=== PATIENT | female | born 1945 | race Caucasian/White ===

== ENCOUNTER 2017-03-06 21:15 | Inpatient (IN) | payer MEDICARE ==
[~2017-03-06] VITALS: Ht 163.8 cm; Wt 77.3 kg
--- NOTE | 2017-03-06 21:38 | PHYS DOC ---
Past History Past Medical History: Diabetes, High Cholesterol Additional Past Medical Histor: Schizphrenia Social History Narrative: Resides at [facility]; PCP Dr Herman Adult General HPI HPI Patient is a 71 year old female who presents with medical clearance and evaluation for psychiatric admission. She resides at a assisted where she has known schizophrenia but apparently has been more paranoid. She was having Disruptive behavior at the [facility]. She arrives in no distress presently and with no complaints. Review of Systems Review of Systems Constitutional: Denies fever or chills HENT: Denies nasal congestion or sore throat Respiratory: Denies cough or shortness of breath Cardiovascular: No chest pain GI: Denies abdominal pain, nausea, vomiting, bloody stools or diarrhea : Denies dysuria or hematuria Musculoskeletal: Denies back pain or joint pain Integument: Denies rash or skin lesions Neurologic: Denies headache, focal weakness or sensory changes Physical Exam Physical Exam Constitutional: Well developed, well nourished, no acute distress, non-toxic appearance. HENT: Normocephalic, atraumatic, bilateral external ears normal, oropharynx moist, no oral exudates, nose normal. Eyes: PERRLA, EOMI, conjunctiva normal, no discharge. Neck: Normal range of motion, no tenderness, supple, no stridor. Cardiovascular:Heart rate regular rhythm, no murmur Lungs & Thorax: Bilateral breath sounds clear to auscultation Abdomen: Bowel sounds normal, soft, no tenderness, no masses, no pulsatile masses. Skin: Warm, dry, no erythema, no rash. Back: No tenderness, no CVA tenderness. Extremities: No tenderness, no cyanosis, no clubbing, ROM intact, no edema. Neurologic: Alert and oriented X 3, normal motor function, normal sensory function, no focal deficits noted. Psychologic: Affect normal, judgement normal, mood normal. Current Patient Data Vital Signs Vital Signs Date Time Temp Pulse Resp B/P (MAP) Pulse Ox O2 Delivery O2 Flow Rate FiO2 03/07/17 00:57 97.6 69 20 148/77 (100) 94.0 Lab Results Laboratory Tests Test 03/06/17 21:30 03/06/17 21:35 White Blood Count 8.5 x10^3/uL Red Blood Count 5.04 x10^6/uL Hemoglobin 14.3 g/dL Hematocrit 43.3 % Mean Corpuscular Volume 86 fL Mean Corpuscular Hemoglobin 28 pg Mean Corpuscular Hemoglobin Concent 33 g/dL Red Cell Distribution Width 14.7 % Platelet Count 166 x10^3/uL Neutrophils (%) (Auto) 65 % Lymphocytes (%) (Auto) 26 % Monocytes (%) (Auto) 8 % Eosinophils (%) (Auto) 1 % Basophils (%) (Auto) 0 % Neutrophils # (Auto) 5.5 x10^3uL Lymphocytes # (Auto) 2.2 x10^3/uL Monocytes # (Auto) 0.7 x10^3/uL Eosinophils # (Auto) 0.1 x10^3/uL Basophils # (Auto) 0.0 x10^3/uL Sodium Level 141 mmol/L Potassium Level 3.8 mmol/L Chloride Level 101 mmol/L Carbon Dioxide Level 31 mmol/L Anion Gap 9 Blood Urea Nitrogen 21 mg/dL Creatinine 1.1 mg/dL Estimated GFR (Cockcroft-Gault) 49.0 BUN/Creatinine Ratio 19 Glucose Level 105 mg/dL Calcium Level 9.6 mg/dL Magnesium Level 1.9 mg/dL Total Bilirubin 0.4 mg/dL Aspartate Amino Transf (AST/SGOT) 16 U/L Alanine Aminotransferase (ALT/SGPT) 24 U/L Alkaline Phosphatase 93 U/L Creatine Kinase 51 U/L Total Protein 7.5 g/dL Albumin 3.3 g/dL Albumin/Globulin Ratio 0.8 Urine Collection Type U cath Urine Color Yellow Urine Clarity Hazy Urine pH 6.5 Urine Specific [place] 1.020 Urine Protein Neg Urine Glucose (UA) Neg mg/dL Urine Ketones (Stick) Neg mg/dL Urine Blood Neg Urine Nitrite Neg Urine Bilirubin Neg Urine Urobilinogen Dipstick 0.2 mg/dL Urine Leukocyte Esterase Neg Urine RBC 1-2 /HPF Urine WBC 1-4 /HPF Urine Squamous Epithelial Cells Many /LPF Urine Bacteria Mod /HPF EKG EKG EKG interpretation: NSR, Rate 76, no STEMI; no acute ST changes Course & Med Decision Making Course & Med Decision Making Pertinent Labs and Imaging studies reviewed. (See chart for details) Chin evaluated with no evidence of acute physiologic event that might be precipitating her flare of psychosis. She does comment that "everyone here has radio in their ears" but that is actually a fact. And very appropriate and pleasant here. Patient transferred for psychiatric hospitalization. Dragon Disclaimer Dragon Disclaimer This chart was dictated in whole or in part using Voice Recognition software in a busy, high-work load, and often noisy Emergency Department environment. It may contain unintended and wholly unrecognized errors or omissions. Departure Departure: Impression: Primary Impression: Psychosis Additional Impression: Disruptive behavior Disposition: 65 XFER TO PSYCH HOSP/UNIT Condition: GOOD Referrals: PCP,NO (PCP) Problem Qualifiers ALLAN MCKEON MD March 06, 2017 21:38
[2017-03-06] MEDS ORDERED: ARIP400S IM (21:56)
[2017-03-06] MEDS ORDERED: ASPI-630 PO (21:57)
[2017-03-06] MEDS ORDERED: ATOR20TA58 PO (21:58)
[2017-03-06 21:59] LABS: BASO % 0 % (0-3); EOS # 0.1 x10^3/uL (0.0-0.7); EOS % 1 % (0-3); HEMATOCRIT 43.3 % (36.0-47.0); HEMOGLOBIN 14.3 g/dL (12.0-15.5); LYMPH # 2.2 x10^3/uL (1.0-4.8); LYMPH % 26 % (24-48); MEAN CORPUSCULAR HEMOGLOBIN 28 pg (25-35); MEAN CORPUSCULAR HGB CONC 33 g/dL (31-37); MEAN CORPUSCULAR VOLUME 86 fL (79-100); MONO # 0.7 x10^3/uL (0.0-1.1); MONO % 8 % (0-9); NEUT # 5.5 x10^3uL (1.8-7.7); NEUT % 65 % (31-73); PLATELET COUNT 166 x10^3/uL (140-400); RED BLOOD COUNT 5.04 x10^6/uL (3.50-5.40); RED CELL DISTRIBUTION WIDTH 14.7 % (11.5-14.5); WHITE BLOOD COUNT 8.5 x10^3/uL (4.0-11.0)
[2017-03-06] MEDS ORDERED: CALC-58 PO (22:01)
[2017-03-06] MEDS ORDERED: GLUC500T10 PO (22:03)
[2017-03-06] MEDS ORDERED: GLIP5TAB10 PO (22:03)
[2017-03-06] MEDS ORDERED: HALO1TAB PO (22:04)
[2017-03-06] MEDS ORDERED: HYDR25TA9 PO (22:05)
[2017-03-06] MEDS ORDERED: MIRT15TA3 PO (22:06)
[2017-03-06] MEDS ORDERED: TRAZ50TA15 PO (22:07)
[2017-03-06] MEDS ORDERED: [UNRECOGNIZED DRUG - OTHER] TOP (22:09)
[2017-03-06] MEDS ORDERED: MAGN2400 PO (22:11)
[2017-03-06 22:12] LABS: ALBUMIN 3.3 g/dL (3.4-5.0); ALBUMIN/GLOBULIN RATIO 0.8 (1.0-1.7); CALCIUM 9.6 mg/dL (8.5-10.1); CREATININE 1.1 mg/dL (0.6-1.0); MAGNESIUM 1.9 mg/dL (1.8-2.4); POTASSIUM 3.8 mmol/L (3.5-5.1); TOTAL BILIRUBIN 0.4 mg/dL (0.2-1.0); TOTAL PROTEIN 7.5 g/dL (6.4-8.2)
[2017-03-06] MEDS ORDERED: BISA5TAB4 PO (22:13)
[2017-03-06] MEDS ORDERED: NA P133E2 RC (22:15)
[2017-03-06] MEDS ORDERED: ACET500T68 PO (22:16)
[2017-03-06] MEDS ORDERED: POLY15DR27 OU (22:17)
[2017-03-06] MEDS ORDERED: DOCU100C28 PO (22:18)
[2017-03-06] MEDS ORDERED: LORA0.5T PO (22:19)
[2017-03-06] MEDS ORDERED: LORA10TA3 PO (22:19)
[2017-03-06] MEDS ORDERED: POLY17PO3 PO (22:21)
[2017-03-06] MEDS ORDERED: LORA2VIA IM (22:21)
[2017-03-06] MEDS ORDERED: MINE396O2 TP (22:23)
[2017-03-06 22:24] LABS: BILIRUBIN,URINE NEG (NEG); CLARITY,URINE HAZY; COLOR,URINE YELLOW; GLUCOSE,URINE NEG (NEG)
[2017-03-06] MEDS ORDERED: MENT118G TP (22:24)
[2017-03-06 22:25] LABS: BACTERIA,URINE MOD /HPF (0-FEW); NITRITE,URINE NEG (NEG); SQUAMOUS EPITHELIAL CELL,UR MANY /LPF; UROBILINOGEN,URINE 0.2 mg/dL (0.2 mg/dL)
[2017-03-06] MEDS ORDERED: HALO5AMP IM (22:25)
--- NOTE | 2017-03-07 00:40 | NUR ---
Pt arrived to floor via gurney, accompanied by EMS and ASSISTANT PROFESSOR OF ANTHROPOLOGY. Pt admitted to Dr. Bales with Dx: Schizophrenia, Acute Psychosis. Pt alert, oriented to name, , time, forgetful as to place and situation. LSCTA, HRRR, abdomen soft, non-tender with positive BS. Pt reports hx of constipation but states her last BM was 03/06. Pt wears glasses, does not have hearing aids or dentures. Denies pain at this time. Skin C/D/I with some redness noted under breasts and abdominal folds. Pt oriented to room, bed in low position w/wheels locked and bed alarm in use.
[2017-03-07] MEDS ORDERED: MAG HYDROX/AL HYDROX/SIMETH 30 ML ORAL.SUSP PO PRN (00:45)
[2017-03-07] MEDS ORDERED: MAGNESIUM HYDROXIDE 2,400 MG/30 ML ORAL.SUSP. PO PRN (00:45)
[2017-03-07] MEDS ORDERED: METHYL SALICYLATE/MENTHOL TOPICAL OINTMENT 29GM TUBE. TP PRN (00:45)
[2017-03-07] MEDS ORDERED: ACETAMINOPHEN 325 MG TABLET PO PRN (00:45)
[2017-03-07 00:57] VITALS: BP 148/77
[2017-03-07] MEDS ORDERED: LORazepam 0.5 MG TABLET PO PRN (01:00)
[2017-03-07 05:52] VITALS: BP 118/61
--- NOTE | 2017-03-07 06:32 | EKG ---
[address] [address] Test Date: 2017-03-06 Test Time: 21:49:30 Pat Name: OVI FOWLER Department: Room: [address] [place] [address] Gender: F [employer] Consultant: : 1945 Requested By: ALLAN MCKEON Order Number: [id number] Reading MD: Christian Jackson Measurements Intervals [place] Rate: 76 P: 55 CO: 172 QRS: 34 QRSD: 76 T: 62 QT: 372 QTc: 418 Interpretive Statements SINUS RHYTHM Electronically Signed On 03-07-2017 10:54:30 CDT by Christian Jackson
[2017-03-07] MEDS ORDERED: NON FORMULARY ITEM (Menthol (Biofreeze) 1 APP) TP PRN (07:45)
[2017-03-07] MEDS ORDERED: POLYVINYL ALCOHOL 1.4% OPHTH SOLUTION 15ML BOTTLE. OU PRN (07:45)
[2017-03-07] MEDS ORDERED: NON FORMULARY ITEM (Magnesium Hydroxide (Milk Of Magnesia) 30 ML) PO PRN (07:45)
[2017-03-07] MEDS ORDERED: BISACODYL TAB 5 MG TABLET.DR. PO PRN (07:45)
[2017-03-07] MEDS ORDERED: DOCUSATE SODIUM 100 MG CAPSULE PO PRN (07:45)
[2017-03-07] MEDS ORDERED: ACETAMINOPHEN 500 MG TABLET PO PRN (07:45)
[2017-03-07] MEDS: GLUCOSAMINE 500 MG CAPSULE PO SCH ×2 (08:13→20:14)
[2017-03-07] MEDS: glipiZIDE 5 MG TABLET PO SCH (08:13)
[2017-03-07] MEDS: ASPIRIN 81 MG TAB.CHEW PO SCH (08:14)
[2017-03-07] MEDS: CALCIUM CARB/VIT D3 500/200 TABLET PO SCH ×2 (08:14→17:03)
[2017-03-07] MEDS: hydroCHLOROthiazide 25 MG TABLET PO SCH (08:14)
[2017-03-07] MEDS: POLYETHYLENE GLYCOL 3350 17 GM PACKET. PO SCH (08:14)
[2017-03-07] MEDS ORDERED: MINERAL OIL/PETROLATUM TOPICAL CREAM 113GM JAR. TP PRN ×2 (08:15→14:45)
[2017-03-07] MEDS ORDERED: APP TOP SCH (09:00)
[2017-03-07] MEDS ORDERED: HALOPERIDOL 1 MG TABLET PO SCH (09:00)
[2017-03-07] MEDS ORDERED: NON FORMULARY ITEM (Aripiprazole (Abilify Maintena) 400 MG) IM SCH (09:00)
--- NOTE | 2017-03-07 12:17 | NUR ---
SW met with pt one on one outside today; pt states she is here because no one believes her. Pt states there are listening devices and they are currently listening to our conversation, she reports two people. Pt stated names, however was mumbling SW unable to machine operator hop picker on the names. Pt very tearful as she talked, pt has a flat affect during conversation, pt made no eye contact and looked straight ahead during the entire conversation. SW asked about where pt is from, pt reports [place] in , she states she has been there for a year prior to this she was at [facility] for a year. Pt reports she doesn't remember why or where she was prior to this. Pt states she has a son and her son is unable to call up to the unit "if he calls, he will be killed, I mean literally cut to pieces." Pt changed topics as soon as she finished sentence to the weather being windy. SW will reach out to pt DPOA regarding historical information. SW will meet with pt one on one as well as encourage her to participate in group activities.
--- NOTE | 2017-03-07 13:43 | NUR ---
SW GROUP NOTE TITLE: Popsicles! ACTIVITY: Pt. chose a color of foam, cut out in the shape of a popsicle, and given a wooden stick. Pts. decorated using foam stickers, markers and glitter. Pt's reminisced about popsicles as a kid. Also discussed how arts and crafts help w/relaxation and therapeutic direction/expression. TARGET BEHAVIOR: Reminisce, directed focus, social skills, creative expression DURATION: 1 hour RESPONSE: actively participated, but did not speak to the other group participants and only spoke to SW when asked a question.
--- NOTE | 2017-03-07 14:00 | NUR ---
THERAPEUTIC RECREATION GROUP NOTE TITLE :Dance and Sing along with Viky ACTIVITY : Music GOAL : Increase socialization, elevate mood, stimulate memory DURATION : 60 Minutes RESPONSE : Minimal participation. Pt. sat with the group the entire time. She occasionally tapped foot along with the songs but did not sing
[2017-03-07 14:47] LABS: THYROID STIM HORMONE (TSH) 4.761 uIU/mL (0.358-3.740)
--- NOTE | 2017-03-07 15:01 | NUR ---
Behavior Intervention Response and Plan: BIRP Note: Behavior: Assumed Care of patient, patient located in Dining Room at shift change. Patient exhibited the following behavior Restless, Disorganized, Cooperative. Brief assessment on rounds of vital signs, medication needs, lab studies, and pain. Treatment plan problems 1 & 2. Intervention: Patient assessed and the following interventions initiated safety checks 15 Minute Checks Cognitive Assessment , Head to toe Assessment , Medications. Response: After interactions and interventions patient responded in the following manner, Calm , Appropriate ,Compliant. Continue to assess behaviors and condition will continue to monitor throughout the shift as needed. Plan: Continue to monitor Master Treatment Plan for patient's progress toward short term goals of Decreased Agitation, Medication Compliance, supervisor intermediates goals to return to previous living setting vs placement. Continue to assess patient for changes in above assessment. Monitor for medication needs, pain, and safety concerns. Hourly rounding performed to ensure safe environment.
--- NOTE | 2017-03-07 15:23 | HP ---
ADMIT DATE: 03/07/2017 REASON FOR ADMISSION TO THE SENIOR BEHAVIORAL UNIT: This is a 71-year-old female who came from [facility] in [place], [place]. When I her asked her what brings her to us, she states "I have been told, I haven't been acting right." The intake states she has been hallucinating, paranoid, not taking her meds, which she denies; stating the undercover outsole flexer her around. Onset of symptoms, 3 weeks. Also, stated on the intake, she has been trying to hide p.r.n.'s in her food. PAST MEDICAL HISTORY: Diabetes, psychosis, schizophrenia, hyperlipidemia, insomnia, dry eyes, constipation and anxiety. Also has seasonal allergies. ALLERGIES: IMIPRAMINE and DEMEROL. MEDICATION CHANGES: The patient's Abilify was discontinued on 02/26/2017 and had been started on 02/14/2017, Haldol 5 mg IM q.8 hours p.r.n. was started on 02/26/2017. SOCIAL HISTORY: The patient has 1 son, has never smoked, resides at a nursing facility. REVIEW OF SYSTEMS: The patient states she has been having swollen hands. She has tremors, which she attributes to Abilify and states she did not have tremors prior to Abilify, otherwise. The patient denies having hallucinations. OBJECTIVE: VITAL SIGNS: Blood pressure 118/61, pulse 71, respirations 20, O2 sat 94% on room air, temperature 98.1. Height 64.5 inches, weight 167.5 pounds. GENERAL: The patient's complexion is hitesh. She has a little bit of seborrhea. HEENT: She has clayton facies. Her hearing is normal. Her pupils were equal, round, and reactive to light. Extraocular muscles were intact. Her nose was patent. Her throat was clear. Tongue was midline with fasciculations. NECK: Supple, without adenopathy. Thyroid is not enlarged. LUNGS: Clear to auscultation. CARDIOVASCULAR: Regular rhythm and rate. ABDOMEN: Soft, nontender. EXTREMITIES: Without edema. Hands, noted to be swollen. She has pill rolling tremors of the right and left hands, particularly on the right. NEUROLOGIC: Cranial nerves appear to be intact. Gdfrkd-[id number]-wjvb was not done. Her reflexes were like difficult to obtain. Her gait, she has a shuffling gait and difficult to get from sitting to standing. Her affect is flat. LABORATORY DATA: Reviewed. BUN 21, creatinine 1.1. Normal CBC. Urinalysis, contaminated specimen with squamous epithelial cells. ASSESSMENT: 1. A 71-year-old with schizophrenia with hallucinations and paranoia. 2. 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 3. Severe tremors. 4. Depression. 5. Type 2 diabetes. 6. Constipation. 7. Dry eyes. PLAN: [facility] We will get the results of those. Neurology consult per Dr. Jaquez and we will follow along with Dr. Bales. CAREY MCCLURE DO DR: CHRISTELLE/anika JOB#: [id number] / [id number]
[2017-03-07 15:55] VITALS: BP 134/83
[2017-03-07] MEDS: ATORVASTATIN CALCIUM 20 MG TABLET PO SCH (20:13)
[2017-03-07] MEDS: risperiDONE ORAL 1 MG/ML 30ml BOTTLE. SL SCH (20:13)
[2017-03-07] MEDS: MIRTAZAPINE 15 MG TABLET PO SCH (20:13)
[2017-03-07] MEDS: traZODone 50 MG TABLET. PO SCH (20:14)
--- NOTE | 2017-03-07 21:04 | PDOC ---
Exam Andre Demential Exam: Andre Note: Please also refer to the separate dictated note~for this date of service dictated separately.~Patient seen individually. Discussed the patient with Nursing staff reviewed the chart.~Reviewed interim history and current functioning. Reviewed vital signs,~Labs/ Radiology~and current medications noted below. Continue current treatment with the changes noted in the dictated addendum note Assessment: Vital Signs: Vital Signs Date Time Temp Pulse Resp B/P (MAP) Pulse Ox O2 Delivery O2 Flow Rate FiO2 03/07/17 15:55 97.6 73 20 134/83 (100) 97 03/07/17 00:57 94.0 03/06/17 21:15 Room Air Labs: Laboratory Tests Test 03/06/17 21:30 03/06/17 21:35 03/07/17 07:16 03/07/17 11:11 White Blood Count 8.5 x10^3/uL (4.0-11.0) Red Blood Count 5.04 x10^6/uL (3.50-5.40) Hemoglobin 14.3 g/dL (12.0-15.5) Hematocrit 43.3 % (36.0-47.0) Mean Corpuscular Volume 86 fL (79-100) Mean Corpuscular Hemoglobin 28 pg (25-35) Mean Corpuscular Hemoglobin Concent 33 g/dL (31-37) Red Cell Distribution Width 14.7 % (11.5-14.5) H Platelet Count 166 x10^3/uL (140-400) Neutrophils (%) (Auto) 65 % (31-73) Lymphocytes (%) (Auto) 26 % (24-48) Monocytes (%) (Auto) 8 % (0-9) Eosinophils (%) (Auto) 1 % (0-3) Basophils (%) (Auto) 0 % (0-3) Neutrophils # (Auto) 5.5 x10^3uL (1.8-7.7) Lymphocytes # (Auto) 2.2 x10^3/uL (1.0-4.8) Monocytes # (Auto) 0.7 x10^3/uL (0.0-1.1) Eosinophils # (Auto) 0.1 x10^3/uL (0.0-0.7) Basophils # (Auto) 0.0 x10^3/uL (0.0-0.2) Sodium Level 141 mmol/L (136-145) Potassium Level 3.8 mmol/L (3.5-5.1) Chloride Level 101 mmol/L (98-107) Carbon Dioxide Level 31 mmol/L (21-32) Anion Gap 9 (6-14) Blood Urea Nitrogen 21 mg/dL (7-20) H Creatinine 1.1 mg/dL (0.6-1.0) H Estimated GFR (Cockcroft-Gault) 49.0 BUN/Creatinine Ratio 19 (6-20) Glucose Level 105 mg/dL (70-99) H Calcium Level 9.6 mg/dL (8.5-10.1) Magnesium Level 1.9 mg/dL (1.8-2.4) Iron Level 50 ug/dL (50-170) Total Iron Binding Capacity 351 ug/dL (250-450) Iron Saturation 14 % (15-34) L Total Bilirubin 0.4 mg/dL (0.2-1.0) Aspartate Amino Transferase (AST) 16 U/L (15-37) Alanine Aminotransferase (ALT) 24 U/L (14-59) Alkaline Phosphatase 93 U/L (46-116) Creatine Kinase 51 U/L (26-192) Troponin I Quantitative < 0.017 ng/mL (0-0.055) Total Protein 7.5 g/dL (6.4-8.2) Albumin 3.3 g/dL (3.4-5.0) L Albumin/Globulin Ratio 0.8 (1.0-1.7) L Vitamin B12 Level 650 pg/mL (247-911) Urine Collection Type U cath Urine Color Yellow Urine Clarity Hazy Urine pH 6.5 Urine Specific [place] 1.020 Urine Protein Neg (NEG-TRACE) Urine Glucose (UA) Neg mg/dL (NEG) Urine Ketones (Stick) Neg mg/dL (NEG) Urine Blood Neg (NEG) Urine Nitrite Neg (NEG) Urine Bilirubin Neg (NEG) Urine Urobilinogen Dipstick 0.2 mg/dL (0.2 mg/dL) Urine Leukocyte Esterase Neg (NEG) Urine RBC 1-2 /HPF (0-2) Urine WBC 1-4 /HPF (0-4) Urine Squamous Epithelial Cells Many /LPF Urine Bacteria Mod /HPF (0-FEW) Glucose (Fingerstick) 102 mg/dL (70-99) H 107 mg/dL (70-99) H Test 03/07/17 16:47 03/07/17 19:12 Glucose (Fingerstick) 97 mg/dL (70-99) 152 mg/dL (70-99) H Current Medications: Meds: Current Medications Acetaminophen (Tylenol) 650 mg PRN Q6HRS PRN PO MILD PAIN / TEMP Last administered on 03/07/17 17:50; Start 03/07/17 at 00:45 Multi-Ingredient Ointment (Analgesic [place]) 1 macey PRN QID PRN TP MUSCLE PAIN; Start 03/07/17 at 00:45 Al Hydroxide/Mg Hydroxide (Mylanta Plus Xs) 15 ml PRN AFTMEALHC PRN PO DYSPEPSIA; Start 03/07/17 at 00:45 Magnesium Hydroxide (Milk Of Magnesia) 2,400 mg PRN QHS PRN PO CONSTIPATION; Start 03/07/17 at 00:45 Haloperidol (Haldol) 1 mg BID PO Last administered on 03/07/17 08:14; Start at 09:00; Stop 03/07/17 at 18:20; Status DC Lorazepam (Ativan) 0.5 mg PRN Q12HR PRN PO ANXIETY / AGITATION; Start 03/07/17 at 01:00 Mirtazapine (Remeron) 15 mg QHS PO Last administered on 03/07/17 20:13; Start 03/07/17 at 21:00 Trazodone HCl (Desyrel) 50 mg QHS PO Last administered on 03/07/17 20:14; Start 03/07/17 at 21:00 Non-Formulary Medication 400 mg Q4WK IM ; Start 03/07/17 at 09:00; Stop at 18:20; Status DC Acetaminophen (Tylenol) 500 mg PRN Q6HRS PRN PO PAIN / TEMP; Start 03/07/17 at 07:45; Stop 03/07/17 at 08:00; Status DC Aspirin (Children'S Aspirin) 81 mg DAILY PO Last administered on 03/07/17 08: 14; Start 03/07/17 at 09:00 Atorvastatin Calcium (Lipitor) 20 mg QHS PO Last administered on 03/07/17 20: 13; Start 03/07/17 at 21:00 Bisacodyl (Dulcolax Tab) 10 mg PRN DAILY PRN PO CONSTIPATION; Start 03/07/17 at 07:45 Docusate Sodium (Colace) 100 mg PRN BID PRN PO CONSTIPATION; Start 03/07/17 at 07:45 Glipizide (Glucotrol) 2.5 mg DAILY PO Last administered on 03/07/17 08:13; Start 03/07/17 at 09:00 Hydrochlorothiazide (Hydrodiuril) 25 mg DAILY PO Last administered on 08:14; Start 03/07/17 at 09:00 Polyethylene Glycol (miraLAX) 17 gm DAILY PO Last administered on 03/07/17 08: 14; Start 03/07/17 at 09:00 Artificial Tears (Artificial Tears) 1 drop PRN BID PRN OU DRY EYE; Start at 07:45 Calcium/Vitamin D (Oscal D 500mg/ 200uts) 1 tab BIDWMEALS PO Last administered on 03/07/17 17:03; Start 03/07/17 at 08:00 Glucosamine Sulfate (Glucosamine) 500 mg BID PO Last administered on 03/07/17 20:14; Start 03/07/17 at 09:00 Non-Formulary Medication 30 ml PRN DAILY PRN PO CONSTIPATION; Start 03/07/17 at 07:45; Stop 03/07/17 at 07:59; Status DC Non-Formulary Medication 1 macey PRN PRN TP PAIN; Start 03/07/17 at 07:45; Stop at 08:01; Status DC Multi-Ingred Cream/Lotion/Oil/ Oint (Hydrocerin) 1 macey PRN BID PRN TP DRY SKIN ; Start 03/07/17 at 08:15; Stop 03/07/17 at 14:45; Status DC Non-Formulary Medication 1 macey TID TOP ; Start 03/07/17 at 09:00; Stop 03/07/17 at 09:00; Status DC Multi-Ingred Cream/Lotion/Oil/ Oint (Hydrocerin) 1 macey PRN BID PRN TP DRY SKIN ; Start 03/07/17 at 14:45 Risperidone (Risperdal) 0.5 mg BID SL Last administered on 03/07/17t 20:13; Start 03/07/17 at 21:00 Active Scripts Active Reported Haloperidol (Haloperidol Lactate) 5 Mg/1 Ml Ampul 5 Mg IM PRN Q8HRS PRN Biofreeze (Menthol) 118 Ml Gel..ml. 1 Macey TP PRN PRN Apply topically to Left Shoulder PRN Pain Aquaphor Ointment (Mineral Oil/Hydrophil Petrolat) 396 Gm Oint...g. 1 Macey TP PRN BID PRN Polyethylene Glycol 3350 17 Gm Powd.pack 17 Gm PO DAILY Lorazepam 2 Mg/1 Ml Vial 0.25 Mg IM PRN Q12HR PRN Lorazepam 0.5 Mg Tablet 0.5 Mg PO PRN Q12HR PRN Loratadine 10 Mg Tablet 10 Mg PO Docusate Sodium 100 Mg Capsule 100 Mg PO PRN BID PRN Artificial Tears (Polyvinyl Alcohol) 15 Ml Drops 1 Drop OU PRN BID PRN Acetaminophen 500 Mg Tablet 500 Mg PO PRN Q6HRS PRN Fleet Enema (Na Phos,M-B/Na Phos,Di-Ba) 133 Ml Enema 133 Ml RC PRN DAILY PRN Administer if MOM and Dulcolax unsuccessful after 48 hours Bisacodyl 5 Mg Tablet.dr 10 Mg PO PRN DAILY PRN Administer if MOM unsuccessful after 24 hours Milk Of Magnesia (Magnesium Hydroxide) 2,400 Mg/10 Ml Oral.susp 30 Ml PO PRN DAILY PRN [Sureprep] 1 Macey TOP TID Apply topically to Bilateral Plantar feet TID Trazodone Hcl 50 Mg Tablet 50 Mg PO QHS Mirtazapine 15 Mg Tablet 15 Mg PO QHS Hydrochlorothiazide Tablet (Hydrochlorothiazide) 25 Mg Tablet 25 Mg PO DAILY Haloperidol 1 Mg Tablet 1 Mg PO BID Glucosamine Hcl 500 Mg Tablet 500 Mg PO BID Glipizide 5 Mg Tablet 2.5 Mg PO DAILY Calcium 600+D Plus Minerals Tb (Calcium Carb/Vit D3/Minerals) 1 Each Tablet 1 Tab PO BID Atorvastatin Calcium 20 Mg Tablet 20 Mg PO QHS Aspirin 81 Mg Tab.chew 81 Mg PO DAILY Abilify Maintena (Aripiprazole) 400 Mg Suser.vial 400 Mg IM Q4WK JORDAN AMADOR MD March 07, 2017 21:04
--- NOTE | 2017-03-08 02:23 | NUR ---
Behavior Intervention Response and Plan: BIRP Note: Behavior: Assumed Care of patient, patient located in Day Room at shift change. Patient exhibited the following behavior Calm, Withdrawn, Cooperative. Brief assessment on rounds of vital signs, medication needs, lab studies, and pain. Treatment plan problems 1 and 2. Intervention: Patient assessed and the following interventions initiated safety checks 15 Minute Checks Cognitive Assessment , Head to toe Assessment , Medications. Response: After interactions and interventions patient responded in the following manner, Calm , Compliant ,Cooperative. Continue to assess behaviors and condition will continue to monitor throughout the shift as needed. Plan: Continue to monitor Master Treatment Plan for patient's progress toward short term goals of Decreased Agitation, Improved Mood, shelter goals to return to previous living setting vs placement. Continue to assess patient for changes in above assessment. Monitor for medication needs, pain, and safety concerns. Hourly rounding performed to ensure safe environment.
[2017-03-08 06:07] VITALS: BP 116/64
[2017-03-08 06:09] LABS: HEMOGLOBIN A1C 5.6 % (4.8-5.6)
[2017-03-08] MEDS: GLUCOSAMINE 500 MG CAPSULE PO SCH ×2 (08:14→20:20)
[2017-03-08] MEDS: ASPIRIN 81 MG TAB.CHEW PO SCH (08:14)
[2017-03-08] MEDS: CALCIUM CARB/VIT D3 500/200 TABLET PO SCH ×2 (08:14→16:34)
[2017-03-08] MEDS: glipiZIDE 5 MG TABLET PO SCH (08:15)
[2017-03-08] MEDS: hydroCHLOROthiazide 25 MG TABLET PO SCH (08:15)
[2017-03-08] MEDS: POLYETHYLENE GLYCOL 3350 17 GM PACKET. PO SCH (08:17)
[2017-03-08] MEDS: risperiDONE ORAL 1 MG/ML 30ml BOTTLE. SL SCH ×2 (08:18→20:22)
--- NOTE | 2017-03-08 09:00 | NUR ---
ACTIVITY THERAPY ASSESSMENT Completed based on observations and interview on this day at this time in the day room. Pt. was agreeable and stated she likes to read mystery books, arrange yu, listen to music, do crossword/wordsearches and color. She was able to name the city she was in and answer assessment questions without hesitation. Her eyes slightly filled with tears when talking about her children. She said she was here because she was hearing voices and said she heard them at breakfast. Pt. keeps to self but stays around group. Initial goal: Pt. will participate in all groups she's invited to.
--- NOTE | 2017-03-08 11:13 | HP ---
ADMIT DATE: 03/07/2017 PSYCHIATRIC ADMISSION HISTORY/EVALUATION IDENTIFYING DATA: The patient is a 71-year-old female referred to us from [facility] by Dr. Rayshawn Herman, her primary care physician, Dr. Jones, her psychiatrist on account of increasing hallucinations, paranoia that she has to go to court. She has been screaming for the undercover police to leave her alone, refusing medications including Haldol and Abilify, the latter was the long acting. Staff has attempted to give her PRNs hidden in food, but she has refused all of these symptoms worsening for about 3 weeks, having failed a prior inpatient stay at [facility]. In 02/2016, she is referred to us for inpatient psychiatric stabilization for her schizophrenia versus schizoaffective disorder, bipolar type with psychotic features. The patient was seen individually at length the evening of 03/07/2017, discussed with nursing staff, reviewed the chart. CHIEF COMPLAINT: "He is there after me." The patient is quite psychotic, but reasonably oriented. HISTORY OF PRESENT ILLNESS: The patient has a history of schizoaffective disorder, bipolar type versus schizophrenia. She has been residing at [facility], but for the past 2 to 3 weeks behaviors and symptoms of psychosis has been worsening markedly as noted above. She has had sleep and appetite changes. No active suicidal or homicidal ideation. History of mood swings is evident. PAST PSYCHIATRIC HISTORY: As above. MEDICAL HISTORY: Diabetes mellitus, hyperlipidemia, degenerative joint disease, generalized anxiety disorder, insomnia, dry eyes, chronic constipation, hypertension. ALLERGIES: IMIPRAMINE, MEPERIDINE, SEASONAL ALLERGIES. Accu-Cheks a.c. and at bedtime. DIET: Regular. MEDICATIONS: Takes them whole when she does. Ambulates ad princess. UA 03/06/2017 was positive. Culture is pending. CURRENT PSYCHOTROPICS: Haldol 1 mg b.i.d., Remeron 15 mg at bedtime, trazodone 50 mg at bedtime, Ativan 0.5 mg q.12 hours p.r.n., Abilify Sustenna, long acting intramuscular Abilify was being used, but the patient has refused this and is not available at the hospital and we will discontinue this as noted below. FAMILY HISTORY: Noncontributory. SOCIAL HISTORY: No alcohol, drug abuse, physical, sexual or elder abuse history is noted. She is not known to be a perpetrator. MENTAL STATUS EXAMINATION: The patient was seen individually evening of 03/07/2017. She is oriented to herself and situation. Speech is coherent, has some latency, abstraction fair, computation impaired, language function intact. She is quite paranoid, suspicious, delusional. No active suicidal or homicidal ideation. VITAL SIGNS: Temperature 98.1, BP 118/61, pulse 71, respirations 20. REVIEW OF SYSTEMS: No CV, , pulmonary, eye, ENT system symptoms on review. Reliability poor. IMPRESSION: Schizophrenia, chronic paranoid with acute exacerbation versus schizoaffective disorder, bipolar type, mixed with psychotic features with acute exacerbation; anxiety disorder, unspecified; impulse control disorder, unspecified; cognitive disorder, unspecified. Rest diagnoses as above. Rule out urinary tract infection. PLAN: Admit to the geropsychiatry unit at [facility]. I will see the patient daily individually from a psychiatric standpoint. Medical followup with Dr. Brown/Dr. Frost. We will discontinue the patient's Haldol and Abilify Sustenna and start her on liquid Risperdal 0.5 mg twice a day, mixed in food and fluids if approved by her DPOA, Son, Robbie Cervantes. We will treat UTI. If this is positive further adjustments depending on initial response to the above. MAN Darren AMADOR MD DR: ERIKA/anika JOB#: [id number] / [id number]
[2017-03-08 16:08] VITALS: BP 125/75
[2017-03-08] MEDS: traZODone 50 MG TABLET. PO SCH (20:20)
[2017-03-08] MEDS: ATORVASTATIN CALCIUM 20 MG TABLET PO SCH (20:20)
[2017-03-08] MEDS: MIRTAZAPINE 15 MG TABLET PO SCH (20:20)
--- NOTE | 2017-03-08 20:36 | PDOC ---
Exam Andre Demential Exam: Andre Note: Please also refer to the separate dictated note~for this date of service dictated separately.~Patient seen individually. Discussed the patient with Nursing staff reviewed the chart.~Reviewed interim history and current functioning. Reviewed vital signs,~Labs/ Radiology~and current medications noted below. Continue current treatment with the changes noted in the dictated addendum note Assessment: Vital Signs: Vital Signs Date Time Temp Pulse Resp B/P (MAP) Pulse Ox O2 Delivery O2 Flow Rate FiO2 03/08/17 16:08 98.7 81 16 125/75 (92) 96 03/07/17 00:57 94.0 03/06/17 21:15 Room Air I&O Intake and Output 03/08/17 07:00 Intake Total 720 ml Balance 720 ml Intake Oral 720 ml Labs: Laboratory Tests Test 03/08/17 07:42 03/08/17 11:27 03/08/17 16:30 03/08/17 19:17 Glucose (Fingerstick) 119 mg/dL (70-99) H 126 mg/dL (70-99) H 92 mg/dL (70-99) 119 mg/dL (70-99) H Current Medications: Meds: Current Medications Acetaminophen (Tylenol) 650 mg PRN Q6HRS PRN PO MILD PAIN / TEMP Last administered on 03/07/17 17:50; Start 03/07/17 at 00:45 Multi-Ingredient Ointment (Analgesic [place]) 1 macey PRN QID PRN TP MUSCLE PAIN; Start 03/07/17 at 00:45 Al Hydroxide/Mg Hydroxide (Mylanta Plus Xs) 15 ml PRN AFTMEALHC PRN PO DYSPEPSIA; Start 03/07/17 at 00:45 Magnesium Hydroxide (Milk Of Magnesia) 2,400 mg PRN QHS PRN PO CONSTIPATION; Start 03/07/17 at 00:45 Haloperidol (Haldol) 1 mg BID PO Last administered on 03/07/17 08:14; Start at 09:00; Stop 03/07/17 at 18:20; Status DC Lorazepam (Ativan) 0.5 mg PRN Q12HR PRN PO ANXIETY / AGITATION; Start 03/07/17 at 01:00 Mirtazapine (Remeron) 15 mg QHS PO Last administered on 03/08/17 20:20; Start 03/07/17 at 21:00 Trazodone HCl (Desyrel) 50 mg QHS PO Last administered on 03/08/17 20:20; Start 03/07/17 at 21:00 Non-Formulary Medication 400 mg Q4WK IM ; Start 03/07/17 at 09:00; Stop at 18:20; Status DC Acetaminophen (Tylenol) 500 mg PRN Q6HRS PRN PO PAIN / TEMP; Start 03/07/17 at 07:45; Stop 03/07/17 at 08:00; Status DC Aspirin (Children'S Aspirin) 81 mg DAILY PO Last administered on 03/08/17 08: 14; Start 03/07/17 at 09:00 Atorvastatin Calcium (Lipitor) 20 mg QHS PO Last administered on 03/08/17 20: 20; Start 03/07/17 at 21:00 Bisacodyl (Dulcolax Tab) 10 mg PRN DAILY PRN PO CONSTIPATION; Start 03/07/17 at 07:45 Docusate Sodium (Colace) 100 mg PRN BID PRN PO CONSTIPATION; Start 03/07/17 at 07:45 Glipizide (Glucotrol) 2.5 mg DAILY PO Last administered on 03/08/17 08:15; Start 03/07/17 at 09:00 Hydrochlorothiazide (Hydrodiuril) 25 mg DAILY PO Last administered on 08:15; Start 03/07/17 at 09:00 Polyethylene Glycol (miraLAX) 17 gm DAILY PO Last administered on 03/08/17 08: 17; Start 03/07/17 at 09:00 Artificial Tears (Artificial Tears) 1 drop PRN BID PRN OU DRY EYE; Start at 07:45 Calcium/Vitamin D (Oscal D 500mg/ 200uts) 1 tab BIDWMEALS PO Last administered on 03/08/17 16:34; Start 03/07/17 at 08:00 Glucosamine Sulfate (Glucosamine) 500 mg BID PO Last administered on 03/08/17 20:20; Start 03/07/17 at 09:00 Non-Formulary Medication 30 ml PRN DAILY PRN PO CONSTIPATION; Start 03/07/17 at 07:45; Stop 03/07/17 at 07:59; Status DC Non-Formulary Medication 1 macey PRN PRN TP PAIN; Start 03/07/17 at 07:45; Stop at 08:01; Status DC Multi-Ingred Cream/Lotion/Oil/ Oint (Hydrocerin) 1 macey PRN BID PRN TP DRY SKIN ; Start 03/07/17 at 08:15; Stop 03/07/17 at 14:45; Status DC Non-Formulary Medication 1 macey TID TOP ; Start 03/07/17 at 09:00; Stop 03/07/17 at 09:00; Status DC Multi-Ingred Cream/Lotion/Oil/ Oint (Hydrocerin) 1 macey PRN BID PRN TP DRY SKIN ; Start 03/07/17 at 14:45 Risperidone (Risperdal) 0.5 mg BID SL Last administered on 03/08/17t 20:22; Start 03/07/17 at 21:00 Active Scripts Active Reported Haloperidol (Haloperidol Lactate) 5 Mg/1 Ml Ampul 5 Mg IM PRN Q8HRS PRN Biofreeze (Menthol) 118 Ml Gel..ml. 1 Macey TP PRN PRN Apply topically to Left Shoulder PRN Pain Aquaphor Ointment (Mineral Oil/Hydrophil Petrolat) 396 Gm Oint...g. 1 Macey TP PRN BID PRN Polyethylene Glycol 3350 17 Gm Powd.pack 17 Gm PO DAILY Lorazepam 2 Mg/1 Ml Vial 0.25 Mg IM PRN Q12HR PRN Lorazepam 0.5 Mg Tablet 0.5 Mg PO PRN Q12HR PRN Loratadine 10 Mg Tablet 10 Mg PO Docusate Sodium 100 Mg Capsule 100 Mg PO PRN BID PRN Artificial Tears (Polyvinyl Alcohol) 15 Ml Drops 1 Drop OU PRN BID PRN Acetaminophen 500 Mg Tablet 500 Mg PO PRN Q6HRS PRN Fleet Enema (Na Phos,M-B/Na Phos,Di-Ba) 133 Ml Enema 133 Ml RC PRN DAILY PRN Administer if MOM and Dulcolax unsuccessful after 48 hours Bisacodyl 5 Mg Tablet.dr 10 Mg PO PRN DAILY PRN Administer if MOM unsuccessful after 24 hours Milk Of Magnesia (Magnesium Hydroxide) 2,400 Mg/10 Ml Oral.susp 30 Ml PO PRN DAILY PRN [Sureprep] 1 Macey TOP TID Apply topically to Bilateral Plantar feet TID Trazodone Hcl 50 Mg Tablet 50 Mg PO QHS Mirtazapine 15 Mg Tablet 15 Mg PO QHS Hydrochlorothiazide Tablet (Hydrochlorothiazide) 25 Mg Tablet 25 Mg PO DAILY Haloperidol 1 Mg Tablet 1 Mg PO BID Glucosamine Hcl 500 Mg Tablet 500 Mg PO BID Glipizide 5 Mg Tablet 2.5 Mg PO DAILY Calcium 600+D Plus Minerals Tb (Calcium Carb/Vit D3/Minerals) 1 Each Tablet 1 Tab PO BID Atorvastatin Calcium 20 Mg Tablet 20 Mg PO QHS Aspirin 81 Mg Tab.chew 81 Mg PO DAILY Abiliflori Maintena (Aripiprazole) 400 Mg Suser.vial 400 Mg IM Q4WK JORDAN AMADOR MD March 08, 2017 20:36
--- NOTE | 2017-03-08 21:06 | NUR ---
Dr. Jaquez here to consult pt for tremors. New order received for Cogentin 0.5mg po BID, entered and noted.
[2017-03-08] MEDS: BENZTROPINE MESYLATE 0.5 MG TABLET PO SCH (21:08)
--- NOTE | 2017-03-08 22:02 | NUR ---
Behavior Intervention Response and Plan: BIRP Note: Behavior: Assumed Care of patient, patient located in Patient Room at shift change. Patient exhibited the following behavior Calm, Withdrawn, Cooperative. Brief assessment on rounds of vital signs, medication needs, lab studies, and pain. Treatment plan problems 1 and 2. Intervention: Patient assessed and the following interventions initiated safety checks 15 Minute Checks Cognitive Assessment , Head to toe Assessment , Medications. Response: After interactions and interventions patient responded in the following manner, Calm , Compliant ,Cooperative. Continue to assess behaviors and condition will continue to monitor throughout the shift as needed. 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 Continue to assess patient for changes in above assessment. Monitor for medication needs, pain, and safety concerns. Hourly rounding performed to ensure safe environment.
[2017-03-09 05:50] VITALS: BP 130/69
[2017-03-09] MEDS: POLYETHYLENE GLYCOL 3350 17 GM PACKET. PO SCH (08:18)
[2017-03-09] MEDS: GLUCOSAMINE 500 MG CAPSULE PO SCH ×2 (08:18→19:48)
[2017-03-09] MEDS: BENZTROPINE MESYLATE 0.5 MG TABLET PO SCH ×2 (08:18→19:48)
[2017-03-09] MEDS: CALCIUM CARB/VIT D3 500/200 TABLET PO SCH ×2 (08:19→17:41)
[2017-03-09] MEDS: hydroCHLOROthiazide 25 MG TABLET PO SCH (08:19)
[2017-03-09] MEDS: ASPIRIN 81 MG TAB.CHEW PO SCH (08:19)
[2017-03-09] MEDS: glipiZIDE 5 MG TABLET PO SCH (08:19)
[2017-03-09] MEDS: risperiDONE ORAL 1 MG/ML 30ml BOTTLE. SL SCH ×2 (08:21→19:50)
--- NOTE | 2017-03-09 11:15 | NUR ---
THERAPEUTIC RECREATION GROUP NOTE TITLE :Movement to Music: Flexibility ACTIVITY : Movement/ Exercise GOAL : Increase morale, attention, flexibility. Decrease stress/anxiety. DURATION : 40 Minutes RESPONSE : Full participation. Pt. needed no prompting to stay on task. She copied every move while sitting quietly.
--- NOTE | 2017-03-09 11:21 | NUR ---
Behavior Intervention Response and Plan: BIRP Note: Behavior: Assumed Care of patient, patient located in Patient Room at shift change. Patient exhibited the following behavior Demanding, Irritable, Agitated. Brief assessment on rounds of vital signs, medication needs, lab studies, and pain. Treatment plan problems 1 and 2. Intervention: Patient assessed and the following interventions initiated safety checks 15 Minute Checks Head to toe Assessment , Cognitive Assessment , Medications. Response: After interactions and interventions patient responded in the following manner, Withdrawn , Cooperative ,Interactive. Continue to assess behaviors and condition will continue to monitor throughout the shift as needed. 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 Continue to assess patient for changes in above assessment. Monitor for medication needs, pain, and safety concerns. Hourly rounding performed to ensure safe environment.
--- NOTE | 2017-03-09 13:19 | RAD ---
Examination: CT head without contrast History: History of history of brain cancer, altered mental status mental status. Comparison: None available PQRS Compliance Statement: One or more of the following individualized dose reduction techniques were utilized for this examination: 1. Automated exposure control 2. Adjustment of the mA and/or kV according to patient size 3. Use of iterative reconstruction technique Findings: There is no evidence of midline shift. There is a calcified mass identified in the right parasagittal frontal region measuring 1.3 cm abutting the falx probably a meningioma. There is a 2.1 x 1.5 cm density identified abutting the inner table of the skull extending into the right frontal lobe and a 1.6 x 1.2 cm density identified in the posterior right parietal lobe abutting the inner table of the skull. Another small mass identified in the region of the vertex in the right parasagittal region measuring 1.8 x 1.1 cm. Small calcifications identified abutting the falx in the region of the vertex probably falx calcification or small meningiomas. The giron-white matter differentiation is maintained. There is no acute intracranial bleed or extra-axial fluid collection identified. The visualized lateral ventricles, third ventricle, fourth ventricle are appropriate for age. The basal cisterns are uneffaced. The visualized paranasal sinuses, left mastoid air cells are clear. There is some opacification right mastoid with prior surgical changes in the right mastoid region. Impression: 1. Multiple slightly hyperdense masses as described above. Differential includes meningiomas, brain lesions are not completely excluded. Recommend MRI with and without contrast for further evaluation if clinically feasible.
--- NOTE | 2017-03-09 14:02 | NUR ---
Case Management Note Clinical updates sent to [facility] on patient's progress.
--- NOTE | 2017-03-09 14:30 | NUR ---
THERAPEUTIC RECREATION GROUP NOTE TITLE :Jaredclayton Rosita Bower ACTIVITY : Arts and Crafts GOAL : Increase socialization, fine motor skills, creativity DURATION : 105 minutes RESPONSE : Full participation. Pt. was agreeable and colored for most of the 105 minutes. She was quite and focused on her paper. She had great attention to details and stayed on task with no prompting.
[2017-03-09 15:49] VITALS: BP 138/82
--- NOTE | 2017-03-09 18:06 | NUR ---
When pt was taken to the pavilion for CT, became delusional and hearing voices. Was tearful but redirectable. Remains withdrawn but did participate with activities and stretching exercises.
[2017-03-09] MEDS: MIRTAZAPINE 15 MG TABLET PO SCH (19:48)
[2017-03-09] MEDS: ATORVASTATIN CALCIUM 20 MG TABLET PO SCH (19:48)
[2017-03-09] MEDS: traZODone 50 MG TABLET. PO SCH (19:48)
[2017-03-09] MEDS: DIVALPROEX ER 250 MG TAB.ER.24H. PO SCH (19:50)
--- NOTE | 2017-03-09 21:03 | PDOC ---
Exam Andre Demential Exam: Andre Note: Please also refer to the separate dictated note~for this date of service dictated separately.~Patient seen individually. Discussed the patient with Nursing staff reviewed the chart.~Reviewed interim history and current functioning. Reviewed vital signs,~Labs/ Radiology~and current medications noted below. Continue current treatment with the changes noted in the dictated addendum note Assessment: Vital Signs: Vital Signs Date Time Temp Pulse Resp B/P (MAP) Pulse Ox O2 Delivery O2 Flow Rate FiO2 03/09/17 15:49 97.2 85 18 138/82 (100) 98 03/07/17 00:57 94.0 03/06/17 21:15 Room Air I&O Intake and Output 03/09/17 07:00 Intake Total 960 ml Balance 960 ml Intake Oral 960 ml Labs: Laboratory Tests Test 03/09/17 07:27 03/09/17 11:03 03/09/17 16:30 03/09/17 19:59 Glucose (Fingerstick) 118 mg/dL (70-99) H 178 mg/dL (70-99) H 92 mg/dL (70-99) 132 mg/dL (70-99) H Current Medications: Meds: Current Medications Acetaminophen (Tylenol) 650 mg PRN Q6HRS PRN PO MILD PAIN / TEMP Last administered on 03/07/17 17:50; Start 03/07/17 at 00:45 Multi-Ingredient Ointment (Analgesic [place]) 1 macey PRN QID PRN TP MUSCLE PAIN; Start 03/07/17 at 00:45 Al Hydroxide/Mg Hydroxide (Mylanta Plus Xs) 15 ml PRN AFTMEALHC PRN PO DYSPEPSIA; Start 03/07/17 at 00:45 Magnesium Hydroxide (Milk Of Magnesia) 2,400 mg PRN QHS PRN PO CONSTIPATION Last administered on 03/08/17 20:45; Start 03/07/17 at 00:45 Haloperidol (Haldol) 1 mg BID PO Last administered on 03/07/17 08:14; Start at 09:00; Stop 03/07/17 at 18:20; Status DC Lorazepam (Ativan) 0.5 mg PRN Q12HR PRN PO ANXIETY / AGITATION; Start 03/07/17 at 01:00 Mirtazapine (Remeron) 15 mg QHS PO Last administered on 03/09/17 19:48; Start 03/07/17 at 21:00 Trazodone HCl (Desyrel) 50 mg QHS PO Last administered on 03/09/17 19:48; Start 03/07/17 at 21:00 Non-Formulary Medication 400 mg Q4WK IM ; Start 03/07/17 at 09:00; Stop at 18:20; Status DC Acetaminophen (Tylenol) 500 mg PRN Q6HRS PRN PO PAIN / TEMP; Start 03/07/17 at 07:45; Stop 03/07/17 at 08:00; Status DC Aspirin (Children'S Aspirin) 81 mg DAILY PO Last administered on 03/09/17 08: 19; Start 03/07/17 at 09:00 Atorvastatin Calcium (Lipitor) 20 mg QHS PO Last administered on 03/09/17 19: 48; Start 03/07/17 at 21:00 Bisacodyl (Dulcolax Tab) 10 mg PRN DAILY PRN PO CONSTIPATION; Start 03/07/17 at 07:45 Docusate Sodium (Colace) 100 mg PRN BID PRN PO CONSTIPATION; Start 03/07/17 at 07:45 Glipizide (Glucotrol) 2.5 mg DAILY PO Last administered on 03/09/17 08:19; Start 03/07/17 at 09:00 Hydrochlorothiazide (Hydrodiuril) 25 mg DAILY PO Last administered on 08:19; Start 03/07/17 at 09:00 Polyethylene Glycol (miraLAX) 17 gm DAILY PO Last administered on 03/09/17 08: 18; Start 03/07/17 at 09:00 Artificial Tears (Artificial Tears) 1 drop PRN BID PRN OU DRY EYE; Start at 07:45 Calcium/Vitamin D (Oscal D 500mg/ 200uts) 1 tab BIDWMEALS PO Last administered on 03/09/17 17:41; Start 03/07/17 at 08:00 Glucosamine Sulfate (Glucosamine) 500 mg BID PO Last administered on 03/09/17 19:48; Start 03/07/17 at 09:00 Non-Formulary Medication 30 ml PRN DAILY PRN PO CONSTIPATION; Start 03/07/17 at 07:45; Stop 03/07/17 at 07:59; Status DC Non-Formulary Medication 1 macey PRN PRN TP PAIN; Start 03/07/17 at 07:45; Stop at 08:01; Status DC Multi-Ingred Cream/Lotion/Oil/ Oint (Hydrocerin) 1 [place] PRN BID PRN TP DRY SKIN ; Start 03/07/17 at 08:15; Stop 03/07/17 at 14:45; Status DC Non-Formulary Medication 1 macey TID TOP ; Start 03/07/17 at 09:00; Stop 03/07/17 at 09:00; Status DC Multi-Ingred Cream/Lotion/Oil/ Oint (Hydrocerin) 1 macey PRN BID PRN TP DRY SKIN ; Start 03/07/17 at 14:45 Risperidone (Risperdal) 0.5 mg BID SL Last administered on 03/09/17 19:50; Start 03/07/17 at 21:00 Benztropine Mesylate (Cogentin) 0.5 mg BID PO Last administered on 03/09/17 19 :48; Start 03/08/17 at 21:00 Divalproex Sodium (Depakote Er) 250 mg QHS PO Last administered on 03/09/17 19 :50; Start 03/09/17 at 21:00 Active Scripts Active Reported Haloperidol (Haloperidol Lactate) 5 Mg/1 Ml Ampul 5 Mg IM PRN Q8HRS PRN Biofreeze (Menthol) 118 Ml Gel..ml. 1 Macey TP PRN PRN Apply topically to Left Shoulder PRN Pain Aquaphor Ointment (Mineral Oil/Hydrophil Petrolat) 396 Gm Oint...g. 1 Macey TP PRN BID PRN Polyethylene Glycol 3350 17 Gm Powd.pack 17 Gm PO DAILY Lorazepam 2 Mg/1 Ml Vial 0.25 Mg IM PRN Q12HR PRN Lorazepam 0.5 Mg Tablet 0.5 Mg PO PRN Q12HR PRN Loratadine 10 Mg Tablet 10 Mg PO Docusate Sodium 100 Mg Capsule 100 Mg PO PRN BID PRN Artificial Tears (Polyvinyl Alcohol) 15 Ml Drops 1 Drop OU PRN BID PRN Acetaminophen 500 Mg Tablet 500 Mg PO PRN Q6HRS PRN Fleet Enema (Na Phos,M-B/Na Phos,Di-Ba) 133 Ml Enema 133 Ml RC PRN DAILY PRN Administer if MOM and Dulcolax unsuccessful after 48 hours Bisacodyl 5 Mg Tablet.dr 10 Mg PO PRN DAILY PRN Administer if MOM unsuccessful after 24 hours Milk Of Magnesia (Magnesium Hydroxide) 2,400 Mg/10 Ml Oral.susp 30 Ml PO PRN DAILY PRN [Sureprep] 1 Macey TOP TID Apply topically to Bilateral Plantar feet TID Trazodone Hcl 50 Mg Tablet 50 Mg PO QHS Mirtazapine 15 Mg Tablet 15 Mg PO QHS Hydrochlorothiazide Tablet (Hydrochlorothiazide) 25 Mg Tablet 25 Mg PO DAILY Haloperidol 1 Mg Tablet 1 Mg PO BID Glucosamine Hcl 500 Mg Tablet 500 Mg PO BID Glipizide 5 Mg Tablet 2.5 Mg PO DAILY Calcium 600+D Plus Minerals Tb (Calcium Carb/Vit D3/Minerals) 1 Each Tablet 1 Tab PO BID Atorvastatin Calcium 20 Mg Tablet 20 Mg PO QHS Aspirin 81 Mg Tab.chew 81 Mg PO DAILY Abilify Maintena (Aripiprazole) 400 Mg Suser.vial 400 Mg IM Q4WK JORDAN AMADOR MD March 09, 2017 21:03
--- NOTE | 2017-03-10 03:35 | NUR ---
Behavior Intervention Response and Plan: BIRP Note: Behavior: Assumed Care of patient, patient located in Patient Room at shift change. Patient exhibited the following behavior Calm, Compliant, Cooperative. Brief assessment on rounds of vital signs, medication needs, lab studies, and pain. Treatment plan problems Alteration in Though Process and Fall Risk. Intervention: Patient assessed and the following interventions initiated safety checks 15 Minute Checks Cognitive Assessment , Head to toe Assessment , Medications. Response: After interactions and interventions patient responded in the following manner, Calm , Compliant ,Cooperative. Continue to assess behaviors and condition will continue to monitor throughout the shift as needed. Plan: Continue to monitor Master Treatment Plan for patient's progress toward short term goals of Medication Compliance, Decreased Agitation, penitentiary goals to return to previous living setting vs placement. Continue to assess patient for changes in above assessment. Monitor for medication needs, pain, and safety concerns. Hourly rounding performed to ensure safe environment.
[2017-03-10 05:40] VITALS: BP 122/63
[2017-03-10] MEDS: GLUCOSAMINE 500 MG CAPSULE PO SCH ×2 (08:01→19:41)
[2017-03-10] MEDS: POLYETHYLENE GLYCOL 3350 17 GM PACKET. PO SCH (08:01)
[2017-03-10] MEDS: ASPIRIN 81 MG TAB.CHEW PO SCH (08:01)
[2017-03-10] MEDS: hydroCHLOROthiazide 25 MG TABLET PO SCH (08:02)
[2017-03-10] MEDS: glipiZIDE 5 MG TABLET PO SCH (08:02)
[2017-03-10] MEDS: BENZTROPINE MESYLATE 0.5 MG TABLET PO SCH ×2 (08:02→19:42)
[2017-03-10] MEDS: CALCIUM CARB/VIT D3 500/200 TABLET PO SCH ×2 (08:03→15:57)
[2017-03-10] MEDS: risperiDONE ORAL 1 MG/ML 30ml BOTTLE. SL SCH ×2 (08:05→19:42)
--- NOTE | 2017-03-10 11:46 | NUR ---
Behavior Intervention Response and Plan: BIRP Note: Behavior: Assumed Care of patient, patient located in Day Room at shift change. Patient exhibited the following behavior Disorganized, Delusions, Cooperative. Brief assessment on rounds of vital signs, medication needs, lab studies, and pain. Treatment plan problems 1 and 2. Intervention: Patient assessed and the following interventions initiated safety checks 15 Minute Checks Head to toe Assessment , Medications , Cognitive Assessment. Response: After interactions and interventions patient responded in the following manner, Calm , Appropriate ,Cooperative. Continue to assess behaviors and condition will continue to monitor throughout the shift as needed. Plan: Continue to monitor Master Treatment Plan for patient's progress toward short term goals of Decreased Anxiety, Medication Compliance, emt intermediate goals to return to previous living setting vs placement. Continue to assess patient for changes in above assessment. Monitor for medication needs, pain, and safety concerns. Hourly rounding performed to ensure safe environment.
--- NOTE | 2017-03-10 14:15 | NUR ---
THERAPEUTIC RECREATION GROUP NOTE TITLE :Leisure Awareness: [place] ACTIVITY : Leisure Awareness GOAL : Increase knowledge of leisure activities DURATION : 45 Minutes RESPONSE : Full participation. Pt. was able to quickly name numerous leisure activities. She did this with and without prompting. She sat quietly when it was not her turn and was a pleasure to have in group.
--- NOTE | 2017-03-10 14:48 | NUR ---
Group Note [facility] Group Type Flower of gratefulness Start Time: 13:00 End Time: 14:10 Problem: Anxiety Purpose: Elevate Mood, Increase stimulation, stimulate thought process, promote socialization Level of Participation: High Behaviors or Symptoms Observed: Participates sat within a group setting and wrote on each petal of the flower something they were grateful for. Group discussed each persons flower petals as group. Then each person decorated their yu. Interventions: Directed Focus Plan: group. Additional Comments: Pt participated at times pt would became tearful during the group, pt was able to return to the task when SW would sit next to her and give her one on one attention.
--- NOTE | 2017-03-10 14:49 | NUR ---
SW met with pt in the day room one on one. Pt talked about how she could here individuals talk to her and started repeating their names stating Allis after the names. SW asked pt about this. Pt reports she knows these individuals and the female is someone she knows from [place] she reports [place] is the father of her children and he was okay with this until recently and now he is unhappy about it and he brought the female up from [employer] for revenge. SW asked when the last time she saw Benedict she reports this was in 2007 and she hasn't had connect with him since. Pt was able to talk about her history, she reports she moved to [place] to go to the [employer] and she states from there she started working at [employer] and worked their for 41 years. Pt talked about living close to [facility] and taking her sons over to the park to play, she reports her son that lives in [place] when he comes back to visits takes his children there. Pt reports she doesn't like [employer], that she is behind the locked doors and she cannot get to the library. She reports she has only participated in a couple of the activities again because she doesn't like the group that is there. Pt talked about how she gets frustrated at her placement. SW asked if she could give her any positives, pt is not able to give positives. Just as SW asked this pt went back to talking about the Allis and that they were going to come for her Serum. Pt is able to voice her need for a PRN medication to this fiction writer as well as her nurse. Pt appears with a flat affect, tearful at times during conversation, pt is withdrawn from peers, however is making an effort to engage with staff. Pt is paranoid with delusional thoughts. SW will continue to meet with pt one on one PRN and work on her thought process.
[2017-03-10 16:20] VITALS: BP 143/68
[2017-03-10] MEDS: MIRTAZAPINE 15 MG TABLET PO SCH (19:41)
[2017-03-10] MEDS: ATORVASTATIN CALCIUM 20 MG TABLET PO SCH (19:41)
[2017-03-10] MEDS: DIVALPROEX ER 250 MG TAB.ER.24H. PO SCH (19:42)
[2017-03-10] MEDS: traZODone 50 MG TABLET. PO SCH (19:42)
--- NOTE | 2017-03-10 21:06 | PDOC ---
Exam Andre Demential Exam: Andre Note: Please also refer to the separate dictated note~for this date of service dictated separately.~Patient seen individually. Discussed the patient with Nursing staff reviewed the chart.~Reviewed interim history and current functioning. Reviewed vital signs,~Labs/ Radiology~and current medications noted below. Continue current treatment with the changes noted in the dictated addendum note Assessment: Vital Signs: Vital Signs Date Time Temp Pulse Resp B/P (MAP) Pulse Ox O2 Delivery O2 Flow Rate FiO2 03/10/17 16:20 97.1 76 20 143/68 (93) 98 03/10/17 05:40 Room Air 03/07/17 00:57 94.0 I&O Intake and Output 03/10/17 07:00 Intake Total 960 ml Balance 960 ml Intake Oral 960 ml Labs: Laboratory Tests Test 03/10/17 07:37 03/10/17 11:06 03/10/17 16:52 Glucose (Fingerstick) 122 mg/dL (70-99) H 99 mg/dL (70-99) 102 mg/dL (70-99) H Current Medications: Meds: Current Medications Acetaminophen (Tylenol) 650 mg PRN Q6HRS PRN PO MILD PAIN / TEMP Last administered on 03/07/17 17:50; Start 03/07/17 at 00:45 Multi-Ingredient Ointment (Analgesic [place]) 1 macey PRN QID PRN TP MUSCLE PAIN; Start 03/07/17 at 00:45 Al Hydroxide/Mg Hydroxide (Mylanta Plus Xs) 15 ml PRN AFTMEALHC PRN PO DYSPEPSIA; Start 03/07/17 at 00:45 Magnesium Hydroxide (Milk Of Magnesia) 2,400 mg PRN QHS PRN PO CONSTIPATION Last administered on 03/08/17 20:45; Start 03/07/17 at 00:45 Haloperidol (Haldol) 1 mg BID PO Last administered on 03/07/17 08:14; Start at 09:00; Stop 03/07/17 at 18:20; Status DC Lorazepam (Ativan) 0.5 mg PRN Q12HR PRN PO ANXIETY / AGITATION; Start 03/07/17 at 01:00 Mirtazapine (Remeron) 15 mg QHS PO Last administered on 03/10/17 19:41; Start 03/07/17 at 21:00 Trazodone HCl (Desyrel) 50 mg QHS PO Last administered on 03/10/17 19:42; Start 03/07/17 at 21:00 Non-Formulary Medication 400 mg Q4WK IM ; Start 03/07/17 at 09:00; Stop at 18:20; Status DC Acetaminophen (Tylenol) 500 mg PRN Q6HRS PRN PO PAIN / TEMP; Start 03/07/17 at 07:45; Stop 03/07/17 at 08:00; Status DC Aspirin (Children'S Aspirin) 81 mg DAILY PO Last administered on 03/10/17 08: 01; Start 03/07/17 at 09:00 Atorvastatin Calcium (Lipitor) 20 mg QHS PO Last administered on 03/10/17 19: 41; Start 03/07/17 at 21:00 Bisacodyl (Dulcolax Tab) 10 mg PRN DAILY PRN PO CONSTIPATION; Start 03/07/17 at 07:45 Docusate Sodium (Colace) 100 mg PRN BID PRN PO CONSTIPATION; Start 03/07/17 at 07:45 Glipizide (Glucotrol) 2.5 mg DAILY PO Last administered on 03/10/17 08:02; Start 03/07/17 at 09:00; Stop 03/10/17 at 14:12; Status DC Hydrochlorothiazide (Hydrodiuril) 25 mg DAILY PO Last administered on 08:02; Start 03/07/17 at 09:00 Polyethylene Glycol (miraLAX) 17 gm DAILY PO Last administered on 03/10/17 08: 01; Start 03/07/17 at 09:00 Artificial Tears (Artificial Tears) 1 drop PRN BID PRN OU DRY EYE; Start at 07:45 Calcium/Vitamin D (Oscal D 500mg/ 200uts) 1 tab BIDWMEALS PO Last administered on 03/10/17 15:57; Start 03/07/17 at 08:00 Glucosamine Sulfate (Glucosamine) 500 mg BID PO Last administered on 03/10/17 19:41; Start 03/07/17 at 09:00 Non-Formulary Medication 30 ml PRN DAILY PRN PO CONSTIPATION; Start 03/07/17 at 07:45; Stop 03/07/17 at 07:59; Status DC Non-Formulary Medication 1 macey PRN PRN TP PAIN; Start 03/07/17 at 07:45; Stop at 08:01; Status DC Multi-Ingred Cream/Lotion/Oil/ Oint (Hydrocerin) 1 macey PRN BID PRN TP DRY SKIN ; Start 03/07/17 at 08:15; Stop 03/07/17 at 14:45; Status DC Non-Formulary Medication 1 macey TID TOP ; Start 03/07/17 at 09:00; Stop 03/07/17 at 09:00; Status DC Multi-Ingred Cream/Lotion/Oil/ Oint (Hydrocerin) 1 macey PRN BID PRN TP DRY SKIN ; Start 03/07/17 at 14:45 Risperidone (Risperdal) 0.5 mg BID SL Last administered on 03/10/17 08:05; Start 03/07/17 at 21:00; Stop 03/10/17 at 17:56; Status DC Benztropine Mesylate (Cogentin) 0.5 mg BID PO Last administered on 03/10/17 19 :42; Start 03/08/17 at 21:00 Divalproex Sodium (Depakote Er) 250 mg QHS PO Last administered on 03/10/17 19 :42; Start 03/09/17 at 21:00 Risperidone (RisperDAL) 0.75 mg BID SL Last administered on 03/10/17 19:42; Start 03/10/17 at 21:00 Active Scripts Active Reported Haloperidol (Haloperidol Lactate) 5 Mg/1 Ml Ampul 5 Mg IM PRN Q8HRS PRN Biofreeze (Menthol) 118 Ml Gel..ml. 1 Macey TP PRN PRN Apply topically to Left Shoulder PRN Pain Aquaphor Ointment (Mineral Oil/Hydrophil Petrolat) 396 Gm Oint...g. 1 Macey TP PRN BID PRN Polyethylene Glycol 3350 17 Gm Powd.pack 17 Gm PO DAILY Lorazepam 2 Mg/1 Ml Vial 0.25 Mg IM PRN Q12HR PRN Lorazepam 0.5 Mg Tablet 0.5 Mg PO PRN Q12HR PRN Loratadine 10 Mg Tablet 10 Mg PO Docusate Sodium 100 Mg Capsule 100 Mg PO PRN BID PRN Artificial Tears (Polyvinyl Alcohol) 15 Ml Drops 1 Drop OU PRN BID PRN Acetaminophen 500 Mg Tablet 500 Mg PO PRN Q6HRS PRN Fleet Enema (Na Phos,M-B/Na Phos,Di-Ba) 133 Ml Enema 133 Ml RC PRN DAILY PRN Administer if MOM and Dulcolax unsuccessful after 48 hours Bisacodyl 5 Mg Tablet.dr 10 Mg PO PRN DAILY PRN Administer if MOM unsuccessful after 24 hours Milk Of Magnesia (Magnesium Hydroxide) 2,400 Mg/10 Ml Oral.susp 30 Ml PO PRN DAILY PRN [Sureprep] 1 Macey TOP TID Apply topically to Bilateral Plantar feet TID Trazodone Hcl 50 Mg Tablet 50 Mg PO QHS Mirtazapine 15 Mg Tablet 15 Mg PO QHS Hydrochlorothiazide Tablet (Hydrochlorothiazide) 25 Mg Tablet 25 Mg PO DAILY Haloperidol 1 Mg Tablet 1 Mg PO BID Glucosamine Hcl 500 Mg Tablet 500 Mg PO BID Glipizide 5 Mg Tablet 2.5 Mg PO DAILY Calcium 600+D Plus Minerals Tb (Calcium Carb/Vit D3/Minerals) 1 Each Tablet 1 Tab PO BID Atorvastatin Calcium 20 Mg Tablet 20 Mg PO QHS Aspirin 81 Mg Tab.chew 81 Mg PO DAILY Abilify Maintena (Aripiprazole) 400 Mg Chuck.vial 400 Mg IM Q4WK JORDAN AMADOR MD March 10, 2017 21:06
--- NOTE | 2017-03-11 00:22 | PN ---
DATE: 03/09/2017 PSYCHIATRIC PROGRESS NOTE This is a late entry 03/09/2017 covers the elements not covered in my initial note. SUBJECTIVE: The patient was staffed at a treatment team meeting with the entire team. Morning, she was agitated, screaming, demanding. She had brain cancer that was surgically operated and received chemotherapy in 2013 onset of symptoms were shortly after that. She is paranoid, delusional, believes people are stealing her clothes. Dr. Jaquez consulted for Neurology tremors secondary to Parkinson's, hollering out, yelling someone stole her clothes and glasses are missing. She states voices telling her not to eat at times. We will check a CT head. She does not initiate conversations state. She is getting microchips in her brain. Voices telling her not to eat. REVIEW OF SYSTEMS: No CV, , pulmonary, eye system symptoms on review. MENTAL STATUS EXAM: Oriented to herself and situation. Speech has some latency, often responses monosyllabic. Abstraction fair, computation impaired, language function intact. Mood and affect remain somewhat labile at times. LABORATORY DATA: Reviewed. IMPRESSION: Schizophrenia, chronic undifferentiated with acute exacerbation versus schizoaffective disorder. PLAN: CT head. Follow up Neurology. Start Depakote ER 250 at bedtime. Follow labs level. Maintain the rest of the psychotropics mentioned in my initial note. MAN Darren AMADOR MD DR: ERIKA/anika JOB#: [id number] / [id number]
--- NOTE | 2017-03-11 00:24 | PN ---
DATE: 03/08/2017 This is a late entry 03/08/2017, covers the elements not covered in my initial note. SUBJECTIVE: The patient slept about 6-1/2 hours, cooperative, withdrawn, paranoid, and psychotic. REVIEW OF SYSTEMS: No CV, , pulmonary, eye system symptoms on review. Reliability poor. MENTAL STATUS EXAM: Oriented to herself and situation. Speech moderate latency, often responses monosyllabic. Abstraction fair, computation impaired, language function intact, attention span short. Mood and affect remained somewhat withdrawn. LABORATORY DATA: Reviewed. IMPRESSION: Schizophrenia, chronic, undifferentiated with acute exacerbation, schizoaffective disorder, bipolar type; anxiety disorder, unspecified. PLAN: Continue psychotropics as mentioned in my initial note including liquid Risperdal 0.5 b.i.d., Ativan p.r.n., trazodone 50 at bedtime, and Remeron 15 at bedtime. JORDAN AMADOR MD DR: ERIKA/anika JOB#: [id number] / [id number]
--- NOTE | 2017-03-11 05:17 | NUR ---
Behavior Intervention Response and Plan: BIRP Note: Behavior: Assumed Care of patient, patient located in Patient Room at shift change. Patient exhibited the following behavior Calm, Compliant, Cooperative. Brief assessment on rounds of vital signs, medication needs, lab studies, and pain. Treatment plan problems Alteration in Though Process and Fall Risk. Intervention: Patient assessed and the following interventions initiated safety checks 15 Minute Checks Cognitive Assessment , Head to toe Assessment , Medications. Response: After interactions and interventions patient responded in the following manner, Calm , Compliant ,Cooperative. Continue to assess behaviors and condition will continue to monitor throughout the shift as needed. Plan: Continue to monitor Master Treatment Plan for patient's progress toward short term goals of Medication Compliance, Decreased Agitation, custodial goals to return to previous living setting vs placement. Continue to assess patient for changes in above assessment. Monitor for medication needs, pain, and safety concerns. Hourly rounding performed to ensure safe environment.
[2017-03-11 06:07] VITALS: BP 107/55
[2017-03-11] MEDS: hydroCHLOROthiazide 25 MG TABLET PO SCH (09:00)
[2017-03-11] MEDS: BENZTROPINE MESYLATE 0.5 MG TABLET PO SCH ×2 (09:51→19:28)
[2017-03-11] MEDS: CALCIUM CARB/VIT D3 500/200 TABLET PO SCH ×2 (09:51→16:29)
[2017-03-11] MEDS: ASPIRIN 81 MG TAB.CHEW PO SCH (09:51)
[2017-03-11] MEDS: GLUCOSAMINE 500 MG CAPSULE PO SCH ×2 (09:51→19:28)
[2017-03-11] MEDS: risperiDONE ORAL 1 MG/ML 30ml BOTTLE. SL SCH ×2 (09:52→19:28)
[2017-03-11] MEDS: POLYETHYLENE GLYCOL 3350 17 GM PACKET. PO SCH (09:52)
[2017-03-11 13:09] LABS: T3 TOTAL 120 ng/dL (71-180); THYROXINE 9.5 ug/dL (4.5-12.0)
--- NOTE | 2017-03-11 13:35 | NUR ---
Behavior Intervention Response and Plan: BIRP Note: Behavior: Assumed Care of patient, patient located in Patient Room at shift change. Patient exhibited the following behavior Calm, Compliant, Cooperative, compliant with medications. Brief assessment on rounds of vital signs, medication needs, lab studies, and pain. Treatment plan problems Alteration in Though Process and Fall Risk. Intervention: Patient assessed and the following interventions initiated safety checks 15 Minute Checks Cognitive Assessment , Head to toe Assessment , Medications. Response: After interactions and interventions patient responded in the following manner, Calm , Compliant ,Cooperative. Continue to assess behaviors and condition will continue to monitor throughout the shift as needed. 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 Continue to assess patient for changes in above assessment. Monitor for medication needs, pain, and safety concerns. Hourly rounding performed to ensure safe environment.
[2017-03-11 16:30] VITALS: BP 123/71
[2017-03-11] MEDS: traZODone 50 MG TABLET. PO SCH (19:28)
[2017-03-11] MEDS: DIVALPROEX ER 250 MG TAB.ER.24H. PO SCH (19:28)
[2017-03-11] MEDS: MIRTAZAPINE 15 MG TABLET PO SCH (19:28)
[2017-03-11] MEDS: ATORVASTATIN CALCIUM 20 MG TABLET PO SCH (19:28)
--- NOTE | 2017-03-11 20:52 | PDOC ---
Exam Andre Demential Exam: Andre Note: Please also refer to the separate dictated note~for this date of service dictated separately.~Patient seen individually. Discussed the patient with Nursing staff reviewed the chart.~Reviewed interim history and current functioning. Reviewed vital signs,~Labs/ Radiology~and current medications noted below. Continue current treatment with the changes noted in the dictated addendum note Assessment: Vital Signs: Vital Signs Date Time Temp Pulse Resp B/P (MAP) Pulse Ox O2 Delivery O2 Flow Rate FiO2 03/11/17 16:30 97.6 80 20 123/71 (88) 96 03/10/17 05:40 Room Air 03/07/17 00:57 94.0 I&O Intake and Output 03/11/17 07:00 Intake Total 720 ml Balance 720 ml Intake Oral 720 ml Labs: Laboratory Tests Test 03/11/17 09:58 Glucose (Fingerstick) 182 mg/dL (70-99) H Current Medications: Meds: Current Medications Acetaminophen (Tylenol) 650 mg PRN Q6HRS PRN PO MILD PAIN / TEMP Last administered on 03/07/17 17:50; Start 03/07/17 at 00:45 Multi-Ingredient Ointment (Analgesic [place]) 1 macey PRN QID PRN TP MUSCLE PAIN; Start 03/07/17 at 00:45 Al Hydroxide/Mg Hydroxide (Mylanta Plus Xs) 15 ml PRN AFTMEALHC PRN PO DYSPEPSIA; Start 03/07/17 at 00:45 Magnesium Hydroxide (Milk Of Magnesia) 2,400 mg PRN QHS PRN PO CONSTIPATION Last administered on 03/08/17 20:45; Start 03/07/17 at 00:45 Haloperidol (Haldol) 1 mg BID PO Last administered on 03/07/17 08:14; Start at 09:00; Stop 03/07/17 at 18:20; Status DC Lorazepam (Ativan) 0.5 mg PRN Q12HR PRN PO ANXIETY / AGITATION; Start 03/07/17 at 01:00 Mirtazapine (Remeron) 15 mg QHS PO Last administered on 03/10/17 19:41; Start 03/07/17 at 21:00 Trazodone HCl (Desyrel) 50 mg QHS PO Last administered on 03/10/17 19:42; Start 03/07/17 at 21:00 Non-Formulary Medication 400 mg Q4WK IM ; Start 03/07/17 at 09:00; Stop at 18:20; Status DC Acetaminophen (Tylenol) 500 mg PRN Q6HRS PRN PO PAIN / TEMP; Start 03/07/17 at 07:45; Stop 03/07/17 at 08:00; Status DC Aspirin (Children'S Aspirin) 81 mg DAILY PO Last administered on 03/11/17 09: 51; Start 03/07/17 at 09:00 Atorvastatin Calcium (Lipitor) 20 mg QHS PO Last administered on 03/10/17 19: 41; Start 03/07/17 at 21:00 Bisacodyl (Dulcolax Tab) 10 mg PRN DAILY PRN PO CONSTIPATION; Start 03/07/17 at 07:45 Docusate Sodium (Colace) 100 mg PRN BID PRN PO CONSTIPATION; Start 03/07/17 at 07:45 Glipizide (Glucotrol) 2.5 mg DAILY PO Last administered on 03/10/17 08:02; Start 03/07/17 at 09:00; Stop 03/10/17 at 14:12; Status DC Hydrochlorothiazide (Hydrodiuril) 25 mg DAILY PO Last administered on 08:02; Start 03/07/17 at 09:00 Polyethylene Glycol (miraLAX) 17 gm DAILY PO Last administered on 03/11/17 09: 52; Start 03/07/17 at 09:00 Artificial Tears (Artificial Tears) 1 drop PRN BID PRN OU DRY EYE; Start at 07:45 Calcium/Vitamin D (Oscal D 500mg/ 200uts) 1 tab BIDWMEALS PO Last administered on 03/11/17 09:51; Start 03/07/17 at 08:00 Glucosamine Sulfate (Glucosamine) 500 mg BID PO Last administered on 03/11/17 09:51; Start 03/07/17 at 09:00 Non-Formulary Medication 30 ml PRN DAILY PRN PO CONSTIPATION; Start 03/07/17 at 07:45; Stop 03/07/17 at 07:59; Status DC Non-Formulary Medication 1 macey PRN PRN TP PAIN; Start 03/07/17 at 07:45; Stop at 08:01; Status DC Multi-Ingred Cream/Lotion/Oil/ Oint (Hydrocerin) 1 macey PRN BID PRN TP DRY SKIN ; Start 03/07/17 at 08:15; Stop 03/07/17 at 14:45; Status DC Non-Formulary Medication 1 macey TID TOP ; Start 03/07/17 at 09:00; Stop 03/07/17 at 09:00; Status DC Multi-Ingred Cream/Lotion/Oil/ Oint (Hydrocerin) 1 macey PRN BID PRN TP DRY SKIN ; Start 03/07/17 at 14:45 Risperidone (Risperdal) 0.5 mg BID SL Last administered on 03/10/17 08:05; Start 03/07/17 at 21:00; Stop 03/10/17 at 17:56; Status DC Benztropine Mesylate (Cogentin) 0.5 mg BID PO Last administered on 03/11/17 09 :51; Start 03/08/17 at 21:00 Divalproex Sodium (Depakote Er) 250 mg QHS PO Last administered on 03/10/17 19 :42; Start 03/09/17 at 21:00 Risperidone (RisperDAL) 0.75 mg BID SL Last administered on 03/11/17 09:52; Start 03/10/17 at 21:00 Active Scripts Active Reported Haloperidol (Haloperidol Lactate) 5 Mg/1 Ml Ampul 5 Mg IM PRN Q8HRS PRN Biofreeze (Menthol) 118 Ml Gel..ml. 1 Macey TP PRN PRN Apply topically to Left Shoulder PRN Pain Aquaphor Ointment (Mineral Oil/Hydrophil Petrolat) 396 Gm Oint...g. 1 Macey TP PRN BID PRN Polyethylene Glycol 3350 17 Gm Powd.pack 17 Gm PO DAILY Lorazepam 2 Mg/1 Ml Vial 0.25 Mg IM PRN Q12HR PRN Lorazepam 0.5 Mg Tablet 0.5 Mg PO PRN Q12HR PRN Loratadine 10 Mg Tablet 10 Mg PO Docusate Sodium 100 Mg Capsule 100 Mg PO PRN BID PRN Artificial Tears (Polyvinyl Alcohol) 15 Ml Drops 1 Drop OU PRN BID PRN Acetaminophen 500 Mg Tablet 500 Mg PO PRN Q6HRS PRN Fleet Enema (Na Phos,M-B/Na Phos,Di-Ba) 133 Ml Enema 133 Ml RC PRN DAILY PRN Administer if MOM and Dulcolax unsuccessful after 48 hours Bisacodyl 5 Mg Tablet.dr 10 Mg PO PRN DAILY PRN Administer if MOM unsuccessful after 24 hours Milk Of Magnesia (Magnesium Hydroxide) 2,400 Mg/10 Ml Oral.susp 30 Ml PO PRN DAILY PRN [Sureprep] 1 Macey TOP TID Apply topically to Bilateral Plantar feet TID Trazodone Hcl 50 Mg Tablet 50 Mg PO QHS Mirtazapine 15 Mg Tablet 15 Mg PO QHS Hydrochlorothiazide Tablet (Hydrochlorothiazide) 25 Mg Tablet 25 Mg PO DAILY Haloperidol 1 Mg Tablet 1 Mg PO BID Glucosamine Hcl 500 Mg Tablet 500 Mg PO BID Glipizide 5 Mg Tablet 2.5 Mg PO DAILY Calcium 600+D Plus Minerals Tb (Calcium Carb/Vit D3/Minerals) 1 Each Tablet 1 Tab PO BID Atorvastatin Calcium 20 Mg Tablet 20 Mg PO QHS Aspirin 81 Mg Tab.chew 81 Mg PO DAILY Abilify Maintena (Aripiprazole) 400 Mg Suser.vial 400 Mg IM Q4WK Diagnosis: Problems: (1) Schizophrenia (2) Disruptive behavior (3) Psychosis JORDAN AMADOR MD March 11, 2017 20:52
--- NOTE | 2017-03-11 22:52 | NUR ---
Behavior Intervention Response and Plan: BIRP Note: Behavior: Assumed Care of patient, patient located in Patient Room at shift change. Patient exhibited the following behavior Calm, Compliant, Cooperative. Brief assessment on rounds of vital signs, medication needs, lab studies, and pain. Treatment plan problems Alteration in Though Process and Fall Risk. Intervention: Patient assessed and the following interventions initiated safety checks 15 Minute Checks Cognitive Assessment , Head to toe Assessment , Medications. Response: After interactions and interventions patient responded in the following manner, Calm , Compliant ,Cooperative. Continue to assess behaviors and condition will continue to monitor throughout the shift as needed. Plan: Continue to monitor Master Treatment Plan for patient's progress toward short term goals of Medication Compliance, Decreased Agitation, group home goals to return to previous living setting vs placement. Continue to assess patient for changes in above assessment. Monitor for medication needs, pain, and safety concerns. Hourly rounding performed to ensure safe environment.
[2017-03-12 05:37] LABS: BASO % 1 % (0-3); EOS # 0.1 x10^3/uL (0.0-0.7); EOS % 2 % (0-3); HEMATOCRIT 39.4 % (36.0-47.0); HEMOGLOBIN 12.9 g/dL (12.0-15.5); LYMPH # 1.7 x10^3/uL (1.0-4.8); LYMPH % 34 % (24-48); MEAN CORPUSCULAR HEMOGLOBIN 29 pg (25-35); MEAN CORPUSCULAR HGB CONC 33 g/dL (31-37); MEAN CORPUSCULAR VOLUME 87 fL (79-100); MONO # 0.5 x10^3/uL (0.0-1.1); MONO % 10 % (0-9); NEUT # 2.7 x10^3uL (1.8-7.7); NEUT % 54 % (31-73); PLATELET COUNT 126 x10^3/uL (140-400); RED BLOOD COUNT 4.54 x10^6/uL (3.50-5.40); RED CELL DISTRIBUTION WIDTH 14.3 % (11.5-14.5); WHITE BLOOD COUNT 5.1 x10^3/uL (4.0-11.0)
[2017-03-12 05:48] LABS: ALBUMIN 2.8 g/dL (3.4-5.0); ALBUMIN/GLOBULIN RATIO 0.8 (1.0-1.7); ALK PHOS 84 U/L (46-116); ALT (SGPT) 22 U/L (14-59); ANION GAP 7 (6-14); AST (SGOT) 15 U/L (15-37); BLOOD UREA NITROGEN 16 mg/dL (7-20); BUN/CREATININE RATIO 18 (6-20); CALCIUM 8.6 mg/dL (8.5-10.1); CARBON DIOXIDE 32 mmol/L (21-32); CHLORIDE 104 mmol/L (98-107); CREATININE 0.9 mg/dL (0.6-1.0); GFR 61.7; GLUCOSE 91 mg/dL (70-99); MAGNESIUM 2.1 mg/dL (1.8-2.4); POTASSIUM 4.1 mmol/L (3.5-5.1); SODIUM 143 mmol/L (136-145); TOTAL BILIRUBIN 0.4 mg/dL (0.2-1.0); TOTAL PROTEIN 6.5 g/dL (6.4-8.2)
[2017-03-12 05:55] LABS: VAL ACID 26 mcg/mL (50-100)
[2017-03-12 06:43] VITALS: BP 133/73
[2017-03-12] MEDS: CALCIUM CARB/VIT D3 500/200 TABLET PO SCH ×2 (08:20→15:52)
[2017-03-12] MEDS: GLUCOSAMINE 500 MG CAPSULE PO SCH ×2 (08:21→18:39)
[2017-03-12] MEDS: hydroCHLOROthiazide 25 MG TABLET PO SCH (08:21)
[2017-03-12] MEDS: BENZTROPINE MESYLATE 0.5 MG TABLET PO SCH ×2 (08:21→18:38)
[2017-03-12] MEDS: POLYETHYLENE GLYCOL 3350 17 GM PACKET. PO SCH (08:21)
[2017-03-12] MEDS: risperiDONE ORAL 1 MG/ML 30ml BOTTLE. SL SCH ×2 (08:21→18:41)
[2017-03-12] MEDS: ASPIRIN 81 MG TAB.CHEW PO SCH (08:21)
--- NOTE | 2017-03-12 11:01 | NUR ---
Behavior Intervention Response and Plan: BIRP Note: Behavior: Assumed Care of patient, patient located in Patient Room at shift change. Patient exhibited the following behavior Calm, Compliant, Cooperative. Brief assessment on rounds of vital signs, medication needs, lab studies, and pain. Treatment plan problems Alteration in Though Process and Fall Risk. Intervention: Patient assessed and the following interventions initiated safety checks 15 Minute Checks Cognitive Assessment , Head to toe Assessment , Medications. Response: After interactions and interventions patient responded in the following manner, Calm , Compliant ,Cooperative. Continue to assess behaviors and condition will continue to monitor throughout the shift as needed. Plan: Continue to monitor Master Treatment Plan for patient's progress toward short term goals of Medication Compliance, Decreased Agitation, usp goals to return to previous living setting vs placement. Continue to assess patient for changes in above assessment. Monitor for medication needs, pain, and safety concerns. Hourly rounding performed to ensure safe environment.
[2017-03-12 16:08] VITALS: BP 114/60
[2017-03-12] MEDS: traZODone 50 MG TABLET. PO SCH (18:38)
[2017-03-12] MEDS: DIVALPROEX ER 250 MG TAB.ER.24H. PO SCH (18:38)
[2017-03-12] MEDS: MIRTAZAPINE 15 MG TABLET PO SCH (18:40)
[2017-03-12] MEDS: ATORVASTATIN CALCIUM 20 MG TABLET PO SCH (18:40)
--- NOTE | 2017-03-12 19:43 | PDOC ---
Exam Andre Demential Exam: Andre Note: Please also refer to the separate dictated note~for this date of service dictated separately.~Patient seen individually. Discussed the patient with Nursing staff reviewed the chart.~Reviewed interim history and current functioning. Reviewed vital signs,~Labs/ Radiology~and current medications noted below. Continue current treatment with the changes noted in the dictated addendum note Assessment: Vital Signs: Vital Signs Date Time Temp Pulse Resp B/P (MAP) Pulse Ox O2 Delivery O2 Flow Rate FiO2 03/12/17 16:08 97.3 73 18 114/60 (78) 100 03/10/17 05:40 Room Air 03/07/17 00:57 94.0 I&O Intake and Output 03/12/17 07:00 Intake Total 990 ml Balance 990 ml Intake Oral 990 ml # Bowel Movements 1 Labs: Laboratory Tests Test 03/12/17 05:02 White Blood Count 5.1 x10^3/uL (4.0-11.0) Red Blood Count 4.54 x10^6/uL (3.50-5.40) Hemoglobin 12.9 g/dL (12.0-15.5) Hematocrit 39.4 % (36.0-47.0) Mean Corpuscular Volume 87 fL (79-100) Mean Corpuscular Hemoglobin 29 pg (25-35) Mean Corpuscular Hemoglobin Concent 33 g/dL (31-37) Red Cell Distribution Width 14.3 % (11.5-14.5) Platelet Count 126 x10^3/uL (140-400) L Neutrophils (%) (Auto) 54 % (31-73) Lymphocytes (%) (Auto) 34 % (24-48) Monocytes (%) (Auto) 10 % (0-9) H Eosinophils (%) (Auto) 2 % (0-3) Basophils (%) (Auto) 1 % (0-3) Neutrophils # (Auto) 2.7 x10^3uL (1.8-7.7) Lymphocytes # (Auto) 1.7 x10^3/uL (1.0-4.8) Monocytes # (Auto) 0.5 x10^3/uL (0.0-1.1) Eosinophils # (Auto) 0.1 x10^3/uL (0.0-0.7) Basophils # (Auto) 0.0 x10^3/uL (0.0-0.2) Sodium Level 143 mmol/L (136-145) Potassium Level 4.1 mmol/L (3.5-5.1) Chloride Level 104 mmol/L (98-107) Carbon Dioxide Level 32 mmol/L (21-32) Anion Gap 7 (6-14) Blood Urea Nitrogen 16 mg/dL (7-20) Creatinine 0.9 mg/dL (0.6-1.0) Estimated GFR (Cockcroft-Gault) 61.7 BUN/Creatinine Ratio 18 (6-20) Glucose Level 91 mg/dL (70-99) Calcium Level 8.6 mg/dL (8.5-10.1) Magnesium Level 2.1 mg/dL (1.8-2.4) Total Bilirubin 0.4 mg/dL (0.2-1.0) Aspartate Amino Transferase (AST) 15 U/L (15-37) Alanine Aminotransferase (ALT) 22 U/L (14-59) Alkaline Phosphatase 84 U/L (46-116) Total Protein 6.5 g/dL (6.4-8.2) Albumin 2.8 g/dL (3.4-5.0) L Albumin/Globulin Ratio 0.8 (1.0-1.7) L Valproic Acid Level 26 mcg/mL (50-100) L Valproic Acid Last Dose Date 11 mar 2017 Valproic Acid Last Dose Time 2100 Current Medications: Meds: Current Medications Acetaminophen (Tylenol) 650 mg PRN Q6HRS PRN PO MILD PAIN / TEMP Last administered on 03/07/17 17:50; Start 03/07/17 at 00:45 Multi-Ingredient Ointment (Analgesic [place]) 1 macey PRN QID PRN TP MUSCLE PAIN; Start 03/07/17 at 00:45 Al Hydroxide/Mg Hydroxide (Mylanta Plus Xs) 15 ml PRN AFTMEALHC PRN PO DYSPEPSIA; Start 03/07/17 at 00:45 Magnesium Hydroxide (Milk Of Magnesia) 2,400 mg PRN QHS PRN PO CONSTIPATION Last administered on 03/08/17 20:45; Start 03/07/17 at 00:45 Haloperidol (Haldol) 1 mg BID PO Last administered on 03/07/17 08:14; Start at 09:00; Stop 03/07/17 at 18:20; Status DC Lorazepam (Ativan) 0.5 mg PRN Q12HR PRN PO ANXIETY / AGITATION; Start 03/07/17 at 01:00 Mirtazapine (Remeron) 15 mg QHS PO Last administered on 03/12/17 18:40; Start 03/07/17 at 21:00 Trazodone HCl (Desyrel) 50 mg QHS PO Last administered on 03/12/17 18:38; Start 03/07/17 at 21:00 Non-Formulary Medication 400 mg Q4WK IM ; Start 03/07/17 at 09:00; Stop at 18:20; Status DC Acetaminophen (Tylenol) 500 mg PRN Q6HRS PRN PO PAIN / TEMP; Start 03/07/17 at 07:45; Stop 03/07/17 at 08:00; Status DC Aspirin (Children'S Aspirin) 81 mg DAILY PO Last administered on 03/12/17 08: 21; Start 03/07/17 at 09:00 Atorvastatin Calcium (Lipitor) 20 mg QHS PO Last administered on 03/12/17 18: 40; Start 03/07/17 at 21:00 Bisacodyl (Dulcolax Tab) 10 mg PRN DAILY PRN PO CONSTIPATION; Start 03/07/17 at 07:45 Docusate Sodium (Colace) 100 mg PRN BID PRN PO CONSTIPATION; Start 03/07/17 at 07:45 Glipizide (Glucotrol) 2.5 mg DAILY PO Last administered on 03/10/17 08:02; Start 03/07/17 at 09:00; Stop 03/10/17 at 14:12; Status DC Hydrochlorothiazide (Hydrodiuril) 25 mg DAILY PO Last administered on 08:21; Start 03/07/17 at 09:00 Polyethylene Glycol (miraLAX) 17 gm DAILY PO Last administered on 03/12/17 08: 21; Start 03/07/17 at 09:00 Artificial Tears (Artificial Tears) 1 drop PRN BID PRN OU DRY EYE; Start at 07:45 Calcium/Vitamin D (Oscal D 500mg/ 200uts) 1 tab BIDWMEALS PO Last administered on 03/12/17 15:52; Start 03/07/17 at 08:00 Glucosamine Sulfate (Glucosamine) 500 mg BID PO Last administered on 03/12/17 18:39; Start 03/07/17 at 09:00 Non-Formulary Medication 30 ml PRN DAILY PRN PO CONSTIPATION; Start 03/07/17 at 07:45; Stop 03/07/17 at 07:59; Status DC Non-Formulary Medication 1 macey PRN PRN TP PAIN; Start 03/07/17 at 07:45; Stop at 08:01; Status DC Multi-Ingred Cream/Lotion/Oil/ Oint (Hydrocerin) 1 macey PRN BID PRN TP DRY SKIN ; Start 03/07/17 at 08:15; Stop 03/07/17 at 14:45; Status DC Non-Formulary Medication 1 macey TID TOP ; Start 03/07/17 at 09:00; Stop 03/07/17 at 09:00; Status DC Multi-Ingred Cream/Lotion/Oil/ Oint (Hydrocerin) 1 macey PRN BID PRN TP DRY SKIN ; Start 03/07/17 at 14:45 Risperidone (Risperdal) 0.5 mg BID SL Last administered on 03/10/17 08:05; Start 03/07/17 at 21:00; Stop 03/10/17 at 17:56; Status DC Benztropine Mesylate (Cogentin) 0.5 mg BID PO Last administered on 03/12/17 18 :38; Start 03/08/17 at 21:00 Divalproex Sodium (Depakote Er) 250 mg QHS PO Last administered on 03/12/17 18 :38; Start 03/09/17 at 21:00 Risperidone (RisperDAL) 0.75 mg BID SL Last administered on 03/12/17 18:41; Start 03/10/17 at 21:00 Active Scripts Active Reported Haloperidol (Haloperidol Lactate) 5 Mg/1 Ml Ampul 5 Mg IM PRN Q8HRS PRN Biofreeze (Menthol) 118 Ml Gel..ml. 1 Macey TP PRN PRN Apply topically to Left Shoulder PRN Pain Aquaphor Ointment (Mineral Oil/Hydrophil Petrolat) 396 Gm Oint...g. 1 Macey TP PRN BID PRN Polyethylene Glycol 3350 17 Gm Powd.pack 17 Gm PO DAILY Lorazepam 2 Mg/1 Ml Vial 0.25 Mg IM PRN Q12HR PRN Lorazepam 0.5 Mg Tablet 0.5 Mg PO PRN Q12HR PRN Loratadine 10 Mg Tablet 10 Mg PO Docusate Sodium 100 Mg Capsule 100 Mg PO PRN BID PRN Artificial Tears (Polyvinyl Alcohol) 15 Ml Drops 1 Drop OU PRN BID PRN Acetaminophen 500 Mg Tablet 500 Mg PO PRN Q6HRS PRN Fleet Enema (Na Phos,M-B/Na Phos,Di-Ba) 133 Ml Enema 133 Ml RC PRN DAILY PRN Administer if MOM and Dulcolax unsuccessful after 48 hours Bisacodyl 5 Mg Tablet.dr 10 Mg PO PRN DAILY PRN Administer if MOM unsuccessful after 24 hours Milk Of Magnesia (Magnesium Hydroxide) 2,400 Mg/10 Ml Oral.susp 30 Ml PO PRN DAILY PRN [Sureprep] 1 Macey TOP TID Apply topically to Bilateral Plantar feet TID Trazodone Hcl 50 Mg Tablet 50 Mg PO QHS Mirtazapine 15 Mg Tablet 15 Mg PO QHS Hydrochlorothiazide Tablet (Hydrochlorothiazide) 25 Mg Tablet 25 Mg PO DAILY Haloperidol 1 Mg Tablet 1 Mg PO BID Glucosamine Hcl 500 Mg Tablet 500 Mg PO BID Glipizide 5 Mg Tablet 2.5 Mg PO DAILY Calcium 600+D Plus Minerals Tb (Calcium Carb/Vit D3/Minerals) 1 Each Tablet 1 Tab PO BID Atorvastatin Calcium 20 Mg Tablet 20 Mg PO QHS Aspirin 81 Mg Tab.chew 81 Mg PO DAILY Abilify Maintena (Aripiprazole) 400 Mg Suser.vial 400 Mg IM Q4WK JORDAN AMADOR MD March 12, 2017 19:43
[2017-03-13 06:25] VITALS: BP 131/68
[2017-03-13] MEDS: CALCIUM CARB/VIT D3 500/200 TABLET PO SCH ×2 (07:37→16:46)
[2017-03-13] MEDS: BENZTROPINE MESYLATE 0.5 MG TABLET PO SCH ×2 (07:38→19:57)
[2017-03-13] MEDS: ASPIRIN 81 MG TAB.CHEW PO SCH (07:38)
[2017-03-13] MEDS: hydroCHLOROthiazide 25 MG TABLET PO SCH (07:38)
[2017-03-13] MEDS: GLUCOSAMINE 500 MG CAPSULE PO SCH ×2 (07:38→19:57)
[2017-03-13] MEDS: POLYETHYLENE GLYCOL 3350 17 GM PACKET. PO SCH (07:39)
[2017-03-13] MEDS: risperiDONE ORAL 1 MG/ML 30ml BOTTLE. SL SCH ×2 (07:40→20:02)
--- NOTE | 2017-03-13 09:45 | NUR ---
Behavior Intervention Response and Plan: BIRP Note: Behavior: Assumed Care of patient, patient located in Day Room at shift change. Patient exhibited the following behavior Calm, Withdrawn, Appropriate. Brief assessment on rounds of vital signs, medication needs, lab studies, and pain. Treatment plan problems 1 and2. Intervention: Patient assessed and the following interventions initiated safety checks 15 Minute Checks Head to toe Assessment , Medications , Cognitive Assessment. Response: After interactions and interventions patient responded in the following manner, Compliant , Interactive ,Able to Focus on Task. Continue to assess behaviors and condition will continue to monitor throughout the shift as needed. 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 Continue to assess patient for changes in above assessment. Monitor for medication needs, pain, and safety concerns. Hourly rounding performed to ensure safe environment.
--- NOTE | 2017-03-13 10:40 | NUR ---
Group Note [facility] Group Type UNGAME Start Time: 09:40 End Time: 10:20 Problem: Depression Purpose: Increase Stimulation, Increase socialization, express thoughts/feelings Level of Participation: high Behaviors or Symptoms Observed: Pts sat within group and answered questions from the UNGAME and shared experiences and thoughts and feelings around questions that were asked. Interventions: Directed Focus Plan: group Additional Comments:Pt joined in the group. Pt had a flat affect during the group; pt would become tearful as she would answer questions
--- NOTE | 2017-03-13 11:25 | NUR ---
THERAPEUTIC RECREATION GROUP NOTE TITLE :Movement to Music: Flexibility ACTIVITY : Movement/ Exercise GOAL : Increase morale, attention, flexibility. Decrease stress/anxiety. DURATION : 30 Minutes RESPONSE : Full participation. Pt. needed no prompting to stay on task. She copied every move while sitting quietly.
--- NOTE | 2017-03-13 14:45 | NUR ---
THERAPEUTIC RECREATION GROUP NOTE TITLE :Coffee Filter Poppy Bower ACTIVITY : Arts and Crafts GOAL : Increase socialization, fine motor skills, creativity DURATION : 105 Minutes RESPONSE : Full participation. Pt. took her time coloring the coffee filters. She colored very carefully and quietly. She was calm with little socialization.
--- NOTE | 2017-03-13 16:00 | NUR ---
Pt actively participating in exercise and group activities, remains a bit withdrawn, has a flat affect and will not initiate any conversation but answers appropriately and converses well when approached. Takes medication without difficulty.
[2017-03-13 16:47] VITALS: BP 139/66
[2017-03-13] MEDS: traZODone 50 MG TABLET. PO SCH (19:57)
[2017-03-13] MEDS: ATORVASTATIN CALCIUM 20 MG TABLET PO SCH (19:57)
[2017-03-13] MEDS: MIRTAZAPINE 15 MG TABLET PO SCH (19:57)
--- NOTE | 2017-03-13 19:57 | PDOC ---
Exam Andre Demential Exam: Andre Note: Please also refer to the separate dictated note~for this date of service dictated separately.~Patient seen individually. Discussed the patient with Nursing staff reviewed the chart.~Reviewed interim history and current functioning. Reviewed vital signs,~Labs/ Radiology~and current medications noted below. Continue current treatment with the changes noted in the dictated addendum note Assessment: Vital Signs: Vital Signs Date Time Temp Pulse Resp B/P (MAP) Pulse Ox O2 Delivery O2 Flow Rate FiO2 03/13/17 16:47 97.9 65 16 139/66 (90) 99 Room Air I&O Intake and Output 03/13/17 07:00 Intake Total 1080 ml Balance 1080 ml Intake Oral 1080 ml # Bowel Movements 1 Current Medications: Meds: Current Medications Acetaminophen (Tylenol) 650 mg PRN Q6HRS PRN PO MILD PAIN / TEMP Last administered on 03/07/17 17:50; Start 03/07/17 at 00:45 Multi-Ingredient Ointment (Analgesic Switchback) 1 macey PRN QID PRN TP MUSCLE PAIN; Start 03/07/17 at 00:45 Al Hydroxide/Mg Hydroxide (Mylanta Plus Xs) 15 ml PRN AFTMEALHC PRN PO DYSPEPSIA; Start 03/07/17 at 00:45 Magnesium Hydroxide (Milk Of Magnesia) 2,400 mg PRN QHS PRN PO CONSTIPATION Last administered on 03/08/17 20:45; Start 03/07/17 at 00:45 Haloperidol (Haldol) 1 mg BID PO Last administered on 03/07/17 08:14; Start at 09:00; Stop 03/07/17 at 18:20; Status DC Lorazepam (Ativan) 0.5 mg PRN Q12HR PRN PO ANXIETY / AGITATION; Start 03/07/17 at 01:00 Mirtazapine (Remeron) 15 mg QHS PO Last administered on 03/12/17 18:40; Start 03/07/17 at 21:00 Trazodone HCl (Desyrel) 50 mg QHS PO Last administered on 03/12/17 18:38; Start 03/07/17 at 21:00 Non-Formulary Medication 400 mg Q4WK IM ; Start 03/07/17 at 09:00; Stop at 18:20; Status DC Acetaminophen (Tylenol) 500 mg PRN Q6HRS PRN PO PAIN / TEMP; Start 03/07/17 at 07:45; Stop 03/07/17 at 08:00; Status DC Aspirin (Children'S Aspirin) 81 mg DAILY PO Last administered on 03/13/17 07: 38; Start 03/07/17 at 09:00 Atorvastatin Calcium (Lipitor) 20 mg QHS PO Last administered on 03/12/17 18: 40; Start 03/07/17 at 21:00 Bisacodyl (Dulcolax Tab) 10 mg PRN DAILY PRN PO CONSTIPATION; Start 03/07/17 at 07:45 Docusate Sodium (Colace) 100 mg PRN BID PRN PO CONSTIPATION; Start 03/07/17 at 07:45 Glipizide (Glucotrol) 2.5 mg DAILY PO Last administered on 03/10/17 08:02; Start 03/07/17 at 09:00; Stop 03/10/17 at 14:12; Status DC Hydrochlorothiazide (Hydrodiuril) 25 mg DAILY PO Last administered on 07:38; Start 03/07/17 at 09:00 Polyethylene Glycol (miraLAX) 17 gm DAILY PO Last administered on 03/13/17 07: 39; Start 03/07/17 at 09:00 Artificial Tears (Artificial Tears) 1 drop PRN BID PRN OU DRY EYE; Start at 07:45 Calcium/Vitamin D (Oscal D 500mg/ 200uts) 1 tab BIDWMEALS PO Last administered on 03/13/17 16:46; Start 03/07/17 at 08:00 Glucosamine Sulfate (Glucosamine) 500 mg BID PO Last administered on 03/13/17 07:38; Start 03/07/17 at 09:00 Non-Formulary Medication 30 ml PRN DAILY PRN PO CONSTIPATION; Start 03/07/17 at 07:45; Stop 03/07/17 at 07:59; Status DC Non-Formulary Medication 1 macey PRN PRN TP PAIN; Start 03/07/17 at 07:45; Stop at 08:01; Status DC Multi-Ingred Cream/Lotion/Oil/ Oint (Hydrocerin) 1 macey PRN BID PRN TP DRY SKIN ; Start 03/07/17 at 08:15; Stop 03/07/17 at 14:45; Status DC Non-Formulary Medication 1 macey TID TOP ; Start 03/07/17 at 09:00; Stop 03/07/17 at 09:00; Status DC Multi-Ingred Cream/Lotion/Oil/ Oint (Hydrocerin) 1 macey PRN BID PRN TP DRY SKIN ; Start 03/07/17 at 14:45 Risperidone (Risperdal) 0.5 mg BID SL Last administered on 03/10/17 08:05; Start 03/07/17 at 21:00; Stop 03/10/17 at 17:56; Status DC Benztropine Mesylate (Cogentin) 0.5 mg BID PO Last administered on 03/13/17 07 :38; Start 03/08/17 at 21:00 Divalproex Sodium (Depakote Er) 250 mg QHS PO Last administered on 03/12/17 18 :38; Start 03/09/17 at 21:00; Stop 03/12/17 at 20:26; Status DC Risperidone (RisperDAL) 0.75 mg BID SL Last administered on 03/13/17 07:40; Start 03/10/17 at 21:00 Divalproex Sodium (Depakote Er) 500 mg QHS PO ; Start 03/13/17 at 21:00 Active Scripts Active Reported Haloperidol (Haloperidol Lactate) 5 Mg/1 Ml Ampul 5 Mg IM PRN Q8HRS PRN Biofreeze (Menthol) 118 Ml Gel..ml. 1 Macey TP PRN PRN Apply topically to Left Shoulder PRN Pain Aquaphor Ointment (Mineral Oil/Hydrophil Petrolat) 396 Gm Oint...g. 1 Macey TP PRN BID PRN Polyethylene Glycol 3350 17 Gm Powd.pack 17 Gm PO DAILY Lorazepam 2 Mg/1 Ml Vial 0.25 Mg IM PRN Q12HR PRN Lorazepam 0.5 Mg Tablet 0.5 Mg PO PRN Q12HR PRN Loratadine 10 Mg Tablet 10 Mg PO Docusate Sodium 100 Mg Capsule 100 Mg PO PRN BID PRN Artificial Tears (Polyvinyl Alcohol) 15 Ml Drops 1 Drop OU PRN BID PRN Acetaminophen 500 Mg Tablet 500 Mg PO PRN Q6HRS PRN Fleet Enema (Na Phos,M-B/Na Phos,Di-Ba) 133 Ml Enema 133 Ml RC PRN DAILY PRN Administer if MOM and Dulcolax unsuccessful after 48 hours Bisacodyl 5 Mg Tablet.dr 10 Mg PO PRN DAILY PRN Administer if MOM unsuccessful after 24 hours Milk Of Magnesia (Magnesium Hydroxide) 2,400 Mg/10 Ml Oral.susp 30 Ml PO PRN DAILY PRN [Sureprep] 1 Macey TOP TID Apply topically to Bilateral Plantar feet TID Trazodone Hcl 50 Mg Tablet 50 Mg PO QHS Mirtazapine 15 Mg Tablet 15 Mg PO QHS Hydrochlorothiazide Tablet (Hydrochlorothiazide) 25 Mg Tablet 25 Mg PO DAILY Haloperidol 1 Mg Tablet 1 Mg PO BID Glucosamine Hcl 500 Mg Tablet 500 Mg PO BID Glipizide 5 Mg Tablet 2.5 Mg PO DAILY Calcium 600+D Plus Minerals Tb (Calcium Carb/Vit D3/Minerals) 1 Each Tablet 1 Tab PO BID Atorvastatin Calcium 20 Mg Tablet 20 Mg PO QHS Aspirin 81 Mg Tab.chew 81 Mg PO DAILY Abilify Maintena (Aripiprazole) 400 Mg Suser.vial 400 Mg IM Q4WK JORDAN AMADOR MD March 13, 2017 19:57
[2017-03-13] MEDS: DIVALPROEX ER 500 MG TAB.ER.24H PO SCH (20:02)
--- NOTE | 2017-03-13 21:38 | NUR ---
Behavior Intervention Response and Plan: BIRP Note: Behavior: Assumed Care of patient, patient located in Day Room at shift change. Patient exhibited the following behavior Calm, Interactive, Compliant. Brief assessment on rounds of vital signs, medication needs, lab studies, and pain. Treatment plan problems 1-3. Intervention: Patient assessed and the following interventions initiated safety checks 15 Minute Checks Head to toe Assessment , Medications , Nutrition. Response: After interactions and interventions patient responded in the following manner, Interactive , Social ,Cooperative. Continue to assess behaviors and condition will continue to monitor throughout the shift as needed. 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 Continue to assess patient for changes in above assessment. Monitor for medication needs, pain, and safety concerns. Hourly rounding performed to ensure safe environment.
--- NOTE | 2017-03-13 23:38 | PN ---
DATE: 03/11/2017 PSYCHIATRIC PROGRESS NOTE This is late entry of 03/11/2017, covers elements not covered in my initial note. SUBJECTIVE: The patient remains withdrawn, has a flat affect, appears a little paranoid, but denies this. REVIEW OF SYSTEMS: No CV, , pulmonary, eye system symptoms on review. Reliability poor. MENTAL STATUS EXAMINATION: Oriented to herself and situation. Speech has some latency, coherent. Abstraction fair, computation impaired, language function intact, attention span short, mood and affect withdrawn. LABORATORY DATA: Reviewed. IMPRESSION: Unchanged from initial note. PLAN: Continue current psychotropics, check valproic acid level in the morning, adjust Depakote thereafter, maintain Risperdal, Remeron, trazodone, Ativan and Cogentin for now, unchanged. MAN Darren AMADOR MD DR: ERIKA/anika JOB#: [id number] / [id number]
--- NOTE | 2017-03-13 23:41 | PN ---
DATE: 03/12/2017 This is an entry for 03/12/2017 and covers elements not covered in my initial note. SUBJECTIVE: Per nursing report, the patient has been cooperative with meds and assessment, somewhat isolative at times. REVIEW OF SYSTEMS: Gait unsteady. No CV, , pulmonary, eye system symptoms on review. MENTAL STATUS EXAM: Reasonably oriented. Speech coherent, has some latency. Abstraction fair, computation impaired, language function intact, attention span short, mood and affect somewhat withdrawn. LABORATORY DATA: Reviewed. IMPRESSION: Unchanged from initial note. PLAN: Valproic acid level is 26 on Depakote ER 250 at bedtime. We will increase this to 500 at bedtime. Check labs level in 3 days. Continue rest unchanged including Risperdal 0.75 mg at bedtime. MAN Darren AMADOR MD DR: ERIKA/anika JOB#: [id number] / [id number]
[2017-03-14 06:13] VITALS: BP 126/56
--- NOTE | 2017-03-14 08:01 | PN ---
DATE: 03/10/2017 SUBJECTIVE: This is a late entry for 03/10/2017 and covers elements not covered in my initial note. The patient slept about 7 hours previous night. She has been delusional, tearful, psychotic, and believes someone is going to pour serum on her body. She is quite psychotic. REVIEW OF SYSTEMS: No CV, , pulmonary, or eye system symptoms on review. MENTAL STATUS EXAM: Reasonably oriented. Speech has some latency and often responses monosyllabic. Abstraction fair, computation impaired, and language function intact. Mood and affect somewhat withdrawn. LABORATORY DATA: Reviewed. 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 Rest unchanged. PLAN: Increase Risperdal liquid from 0.5 b.i.d. to 0.75 b.i.d. Maintain the rest of her psychotropics. Follow labs level on the Depakote. Adjust further as clinically indicated. JORDAN AMADOR MD DR: ERIKA/anika JOB#: [id number] / [id number]
[2017-03-14] MEDS: GLUCOSAMINE 500 MG CAPSULE PO SCH ×2 (09:30→21:28)
[2017-03-14] MEDS: CALCIUM CARB/VIT D3 500/200 TABLET PO SCH ×2 (09:30→16:54)
[2017-03-14] MEDS: POLYETHYLENE GLYCOL 3350 17 GM PACKET. PO SCH (09:31)
[2017-03-14] MEDS: BENZTROPINE MESYLATE 0.5 MG TABLET PO SCH ×2 (09:31→21:28)
[2017-03-14] MEDS: ASPIRIN 81 MG TAB.CHEW PO SCH (09:31)
[2017-03-14] MEDS: hydroCHLOROthiazide 25 MG TABLET PO SCH (09:32)
[2017-03-14] MEDS: risperiDONE ORAL 1 MG/ML 30ml BOTTLE. SL SCH ×2 (09:32→21:30)
--- NOTE | 2017-03-14 12:32 | NUR ---
UL[facility] GROUP NOTE TITLE: Jenga! ACTIVITY: Jenga blocks w/various prompts to be answered by the group. DURATION: 45 minutes TARGET BEHAVIOR: Cognitive, social skills, coordination/skill, directed focus, reminisce, therapeutic expression RESPONSE: Active participant in group. Pt. appears very quiet and reserved, yet is willing to participate in groups and answer any questions posed to her. Pt. even was able to show some emotion while sharing her answers w/the group.
--- NOTE | 2017-03-14 14:00 | NUR ---
THERAPEUTIC RECREATION GROUP NOTE TITLE :Dance and Sing along with Alexandra-Patriotic Songs/ Poppy Recognition ACTIVITY : Music GOAL : Increase socialization, elevate mood, stimulate memory DURATION : 60 Minutes RESPONSE : Full participation. Pt. was engaged the entire time. She sang along and tapped foot to the music. She was tearful when naming a couple family members who but we could remember over Memorial Day
--- NOTE | 2017-03-14 15:21 | NUR ---
Behavior Intervention Response and Plan: BIRP Note: Behavior: Assumed Care of patient, patient located in Day Room at shift change. Patient exhibited the following behavior Calm, Compliant, Cooperative. Brief assessment on rounds of vital signs, medication needs, lab studies, and pain. Treatment plan problems . Intervention: Patient assessed and the following interventions initiated safety checks 15 Minute Checks Cognitive Assessment , Head to toe Assessment , Medications. Response: After interactions and interventions patient responded in the following manner, Calm , Compliant ,Cooperative. Continue to assess behaviors and condition will continue to monitor throughout the shift as needed. Plan: Continue to monitor Master Treatment Plan for patient's progress toward short term goals of Medication Compliance, Decreased Anxiety, assisted goals to return to previous living setting vs placement. Continue to assess patient for changes in above assessment. Monitor for medication needs, pain, and safety concerns. Hourly rounding performed to ensure safe environment.
--- NOTE | 2017-03-14 16:09 | NUR ---
Group Note [facility] Group Type "What is your Shell" Start Time: 9:30 End Time: 10:50 Problem: Anxiety Purpose: Express Feelings, Increase socialization, Increase self awareness Level of Participation: High Group: In observation of National turtle awareness day, Pts discussed facts about turtle, then directed to talk about qualities a turtle has such as "non-assertive",what "non assertive" looks like. Why a turtle has a shell- related the turtles shell to what each pts "shell" looks like. While discussing this pts colored and put together their own turtle. Interventions: Directed Focus, Clarification Plan: Group Participation, higher level Additional Comments:Pt was engaged with group. Pt has a flat affect as she participated in the group.
[2017-03-14 16:25] VITALS: BP 122/56
--- NOTE | 2017-03-14 21:05 | PDOC ---
Exam Andre Demential Exam: Andre Note: Please also refer to the separate dictated note~for this date of service dictated separately.~Patient seen individually. Discussed the patient with Nursing staff reviewed the chart.~Reviewed interim history and current functioning. Reviewed vital signs,~Labs/ Radiology~and current medications noted below. Continue current treatment with the changes noted in the dictated addendum note Assessment: Vital Signs: Vital Signs Date Time Temp Pulse Resp B/P (MAP) Pulse Ox O2 Delivery O2 Flow Rate FiO2 03/14/17 16:25 97.8 68 16 122/56 (78) 98 03/13/17 16:47 Room Air I&O Intake and Output 03/14/17 07:00 Intake Total 600 ml Balance 600 ml Intake Oral 600 ml Current Medications: Meds: Current Medications Acetaminophen (Tylenol) 650 mg PRN Q6HRS PRN PO MILD PAIN / TEMP Last administered on 03/07/17 17:50; Start 03/07/17 at 00:45 Multi-Ingredient Ointment (Analgesic [place]) 1 macey PRN QID PRN TP MUSCLE PAIN; Start 03/07/17 at 00:45 Al Hydroxide/Mg Hydroxide (Mylanta Plus Xs) 15 ml PRN AFTMEALHC PRN PO DYSPEPSIA; Start 03/07/17 at 00:45 Magnesium Hydroxide (Milk Of Magnesia) 2,400 mg PRN QHS PRN PO CONSTIPATION Last administered on 03/08/17 20:45; Start 03/07/17 at 00:45 Haloperidol (Haldol) 1 mg BID PO Last administered on 03/07/17 08:14; Start at 09:00; Stop 03/07/17 at 18:20; Status DC Lorazepam (Ativan) 0.5 mg PRN Q12HR PRN PO ANXIETY / AGITATION; Start 03/07/17 at 01:00 Mirtazapine (Remeron) 15 mg QHS PO Last administered on 03/13/17 19:57; Start 03/07/17 at 21:00 Trazodone HCl (Desyrel) 50 mg QHS PO Last administered on 03/13/17 19:57; Start 03/07/17 at 21:00 Non-Formulary Medication 400 mg Q4WK IM ; Start 03/07/17 at 09:00; Stop at 18:20; Status DC Acetaminophen (Tylenol) 500 mg PRN Q6HRS PRN PO PAIN / TEMP; Start 03/07/17 at 07:45; Stop 03/07/17 at 08:00; Status DC Aspirin (Children'S Aspirin) 81 mg DAILY PO Last administered on 03/14/17 09: 31; Start 03/07/17 at 09:00 Atorvastatin Calcium (Lipitor) 20 mg QHS PO Last administered on 03/13/17 19: 57; Start 03/07/17 at 21:00 Bisacodyl (Dulcolax Tab) 10 mg PRN DAILY PRN PO CONSTIPATION; Start 03/07/17 at 07:45 Docusate Sodium (Colace) 100 mg PRN BID PRN PO CONSTIPATION; Start 03/07/17 at 07:45 Glipizide (Glucotrol) 2.5 mg DAILY PO Last administered on 03/10/17 08:02; Start 03/07/17 at 09:00; Stop 03/10/17 at 14:12; Status DC Hydrochlorothiazide (Hydrodiuril) 25 mg DAILY PO Last administered on 09:32; Start 03/07/17 at 09:00 Polyethylene Glycol (miraLAX) 17 gm DAILY PO Last administered on 03/14/17 09: 31; Start 03/07/17 at 09:00 Artificial Tears (Artificial Tears) 1 drop PRN BID PRN OU DRY EYE; Start at 07:45 Calcium/Vitamin D (Oscal D 500mg/ 200uts) 1 tab BIDWMEALS PO Last administered on 03/14/17 16:54; Start 03/07/17 at 08:00 Glucosamine Sulfate (Glucosamine) 500 mg BID PO Last administered on 03/14/17 09:30; Start 03/07/17 at 09:00 Non-Formulary Medication 30 ml PRN DAILY PRN PO CONSTIPATION; Start 03/07/17 at 07:45; Stop 03/07/17 at 07:59; Status DC Non-Formulary Medication 1 macey PRN PRN TP PAIN; Start 03/07/17 at 07:45; Stop at 08:01; Status DC Multi-Ingred Cream/Lotion/Oil/ Oint (Hydrocerin) 1 macey PRN BID PRN TP DRY SKIN ; Start 03/07/17 at 08:15; Stop 03/07/17 at 14:45; Status DC Non-Formulary Medication 1 macey TID TOP ; Start 03/07/17 at 09:00; Stop 03/07/17 at 09:00; Status DC Multi-Ingred Cream/Lotion/Oil/ Oint (Hydrocerin) 1 macey PRN BID PRN TP DRY SKIN ; Start 03/07/17 at 14:45 Risperidone (Risperdal) 0.5 mg BID SL Last administered on 03/10/17 08:05; Start 03/07/17 at 21:00; Stop 03/10/17 at 17:56; Status DC Benztropine Mesylate (Cogentin) 0.5 mg BID PO Last administered on 03/14/17 09 :31; Start 03/08/17 at 21:00 Divalproex Sodium (Depakote Er) 250 mg QHS PO Last administered on 03/12/17 18 :38; Start 03/09/17 at 21:00; Stop 03/12/17 at 20:26; Status DC Risperidone (RisperDAL) 0.75 mg BID SL Last administered on 03/14/17 09:32; Start 03/10/17 at 21:00 Divalproex Sodium (Depakote Er) 500 mg QHS PO Last administered on 03/13/17 20 :02; Start 03/13/17 at 21:00 Active Scripts Active Reported Haloperidol (Haloperidol Lactate) 5 Mg/1 Ml Ampul 5 Mg IM PRN Q8HRS PRN Biofreeze (Menthol) 118 Ml Gel..ml. 1 Macey TP PRN PRN Apply topically to Left Shoulder PRN Pain Aquaphor Ointment (Mineral Oil/Hydrophil Petrolat) 396 Gm Oint...g. 1 Macey TP PRN BID PRN Polyethylene Glycol 3350 17 Gm Powd.pack 17 Gm PO DAILY Lorazepam 2 Mg/1 Ml Vial 0.25 Mg IM PRN Q12HR PRN Lorazepam 0.5 Mg Tablet 0.5 Mg PO PRN Q12HR PRN Loratadine 10 Mg Tablet 10 Mg PO Docusate Sodium 100 Mg Capsule 100 Mg PO PRN BID PRN Artificial Tears (Polyvinyl Alcohol) 15 Ml Drops 1 Drop OU PRN BID PRN Acetaminophen 500 Mg Tablet 500 Mg PO PRN Q6HRS PRN Fleet Enema (Na Phos,M-B/Na Phos,Di-Ba) 133 Ml Enema 133 Ml RC PRN DAILY PRN Administer if MOM and Dulcolax unsuccessful after 48 hours Bisacodyl 5 Mg Tablet.dr 10 Mg PO PRN DAILY PRN Administer if MOM unsuccessful after 24 hours Milk Of Magnesia (Magnesium Hydroxide) 2,400 Mg/10 Ml Oral.susp 30 Ml PO PRN DAILY PRN [Sureprep] 1 Macey TOP TID Apply topically to Bilateral Plantar feet TID Trazodone Hcl 50 Mg Tablet 50 Mg PO QHS Mirtazapine 15 Mg Tablet 15 Mg PO QHS Hydrochlorothiazide Tablet (Hydrochlorothiazide) 25 Mg Tablet 25 Mg PO DAILY Haloperidol 1 Mg Tablet 1 Mg PO BID Glucosamine Hcl 500 Mg Tablet 500 Mg PO BID Glipizide 5 Mg Tablet 2.5 Mg PO DAILY Calcium 600+D Plus Minerals Tb (Calcium Carb/Vit D3/Minerals) 1 Each Tablet 1 Tab PO BID Atorvastatin Calcium 20 Mg Tablet 20 Mg PO QHS Aspirin 81 Mg Tab.chew 81 Mg PO DAILY Abilify Maintena (Aripiprazole) 400 Mg Suser.vial 400 Mg IM Q4WK JORDAN AMADOR MD March 14, 2017 21:05
[2017-03-14] MEDS: traZODone 50 MG TABLET. PO SCH (21:28)
[2017-03-14] MEDS: MIRTAZAPINE 15 MG TABLET PO SCH (21:28)
[2017-03-14] MEDS: DIVALPROEX ER 500 MG TAB.ER.24H PO SCH (21:28)
[2017-03-14] MEDS: ATORVASTATIN CALCIUM 20 MG TABLET PO SCH (21:28)
--- NOTE | 2017-03-14 22:52 | NUR ---
Behavior Intervention Response and Plan: BIRP Note: Behavior: Assumed Care of patient, patient located in Patient Room at shift change. Patient exhibited the following behavior Calm, Compliant, Cooperative. Brief assessment on rounds of vital signs, medication needs, lab studies, and pain. Treatment plan problems Altered Thought Process and Fall Risk. Intervention: Patient assessed and the following interventions initiated safety checks 15 Minute Checks Cognitive Assessment , Head to toe Assessment , Medications. Response: After interactions and interventions patient responded in the following manner, Calm , Compliant ,Cooperative. Continue to assess behaviors and condition will continue to monitor throughout the shift as needed. Plan: Continue to monitor Master Treatment Plan for patient's progress toward short term goals of Medication Compliance, Decreased Agitation, mcfp goals to return to previous living setting vs placement. Continue to assess patient for changes in above assessment. Monitor for medication needs, pain, and safety concerns. Hourly rounding performed to ensure safe environment.
[2017-03-15 06:09] VITALS: BP 129/70
--- NOTE | 2017-03-15 06:23 | PN ---
DATE: 03/13/2017 PSYCHIATRIC PROGRESS NOTE This is late entry of 03/13/2017, covers elements not covered in my initial note. SUBJECTIVE: The patient slept 7-1/2 hours previous evening, has a flat affect, withdrawn, cooperative, attended exercise group and activity therapy group. She states voices are better, still has a flat, withdrawn affect. REVIEW OF SYSTEMS: No CV, , pulmonary, eye, ENT system symptoms on review. MENTAL STATUS EXAMINATION: Oriented to herself and situation. Speech coherent, has some latency, often responses monosyllabic. Abstraction fair, computation impaired, language function intact. Mood and affect withdrawn. LABORATORY DATA: Reviewed. IMPRESSION: Unchanged from initial note, schizophrenia, chronic, undifferentiated with acute exacerbation; schizoaffective disorder, bipolar type, mixed with psychotic features, in partial remission. Rest unchanged. PLAN: Continue Depakote ER 500 at bedtime, repeat labs level on 03/16/2017, maintain Cogentin 0.5 b.i.d., Risperdal 0.75 b.i.d. liquid, Ativan p.r.n., trazodone 50 at bedtime and Remeron 15 at bedtime. MAN Darren AMADOR MD DR: ERIKA/anika JOB#: [id number] / [id number]
[2017-03-15] MEDS: risperiDONE ORAL 1 MG/ML 30ml BOTTLE. SL SCH ×2 (09:12→20:13)
[2017-03-15] MEDS: GLUCOSAMINE 500 MG CAPSULE PO SCH ×2 (09:13→20:13)
[2017-03-15] MEDS: CALCIUM CARB/VIT D3 500/200 TABLET PO SCH ×2 (09:13→17:42)
[2017-03-15] MEDS: BENZTROPINE MESYLATE 0.5 MG TABLET PO SCH ×2 (09:13→20:13)
[2017-03-15] MEDS: POLYETHYLENE GLYCOL 3350 17 GM PACKET. PO SCH (09:13)
[2017-03-15] MEDS: hydroCHLOROthiazide 25 MG TABLET PO SCH (09:13)
[2017-03-15] MEDS: ASPIRIN 81 MG TAB.CHEW PO SCH (09:13)
--- NOTE | 2017-03-15 09:30 | NUR ---
Behavior Intervention Response and Plan: BIRP Note: Behavior: Assumed Care of patient, patient located in Day Room at shift change. Patient exhibited the following behavior Calm, Appropriate, Compliant. Brief assessment on rounds of vital signs, medication needs, lab studies, and pain. Treatment plan problems 1 amnd 2. Intervention: Patient assessed and the following interventions initiated safety checks 15 Minute Checks Cognitive Assessment , Head to toe Assessment , Medications. Response: After interactions and interventions patient responded in the following manner, Calm , Compliant ,Cooperative. Continue to assess behaviors and condition will continue to monitor throughout the shift as needed. 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 Continue to assess patient for changes in above assessment. Monitor for medication needs, pain, and safety concerns. Hourly rounding performed to ensure safe environment.
--- NOTE | 2017-03-15 10:20 | NUR ---
THERAPEUTIC RECREATION GROUP NOTE TITLE :[place]- Led by Karla ACTIVITY : Cognitive Stimulation GOAL : Stimulate memory, Increase problem solving DURATION : 60 minutes RESPONSE : Full participation reported by CNMilagros
--- NOTE | 2017-03-15 13:00 | NUR ---
THERAPEUTIC RECREATION GROUP NOTE TITLE :Characteristics of a [place] ACTIVITY : Cognitive Stimulation GOAL : Stimulate memory, Increase problem solving DURATION : 45 minutes RESPONSE : Full participation. Pt. 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
[2017-03-15 16:23] VITALS: BP 117/83
[2017-03-15 16:24] VITALS: BP 117/83
[2017-03-15] MEDS: MIRTAZAPINE 15 MG TABLET PO SCH (20:13)
[2017-03-15] MEDS: traZODone 50 MG TABLET. PO SCH (20:13)
[2017-03-15] MEDS: ATORVASTATIN CALCIUM 20 MG TABLET PO SCH (20:13)
[2017-03-15] MEDS: DIVALPROEX ER 500 MG TAB.ER.24H PO SCH (20:13)
--- NOTE | 2017-03-15 20:54 | PDOC ---
Exam Andre Demential Exam: Andre Note: Please also refer to the separate dictated note~for this date of service dictated separately.~Patient seen individually. Discussed the patient with Nursing staff reviewed the chart.~Reviewed interim history and current functioning. Reviewed vital signs,~Labs/ Radiology~and current medications noted below. Continue current treatment with the changes noted in the dictated addendum note Assessment: Vital Signs: Vital Signs Date Time Temp Pulse Resp B/P (MAP) Pulse Ox O2 Delivery O2 Flow Rate FiO2 03/15/17 16:24 98.7 72 17 117/83 (94) 100 03/15/17 06:09 Room Air I&O Intake and Output 03/15/17 07:00 Intake Total 960 ml Balance 960 ml Intake Oral 960 ml Current Medications: Meds: Current Medications Acetaminophen (Tylenol) 650 mg PRN Q6HRS PRN PO MILD PAIN / TEMP Last administered on 03/07/17 17:50; Start 03/07/17 at 00:45 Multi-Ingredient Ointment (Analgesic [place]) 1 macey PRN QID PRN TP MUSCLE PAIN; Start 03/07/17 at 00:45 Al Hydroxide/Mg Hydroxide (Mylanta Plus Xs) 15 ml PRN AFTMEALHC PRN PO DYSPEPSIA; Start 03/07/17 at 00:45 Magnesium Hydroxide (Milk Of Magnesia) 2,400 mg PRN QHS PRN PO CONSTIPATION Last administered on 03/08/17 20:45; Start 03/07/17 at 00:45 Haloperidol (Haldol) 1 mg BID PO Last administered on 03/07/17 08:14; Start at 09:00; Stop 03/07/17 at 18:20; Status DC Lorazepam (Ativan) 0.5 mg PRN Q12HR PRN PO ANXIETY / AGITATION; Start 03/07/17 at 01:00 Mirtazapine (Remeron) 15 mg QHS PO Last administered on 03/15/17 20:13; Start 03/07/17 at 21:00 Trazodone HCl (Desyrel) 50 mg QHS PO Last administered on 03/15/17 20:13; Start 03/07/17 at 21:00 Non-Formulary Medication 400 mg Q4WK IM ; Start 03/07/17 at 09:00; Stop at 18:20; Status DC Acetaminophen (Tylenol) 500 mg PRN Q6HRS PRN PO PAIN / TEMP; Start 03/07/17 at 07:45; Stop 03/07/17 at 08:00; Status DC Aspirin (Children'S Aspirin) 81 mg DAILY PO Last administered on 03/15/17 09: 13; Start 03/07/17 at 09:00 Atorvastatin Calcium (Lipitor) 20 mg QHS PO Last administered on 03/15/17 20: 13; Start 03/07/17 at 21:00 Bisacodyl (Dulcolax Tab) 10 mg PRN DAILY PRN PO CONSTIPATION; Start 03/07/17 at 07:45 Docusate Sodium (Colace) 100 mg PRN BID PRN PO CONSTIPATION; Start 03/07/17 at 07:45 Glipizide (Glucotrol) 2.5 mg DAILY PO Last administered on 03/10/17 08:02; Start 03/07/17 at 09:00; Stop 03/10/17 at 14:12; Status DC Hydrochlorothiazide (Hydrodiuril) 25 mg DAILY PO Last administered on 09:13; Start 03/07/17 at 09:00 Polyethylene Glycol (miraLAX) 17 gm DAILY PO Last administered on 03/15/17 09: 13; Start 03/07/17 at 09:00 Artificial Tears (Artificial Tears) 1 drop PRN BID PRN OU DRY EYE; Start at 07:45 Calcium/Vitamin D (Oscal D 500mg/ 200uts) 1 tab BIDWMEALS PO Last administered on 03/15/17 17:42; Start 03/07/17 at 08:00 Glucosamine Sulfate (Glucosamine) 500 mg BID PO Last administered on 03/15/17 20:13; Start 03/07/17 at 09:00 Non-Formulary Medication 30 ml PRN DAILY PRN PO CONSTIPATION; Start 03/07/17 at 07:45; Stop 03/07/17 at 07:59; Status DC Non-Formulary Medication 1 macey PRN PRN TP PAIN; Start 03/07/17 at 07:45; Stop at 08:01; Status DC Multi-Ingred Cream/Lotion/Oil/ Oint (Hydrocerin) 1 macey PRN BID PRN TP DRY SKIN ; Start 03/07/17 at 08:15; Stop 03/07/17 at 14:45; Status DC Non-Formulary Medication 1 macey TID TOP ; Start 03/07/17 at 09:00; Stop 03/07/17 at 09:00; Status DC Multi-Ingred Cream/Lotion/Oil/ Oint (Hydrocerin) 1 macey PRN BID PRN TP DRY SKIN ; Start 03/07/17 at 14:45 Risperidone (Risperdal) 0.5 mg BID SL Last administered on 03/10/17 08:05; Start 03/07/17 at 21:00; Stop 03/10/17 at 17:56; Status DC Benztropine Mesylate (Cogentin) 0.5 mg BID PO Last administered on 03/15/17 20 :13; Start 03/08/17 at 21:00 Divalproex Sodium (Depakote Er) 250 mg QHS PO Last administered on 03/12/17 18 :38; Start 03/09/17 at 21:00; Stop 03/12/17 at 20:26; Status DC Risperidone (RisperDAL) 0.75 mg BID SL Last administered on 03/15/17 20:13; Start 03/10/17 at 21:00 Divalproex Sodium (Depakote Er) 500 mg QHS PO Last administered on 03/15/17 20 :13; Start 03/13/17 at 21:00 Active Scripts Active Reported Haloperidol (Haloperidol Lactate) 5 Mg/1 Ml Ampul 5 Mg IM PRN Q8HRS PRN Biofreeze (Menthol) 118 Ml Gel..ml. 1 Macey TP PRN PRN Apply topically to Left Shoulder PRN Pain Aquaphor Ointment (Mineral Oil/Hydrophil Petrolat) 396 Gm Oint...g. 1 Macey TP PRN BID PRN Polyethylene Glycol 3350 17 Gm Powd.pack 17 Gm PO DAILY Lorazepam 2 Mg/1 Ml Vial 0.25 Mg IM PRN Q12HR PRN Lorazepam 0.5 Mg Tablet 0.5 Mg PO PRN Q12HR PRN Loratadine 10 Mg Tablet 10 Mg PO Docusate Sodium 100 Mg Capsule 100 Mg PO PRN BID PRN Artificial Tears (Polyvinyl Alcohol) 15 Ml Drops 1 Drop OU PRN BID PRN Acetaminophen 500 Mg Tablet 500 Mg PO PRN Q6HRS PRN Fleet Enema (Na Phos,M-B/Na Phos,Di-Ba) 133 Ml Enema 133 Ml RC PRN DAILY PRN Administer if MOM and Dulcolax unsuccessful after 48 hours Bisacodyl 5 Mg Tablet.dr 10 Mg PO PRN DAILY PRN Administer if MOM unsuccessful after 24 hours Milk Of Magnesia (Magnesium Hydroxide) 2,400 Mg/10 Ml Oral.susp 30 Ml PO PRN DAILY PRN [Sureprep] 1 Macey TOP TID Apply topically to Bilateral Plantar feet TID Trazodone Hcl 50 Mg Tablet 50 Mg PO QHS Mirtazapine 15 Mg Tablet 15 Mg PO QHS Hydrochlorothiazide Tablet (Hydrochlorothiazide) 25 Mg Tablet 25 Mg PO DAILY Haloperidol 1 Mg Tablet 1 Mg PO BID Glucosamine Hcl 500 Mg Tablet 500 Mg PO BID Glipizide 5 Mg Tablet 2.5 Mg PO DAILY Calcium 600+D Plus Minerals Tb (Calcium Carb/Vit D3/Minerals) 1 Each Tablet 1 Tab PO BID Atorvastatin Calcium 20 Mg Tablet 20 Mg PO QHS Aspirin 81 Mg Tab.chew 81 Mg PO DAILY Abilify Maintena (Aripiprazole) 400 Mg Suser.vial 400 Mg IM Q4WK JORDAN AMADOR MD March 15, 2017 20:54
--- NOTE | 2017-03-15 21:54 | NUR ---
Behavior Intervention Response and Plan: BIRP Note: Behavior: Assumed Care of patient, patient located in Day Room at shift change. Patient exhibited the following behavior Calm, Compliant, Cooperative. Brief assessment on rounds of vital signs, medication needs, lab studies, and pain. Treatment plan problems Altered Thought Process and Fall risk. Intervention: Patient assessed and the following interventions initiated safety checks 15 Minute Checks Cognitive Assessment , Head to toe Assessment , Medications. Response: After interactions and interventions patient responded in the following manner, Calm , Compliant ,Cooperative. Continue to assess behaviors and condition will continue to monitor throughout the shift as needed. 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 Continue to assess patient for changes in above assessment. Monitor for medication needs, pain, and safety concerns. Hourly rounding performed to ensure safe environment.
[2017-03-16 06:09] VITALS: BP 120/73
[2017-03-16 06:36] LABS: BASO % 0 % (0-3); EOS # 0.1 x10^3/uL (0.0-0.7); EOS % 2 % (0-3); HEMATOCRIT 38.2 % (36.0-47.0); HEMOGLOBIN 12.7 g/dL (12.0-15.5); LYMPH # 1.7 x10^3/uL (1.0-4.8); LYMPH % 33 % (24-48); MEAN CORPUSCULAR HEMOGLOBIN 29 pg (25-35); MEAN CORPUSCULAR HGB CONC 33 g/dL (31-37); MEAN CORPUSCULAR VOLUME 86 fL (79-100); MONO # 0.5 x10^3/uL (0.0-1.1); MONO % 9 % (0-9); NEUT # 2.9 x10^3uL (1.8-7.7); NEUT % 56 % (31-73); PLATELET COUNT 135 x10^3/uL (140-400); RED BLOOD COUNT 4.42 x10^6/uL (3.50-5.40); RED CELL DISTRIBUTION WIDTH 14.9 % (11.5-14.5); WHITE BLOOD COUNT 5.2 x10^3/uL (4.0-11.0)
[2017-03-16 06:49] LABS: ALBUMIN 2.7 g/dL (3.4-5.0); ALBUMIN/GLOBULIN RATIO 0.8 (1.0-1.7); ALK PHOS 79 U/L (46-116); ALT (SGPT) 22 U/L (14-59); ANION GAP 5 (6-14); AST (SGOT) 17 U/L (15-37); BLOOD UREA NITROGEN 16 mg/dL (7-20); BUN/CREATININE RATIO 20 (6-20); CALCIUM 8.6 mg/dL (8.5-10.1); CARBON DIOXIDE 34 mmol/L (21-32); CHLORIDE 103 mmol/L (98-107); CREATININE 0.8 mg/dL (0.6-1.0); GFR 70.7; GLUCOSE 97 mg/dL (70-99); POTASSIUM 3.9 mmol/L (3.5-5.1); SODIUM 142 mmol/L (136-145); TOTAL BILIRUBIN 0.3 mg/dL (0.2-1.0); TOTAL PROTEIN 6.3 g/dL (6.4-8.2)
[2017-03-16 06:50] LABS: VAL ACID 60 mcg/mL (50-100)
--- NOTE | 2017-03-16 07:00 | PN ---
DATE: 03/14/2017 PSYCHIATRIC PROGRESS NOTE This is a late entry of 03/14/2017, covers elements not covered in my initial note. SUBJECTIVE: Per nursing report, the patient remains somewhat withdrawn. Initially told the nursing staff, she was having no hallucinations, but when I questioned her the evening of 03/14/2017, she said she was still hearing voices, they were more distant and she did not feel compelled to respond to them, which is all an improvement and "they do not bother me as much." REVIEW OF SYSTEMS: Ambulation is somewhat impaired. No CV, , pulmonary, eye, ENT system symptoms on review. MENTAL STATUS EXAM: Oriented to herself and situation. Speech moderate latency, coherent, often responses monosyllabic. Abstraction fair, computation impaired, language function intact. Mood and affect still somewhat withdrawn, but improved. LABORATORY DATA: Reviewed. IMPRESSION: Unchanged from initial note. PLAN: Continue Depakote ER 500 at bedtime. Check labs level on 03/16/2017. Adjust further as clinically indicated. Maintain Remeron, trazodone, Ativan p.r.n., Risperdal liquid, and Cogentin at current dosage. JORDAN AMADOR MD DR: ERIKA/anika JOB#: [id number] / [id number]
[2017-03-16] MEDS: hydroCHLOROthiazide 25 MG TABLET PO SCH (09:07)
[2017-03-16] MEDS: POLYETHYLENE GLYCOL 3350 17 GM PACKET. PO SCH (09:07)
[2017-03-16] MEDS: ASPIRIN 81 MG TAB.CHEW PO SCH (09:07)
[2017-03-16] MEDS: BENZTROPINE MESYLATE 0.5 MG TABLET PO SCH ×2 (09:07→19:31)
[2017-03-16] MEDS: GLUCOSAMINE 500 MG CAPSULE PO SCH ×2 (09:07→19:30)
[2017-03-16] MEDS: CALCIUM CARB/VIT D3 500/200 TABLET PO SCH ×2 (09:07→15:50)
[2017-03-16] MEDS: risperiDONE ORAL 1 MG/ML 30ml BOTTLE. SL SCH ×2 (09:07→19:31)
--- NOTE | 2017-03-16 11:26 | NUR ---
Behavior Intervention Response and Plan: BIRP Note: Behavior: Assumed Care of patient, patient located in Day Room at shift change. Patient exhibited the following behavior Calm, Compliant, Cooperative. Brief assessment on rounds of vital signs, medication needs, lab studies, and pain. Treatment plan problems . Intervention: Patient assessed and the following interventions initiated safety checks 15 Minute Checks Cognitive Assessment , Head to toe Assessment , Medications. Response: After interactions and interventions patient responded in the following manner, Calm , Compliant ,Cooperative. Continue to assess behaviors and condition will continue to monitor throughout the shift as needed. Plan: Continue to monitor Master Treatment Plan for patient's progress toward short term goals of Improved Mood, Decreased Anxiety, rn long term care goals to return to previous living setting vs placement. Continue to assess patient for changes in above assessment. Monitor for medication needs, pain, and safety concerns. Hourly rounding performed to ensure safe environment.
--- NOTE | 2017-03-16 13:30 | NUR ---
THERAPEUTIC RECREATION GROUP NOTE TITLE :[place] [employer] ACTIVITY : Arts and Crafts GOAL : Increase socialization, fine motor skills, creativity DURATION : 90 Minutes RESPONSE : Full participation. While COURT STENOGRAPHER was preparing for the group, Pt. passed by and jokingly told her to check her room for missing colored pencils due to her roommate collecting them. Pt. and COURT STENOGRAPHER shared a smile and a chuckle. Pt. stayed engaged with great attention to detail through activity. She needed no prompting to stay on task.
[2017-03-16 15:48] VITALS: BP 136/62
[2017-03-16] MEDS: ATORVASTATIN CALCIUM 20 MG TABLET PO SCH (19:30)
[2017-03-16] MEDS: traZODone 50 MG TABLET. PO SCH (19:30)
[2017-03-16] MEDS: MIRTAZAPINE 15 MG TABLET PO SCH (19:30)
[2017-03-16] MEDS: DIVALPROEX ER 500 MG TAB.ER.24H PO SCH (19:31)
--- NOTE | 2017-03-16 20:30 | PDOC ---
Exam Andre Demential Exam: Andre Note: Please also refer to the separate dictated note~for this date of service dictated separately.~Patient seen individually. Discussed the patient with Nursing staff reviewed the chart.~Reviewed interim history and current functioning. Reviewed vital signs,~Labs/ Radiology~and current medications noted below. Continue current treatment with the changes noted in the dictated addendum note Assessment: Vital Signs: Vital Signs Date Time Temp Pulse Resp B/P (MAP) Pulse Ox O2 Delivery O2 Flow Rate FiO2 03/16/17 15:48 98.2 87 18 136/62 (86) 98 03/15/17 06:09 Room Air I&O Intake and Output 03/16/17 07:00 Intake Total 960 ml Balance 960 ml Intake Oral 960 ml Labs: Laboratory Tests Test 03/16/17 06:06 White Blood Count 5.2 x10^3/uL (4.0-11.0) Red Blood Count 4.42 x10^6/uL (3.50-5.40) Hemoglobin 12.7 g/dL (12.0-15.5) Hematocrit 38.2 % (36.0-47.0) Mean Corpuscular Volume 86 fL (79-100) Mean Corpuscular Hemoglobin 29 pg (25-35) Mean Corpuscular Hemoglobin Concent 33 g/dL (31-37) Red Cell Distribution Width 14.9 % (11.5-14.5) H Platelet Count 135 x10^3/uL (140-400) L Neutrophils (%) (Auto) 56 % (31-73) Lymphocytes (%) (Auto) 33 % (24-48) Monocytes (%) (Auto) 9 % (0-9) Eosinophils (%) (Auto) 2 % (0-3) Basophils (%) (Auto) 0 % (0-3) Neutrophils # (Auto) 2.9 x10^3uL (1.8-7.7) Lymphocytes # (Auto) 1.7 x10^3/uL (1.0-4.8) Monocytes # (Auto) 0.5 x10^3/uL (0.0-1.1) Eosinophils # (Auto) 0.1 x10^3/uL (0.0-0.7) Basophils # (Auto) 0.0 x10^3/uL (0.0-0.2) Sodium Level 142 mmol/L (136-145) Potassium Level 3.9 mmol/L (3.5-5.1) Chloride Level 103 mmol/L (98-107) Carbon Dioxide Level 34 mmol/L (21-32) H Anion Gap 5 (6-14) L Blood Urea Nitrogen 16 mg/dL (7-20) Creatinine 0.8 mg/dL (0.6-1.0) Estimated GFR (Cockcroft-Gault) 70.7 BUN/Creatinine Ratio 20 (6-20) Glucose Level 97 mg/dL (70-99) Calcium Level 8.6 mg/dL (8.5-10.1) Total Bilirubin 0.3 mg/dL (0.2-1.0) Aspartate Amino Transferase (AST) 17 U/L (15-37) Alanine Aminotransferase (ALT) 22 U/L (14-59) Alkaline Phosphatase 79 U/L (46-116) Total Protein 6.3 g/dL (6.4-8.2) L Albumin 2.7 g/dL (3.4-5.0) L Albumin/Globulin Ratio 0.8 (1.0-1.7) L Valproic Acid Level 60 mcg/mL (50-100) Valproic Acid Last Dose Date 03/15/2017 Valproic Acid Last Dose Time 2100 Current Medications: Meds: Current Medications Acetaminophen (Tylenol) 650 mg PRN Q6HRS PRN PO MILD PAIN / TEMP Last administered on 03/07/17 17:50; Start 03/07/17 at 00:45 Multi-Ingredient Ointment (Analgesic [place]) 1 macey PRN QID PRN TP MUSCLE PAIN; Start 03/07/17 at 00:45 Al Hydroxide/Mg Hydroxide (Mylanta Plus Xs) 15 ml PRN AFTMEALHC PRN PO DYSPEPSIA; Start 03/07/17 at 00:45 Magnesium Hydroxide (Milk Of Magnesia) 2,400 mg PRN QHS PRN PO CONSTIPATION Last administered on 03/08/17 20:45; Start 03/07/17 at 00:45 Haloperidol (Haldol) 1 mg BID PO Last administered on 03/07/17 08:14; Start at 09:00; Stop 03/07/17 at 18:20; Status DC Lorazepam (Ativan) 0.5 mg PRN Q12HR PRN PO ANXIETY / AGITATION; Start 03/07/17 at 01:00 Mirtazapine (Remeron) 15 mg QHS PO Last administered on 03/16/17 19:30; Start 03/07/17 at 21:00 Trazodone HCl (Desyrel) 50 mg QHS PO Last administered on 03/16/17 19:30; Start 03/07/17 at 21:00 Non-Formulary Medication 400 mg Q4WK IM ; Start 03/07/17 at 09:00; Stop at 18:20; Status DC Acetaminophen (Tylenol) 500 mg PRN Q6HRS PRN PO PAIN / TEMP; Start 03/07/17 at 07:45; Stop 03/07/17 at 08:00; Status DC Aspirin (Children'S Aspirin) 81 mg DAILY PO Last administered on 03/16/17 09: 07; Start 03/07/17 at 09:00 Atorvastatin Calcium (Lipitor) 20 mg QHS PO Last administered on 03/16/17 19: 30; Start 03/07/17 at 21:00 Bisacodyl (Dulcolax Tab) 10 mg PRN DAILY PRN PO CONSTIPATION; Start 03/07/17 at 07:45 Docusate Sodium (Colace) 100 mg PRN BID PRN PO CONSTIPATION; Start 03/07/17 at 07:45 Glipizide (Glucotrol) 2.5 mg DAILY PO Last administered on 03/10/17 08:02; Start 03/07/17 at 09:00; Stop 03/10/17 at 14:12; Status DC Hydrochlorothiazide (Hydrodiuril) 25 mg DAILY PO Last administered on 09:07; Start 03/07/17 at 09:00 Polyethylene Glycol (miraLAX) 17 gm DAILY PO Last administered on 03/16/17 09: 07; Start 03/07/17 at 09:00; Stop 03/16/17 at 11:36; Status DC Artificial Tears (Artificial Tears) 1 drop PRN BID PRN OU DRY EYE; Start at 07:45 Calcium/Vitamin D (Oscal D 500mg/ 200uts) 1 tab BIDWMEALS PO Last administered on 03/16/17 15:50; Start 03/07/17 at 08:00 Glucosamine Sulfate (Glucosamine) 500 mg BID PO Last administered on 03/16/17 19:30; Start 03/07/17 at 09:00 Non-Formulary Medication 30 ml PRN DAILY PRN PO CONSTIPATION; Start 03/07/17 at 07:45; Stop 03/07/17 at 07:59; Status DC Non-Formulary Medication 1 macey PRN PRN TP PAIN; Start 03/07/17 at 07:45; Stop at 08:01; Status DC Multi-Ingred Cream/Lotion/Oil/ Oint (Hydrocerin) 1 macey PRN BID PRN TP DRY SKIN ; Start 03/07/17 at 08:15; Stop 03/07/17 at 14:45; Status DC Non-Formulary Medication 1 macey TID TOP ; Start 03/07/17 at 09:00; Stop 03/07/17 at 09:00; Status DC Multi-Ingred Cream/Lotion/Oil/ Oint (Hydrocerin) 1 macey PRN BID PRN TP DRY SKIN ; Start 03/07/17 at 14:45 Risperidone (Risperdal) 0.5 mg BID SL Last administered on 03/10/17 08:05; Start 03/07/17 at 21:00; Stop 03/10/17 at 17:56; Status DC Benztropine Mesylate (Cogentin) 0.5 mg BID PO Last administered on 03/16/17 19 :31; Start 03/08/17 at 21:00 Divalproex Sodium (Depakote Er) 250 mg QHS PO Last administered on 03/12/17 18 :38; Start 03/09/17 at 21:00; Stop 03/12/17 at 20:26; Status DC Risperidone (RisperDAL) 0.75 mg BID SL Last administered on 03/16/17 09:07; Start 03/10/17 at 21:00; Stop 03/16/17 at 10:17; Status DC Divalproex Sodium (Depakote Er) 500 mg QHS PO Last administered on 03/16/17 19 :31; Start 03/13/17 at 21:00 Risperidone (RisperDAL) 1 mg BID SL Last administered on 5/25/17at 19:31; Start 03/16/17 at 21:00 Active Scripts Active Reported Haloperidol (Haloperidol Lactate) 5 Mg/1 Ml Ampul 5 Mg IM PRN Q8HRS PRN Biofreeze (Menthol) 118 Ml Gel..ml. 1 Macey TP PRN PRN Apply topically to Left Shoulder PRN Pain Aquaphor Ointment (Mineral Oil/Hydrophil Petrolat) 396 Gm Oint...g. 1 Macey TP PRN BID PRN Polyethylene Glycol 3350 17 Gm Powd.pack 17 Gm PO DAILY Lorazepam 2 Mg/1 Ml Vial 0.25 Mg IM PRN Q12HR PRN Lorazepam 0.5 Mg Tablet 0.5 Mg PO PRN Q12HR PRN Loratadine 10 Mg Tablet 10 Mg PO Docusate Sodium 100 Mg Capsule 100 Mg PO PRN BID PRN Artificial Tears (Polyvinyl Alcohol) 15 Ml Drops 1 Drop OU PRN BID PRN Acetaminophen 500 Mg Tablet 500 Mg PO PRN Q6HRS PRN Fleet Enema (Na Phos,M-B/Na Phos,Di-Ba) 133 Ml Enema 133 Ml RC PRN DAILY PRN Administer if MOM and Dulcolax unsuccessful after 48 hours Bisacodyl 5 Mg Tablet.dr 10 Mg PO PRN DAILY PRN Administer if MOM unsuccessful after 24 hours Milk Of Magnesia (Magnesium Hydroxide) 2,400 Mg/10 Ml Oral.susp 30 Ml PO PRN DAILY PRN [Sureprep] 1 Macey TOP TID Apply topically to Bilateral Plantar feet TID Trazodone Hcl 50 Mg Tablet 50 Mg PO QHS Mirtazapine 15 Mg Tablet 15 Mg PO QHS Hydrochlorothiazide Tablet (Hydrochlorothiazide) 25 Mg Tablet 25 Mg PO DAILY Haloperidol 1 Mg Tablet 1 Mg PO BID Glucosamine Hcl 500 Mg Tablet 500 Mg PO BID Glipizide 5 Mg Tablet 2.5 Mg PO DAILY Calcium 600+D Plus Minerals Tb (Calcium Carb/Vit D3/Minerals) 1 Each Tablet 1 Tab PO BID Atorvastatin Calcium 20 Mg Tablet 20 Mg PO QHS Aspirin 81 Mg Tab.chew 81 Mg PO DAILY Abilify Maintena (Aripiprazole) 400 Mg Suser.vial 400 Mg IM Q4WK JORDAN AMADOR MD March 16, 2017 20:30
--- NOTE | 2017-03-16 23:13 | NUR ---
Behavior Intervention Response and Plan: BIRP Note: Behavior: Assumed Care of patient, patient located in Patient Room at shift change. Patient exhibited the following behavior Calm, Compliant, Cooperative. Brief assessment on rounds of vital signs, medication needs, lab studies, and pain. Treatment plan problems Alteration in Though Process and Fall Risk. Intervention: Patient assessed and the following interventions initiated safety checks 15 Minute Checks Cognitive Assessment , Head to toe Assessment , Medications. Response: After interactions and interventions patient responded in the following manner, Calm , Compliant ,Cooperative. Continue to assess behaviors and condition will continue to monitor throughout the shift as needed. Plan: Continue to monitor Master Treatment Plan for patient's progress toward short term goals of Medication Compliance, Decreased Agitation, [facility] goals to return to previous living setting vs placement. Continue to assess patient for changes in above assessment. Monitor for medication needs, pain, and safety concerns. Hourly rounding performed to ensure safe environment.
[2017-03-17 06:20] VITALS: BP 128/64
[2017-03-17] MEDS: GLUCOSAMINE 500 MG CAPSULE PO SCH ×2 (07:42→19:16)
[2017-03-17] MEDS: CALCIUM CARB/VIT D3 500/200 TABLET PO SCH ×2 (07:42→16:58)
[2017-03-17] MEDS: BENZTROPINE MESYLATE 0.5 MG TABLET PO SCH ×2 (07:42→19:17)
[2017-03-17] MEDS: hydroCHLOROthiazide 25 MG TABLET PO SCH (07:42)
[2017-03-17] MEDS: ASPIRIN 81 MG TAB.CHEW PO SCH (07:42)
[2017-03-17] MEDS: risperiDONE ORAL 1 MG/ML 30ml BOTTLE. SL SCH ×2 (07:43→19:16)
--- NOTE | 2017-03-17 07:50 | NUR ---
Behavior Intervention Response and Plan: BIRP Note: Behavior: Assumed Care of patient, patient located in Patient Room at shift change. Patient exhibited the following behavior Hallucinating, Calm, Compliant. Brief assessment on rounds of vital signs, medication needs, lab studies, and pain. Treatment plan problems 1 & 2. Intervention: Patient assessed and the following interventions initiated safety checks 15 Minute Checks Cognitive Assessment , Head to toe Assessment , Medications. Response: After interactions and interventions patient responded in the following manner, Calm , Appropriate ,Cooperative. Continue to assess behaviors and condition will continue to monitor throughout the shift as needed. Plan: Continue to monitor Master Treatment Plan for patient's progress toward short term goals of Decreased Agitation, Medication Compliance, group home goals to return to previous living setting vs placement. Continue to assess patient for changes in above assessment. Monitor for medication needs, pain, and safety concerns. Hourly rounding performed to ensure safe environment.
--- NOTE | 2017-03-17 14:00 | NUR ---
THERAPEUTIC RECREATION GROUP NOTE TITLE :Cookie Decorating: [facility] ACTIVITY : Activities and Games GOAL : Facilitate sense of belonging and well-being, elevate mood, increase socialization and social skills. Incorporate traditions. DURATION : 45 minutes RESPONSE : Full participation. Pt. was quiet and engaged the entire session. She decorated her cookies and ate both. She needed no prompting to stay on task.
[2017-03-17 15:59] VITALS: BP 123/68
[2017-03-17] MEDS: DIVALPROEX ER 500 MG TAB.ER.24H PO SCH (19:16)
[2017-03-17] MEDS: MIRTAZAPINE 15 MG TABLET PO SCH (19:16)
[2017-03-17] MEDS: traZODone 50 MG TABLET. PO SCH (19:16)
[2017-03-17] MEDS: ATORVASTATIN CALCIUM 20 MG TABLET PO SCH (19:17)
--- NOTE | 2017-03-17 21:23 | PDOC ---
Exam Andre Demential Exam: Andre Note: Please also refer to the separate dictated note~for this date of service dictated separately.~Patient seen individually. Discussed the patient with Nursing staff reviewed the chart.~Reviewed interim history and current functioning. Reviewed vital signs,~Labs/ Radiology~and current medications noted below. Continue current treatment with the changes noted in the dictated addendum note Assessment: Vital Signs: Vital Signs Date Time Temp Pulse Resp B/P (MAP) Pulse Ox O2 Delivery O2 Flow Rate FiO2 03/17/17 15:59 98.2 78 17 123/68 (86) 98 03/15/17 06:09 Room Air I&O Intake and Output 03/17/17 07:00 Intake Total 1560 ml Balance 1560 ml Intake Oral 1560 ml # Bowel Movements 1 Current Medications: Meds: Current Medications Acetaminophen (Tylenol) 650 mg PRN Q6HRS PRN PO MILD PAIN / TEMP Last administered on 03/07/17 17:50; Start 03/07/17 at 00:45 Multi-Ingredient Ointment (Analgesic [place]) 1 macey PRN QID PRN TP MUSCLE PAIN; Start 03/07/17 at 00:45 Al Hydroxide/Mg Hydroxide (Mylanta Plus Xs) 15 ml PRN AFTMEALHC PRN PO DYSPEPSIA; Start 03/07/17 at 00:45 Magnesium Hydroxide (Milk Of Magnesia) 2,400 mg PRN QHS PRN PO CONSTIPATION Last administered on 03/08/17 20:45; Start 03/07/17 at 00:45 Haloperidol (Haldol) 1 mg BID PO Last administered on 03/07/17 08:14; Start at 09:00; Stop 03/07/17 at 18:20; Status DC Lorazepam (Ativan) 0.5 mg PRN Q12HR PRN PO ANXIETY / AGITATION; Start 03/07/17 at 01:00 Mirtazapine (Remeron) 15 mg QHS PO Last administered on 03/17/17 19:16; Start 03/07/17 at 21:00 Trazodone HCl (Desyrel) 50 mg QHS PO Last administered on 03/17/17 19:16; Start 03/07/17 at 21:00 Non-Formulary Medication 400 mg Q4WK IM ; Start 03/07/17 at 09:00; Stop at 18:20; Status DC Acetaminophen (Tylenol) 500 mg PRN Q6HRS PRN PO PAIN / TEMP; Start 03/07/17 at 07:45; Stop 03/07/17 at 08:00; Status DC Aspirin (Children'S Aspirin) 81 mg DAILY PO Last administered on 03/17/17 07: 42; Start 03/07/17 at 09:00 Atorvastatin Calcium (Lipitor) 20 mg QHS PO Last administered on 03/17/17 19: 17; Start 03/07/17 at 21:00 Bisacodyl (Dulcolax Tab) 10 mg PRN DAILY PRN PO CONSTIPATION; Start 03/07/17 at 07:45 Docusate Sodium (Colace) 100 mg PRN BID PRN PO CONSTIPATION; Start 03/07/17 at 07:45 Glipizide (Glucotrol) 2.5 mg DAILY PO Last administered on 03/10/17 08:02; Start 03/07/17 at 09:00; Stop 03/10/17 at 14:12; Status DC Hydrochlorothiazide (Hydrodiuril) 25 mg DAILY PO Last administered on 07:42; Start 03/07/17 at 09:00 Polyethylene Glycol (miraLAX) 17 gm DAILY PO Last administered on 03/16/17 09: 07; Start 03/07/17 at 09:00; Stop 03/16/17 at 11:36; Status DC Artificial Tears (Artificial Tears) 1 drop PRN BID PRN OU DRY EYE; Start at 07:45 Calcium/Vitamin D (Oscal D 500mg/ 200uts) 1 tab BIDWMEALS PO Last administered on 03/17/17 16:58; Start 03/07/17 at 08:00 Glucosamine Sulfate (Glucosamine) 500 mg BID PO Last administered on 03/17/17 19:16; Start 03/07/17 at 09:00 Non-Formulary Medication 30 ml PRN DAILY PRN PO CONSTIPATION; Start 03/07/17 at 07:45; Stop 03/07/17 at 07:59; Status DC Non-Formulary Medication 1 macey PRN PRN TP PAIN; Start 03/07/17 at 07:45; Stop at 08:01; Status DC Multi-Ingred Cream/Lotion/Oil/ Oint (Hydrocerin) 1 macey PRN BID PRN TP DRY SKIN ; Start 03/07/17 at 08:15; Stop 03/07/17 at 14:45; Status DC Non-Formulary Medication 1 macey TID TOP ; Start 03/07/17 at 09:00; Stop 03/07/17 at 09:00; Status DC Multi-Ingred Cream/Lotion/Oil/ Oint (Hydrocerin) 1 macey PRN BID PRN TP DRY SKIN ; Start 03/07/17 at 14:45 Risperidone (Risperdal) 0.5 mg BID SL Last administered on 03/10/17 08:05; Start 03/07/17 at 21:00; Stop 03/10/17 at 17:56; Status DC Benztropine Mesylate (Cogentin) 0.5 mg BID PO Last administered on 03/17/17 19 :17; Start 03/08/17 at 21:00 Divalproex Sodium (Depakote Er) 250 mg QHS PO Last administered on 03/12/17 18 :38; Start 03/09/17 at 21:00; Stop 03/12/17 at 20:26; Status DC Risperidone (RisperDAL) 0.75 mg BID SL Last administered on 03/16/17 09:07; Start 03/10/17 at 21:00; Stop 03/16/17 at 10:17; Status DC Divalproex Sodium (Depakote Er) 500 mg QHS PO Last administered on 03/17/17 19 :16; Start 03/13/17 at 21:00 Risperidone (RisperDAL) 1 mg BID SL Last administered on 03/17/17 19:16; Start 03/16/17 at 21:00 Active Scripts Active Reported Haloperidol (Haloperidol Lactate) 5 Mg/1 Ml Ampul 5 Mg IM PRN Q8HRS PRN Biofreeze (Menthol) 118 Ml Gel..ml. 1 Macey TP PRN PRN Apply topically to Left Shoulder PRN Pain Aquaphor Ointment (Mineral Oil/Hydrophil Petrolat) 396 Gm Oint...g. 1 Macey TP PRN BID PRN Polyethylene Glycol 3350 17 Gm Powd.pack 17 Gm PO DAILY Lorazepam 2 Mg/1 Ml Vial 0.25 Mg IM PRN Q12HR PRN Lorazepam 0.5 Mg Tablet 0.5 Mg PO PRN Q12HR PRN Loratadine 10 Mg Tablet 10 Mg PO Docusate Sodium 100 Mg Capsule 100 Mg PO PRN BID PRN Artificial Tears (Polyvinyl Alcohol) 15 Ml Drops 1 Drop OU PRN BID PRN Acetaminophen 500 Mg Tablet 500 Mg PO PRN Q6HRS PRN Fleet Enema (Na Phos,M-B/Na Phos,Di-Ba) 133 Ml Enema 133 Ml RC PRN DAILY PRN Administer if MOM and Dulcolax unsuccessful after 48 hours Bisacodyl 5 Mg Tablet.dr 10 Mg PO PRN DAILY PRN Administer if MOM unsuccessful after 24 hours Milk Of Magnesia (Magnesium Hydroxide) 2,400 Mg/10 Ml Oral.susp 30 Ml PO PRN DAILY PRN [Sureprep] 1 Macey TOP TID Apply topically to Bilateral Plantar feet TID Trazodone Hcl 50 Mg Tablet 50 Mg PO QHS Mirtazapine 15 Mg Tablet 15 Mg PO QHS Hydrochlorothiazide Tablet (Hydrochlorothiazide) 25 Mg Tablet 25 Mg PO DAILY Haloperidol 1 Mg Tablet 1 Mg PO BID Glucosamine Hcl 500 Mg Tablet 500 Mg PO BID Glipizide 5 Mg Tablet 2.5 Mg PO DAILY Calcium 600+D Plus Minerals Tb (Calcium Carb/Vit D3/Minerals) 1 Each Tablet 1 Tab PO BID Atorvastatin Calcium 20 Mg Tablet 20 Mg PO QHS Aspirin 81 Mg Tab.chew 81 Mg PO DAILY Theresalimoses [place] (Aripiprazole) 400 Mg Chuck.vial 400 Mg IM Q4WK JORDAN AMADOR MD March 17, 2017 21:23
--- NOTE | 2017-03-18 00:38 | NUR ---
Behavior Intervention Response and Plan: BIRP Note: Behavior: Assumed Care of patient, patient located in Patient Room at shift change. Patient exhibited the following behavior Calm, Compliant, Cooperative. Brief assessment on rounds of vital signs, medication needs, lab studies, and pain. Treatment plan problems Alteration in Though Process and Fall Risk. Intervention: Patient assessed and the following interventions initiated safety checks 15 Minute Checks Cognitive Assessment , Head to toe Assessment , Medications. Response: After interactions and interventions patient responded in the following manner, Calm , Compliant ,Cooperative. Continue to assess behaviors and condition will continue to monitor throughout the shift as needed. Plan: Continue to monitor Master Treatment Plan for patient's progress toward short term goals of Medication Compliance, Decreased Agitation, shelter goals to return to previous living setting vs placement. Continue to assess patient for changes in above assessment. Monitor for medication needs, pain, and safety concerns. Hourly rounding performed to ensure safe environment.
[2017-03-18 06:05] VITALS: BP 126/66
[2017-03-18] MEDS: GLUCOSAMINE 500 MG CAPSULE PO SCH ×2 (07:50→19:13)
[2017-03-18] MEDS: hydroCHLOROthiazide 25 MG TABLET PO SCH (07:51)
[2017-03-18] MEDS: BENZTROPINE MESYLATE 0.5 MG TABLET PO SCH ×2 (07:51→19:13)
[2017-03-18] MEDS: risperiDONE ORAL 1 MG/ML 30ml BOTTLE. SL SCH ×2 (07:51→19:12)
[2017-03-18] MEDS: CALCIUM CARB/VIT D3 500/200 TABLET PO SCH ×2 (07:51→17:41)
[2017-03-18] MEDS: ASPIRIN 81 MG TAB.CHEW PO SCH (07:51)
--- NOTE | 2017-03-18 08:15 | NUR ---
Behavior Intervention Response and Plan: BIRP Note: Behavior: Assumed Care of patient, patient located in Dining Room at shift change. Patient exhibited the following behavior Calm, Withdrawn, Hallucinating. Brief assessment on rounds of vital signs, medication needs, lab studies, and pain. Treatment plan problems 1 & 2. Intervention: Patient assessed and the following interventions initiated safety checks 15 Minute Checks Cognitive Assessment , Head to toe Assessment , Medications. Response: After interactions and interventions patient responded in the following manner, Calm , Compliant ,Appropriate. Continue to assess behaviors and condition will continue to monitor throughout the shift as needed. Plan: Continue to monitor Master Treatment Plan for patient's progress toward short term goals of Decreased Agitation, Decreased Aggression, intermediate manager goals to return to previous living setting vs placement. Continue to assess patient for changes in above assessment. Monitor for medication needs, pain, and safety concerns. Hourly rounding performed to ensure safe environment.
--- NOTE | 2017-03-18 10:54 | PN ---
DATE: 03/15/2017 PSYCHIATRIC PROGRESS NOTE This is a late entry of 03/15/2017, covers elements not covered in my initial note. SUBJECTIVE: The patient remains somewhat withdrawn with limited affect. She is compliant with medications. Denied hallucinations to nursing staff, but when I questioned her on this evening of 03/15/2017, she was forthcoming, states she hears people talking, but she does not have to follow what they say and they seem to be getting further away. REVIEW OF SYSTEMS: No CV, , pulmonary, eye, ENT system symptoms on review. MENTAL STATUS EXAM: Reasonably oriented. Speech moderate latency, often responses monosyllabic. Insight limited, judgment marginal, language function intact. Attention span short. LABORATORY DATA: Reviewed. IMPRESSION: Unchanged from initial note. Schizoaffective disorder, bipolar type, mixed with psychotic features, in partial remission. Rest unchanged. PLAN: Continue psychotropics mentioned in my initial note. Adjust as clinically indicated. MAN Darren AMADOR MD DR: ERIKA/anika JOB#: [id number] / [id number]
--- NOTE | 2017-03-18 10:54 | PN ---
DATE: 03/16/2017 PSYCHIATRIC PROGRESS NOTE This is a late entry 03/16/2017, covers elements not covered in my initial note. SUBJECTIVE: The patient was staffed at treatment team meeting with the entire team and seen individually as well. She attends groups as a flat affect, was talking to someone over the phone about murder. She is still psychotic, admits to having auditory hallucinations when I questioned her, but denies this to the nursing staff. REVIEW OF SYSTEMS: No CV, , pulmonary, eye system symptoms on review. MENTAL STATUS EXAM: Reasonably oriented. Speech has some latency, coherent, often responses monosyllabic. Abstraction fair, computation impaired, language function intact. Mood and affect somewhat withdrawn. LABORATORY DATA: Reviewed. IMPRESSION: Schizophrenia chronic undifferentiated with acute exacerbation and partial remission. Schizoaffective disorder, bipolar type, mixed with psychotic features, in partial remission. Rest unchanged. Valproic acid level is 60. PLAN: We will continue current psychotropics, but increase the Risperdal from 0.75 b.i.d. to 1 mg twice a day. Repeat labs level. Continue rest of the psychotropics as mentioned in my initial note. MAN Darren AMADOR MD DR: ERIKA/anika JOB#: [id number] / [id number]
[2017-03-18 15:55] VITALS: BP 132/78
[2017-03-18] MEDS: ATORVASTATIN CALCIUM 20 MG TABLET PO SCH (19:13)
[2017-03-18] MEDS: traZODone 50 MG TABLET. PO SCH (19:13)
[2017-03-18] MEDS: MIRTAZAPINE 15 MG TABLET PO SCH (19:13)
[2017-03-18] MEDS: DIVALPROEX ER 500 MG TAB.ER.24H PO SCH (19:13)
--- NOTE | 2017-03-18 22:48 | PDOC ---
Exam Andre Demential Exam: Andre Note: Please also refer to the separate dictated note~for this date of service dictated separately.~Patient seen individually. Discussed the patient with Nursing staff reviewed the chart.~Reviewed interim history and current functioning. Reviewed vital signs,~Labs/ Radiology~and current medications noted below. Continue current treatment with the changes noted in the dictated addendum note Assessment: Vital Signs: Vital Signs Date Time Temp Pulse Resp B/P (MAP) Pulse Ox O2 Delivery O2 Flow Rate FiO2 03/18/17 15:55 97.9 58 17 132/78 (96) 98 03/15/17 06:09 Room Air I&O Intake and Output 03/18/17 07:00 Intake Total 960 ml Balance 960 ml Intake Oral 960 ml Current Medications: Meds: Current Medications Acetaminophen (Tylenol) 650 mg PRN Q6HRS PRN PO MILD PAIN / TEMP Last administered on 03/07/17 17:50; Start 03/07/17 at 00:45 Multi-Ingredient Ointment (Analgesic [place]) 1 macey PRN QID PRN TP MUSCLE PAIN; Start 03/07/17 at 00:45 Al Hydroxide/Mg Hydroxide (Mylanta Plus Xs) 15 ml PRN AFTMEALHC PRN PO DYSPEPSIA; Start 03/07/17 at 00:45 Magnesium Hydroxide (Milk Of Magnesia) 2,400 mg PRN QHS PRN PO CONSTIPATION Last administered on 03/08/17 20:45; Start 03/07/17 at 00:45 Haloperidol (Haldol) 1 mg BID PO Last administered on 03/07/17 08:14; Start at 09:00; Stop 03/07/17 at 18:20; Status DC Lorazepam (Ativan) 0.5 mg PRN Q12HR PRN PO ANXIETY / AGITATION; Start 03/07/17 at 01:00 Mirtazapine (Remeron) 15 mg QHS PO Last administered on 03/18/17 19:13; Start 03/07/17 at 21:00 Trazodone HCl (Desyrel) 50 mg QHS PO Last administered on 03/18/17 19:13; Start 03/07/17 at 21:00 Non-Formulary Medication 400 mg Q4WK IM ; Start 03/07/17 at 09:00; Stop at 18:20; Status DC Acetaminophen (Tylenol) 500 mg PRN Q6HRS PRN PO PAIN / TEMP; Start 03/07/17 at 07:45; Stop 03/07/17 at 08:00; Status DC Aspirin (Children'S Aspirin) 81 mg DAILY PO Last administered on 03/18/17 07: 51; Start 03/07/17 at 09:00 Atorvastatin Calcium (Lipitor) 20 mg QHS PO Last administered on 03/18/17 19: 13; Start 03/07/17 at 21:00 Bisacodyl (Dulcolax Tab) 10 mg PRN DAILY PRN PO CONSTIPATION; Start 03/07/17 at 07:45 Docusate Sodium (Colace) 100 mg PRN BID PRN PO CONSTIPATION; Start 03/07/17 at 07:45 Glipizide (Glucotrol) 2.5 mg DAILY PO Last administered on 03/10/17 08:02; Start 03/07/17 at 09:00; Stop 03/10/17 at 14:12; Status DC Hydrochlorothiazide (Hydrodiuril) 25 mg DAILY PO Last administered on 07:51; Start 03/07/17 at 09:00 Polyethylene Glycol (miraLAX) 17 gm DAILY PO Last administered on 03/16/17 09: 07; Start 03/07/17 at 09:00; Stop 03/16/17 at 11:36; Status DC Artificial Tears (Artificial Tears) 1 drop PRN BID PRN OU DRY EYE; Start at 07:45 Calcium/Vitamin D (Oscal D 500mg/ 200uts) 1 tab BIDWMEALS PO Last administered on 03/18/17 17:41; Start 03/07/17 at 08:00 Glucosamine Sulfate (Glucosamine) 500 mg BID PO Last administered on 03/18/17 19:13; Start 03/07/17 at 09:00 Non-Formulary Medication 30 ml PRN DAILY PRN PO CONSTIPATION; Start 03/07/17 at 07:45; Stop 03/07/17 at 07:59; Status DC Non-Formulary Medication 1 macey PRN PRN TP PAIN; Start 03/07/17 at 07:45; Stop at 08:01; Status DC Multi-Ingred Cream/Lotion/Oil/ Oint (Hydrocerin) 1 macey PRN BID PRN TP DRY SKIN ; Start 03/07/17 at 08:15; Stop 03/07/17 at 14:45; Status DC Non-Formulary Medication 1 macey TID TOP ; Start 03/07/17 at 09:00; Stop 03/07/17 at 09:00; Status DC Multi-Ingred Cream/Lotion/Oil/ Oint (Hydrocerin) 1 macey PRN BID PRN TP DRY SKIN ; Start 03/07/17 at 14:45 Risperidone (Risperdal) 0.5 mg BID SL Last administered on 03/10/17 08:05; Start 03/07/17 at 21:00; Stop 03/10/17 at 17:56; Status DC Benztropine Mesylate (Cogentin) 0.5 mg BID PO Last administered on 03/18/17 19 :13; Start 03/08/17 at 21:00 Divalproex Sodium (Depakote Er) 250 mg QHS PO Last administered on 03/12/17 18 :38; Start 03/09/17 at 21:00; Stop 03/12/17 at 20:26; Status DC Risperidone (RisperDAL) 0.75 mg BID SL Last administered on 03/16/17 09:07; Start 03/10/17 at 21:00; Stop 03/16/17 at 10:17; Status DC Divalproex Sodium (Depakote Er) 500 mg QHS PO Last administered on 03/18/17 19 :13; Start 03/13/17 at 21:00 Risperidone (RisperDAL) 1 mg BID SL Last administered on 03/18/17 19:12; Start 03/16/17 at 21:00 Cetirizine HCl (ZyrTEC) 10 mg DAILY PO ; Start 03/19/17 at 09:00 Fluticasone Propionate (Flonase) 2 spray DAILY NS ; Start 03/19/17 at 09:00 Active Scripts Active Reported Haloperidol (Haloperidol Lactate) 5 Mg/1 Ml Ampul 5 Mg IM PRN Q8HRS PRN Biofreeze (Menthol) 118 Ml Gel..ml. 1 Macey TP PRN PRN Apply topically to Left Shoulder PRN Pain Aquaphor Ointment (Mineral Oil/Hydrophil Petrolat) 396 Gm Oint...g. 1 Macey TP PRN BID PRN Polyethylene Glycol 3350 17 Gm Powd.pack 17 Gm PO DAILY Lorazepam 2 Mg/1 Ml Vial 0.25 Mg IM PRN Q12HR PRN Lorazepam 0.5 Mg Tablet 0.5 Mg PO PRN Q12HR PRN Loratadine 10 Mg Tablet 10 Mg PO Docusate Sodium 100 Mg Capsule 100 Mg PO PRN BID PRN Artificial Tears (Polyvinyl Alcohol) 15 Ml Drops 1 Drop OU PRN BID PRN Acetaminophen 500 Mg Tablet 500 Mg PO PRN Q6HRS PRN Fleet Enema (Na Phos,M-B/Na Phos,Di-Ba) 133 Ml Enema 133 Ml RC PRN DAILY PRN Administer if MOM and Dulcolax unsuccessful after 48 hours Bisacodyl 5 Mg Tablet.dr 10 Mg PO PRN DAILY PRN Administer if MOM unsuccessful after 24 hours Milk Of Magnesia (Magnesium Hydroxide) 2,400 Mg/10 Ml Oral.susp 30 Ml PO PRN DAILY PRN [Sureprep] 1 Macey TOP TID Apply topically to Bilateral Plantar feet TID Trazodone Hcl 50 Mg Tablet 50 Mg PO QHS Mirtazapine 15 Mg Tablet 15 Mg PO QHS Hydrochlorothiazide Tablet (Hydrochlorothiazide) 25 Mg Tablet 25 Mg PO DAILY Haloperidol 1 Mg Tablet 1 Mg PO BID Glucosamine Hcl 500 Mg Tablet 500 Mg PO BID Glipizide 5 Mg Tablet 2.5 Mg PO DAILY Calcium 600+D Plus Minerals Tb (Calcium Carb/Vit D3/Minerals) 1 Each Tablet 1 Tab PO BID Atorvastatin Calcium 20 Mg Tablet 20 Mg PO QHS Aspirin 81 Mg Tab.chew 81 Mg PO DAILY Abilify Maintena (Aripiprazole) 400 Mg Suser.vial 400 Mg IM Q4WK Diagnosis: Problems: (1) Schizophrenia (2) Disruptive behavior (3) Psychosis (4) Anxiety disorder (5) Impulse control disorder (6) Schizoaffective disorder, chronic condition with acute exacerbation (7) Psychosis, atypical JORDAN AMADOR MD March 18, 2017 22:48
[2017-03-19 06:00] VITALS: BP 109/57
[2017-03-19] MEDS: ASPIRIN 81 MG TAB.CHEW PO SCH (08:13)
[2017-03-19] MEDS: BENZTROPINE MESYLATE 0.5 MG TABLET PO SCH ×2 (08:13→19:30)
[2017-03-19] MEDS: CALCIUM CARB/VIT D3 500/200 TABLET PO SCH ×2 (08:14→17:34)
[2017-03-19] MEDS: hydroCHLOROthiazide 25 MG TABLET PO SCH (08:14)
[2017-03-19] MEDS: GLUCOSAMINE 500 MG CAPSULE PO SCH ×2 (08:14→19:30)
[2017-03-19] MEDS: CETIRIZINE HCL 10 MG TABLET PO SCH (08:16)
[2017-03-19] MEDS: risperiDONE ORAL 1 MG/ML 30ml BOTTLE. SL SCH ×2 (08:16→19:30)
[2017-03-19] MEDS: FLUTICASONE 50MCG/NASAL SPRAY 16GM BOTTLE. NS SCH (08:17)
--- NOTE | 2017-03-19 08:50 | NUR ---
Behavior Intervention Response and Plan: BIRP Note: Behavior: Assumed Care of patient, patient located in Hallway at shift change. Patient exhibited the following behavior Calm, , Able to Focus on Task. Brief assessment on rounds of vital signs, medication needs, lab studies, and pain. Treatment plan problems . Intervention: Patient assessed and the following interventions initiated safety checks 15 Minute Checks Head to toe Assessment , Medications , Cognitive Assessment. Response: After interactions and interventions patient responded in the following manner, Calm , Cooperative ,Compliant. Continue to assess behaviors and condition will continue to monitor throughout the shift as needed. 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 Continue to assess patient for changes in above assessment. Monitor for medication needs, pain, and safety concerns. Hourly rounding performed to ensure safe environment.
[2017-03-19 16:22] VITALS: BP 117/68
[2017-03-19] MEDS: ATORVASTATIN CALCIUM 20 MG TABLET PO SCH (19:30)
[2017-03-19] MEDS: traZODone 50 MG TABLET. PO SCH (19:30)
[2017-03-19] MEDS: MIRTAZAPINE 15 MG TABLET PO SCH (19:30)
[2017-03-19] MEDS: DIVALPROEX ER 500 MG TAB.ER.24H PO SCH (19:30)
--- NOTE | 2017-03-19 21:07 | PDOC ---
Exam Andre Demential Exam: Andre Note: Please also refer to the separate dictated note~for this date of service dictated separately.~Patient seen individually. Discussed the patient with Nursing staff reviewed the chart.~Reviewed interim history and current functioning. Reviewed vital signs,~Labs/ Radiology~and current medications noted below. Continue current treatment with the changes noted in the dictated addendum note Assessment: Vital Signs: Vital Signs Date Time Temp Pulse Resp B/P (MAP) Pulse Ox O2 Delivery O2 Flow Rate FiO2 03/19/17 16:22 97.9 71 16 117/68 (84) 98 Room Air I&O Intake and Output 03/19/17 07:00 Intake Total 960 ml Balance 960 ml Intake Oral 960 ml Current Medications: Meds: Current Medications Acetaminophen (Tylenol) 650 mg PRN Q6HRS PRN PO MILD PAIN / TEMP Last administered on 03/07/17 17:50; Start 03/07/17 at 00:45 Multi-Ingredient Ointment (Analgesic [place]) 1 macey PRN QID PRN TP MUSCLE PAIN; Start 03/07/17 at 00:45 Al Hydroxide/Mg Hydroxide (Mylanta Plus Xs) 15 ml PRN AFTMEALHC PRN PO DYSPEPSIA; Start 03/07/17 at 00:45 Magnesium Hydroxide (Milk Of Magnesia) 2,400 mg PRN QHS PRN PO CONSTIPATION Last administered on 03/08/17 20:45; Start 03/07/17 at 00:45 Haloperidol (Haldol) 1 mg BID PO Last administered on 03/07/17 08:14; Start at 09:00; Stop 03/07/17 at 18:20; Status DC Lorazepam (Ativan) 0.5 mg PRN Q12HR PRN PO ANXIETY / AGITATION; Start 03/07/17 at 01:00 Mirtazapine (Remeron) 15 mg QHS PO Last administered on 03/19/17 19:30; Start 03/07/17 at 21:00 Trazodone HCl (Desyrel) 50 mg QHS PO Last administered on 03/19/17 19:30; Start 03/07/17 at 21:00 Non-Formulary Medication 400 mg Q4WK IM ; Start 03/07/17 at 09:00; Stop at 18:20; Status DC Acetaminophen (Tylenol) 500 mg PRN Q6HRS PRN PO PAIN / TEMP; Start 03/07/17 at 07:45; Stop 03/07/17 at 08:00; Status DC Aspirin (Children'S Aspirin) 81 mg DAILY PO Last administered on 03/19/17 08: 13; Start 03/07/17 at 09:00 Atorvastatin Calcium (Lipitor) 20 mg QHS PO Last administered on 03/19/17 19: 30; Start 03/07/17 at 21:00 Bisacodyl (Dulcolax Tab) 10 mg PRN DAILY PRN PO CONSTIPATION; Start 03/07/17 at 07:45 Docusate Sodium (Colace) 100 mg PRN BID PRN PO CONSTIPATION; Start 03/07/17 at 07:45 Glipizide (Glucotrol) 2.5 mg DAILY PO Last administered on 03/10/17 08:02; Start 03/07/17 at 09:00; Stop 03/10/17 at 14:12; Status DC Hydrochlorothiazide (Hydrodiuril) 25 mg DAILY PO Last administered on 08:14; Start 03/07/17 at 09:00 Polyethylene Glycol (miraLAX) 17 gm DAILY PO Last administered on 03/16/17 09: 07; Start 03/07/17 at 09:00; Stop 03/16/17 at 11:36; Status DC Artificial Tears (Artificial Tears) 1 drop PRN BID PRN OU DRY EYE; Start at 07:45 Calcium/Vitamin D (Oscal D 500mg/ 200uts) 1 tab BIDWMEALS PO Last administered on 03/19/17 17:34; Start 03/07/17 at 08:00 Glucosamine Sulfate (Glucosamine) 500 mg BID PO Last administered on 03/19/17 19:30; Start 03/07/17 at 09:00 Non-Formulary Medication 30 ml PRN DAILY PRN PO CONSTIPATION; Start 03/07/17 at 07:45; Stop 03/07/17 at 07:59; Status DC Non-Formulary Medication 1 macey PRN PRN TP PAIN; Start 03/07/17 at 07:45; Stop at 08:01; Status DC Multi-Ingred Cream/Lotion/Oil/ Oint (Hydrocerin) 1 macey PRN BID PRN TP DRY SKIN ; Start 03/07/17 at 08:15; Stop 03/07/17 at 14:45; Status DC Non-Formulary Medication 1 macey TID TOP ; Start 03/07/17 at 09:00; Stop 03/07/17 at 09:00; Status DC Multi-Ingred Cream/Lotion/Oil/ Oint (Hydrocerin) 1 macey PRN BID PRN TP DRY SKIN ; Start 03/07/17 at 14:45 Risperidone (Risperdal) 0.5 mg BID SL Last administered on 03/10/17 08:05; Start 03/07/17 at 21:00; Stop 03/10/17 at 17:56; Status DC Benztropine Mesylate (Cogentin) 0.5 mg BID PO Last administered on 03/19/17 19 :30; Start 03/08/17 at 21:00 Divalproex Sodium (Depakote Er) 250 mg QHS PO Last administered on 03/12/17 18 :38; Start 03/09/17 at 21:00; Stop 03/12/17 at 20:26; Status DC Risperidone (RisperDAL) 0.75 mg BID SL Last administered on 03/16/17 09:07; Start 03/10/17 at 21:00; Stop 03/16/17 at 10:17; Status DC Divalproex Sodium (Depakote Er) 500 mg QHS PO Last administered on 03/19/17 19 :30; Start 03/13/17 at 21:00 Risperidone (RisperDAL) 1 mg BID SL Last administered on 03/19/17 19:30; Start 03/16/17 at 21:00 Cetirizine HCl (ZyrTEC) 10 mg DAILY PO Last administered on 03/19/17 08:16; Start 03/19/17 at 09:00 Fluticasone Propionate (Flonase) 2 spray DAILY NS Last administered on 08:17; Start 03/19/17 at 09:00 Active Scripts Active Reported Haloperidol (Haloperidol Lactate) 5 Mg/1 Ml Ampul 5 Mg IM PRN Q8HRS PRN Biofreeze (Menthol) 118 Ml Gel..ml. 1 Macey TP PRN PRN Apply topically to Left Shoulder PRN Pain Aquaphor Ointment (Mineral Oil/Hydrophil Petrolat) 396 Gm Oint...g. 1 Macey TP PRN BID PRN Polyethylene Glycol 3350 17 Gm Powd.pack 17 Gm PO DAILY Lorazepam 2 Mg/1 Ml Vial 0.25 Mg IM PRN Q12HR PRN Lorazepam 0.5 Mg Tablet 0.5 Mg PO PRN Q12HR PRN Loratadine 10 Mg Tablet 10 Mg PO Docusate Sodium 100 Mg Capsule 100 Mg PO PRN BID PRN Artificial Tears (Polyvinyl Alcohol) 15 Ml Drops 1 Drop OU PRN BID PRN Acetaminophen 500 Mg Tablet 500 Mg PO PRN Q6HRS PRN Fleet Enema (Na Phos,M-B/Na Phos,Di-Ba) 133 Ml Enema 133 Ml RC PRN DAILY PRN Administer if MOM and Dulcolax unsuccessful after 48 hours Bisacodyl 5 Mg Tablet.dr 10 Mg PO PRN DAILY PRN Administer if MOM unsuccessful after 24 hours Milk Of Magnesia (Magnesium Hydroxide) 2,400 Mg/10 Ml Oral.susp 30 Ml PO PRN DAILY PRN [Sureprep] 1 Macey TOP TID Apply topically to Bilateral Plantar feet TID Trazodone Hcl 50 Mg Tablet 50 Mg PO QHS Mirtazapine 15 Mg Tablet 15 Mg PO QHS Hydrochlorothiazide Tablet (Hydrochlorothiazide) 25 Mg Tablet 25 Mg PO DAILY Haloperidol 1 Mg Tablet 1 Mg PO BID Glucosamine Hcl 500 Mg Tablet 500 Mg PO BID Glipizide 5 Mg Tablet 2.5 Mg PO DAILY Calcium 600+D Plus Minerals Tb (Calcium Carb/Vit D3/Minerals) 1 Each Tablet 1 Tab PO BID Atorvastatin Calcium 20 Mg Tablet 20 Mg PO QHS Aspirin 81 Mg Tab.chew 81 Mg PO DAILY Abilify Maintena (Aripiprazole) 400 Mg Suser.vial 400 Mg IM Q4WK JORDAN AMADOR MD March 19, 2017 21:07
--- NOTE | 2017-03-20 00:30 | NUR ---
Behavior Intervention Response and Plan: BIRP Note: Behavior: Assumed Care of patient, patient located in Patient Room at shift change. Patient exhibited the following behavior Calm, Compliant, Cooperative. Brief assessment on rounds of vital signs, medication needs, lab studies, and pain. Treatment plan problems Alteration in Though Process and Fall Risk. Intervention: Patient assessed and the following interventions initiated safety checks 15 Minute Checks Cognitive Assessment , Head to toe Assessment , Medications. Response: After interactions and interventions patient responded in the following manner, Calm , Compliant ,Cooperative. Continue to assess behaviors and condition will continue to monitor throughout the shift as needed. Plan: Continue to monitor Master Treatment Plan for patient's progress toward short term goals of Medication Compliance, Decreased Agitation, half-way goals to return to previous living setting vs placement. Continue to assess patient for changes in above assessment. Monitor for medication needs, pain, and safety concerns. Hourly rounding performed to ensure safe environment.
--- NOTE | 2017-03-20 01:22 | PN ---
DATE: 03/18/2017 PSYCHIATRIC PROGRESS NOTE This is a late entry of 03/18/2017 covers elements not covered in my initial note. SUBJECTIVE: The patient has had intermittent hallucinations, but states the voice was going further and further she is able to ignore them. REVIEW OF SYSTEMS: Positive for some URI symptoms and we will address this symptomatically. No CV, , GI system symptoms on review. MENTAL STATUS EXAM: Reasonably oriented. Speech coherent has some latency. Abstraction fair, computation impaired. Affect somewhat withdrawn, typical for her. LABORATORY DATA: Reviewed. IMPRESSION: Unchanged from initial note. PLAN: Continue current psychotropics. JORDAN AMADOR MD DR: ERIKA/anika JOB#: [id number] / [id number]
--- NOTE | 2017-03-20 01:35 | PN ---
DATE: 03/17/2017 This is a late entry, 03/17/2017, covers the elements not covered in my initial note. SUBJECTIVE: Per nursing report, the patient was having hallucinations morning of 03/17/2017, and believed one of the other patients was wearing someone else's band amongst other things. She is better later in the day. No CV, , pulmonary, eye system symptoms on review. MENTAL STATUS EXAM: Reasonably oriented. Speech coherent, has some latency, often responses monosyllabic. Affect is somewhat withdrawn, but typical for her. No suicidal or homicidal ideation. Intermittently psychotic. LABORATORY DATA: Reviewed. IMPRESSION: Unchanged from initial note. PLAN: Continue current psychotropics. Valproic acid level therapeutic at 60, continued Depakote, Cogentin, Remeron, trazodone, Risperdal, and Ativan p.r.n. for now. MAN Darren AMADOR MD DR: ERIKA/anika JOB#: [id number] / [id number]
[2017-03-20 06:10] VITALS: BP 122/67
[2017-03-20] MEDS: CALCIUM CARB/VIT D3 500/200 TABLET PO SCH ×2 (08:04→16:42)
[2017-03-20] MEDS: ASPIRIN 81 MG TAB.CHEW PO SCH (08:04)
[2017-03-20] MEDS: CETIRIZINE HCL 10 MG TABLET PO SCH (08:05)
[2017-03-20] MEDS: FLUTICASONE 50MCG/NASAL SPRAY 16GM BOTTLE. NS SCH (08:05)
[2017-03-20] MEDS: GLUCOSAMINE 500 MG CAPSULE PO SCH ×2 (08:05→20:02)
[2017-03-20] MEDS: hydroCHLOROthiazide 25 MG TABLET PO SCH (08:05)
[2017-03-20] MEDS: BENZTROPINE MESYLATE 0.5 MG TABLET PO SCH ×2 (08:05→20:03)
[2017-03-20] MEDS: risperiDONE ORAL 1 MG/ML 30ml BOTTLE. SL SCH ×2 (08:05→20:04)
--- NOTE | 2017-03-20 08:20 | NUR ---
Behavior Intervention Response and Plan: BIRP Note: Behavior: Assumed Care of patient, patient located in Dining Room at shift change. Patient exhibited the following behavior Calm, Disorganized, Hallucinating. Brief assessment on rounds of vital signs, medication needs, lab studies, and pain. Treatment plan problems 1 & 2. Intervention: Patient assessed and the following interventions initiated safety checks 15 Minute Checks Cognitive Assessment , Head to toe Assessment , Medications. Response: After interactions and interventions patient responded in the following manner, Calm , Appropriate ,Compliant. Continue to assess behaviors and condition will continue to monitor throughout the shift as needed. 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 Continue to assess patient for changes in above assessment. Monitor for medication needs, pain, and safety concerns. Hourly rounding performed to ensure safe environment.
--- NOTE | 2017-03-20 14:00 | NUR ---
THERAPEUTIC RECREATION GROUP NOTE TITLE :: Ice Cream and Program ACTIVITY : Social Events and Holidays GOAL : Facilitate sense of belonging and well-being, elevate mood, increase socialization and social skills. Incorporate traditions. DURATION : 120 Minutes RESPONSE : Full participation. Pt. enjoyed her ice cream and sat with the group the entire time. She was tearful throughout the program and used the microphone to share why she was proud to be an [place]. She stayed after and conversed with peers while listening to music. She made several requests of songs/artists and reminisced with a smile on her face occasionally.
[2017-03-20 15:46] VITALS: BP 138/76
[2017-03-20] MEDS: ATORVASTATIN CALCIUM 20 MG TABLET PO SCH (20:02)
[2017-03-20] MEDS: DIVALPROEX ER 500 MG TAB.ER.24H PO SCH (20:03)
[2017-03-20] MEDS: traZODone 50 MG TABLET. PO SCH (20:03)
[2017-03-20] MEDS: MIRTAZAPINE 15 MG TABLET PO SCH (20:03)
--- NOTE | 2017-03-20 21:00 | PDOC ---
Exam Andre Demential Exam: Andre Note: Please also refer to the separate dictated note~for this date of service dictated separately.~Patient seen individually. Discussed the patient with Nursing staff reviewed the chart.~Reviewed interim history and current functioning. Reviewed vital signs,~Labs/ Radiology~and current medications noted below. Continue current treatment with the changes noted in the dictated addendum note Assessment: Vital Signs: Vital Signs Date Time Temp Pulse Resp B/P (MAP) Pulse Ox O2 Delivery O2 Flow Rate FiO2 03/20/17 15:46 98.7 81 20 138/76 (96) 98 03/19/17 16:22 Room Air I&O Intake and Output 03/20/17 07:00 Intake Total 1320 ml Balance 1320 ml Intake Oral 1320 ml Current Medications: Meds: Current Medications Acetaminophen (Tylenol) 650 mg PRN Q6HRS PRN PO MILD PAIN / TEMP Last administered on 03/07/17 17:50; Start 03/07/17 at 00:45 Multi-Ingredient Ointment (Analgesic [place]) 1 macey PRN QID PRN TP MUSCLE PAIN; Start 03/07/17 at 00:45 Al Hydroxide/Mg Hydroxide (Mylanta Plus Xs) 15 ml PRN AFTMEALHC PRN PO DYSPEPSIA; Start 03/07/17 at 00:45 Magnesium Hydroxide (Milk Of Magnesia) 2,400 mg PRN QHS PRN PO CONSTIPATION Last administered on 03/08/17 20:45; Start 03/07/17 at 00:45 Haloperidol (Haldol) 1 mg BID PO Last administered on 03/07/17 08:14; Start at 09:00; Stop 03/07/17 at 18:20; Status DC Lorazepam (Ativan) 0.5 mg PRN Q12HR PRN PO ANXIETY / AGITATION; Start 03/07/17 at 01:00 Mirtazapine (Remeron) 15 mg QHS PO Last administered on 03/20/17 20:03; Start 03/07/17 at 21:00 Trazodone HCl (Desyrel) 50 mg QHS PO Last administered on 03/20/17 20:03; Start 03/07/17 at 21:00 Non-Formulary Medication 400 mg Q4WK IM ; Start 03/07/17 at 09:00; Stop at 18:20; Status DC Acetaminophen (Tylenol) 500 mg PRN Q6HRS PRN PO PAIN / TEMP; Start 03/07/17 at 07:45; Stop 03/07/17 at 08:00; Status DC Aspirin (Children'S Aspirin) 81 mg DAILY PO Last administered on 03/20/17 08: 04; Start 03/07/17 at 09:00 Atorvastatin Calcium (Lipitor) 20 mg QHS PO Last administered on 03/20/17 20: 02; Start 03/07/17 at 21:00 Bisacodyl (Dulcolax Tab) 10 mg PRN DAILY PRN PO CONSTIPATION; Start 03/07/17 at 07:45 Docusate Sodium (Colace) 100 mg PRN BID PRN PO CONSTIPATION; Start 03/07/17 at 07:45 Glipizide (Glucotrol) 2.5 mg DAILY PO Last administered on 03/10/17 08:02; Start 03/07/17 at 09:00; Stop 03/10/17 at 14:12; Status DC Hydrochlorothiazide (Hydrodiuril) 25 mg DAILY PO Last administered on 08:05; Start 03/07/17 at 09:00 Polyethylene Glycol (miraLAX) 17 gm DAILY PO Last administered on 03/16/17 09: 07; Start 03/07/17 at 09:00; Stop 03/16/17 at 11:36; Status DC Artificial Tears (Artificial Tears) 1 drop PRN BID PRN OU DRY EYE; Start at 07:45 Calcium/Vitamin D (Oscal D 500mg/ 200uts) 1 tab BIDWMEALS PO Last administered on 03/20/17 16:42; Start 03/07/17 at 08:00 Glucosamine Sulfate (Glucosamine) 500 mg BID PO Last administered on 03/20/17 20:02; Start 03/07/17 at 09:00 Non-Formulary Medication 30 ml PRN DAILY PRN PO CONSTIPATION; Start 03/07/17 at 07:45; Stop 03/07/17 at 07:59; Status DC Non-Formulary Medication 1 macey PRN PRN TP PAIN; Start 03/07/17 at 07:45; Stop at 08:01; Status DC Multi-Ingred Cream/Lotion/Oil/ Oint (Hydrocerin) 1 macey PRN BID PRN TP DRY SKIN ; Start 03/07/17 at 08:15; Stop 03/07/17 at 14:45; Status DC Non-Formulary Medication 1 macey TID TOP ; Start 03/07/17 at 09:00; Stop 03/07/17 at 09:00; Status DC Multi-Ingred Cream/Lotion/Oil/ Oint (Hydrocerin) 1 macey PRN BID PRN TP DRY SKIN ; Start 03/07/17 at 14:45 Risperidone (Risperdal) 0.5 mg BID SL Last administered on 03/10/17 08:05; Start 03/07/17 at 21:00; Stop 03/10/17 at 17:56; Status DC Benztropine Mesylate (Cogentin) 0.5 mg BID PO Last administered on 03/20/17 20 :03; Start 03/08/17 at 21:00 Divalproex Sodium (Depakote Er) 250 mg QHS PO Last administered on 03/12/17 18 :38; Start 03/09/17 at 21:00; Stop 03/12/17 at 20:26; Status DC Risperidone (RisperDAL) 0.75 mg BID SL Last administered on 03/16/17 09:07; Start 03/10/17 at 21:00; Stop 03/16/17 at 10:17; Status DC Divalproex Sodium (Depakote Er) 500 mg QHS PO Last administered on 03/20/17 20 :03; Start 03/13/17 at 21:00 Risperidone (RisperDAL) 1 mg BID SL Last administered on 03/20/17 20:04; Start 03/16/17 at 21:00 Cetirizine HCl (ZyrTEC) 10 mg DAILY PO Last administered on 03/20/17 08:05; Start 03/19/17 at 09:00 Fluticasone Propionate (Flonase) 2 spray DAILY NS Last administered on 08:05; Start 03/19/17 at 09:00 Active Scripts Active Reported Haloperidol (Haloperidol Lactate) 5 Mg/1 Ml Ampul 5 Mg IM PRN Q8HRS PRN Biofreeze (Menthol) 118 Ml Gel..ml. 1 Macey TP PRN PRN Apply topically to Left Shoulder PRN Pain Aquaphor Ointment (Mineral Oil/Hydrophil Petrolat) 396 Gm Oint...g. 1 Macey TP PRN BID PRN Polyethylene Glycol 3350 17 Gm Powd.pack 17 Gm PO DAILY Lorazepam 2 Mg/1 Ml Vial 0.25 Mg IM PRN Q12HR PRN Lorazepam 0.5 Mg Tablet 0.5 Mg PO PRN Q12HR PRN Loratadine 10 Mg Tablet 10 Mg PO Docusate Sodium 100 Mg Capsule 100 Mg PO PRN BID PRN Artificial Tears (Polyvinyl Alcohol) 15 Ml Drops 1 Drop OU PRN BID PRN Acetaminophen 500 Mg Tablet 500 Mg PO PRN Q6HRS PRN Fleet Enema (Na Phos,M-B/Na Phos,Di-Ba) 133 Ml Enema 133 Ml RC PRN DAILY PRN Administer if MOM and Dulcolax unsuccessful after 48 hours Bisacodyl 5 Mg Tablet.dr 10 Mg PO PRN DAILY PRN Administer if MOM unsuccessful after 24 hours Milk Of Magnesia (Magnesium Hydroxide) 2,400 Mg/10 Ml Oral.susp 30 Ml PO PRN DAILY PRN [Sureprep] 1 Macey TOP TID Apply topically to Bilateral Plantar feet TID Trazodone Hcl 50 Mg Tablet 50 Mg PO QHS Mirtazapine 15 Mg Tablet 15 Mg PO QHS Hydrochlorothiazide Tablet (Hydrochlorothiazide) 25 Mg Tablet 25 Mg PO DAILY Haloperidol 1 Mg Tablet 1 Mg PO BID Glucosamine Hcl 500 Mg Tablet 500 Mg PO BID Glipizide 5 Mg Tablet 2.5 Mg PO DAILY Calcium 600+D Plus Minerals Tb (Calcium Carb/Vit D3/Minerals) 1 Each Tablet 1 Tab PO BID Atorvastatin Calcium 20 Mg Tablet 20 Mg PO QHS Aspirin 81 Mg Tab.chew 81 Mg PO DAILY Abiliflori Maintena (Aripiprazole) 400 Mg Suser.vial 400 Mg IM Q4WK JORDAN AMADOR MD March 20, 2017 21:00
--- NOTE | 2017-03-20 21:45 | NUR ---
Nursing Note: Pt had a brief moment of anxiety at HS, easily redirected and comforted. Pt requested that her bed be raised and was found to be tearful. When asked why pt stated, "My legs don't work because of my medication." Pt would not share any more information, however, pt calmed after being informed that she was not on any new medication and that possibly she was just tired and may feel better in the morning. Pt was also informed that she would be monitored throughout the night by staff.
--- NOTE | 2017-03-20 22:24 | NUR ---
Behavior Intervention Response and Plan: BIRP Note: Behavior: Assumed Care of patient, patient located in Day Room at shift change. Patient exhibited the following behavior Calm, Compliant, Cooperative. Brief assessment on rounds of vital signs, medication needs, lab studies, and pain. Treatment plan problems Altered Thought Process and Fall Risk. Intervention: Patient assessed and the following interventions initiated safety checks 15 Minute Checks Cognitive Assessment , Head to toe Assessment , Medications. Response: After interactions and interventions patient responded in the following manner, Compliant , Anxious ,Cooperative. Continue to assess behaviors and condition will continue to monitor throughout the shift as needed. 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 Continue to assess patient for changes in above assessment. Monitor for medication needs, pain, and safety concerns. Hourly rounding performed to ensure safe environment.
[2017-03-21 05:48] VITALS: BP 121/65
[2017-03-21] MEDS: GLUCOSAMINE 500 MG CAPSULE PO SCH ×2 (08:30→19:20)
[2017-03-21] MEDS: ASPIRIN 81 MG TAB.CHEW PO SCH (08:30)
[2017-03-21] MEDS: hydroCHLOROthiazide 25 MG TABLET PO SCH (08:30)
[2017-03-21] MEDS: CALCIUM CARB/VIT D3 500/200 TABLET PO SCH ×2 (08:30→16:39)
[2017-03-21] MEDS: CETIRIZINE HCL 10 MG TABLET PO SCH (08:30)
[2017-03-21] MEDS: FLUTICASONE 50MCG/NASAL SPRAY 16GM BOTTLE. NS SCH (08:30)
[2017-03-21] MEDS: risperiDONE ORAL 1 MG/ML 30ml BOTTLE. SL SCH ×2 (08:31→19:22)
[2017-03-21] MEDS: BENZTROPINE MESYLATE 0.5 MG TABLET PO SCH ×2 (08:31→19:19)
--- NOTE | 2017-03-21 11:48 | NUR ---
Behavior Intervention Response and Plan: BIRP Note: Behavior: Assumed Care of patient, patient located in Day Room at shift change. Patient exhibited the following behavior Calm, Disorganized, Interactive. Brief assessment on rounds of vital signs, medication needs, lab studies, and pain. Treatment plan problems . Intervention: Patient assessed and the following interventions initiated safety checks 15 Minute Checks Call aguirre in reach , Medications , Call aguirre in reach. Response: After interactions and interventions patient responded in the following manner, Disorganized , Cooperative ,Interactive. Continue to assess behaviors and condition will continue to monitor throughout the shift as needed. 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 Continue to assess patient for changes in above assessment. Monitor for medication needs, pain, and safety concerns. Hourly rounding performed to ensure safe environment.
--- NOTE | 2017-03-21 13:30 | NUR ---
Group Note [facility] Group Type Neighbors Start Time: 10:00 End Time: 10:45 Problem: Psychotic Symptoms Purpose: Express Feelings, Self awareness Level of Participation: High Behaviors or Symptoms Observed: Nani talked about how she feels she is a good neighbor as she is quite and doesn't bother others, as well as tries to participate in things her neighbors enjoy. Interventions: Reinforcement Response: Pts talked about what qualities they have that make them a good neighbor as well as what makes a good neighbor. Pts answered questions around how to be a good neighbor in their current living environment. Plan: Group Participation Additional Comments:
--- NOTE | 2017-03-21 14:00 | NUR ---
Pt facility came to see pt, SW provided pt facility with update as well. SW was asked to call facility Admissions once discharge was decided.
--- NOTE | 2017-03-21 14:00 | NUR ---
THERAPEUTIC RECREATION GROUP NOTE TITLE :Sing along with Gladys ACTIVITY : Music GOAL : Increase socialization, elevate mood, stimulate memory DURATION : 120 Minutes RESPONSE : Full participation. Pt. needed no prompting to stay on task. He had a smile on his face most of the time. She tapped foot to the beat, requested songs, and applauded groups singing. She enjoyed reminiscing about songs and smiled once.
[2017-03-21 16:00] VITALS: BP 121/63
[2017-03-21] MEDS: DIVALPROEX ER 500 MG TAB.ER.24H PO SCH (19:19)
[2017-03-21] MEDS: traZODone 50 MG TABLET. PO SCH (19:19)
[2017-03-21] MEDS: ATORVASTATIN CALCIUM 20 MG TABLET PO SCH (19:20)
[2017-03-21] MEDS: MIRTAZAPINE 15 MG TABLET PO SCH (19:20)
--- NOTE | 2017-03-21 19:56 | NUR ---
Nursing Note: Pt reported hearing voices during assessment and shared that voices were saying negative things; however, pt unwilling to give details. Pt asked to call and speak to her son Robbie and appeared to be in better spirits following the phone call. Will continue to monitor.
--- NOTE | 2017-03-21 21:13 | PDOC ---
Exam Andre Demential Exam: Andre Note: Please also refer to the separate dictated note~for this date of service dictated separately.~Patient seen individually. Discussed the patient with Nursing staff reviewed the chart.~Reviewed interim history and current functioning. Reviewed vital signs,~Labs/ Radiology~and current medications noted below. Continue current treatment with the changes noted in the dictated addendum note Assessment: Vital Signs: Vital Signs Date Time Temp Pulse Resp B/P (MAP) Pulse Ox O2 Delivery O2 Flow Rate FiO2 03/21/17 16:00 96.8 69 18 121/63 (82) 98 03/19/17 16:22 Room Air I&O Intake and Output 03/21/17 07:00 Intake Total 1080 ml Balance 1080 ml Intake Oral 1080 ml # Bowel Movements 1 Current Medications: Meds: Current Medications Acetaminophen (Tylenol) 650 mg PRN Q6HRS PRN PO MILD PAIN / TEMP Last administered on 03/07/17 17:50; Start 03/07/17 at 00:45 Multi-Ingredient Ointment (Analgesic [place]) 1 macey PRN QID PRN TP MUSCLE PAIN; Start 03/07/17 at 00:45 Al Hydroxide/Mg Hydroxide (Mylanta Plus Xs) 15 ml PRN AFTMEALHC PRN PO DYSPEPSIA; Start 03/07/17 at 00:45 Magnesium Hydroxide (Milk Of Magnesia) 2,400 mg PRN QHS PRN PO CONSTIPATION Last administered on 03/08/17 20:45; Start 03/07/17 at 00:45 Haloperidol (Haldol) 1 mg BID PO Last administered on 03/07/17 08:14; Start at 09:00; Stop 03/07/17 at 18:20; Status DC Lorazepam (Ativan) 0.5 mg PRN Q12HR PRN PO ANXIETY / AGITATION; Start 03/07/17 at 01:00 Mirtazapine (Remeron) 15 mg QHS PO Last administered on 03/21/17 19:20; Start 03/07/17 at 21:00 Trazodone HCl (Desyrel) 50 mg QHS PO Last administered on 03/21/17 19:19; Start 03/07/17 at 21:00 Non-Formulary Medication 400 mg Q4WK IM ; Start 03/07/17 at 09:00; Stop at 18:20; Status DC Acetaminophen (Tylenol) 500 mg PRN Q6HRS PRN PO PAIN / TEMP; Start 03/07/17 at 07:45; Stop 03/07/17 at 08:00; Status DC Aspirin (Children'S Aspirin) 81 mg DAILY PO Last administered on 03/21/17 08: 30; Start 03/07/17 at 09:00 Atorvastatin Calcium (Lipitor) 20 mg QHS PO Last administered on 03/21/17 19: 20; Start 03/07/17 at 21:00 Bisacodyl (Dulcolax Tab) 10 mg PRN DAILY PRN PO CONSTIPATION; Start 03/07/17 at 07:45 Docusate Sodium (Colace) 100 mg PRN BID PRN PO CONSTIPATION; Start 03/07/17 at 07:45 Glipizide (Glucotrol) 2.5 mg DAILY PO Last administered on 03/10/17 08:02; Start 03/07/17 at 09:00; Stop 03/10/17 at 14:12; Status DC Hydrochlorothiazide (Hydrodiuril) 25 mg DAILY PO Last administered on 08:30; Start 03/07/17 at 09:00 Polyethylene Glycol (miraLAX) 17 gm DAILY PO Last administered on 03/16/17 09: 07; Start 03/07/17 at 09:00; Stop 03/16/17 at 11:36; Status DC Artificial Tears (Artificial Tears) 1 drop PRN BID PRN OU DRY EYE; Start at 07:45 Calcium/Vitamin D (Oscal D 500mg/ 200uts) 1 tab BIDWMEALS PO Last administered on 03/21/17 16:39; Start 03/07/17 at 08:00 Glucosamine Sulfate (Glucosamine) 500 mg BID PO Last administered on 03/21/17 19:20; Start 03/07/17 at 09:00 Non-Formulary Medication 30 ml PRN DAILY PRN PO CONSTIPATION; Start 03/07/17 at 07:45; Stop 03/07/17 at 07:59; Status DC Non-Formulary Medication 1 macey PRN PRN TP PAIN; Start 03/07/17 at 07:45; Stop at 08:01; Status DC Multi-Ingred Cream/Lotion/Oil/ Oint (Hydrocerin) 1 macey PRN BID PRN TP DRY SKIN ; Start 03/07/17 at 08:15; Stop 03/07/17 at 14:45; Status DC Non-Formulary Medication 1 macey TID TOP ; Start 03/07/17 at 09:00; Stop 03/07/17 at 09:00; Status DC Multi-Ingred Cream/Lotion/Oil/ Oint (Hydrocerin) 1 macey PRN BID PRN TP DRY SKIN ; Start 03/07/17 at 14:45 Risperidone (Risperdal) 0.5 mg BID SL Last administered on 03/10/17 08:05; Start 03/07/17 at 21:00; Stop 03/10/17 at 17:56; Status DC Benztropine Mesylate (Cogentin) 0.5 mg BID PO Last administered on 03/21/17 19 :19; Start 03/08/17 at 21:00 Divalproex Sodium (Depakote Er) 250 mg QHS PO Last administered on 03/12/17 18 :38; Start 03/09/17 at 21:00; Stop 03/12/17 at 20:26; Status DC Risperidone (RisperDAL) 0.75 mg BID SL Last administered on 03/16/17 09:07; Start 03/10/17 at 21:00; Stop 03/16/17 at 10:17; Status DC Divalproex Sodium (Depakote Er) 500 mg QHS PO Last administered on 03/21/17 19 :19; Start 03/13/17 at 21:00 Risperidone (RisperDAL) 1 mg BID SL Last administered on 03/21/17 19:22; Start 03/16/17 at 21:00 Cetirizine HCl (ZyrTEC) 10 mg DAILY PO Last administered on 03/21/17 08:30; Start 03/19/17 at 09:00 Fluticasone Propionate (Flonase) 2 spray DAILY NS Last administered on 08:30; Start 03/19/17 at 09:00 Active Scripts Active Reported Haloperidol (Haloperidol Lactate) 5 Mg/1 Ml Ampul 5 Mg IM PRN Q8HRS PRN Biofreeze (Menthol) 118 Ml Gel..ml. 1 Macey TP PRN PRN Apply topically to Left Shoulder PRN Pain Aquaphor Ointment (Mineral Oil/Hydrophil Petrolat) 396 Gm Oint...g. 1 Macey TP PRN BID PRN Polyethylene Glycol 3350 17 Gm Powd.pack 17 Gm PO DAILY Lorazepam 2 Mg/1 Ml Vial 0.25 Mg IM PRN Q12HR PRN Lorazepam 0.5 Mg Tablet 0.5 Mg PO PRN Q12HR PRN Loratadine 10 Mg Tablet 10 Mg PO Docusate Sodium 100 Mg Capsule 100 Mg PO PRN BID PRN Artificial Tears (Polyvinyl Alcohol) 15 Ml Drops 1 Drop OU PRN BID PRN Acetaminophen 500 Mg Tablet 500 Mg PO PRN Q6HRS PRN Fleet Enema (Na Phos,M-B/Na Phos,Di-Ba) 133 Ml Enema 133 Ml RC PRN DAILY PRN Administer if MOM and Dulcolax unsuccessful after 48 hours Bisacodyl 5 Mg Tablet.dr 10 Mg PO PRN DAILY PRN Administer if MOM unsuccessful after 24 hours Milk Of Magnesia (Magnesium Hydroxide) 2,400 Mg/10 Ml Oral.susp 30 Ml PO PRN DAILY PRN [Sureprep] 1 Macey TOP TID Apply topically to Bilateral Plantar feet TID Trazodone Hcl 50 Mg Tablet 50 Mg PO QHS Mirtazapine 15 Mg Tablet 15 Mg PO QHS Hydrochlorothiazide Tablet (Hydrochlorothiazide) 25 Mg Tablet 25 Mg PO DAILY Haloperidol 1 Mg Tablet 1 Mg PO BID Glucosamine Hcl 500 Mg Tablet 500 Mg PO BID Glipizide 5 Mg Tablet 2.5 Mg PO DAILY Calcium 600+D Plus Minerals Tb (Calcium Carb/Vit D3/Minerals) 1 Each Tablet 1 Tab PO BID Atorvastatin Calcium 20 Mg Tablet 20 Mg PO QHS Aspirin 81 Mg Tab.chew 81 Mg PO DAILY Abiliflori Maintena (Aripiprazole) 400 Mg Suser.vial 400 Mg IM Q4WK JORDAN AMADOR MD March 21, 2017 21:13
--- NOTE | 2017-03-21 22:34 | NUR ---
Behavior Intervention Response and Plan: BIRP Note: Behavior: Assumed Care of patient, patient located in Day Room at shift change. Patient exhibited the following behavior Calm, Disorganized, Compliant. Brief assessment on rounds of vital signs, medication needs, lab studies, and pain. Treatment plan problems Alteration in Mood and Fall Risk. Intervention: Patient assessed and the following interventions initiated safety checks 15 Minute Checks Cognitive Assessment , Head to toe Assessment , Medications. Response: After interactions and interventions patient responded in the following manner, Calm , Disorganized ,Cooperative. Continue to assess behaviors and condition will continue to monitor throughout the shift as needed. 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 Continue to assess patient for changes in above assessment. Monitor for medication needs, pain, and safety concerns. Hourly rounding performed to ensure safe environment.
--- NOTE | 2017-03-21 23:04 | PN ---
DATE: 03/20/2017 This late entry for 03/20/2017 covers elements not covered in my initial note. SUBJECTIVE: The patient remains fairly cooperative with meds and assessment, flat affect, still admits to hearing voices. REVIEW OF SYSTEMS: No CV, , pulmonary, eye, ENT system symptoms on review. MENTAL STATUS EXAM: She is reasonably oriented. Speech is coherent, often responses monosyllabic. Abstraction fair, computation impaired. Mood and affect somewhat withdrawn. LABORATORY DATA: Reviewed. IMPRESSION: Unchanged from initial note. PLAN: Continue psychotropics mentioned in my initial note, may need to increase Risperdal further if psychotic symptoms persist. MAN Darren AMADOR MD DR: ERIKA/anika JOB#: [id number] / [id number]
--- NOTE | 2017-03-22 02:09 | PN ---
DATE: 03/19/2017 PSYCHIATRIC PROGRESS NOTE This is a late entry of 03/19/2017, covers elements not covered in my initial note. SUBJECTIVE: The patient was cooperative with meds and assessment, somewhat withdrawn, flat affect and admits to intermittent auditory hallucinations, perhaps a little less than before. No command hallucinations. REVIEW OF SYSTEMS: No CV, , pulmonary, eye, ENT system symptoms on review. MENTAL STATUS EXAM: Reasonably oriented. Speech moderate latency, often responses monosyllabic. Abstraction fair, computation impaired, language function intact. Mood and affect withdrawn. LABORATORY DATA: Reviewed. IMPRESSION: Schizoaffective disorder, bipolar type, mixed with psychotic features, schizophrenia, chronic, undifferentiated type with psychotic features. PLAN: Continue Risperdal liquid 1 mg b.i.d., Depakote ER 500 at bedtime, level is 60, therapeutic; Cogentin 0.5 b.i.d.; Remeron 15 at bedtime; trazodone 50 at bedtime; Ativan p.r.n. Adjust further as clinically indicated. MAN Darren AMADOR MD DR: ERIKA/anika JOB#: [id number] / [id number]
[2017-03-22 05:56] VITALS: BP 121/69
[2017-03-22] MEDS: hydroCHLOROthiazide 25 MG TABLET PO SCH (08:43)
[2017-03-22] MEDS: GLUCOSAMINE 500 MG CAPSULE PO SCH ×2 (08:43→20:17)
[2017-03-22] MEDS: ASPIRIN 81 MG TAB.CHEW PO SCH (08:43)
[2017-03-22] MEDS: CETIRIZINE HCL 10 MG TABLET PO SCH (08:43)
[2017-03-22] MEDS: CALCIUM CARB/VIT D3 500/200 TABLET PO SCH ×2 (08:43→17:08)
[2017-03-22] MEDS: BENZTROPINE MESYLATE 0.5 MG TABLET PO SCH ×2 (08:43→20:18)
--- NOTE | 2017-03-22 10:00 | NUR ---
Behavior Intervention Response and Plan: BIRP Note: Behavior: Assumed Care of patient, patient located in Day Room at shift change. Patient exhibited the following behavior Compliant, Interactive, Calm. Brief assessment on rounds of vital signs, medication needs, lab studies, and pain. Treatment plan problems . Intervention: Patient assessed and the following interventions initiated safety checks 15 Minute Checks Call aguirre in reach , Medications , Nutrition. Response: After interactions and interventions patient responded in the following manner, Calm , Interactive ,Compliant. Continue to assess behaviors and condition will continue to monitor throughout the shift as needed. 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 Continue to assess patient for changes in above assessment. Monitor for medication needs, pain, and safety concerns. Hourly rounding performed to ensure safe environment.
[2017-03-22] MEDS: risperiDONE ORAL 1 MG/ML 30ml BOTTLE. SL SCH ×2 (10:10→20:19)
[2017-03-22] MEDS: FLUTICASONE 50MCG/NASAL SPRAY 16GM BOTTLE. NS SCH (10:11)
[2017-03-22 16:07] VITALS: BP 111/60
[2017-03-22] MEDS: ATORVASTATIN CALCIUM 20 MG TABLET PO SCH (20:17)
[2017-03-22] MEDS: MIRTAZAPINE 15 MG TABLET PO SCH (20:18)
[2017-03-22] MEDS: DIVALPROEX ER 500 MG TAB.ER.24H PO SCH (20:18)
[2017-03-22] MEDS: traZODone 50 MG TABLET. PO SCH (20:18)
--- NOTE | 2017-03-22 21:13 | PDOC ---
Exam Andre Demential Exam: Andre Note: Please also refer to the separate dictated note~for this date of service dictated separately.~Patient seen individually. Discussed the patient with Nursing staff reviewed the chart.~Reviewed interim history and current functioning. Reviewed vital signs,~Labs/ Radiology~and current medications noted below. Continue current treatment with the changes noted in the dictated addendum note Assessment: Vital Signs: Vital Signs Date Time Temp Pulse Resp B/P (MAP) Pulse Ox O2 Delivery O2 Flow Rate FiO2 03/22/17 16:07 97.6 69 20 111/60 (77) 96 03/19/17 16:22 Room Air I&O Intake and Output 03/22/17 07:00 Intake Total 960 ml Balance 960 ml Intake Oral 960 ml Current Medications: Meds: Current Medications Acetaminophen (Tylenol) 650 mg PRN Q6HRS PRN PO MILD PAIN / TEMP Last administered on 03/07/17 17:50; Start 03/07/17 at 00:45 Multi-Ingredient Ointment (Analgesic [place]) 1 macey PRN QID PRN TP MUSCLE PAIN; Start 03/07/17 at 00:45 Al Hydroxide/Mg Hydroxide (Mylanta Plus Xs) 15 ml PRN AFTMEALHC PRN PO DYSPEPSIA; Start 03/07/17 at 00:45 Magnesium Hydroxide (Milk Of Magnesia) 2,400 mg PRN QHS PRN PO CONSTIPATION Last administered on 03/08/17 20:45; Start 03/07/17 at 00:45 Haloperidol (Haldol) 1 mg BID PO Last administered on 03/07/17 08:14; Start at 09:00; Stop 03/07/17 at 18:20; Status DC Lorazepam (Ativan) 0.5 mg PRN Q12HR PRN PO ANXIETY / AGITATION; Start 03/07/17 at 01:00 Mirtazapine (Remeron) 15 mg QHS PO Last administered on 03/22/17 20:18; Start 03/07/17 at 21:00 Trazodone HCl (Desyrel) 50 mg QHS PO Last administered on 03/22/17 20:18; Start 03/07/17 at 21:00 Non-Formulary Medication 400 mg Q4WK IM ; Start 03/07/17 at 09:00; Stop at 18:20; Status DC Acetaminophen (Tylenol) 500 mg PRN Q6HRS PRN PO PAIN / TEMP; Start 03/07/17 at 07:45; Stop 03/07/17 at 08:00; Status DC Aspirin (Children'S Aspirin) 81 mg DAILY PO Last administered on 03/22/17 08: 43; Start 03/07/17 at 09:00 Atorvastatin Calcium (Lipitor) 20 mg QHS PO Last administered on 03/22/17 20: 17; Start 03/07/17 at 21:00 Bisacodyl (Dulcolax Tab) 10 mg PRN DAILY PRN PO CONSTIPATION; Start 03/07/17 at 07:45 Docusate Sodium (Colace) 100 mg PRN BID PRN PO CONSTIPATION; Start 03/07/17 at 07:45 Glipizide (Glucotrol) 2.5 mg DAILY PO Last administered on 03/10/17 08:02; Start 03/07/17 at 09:00; Stop 03/10/17 at 14:12; Status DC Hydrochlorothiazide (Hydrodiuril) 25 mg DAILY PO Last administered on 08:43; Start 03/07/17 at 09:00 Polyethylene Glycol (miraLAX) 17 gm DAILY PO Last administered on 03/16/17 09: 07; Start 03/07/17 at 09:00; Stop 03/16/17 at 11:36; Status DC Artificial Tears (Artificial Tears) 1 drop PRN BID PRN OU DRY EYE; Start at 07:45 Calcium/Vitamin D (Oscal D 500mg/ 200uts) 1 tab BIDWMEALS PO Last administered on 03/22/17 17:08; Start 03/07/17 at 08:00 Glucosamine Sulfate (Glucosamine) 500 mg BID PO Last administered on 03/22/17 20:17; Start 03/07/17 at 09:00 Non-Formulary Medication 30 ml PRN DAILY PRN PO CONSTIPATION; Start 03/07/17 at 07:45; Stop 03/07/17 at 07:59; Status DC Non-Formulary Medication 1 macey PRN PRN TP PAIN; Start 03/07/17 at 07:45; Stop at 08:01; Status DC Multi-Ingred Cream/Lotion/Oil/ Oint (Hydrocerin) 1 macey PRN BID PRN TP DRY SKIN ; Start 03/07/17 at 08:15; Stop 03/07/17 at 14:45; Status DC Non-Formulary Medication 1 macey TID TOP ; Start 03/07/17 at 09:00; Stop 03/07/17 at 09:00; Status DC Multi-Ingred Cream/Lotion/Oil/ Oint (Hydrocerin) 1 macey PRN BID PRN TP DRY SKIN ; Start 03/07/17 at 14:45 Risperidone (Risperdal) 0.5 mg BID SL Last administered on 03/10/17 08:05; Start 03/07/17 at 21:00; Stop 03/10/17 at 17:56; Status DC Benztropine Mesylate (Cogentin) 0.5 mg BID PO Last administered on 03/22/17 20 :18; Start 03/08/17 at 21:00 Divalproex Sodium (Depakote Er) 250 mg QHS PO Last administered on 03/12/17 18 :38; Start 03/09/17 at 21:00; Stop 03/12/17 at 20:26; Status DC Risperidone (RisperDAL) 0.75 mg BID SL Last administered on 03/16/17 09:07; Start 03/10/17 at 21:00; Stop 03/16/17 at 10:17; Status DC Divalproex Sodium (Depakote Er) 500 mg QHS PO Last administered on 03/22/17 20 :18; Start 03/13/17 at 21:00 Risperidone (RisperDAL) 1 mg BID SL Last administered on 03/22/17 20:19; Start 03/16/17 at 21:00 Cetirizine HCl (ZyrTEC) 10 mg DAILY PO Last administered on 03/22/17 08:43; Start 03/19/17 at 09:00 Fluticasone Propionate (Flonase) 2 spray DAILY NS Last administered on 10:11; Start 03/19/17 at 09:00 Active Scripts Active Reported Haloperidol (Haloperidol Lactate) 5 Mg/1 Ml Ampul 5 Mg IM PRN Q8HRS PRN Biofreeze (Menthol) 118 Ml Gel..ml. 1 Macey TP PRN PRN Apply topically to Left Shoulder PRN Pain Aquaphor Ointment (Mineral Oil/Hydrophil Petrolat) 396 Gm Oint...g. 1 Macey TP PRN BID PRN Polyethylene Glycol 3350 17 Gm Powd.pack 17 Gm PO DAILY Lorazepam 2 Mg/1 Ml Vial 0.25 Mg IM PRN Q12HR PRN Lorazepam 0.5 Mg Tablet 0.5 Mg PO PRN Q12HR PRN Loratadine 10 Mg Tablet 10 Mg PO Docusate Sodium 100 Mg Capsule 100 Mg PO PRN BID PRN Artificial Tears (Polyvinyl Alcohol) 15 Ml Drops 1 Drop OU PRN BID PRN Acetaminophen 500 Mg Tablet 500 Mg PO PRN Q6HRS PRN Fleet Enema (Na Phos,M-B/Na Phos,Di-Ba) 133 Ml Enema 133 Ml RC PRN DAILY PRN Administer if MOM and Dulcolax unsuccessful after 48 hours Bisacodyl 5 Mg Tablet.dr 10 Mg PO PRN DAILY PRN Administer if MOM unsuccessful after 24 hours Milk Of Magnesia (Magnesium Hydroxide) 2,400 Mg/10 Ml Oral.susp 30 Ml PO PRN DAILY PRN [Sureprep] 1 Macey TOP TID Apply topically to Bilateral Plantar feet TID Trazodone Hcl 50 Mg Tablet 50 Mg PO QHS Mirtazapine 15 Mg Tablet 15 Mg PO QHS Hydrochlorothiazide Tablet (Hydrochlorothiazide) 25 Mg Tablet 25 Mg PO DAILY Haloperidol 1 Mg Tablet 1 Mg PO BID Glucosamine Hcl 500 Mg Tablet 500 Mg PO BID Glipizide 5 Mg Tablet 2.5 Mg PO DAILY Calcium 600+D Plus Minerals Tb (Calcium Carb/Vit D3/Minerals) 1 Each Tablet 1 Tab PO BID Atorvastatin Calcium 20 Mg Tablet 20 Mg PO QHS Aspirin 81 Mg Tab.chew 81 Mg PO DAILY Abiliflori Maintena (Aripiprazole) 400 Mg Suser.vial 400 Mg IM Q4WK JORDAN AMADOR MD March 22, 2017 21:13
--- NOTE | 2017-03-22 22:28 | NUR ---
Behavior Intervention Response and Plan: BIRP Note: Behavior: Assumed Care of patient, patient located in Day Room at shift change. Patient exhibited the following behavior Calm, Compliant, Interactive. Brief assessment on rounds of vital signs, medication needs, lab studies, and pain. Treatment plan problems Alteration in Thought Process and Fall Risk. Intervention: Patient assessed and the following interventions initiated safety checks 15 Minute Checks Cognitive Assessment , Head to toe Assessment , Medications. Response: After interactions and interventions patient responded in the following manner, Calm , Compliant ,Sleeping. Continue to assess behaviors and condition will continue to monitor throughout the shift as needed. 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 Continue to assess patient for changes in above assessment. Monitor for medication needs, pain, and safety concerns. Hourly rounding performed to ensure safe environment.
[2017-03-23 05:47] VITALS: BP 119/66
[2017-03-23] MEDS: hydroCHLOROthiazide 25 MG TABLET PO SCH (07:52)
[2017-03-23] MEDS: ASPIRIN 81 MG TAB.CHEW PO SCH (07:52)
[2017-03-23] MEDS: GLUCOSAMINE 500 MG CAPSULE PO SCH ×2 (07:52→20:03)
[2017-03-23] MEDS: CETIRIZINE HCL 10 MG TABLET PO SCH (07:52)
[2017-03-23] MEDS: CALCIUM CARB/VIT D3 500/200 TABLET PO SCH ×2 (07:52→17:00)
[2017-03-23] MEDS: BENZTROPINE MESYLATE 0.5 MG TABLET PO SCH ×2 (07:52→20:02)
[2017-03-23] MEDS: FLUTICASONE 50MCG/NASAL SPRAY 16GM BOTTLE. NS SCH (07:53)
[2017-03-23] MEDS: risperiDONE ORAL 1 MG/ML 30ml BOTTLE. SL SCH ×2 (07:59→20:03)
--- NOTE | 2017-03-23 08:45 | PN ---
DATE: 03/21/2017 This is a late entry for 03/21/2017 and covers elements not covered in my initial note. The patient still admits to hearing voices, but feels that these are going away further away from her, though she is convinced that these are real voices. She has been delusional, says the voices tell her that she was arrested on a court order. REVIEW OF SYSTEMS: No CV, , pulmonary, eye, ENT system symptoms on review. MENTAL STATUS EXAM: Reasonably oriented. Speech has moderate latency, often responses monosyllabic. Abstraction fair, computation impaired, language function intact, attention span short, mood and affect somewhat withdrawn. LABORATORY DATA: Reviewed. IMPRESSION: Unchanged from initial note. PLAN: Continue current psychotropics mentioned in my initial note. MAN Darren AMADOR MD DR: ERIKA/anika JOB#: [id number] / [id number]
--- NOTE | 2017-03-23 12:01 | NUR ---
SW spoke with pt facility [facility] this am, pt facility will call SW back with discharge time once set-up for Monday.
--- NOTE | 2017-03-23 12:02 | NUR ---
[facility] Social Work Discharge Planning Form Patient Name OVI FOWLER Admit Date: 03/06/17 DISCHARGE PLAN Discharge Destination: [address] [place] [address] Care Assessment: Not Needed Level II Assessment: Not Needed Transportation: Special Instructions/Notes: DISCHARGE TO FACILITY Facility: [facility] Address:[address] [place] [address] Contact Name: ULISES ANDERSEN, Other: Ashly PCP: at facility Psychiatrist: at facility Psychiatrist/Mental Health Follow Up within 7-10 days Primary Care Follow Up within 7-10 days
--- NOTE | 2017-03-23 13:00 | NUR ---
Behavior Intervention Response and Plan: BIRP Note: Behavior: Assumed Care of patient, patient located in Day Room at shift change. Patient exhibited the following behavior Calm, Interactive, Compliant. Brief assessment on rounds of vital signs, medication needs, lab studies, and pain. Treatment plan problems . Intervention: Patient assessed and the following interventions initiated safety checks 15 Minute Checks Head to toe Assessment , Medications , Nutrition. Response: After interactions and interventions patient responded in the following manner, Calm , Interactive ,Compliant. Continue to assess behaviors and condition will continue to monitor throughout the shift as needed. 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 Continue to assess patient for changes in above assessment. Monitor for medication needs, pain, and safety concerns. Hourly rounding performed to ensure safe environment.
--- NOTE | 2017-03-23 15:20 | NUR ---
Group Note [facility] Group Type BINGO Start Time: 1315 End Time: 1430 Problem: Anxiety Purpose: Increase Stimulation, Increase socialization Level of Participation: high Behaviors, or Symptoms Observed: Pt helped her peers around her with their BINGO cards Interventions: Directed Focus Response: Pt's played multiple rounds of BINGO and to listen to numbers called, prizes were given to the winner in each round. Plan: Group Participation Additional Comments:
[2017-03-23 16:08] VITALS: BP 123/59
--- NOTE | 2017-03-23 20:00 | NUR ---
Behavior Intervention Response and Plan: BIRP Note: Behavior: Assumed Care of patient, patient located in Day Room at shift change. Patient exhibited the following behavior Calm, Interactive, Compliant. Brief assessment on rounds of vital signs, medication needs, lab studies, and pain. Treatment plan problems 1-2/fall risk. Intervention: Patient assessed and the following interventions initiated safety checks 15 Minute Checks Head to toe Assessment , Medications , Nutrition. Response: After interactions and interventions patient responded in the following manner, Calm , Interactive ,Compliant. Continue to assess behaviors and condition will continue to monitor throughout the shift as needed. 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 Continue to assess patient for changes in above assessment. Monitor for medication needs, pain, and safety concerns. Hourly rounding performed to ensure safe environment.
[2017-03-23] MEDS: DIVALPROEX ER 500 MG TAB.ER.24H PO SCH (20:02)
[2017-03-23] MEDS: MIRTAZAPINE 15 MG TABLET PO SCH (20:03)
[2017-03-23] MEDS: ATORVASTATIN CALCIUM 20 MG TABLET PO SCH (20:03)
[2017-03-23] MEDS: traZODone 50 MG TABLET. PO SCH (20:03)
--- NOTE | 2017-03-23 21:12 | PDOC ---
Exam Andre Demential Exam: Andre Note: Please also refer to the separate dictated note~for this date of service dictated separately.~Patient seen individually. Discussed the patient with Nursing staff reviewed the chart.~Reviewed interim history and current functioning. Reviewed vital signs,~Labs/ Radiology~and current medications noted below. Continue current treatment with the changes noted in the dictated addendum note Assessment: Vital Signs: Vital Signs Date Time Temp Pulse Resp B/P (MAP) Pulse Ox O2 Delivery O2 Flow Rate FiO2 03/23/17 16:08 97.6 69 20 123/59 (80) 98 03/23/17 05:47 Room Air I&O Intake and Output 03/23/17 07:00 Intake Total 840 ml Balance 840 ml Intake Oral 840 ml Current Medications: Meds: Current Medications Acetaminophen (Tylenol) 650 mg PRN Q6HRS PRN PO MILD PAIN / TEMP Last administered on 03/07/17 17:50; Start 03/07/17 at 00:45 Multi-Ingredient Ointment (Analgesic [place]) 1 macey PRN QID PRN TP MUSCLE PAIN; Start 03/07/17 at 00:45 Al Hydroxide/Mg Hydroxide (Mylanta Plus Xs) 15 ml PRN AFTMEALHC PRN PO DYSPEPSIA; Start 03/07/17 at 00:45 Magnesium Hydroxide (Milk Of Magnesia) 2,400 mg PRN QHS PRN PO CONSTIPATION Last administered on 03/08/17 20:45; Start 03/07/17 at 00:45 Haloperidol (Haldol) 1 mg BID PO Last administered on 03/07/17 08:14; Start at 09:00; Stop 03/07/17 at 18:20; Status DC Lorazepam (Ativan) 0.5 mg PRN Q12HR PRN PO ANXIETY / AGITATION; Start 03/07/17 at 01:00 Mirtazapine (Remeron) 15 mg QHS PO Last administered on 03/23/17 20:03; Start 03/07/17 at 21:00 Trazodone HCl (Desyrel) 50 mg QHS PO Last administered on 03/23/17 20:03; Start 03/07/17 at 21:00 Non-Formulary Medication 400 mg Q4WK IM ; Start 03/07/17 at 09:00; Stop at 18:20; Status DC Acetaminophen (Tylenol) 500 mg PRN Q6HRS PRN PO PAIN / TEMP; Start 03/07/17 at 07:45; Stop 03/07/17 at 08:00; Status DC Aspirin (Children'S Aspirin) 81 mg DAILY PO Last administered on 03/23/17 07:52 ; Start 03/07/17 at 09:00 Atorvastatin Calcium (Lipitor) 20 mg QHS PO Last administered on 03/23/17 20:03 ; Start 03/07/17 at 21:00 Bisacodyl (Dulcolax Tab) 10 mg PRN DAILY PRN PO CONSTIPATION; Start 03/07/17 at 07:45 Docusate Sodium (Colace) 100 mg PRN BID PRN PO CONSTIPATION; Start 03/07/17 at 07:45 Glipizide (Glucotrol) 2.5 mg DAILY PO Last administered on 03/10/17 08:02; Start 03/07/17 at 09:00; Stop 03/10/17 at 14:12; Status DC Hydrochlorothiazide (Hydrodiuril) 25 mg DAILY PO Last administered on 03/23/17 07:52; Start 03/07/17 at 09:00 Polyethylene Glycol (miraLAX) 17 gm DAILY PO Last administered on 03/16/17 09: 07; Start 03/07/17 at 09:00; Stop 03/16/17 at 11:36; Status DC Artificial Tears (Artificial Tears) 1 drop PRN BID PRN OU DRY EYE; Start at 07:45 Calcium/Vitamin D (Oscal D 500mg/ 200uts) 1 tab BIDWMEALS PO Last administered on 03/23/17 17:00; Start 03/07/17 at 08:00 Glucosamine Sulfate (Glucosamine) 500 mg BID PO Last administered on 03/23/17 20:03; Start 03/07/17 at 09:00 Non-Formulary Medication 30 ml PRN DAILY PRN PO CONSTIPATION; Start 03/07/17 at 07:45; Stop 03/07/17 at 07:59; Status DC Non-Formulary Medication 1 macey PRN PRN TP PAIN; Start 03/07/17 at 07:45; Stop at 08:01; Status DC Multi-Ingred Cream/Lotion/Oil/ Oint (Hydrocerin) 1 macey PRN BID PRN TP DRY SKIN ; Start 03/07/17 at 08:15; Stop 03/07/17 at 14:45; Status DC Non-Formulary Medication 1 macey TID TOP ; Start 03/07/17 at 09:00; Stop 03/07/17 at 09:00; Status DC Multi-Ingred Cream/Lotion/Oil/ Oint (Hydrocerin) 1 macey PRN BID PRN TP DRY SKIN ; Start 03/07/17 at 14:45 Risperidone (Risperdal) 0.5 mg BID SL Last administered on 03/10/17 08:05; Start 03/07/17 at 21:00; Stop 03/10/17 at 17:56; Status DC Benztropine Mesylate (Cogentin) 0.5 mg BID PO Last administered on 03/23/17 20: 02; Start 03/08/17 at 21:00 Divalproex Sodium (Depakote Er) 250 mg QHS PO Last administered on 03/12/17 18 :38; Start 03/09/17 at 21:00; Stop 03/12/17 at 20:26; Status DC Risperidone (RisperDAL) 0.75 mg BID SL Last administered on 03/16/17 09:07; Start 03/10/17 at 21:00; Stop 03/16/17 at 10:17; Status DC Divalproex Sodium (Depakote Er) 500 mg QHS PO Last administered on 03/23/17 20: 02; Start 03/13/17 at 21:00 Risperidone (RisperDAL) 1 mg BID SL Last administered on 03/23/17 20:03; Start 03/16/17 at 21:00 Cetirizine HCl (ZyrTEC) 10 mg DAILY PO Last administered on 03/23/17 07:52; Start 03/19/17 at 09:00 Fluticasone Propionate (Flonase) 2 spray DAILY NS Last administered on 07:53; Start 03/19/17 at 09:00 Active Scripts Active Reported Haloperidol (Haloperidol Lactate) 5 Mg/1 Ml Ampul 5 Mg IM PRN Q8HRS PRN Biofreeze (Menthol) 118 Ml Gel..ml. 1 Macey TP PRN PRN Apply topically to Left Shoulder PRN Pain Aquaphor Ointment (Mineral Oil/Hydrophil Petrolat) 396 Gm Oint...g. 1 Macey TP PRN BID PRN Polyethylene Glycol 3350 17 Gm Powd.pack 17 Gm PO DAILY Lorazepam 2 Mg/1 Ml Vial 0.25 Mg IM PRN Q12HR PRN Lorazepam 0.5 Mg Tablet 0.5 Mg PO PRN Q12HR PRN Loratadine 10 Mg Tablet 10 Mg PO Docusate Sodium 100 Mg Capsule 100 Mg PO PRN BID PRN Artificial Tears (Polyvinyl Alcohol) 15 Ml Drops 1 Drop OU PRN BID PRN Acetaminophen 500 Mg Tablet 500 Mg PO PRN Q6HRS PRN Fleet Enema (Na Phos,M-B/Na Phos,Di-Ba) 133 Ml Enema 133 Ml RC PRN DAILY PRN Administer if MOM and Dulcolax unsuccessful after 48 hours Bisacodyl 5 Mg Tablet.dr 10 Mg PO PRN DAILY PRN Administer if MOM unsuccessful after 24 hours Milk Of Magnesia (Magnesium Hydroxide) 2,400 Mg/10 Ml Oral.susp 30 Ml PO PRN DAILY PRN [Sureprep] 1 Macey TOP TID Apply topically to Bilateral Plantar feet TID Trazodone Hcl 50 Mg Tablet 50 Mg PO QHS Mirtazapine 15 Mg Tablet 15 Mg PO QHS Hydrochlorothiazide Tablet (Hydrochlorothiazide) 25 Mg Tablet 25 Mg PO DAILY Haloperidol 1 Mg Tablet 1 Mg PO BID Glucosamine Hcl 500 Mg Tablet 500 Mg PO BID Glipizide 5 Mg Tablet 2.5 Mg PO DAILY Calcium 600+D Plus Minerals Tb (Calcium Carb/Vit D3/Minerals) 1 Each Tablet 1 Tab PO BID Atorvastatin Calcium 20 Mg Tablet 20 Mg PO QHS Aspirin 81 Mg Tab.chew 81 Mg PO DAILY Abilify Maintena (Aripiprazole) 400 Mg Suser.vial 400 Mg IM Q4WK Diagnosis: Problems: (1) Schizophrenia (2) Disruptive behavior (3) Psychosis (4) Anxiety disorder (5) Impulse control disorder (6) Schizoaffective disorder, chronic condition with acute exacerbation (7) Psychosis, atypical JORDAN AMADOR MD Mar 23, 2017 21:12
[2017-03-24] MEDS ORDERED: ACET325T21 PO (00:35)
[2017-03-24] MEDS ORDERED: BENZ0.5T PO (00:51)
[2017-03-24] MEDS ORDERED: CETI10TA16 PO (00:56)
[2017-03-24] MEDS ORDERED: DIVA500T4 PO (00:58)
[2017-03-24] MEDS ORDERED: FLUT16SP21 NS (01:01)
[2017-03-24] MEDS ORDERED: MAG30ORA2 PO (01:12)
[2017-03-24] MEDS ORDERED: RISP1SOL SL (01:16)
[2017-03-24] MEDS ORDERED: METH29OI TP (01:18)
[2017-03-24] MEDS ORDERED: [UNRECOGNIZED DRUG - CODE] TP (01:22)
[2017-03-24 06:22] VITALS: BP 112/60
[2017-03-24] MEDS: GLUCOSAMINE 500 MG CAPSULE PO SCH (08:21)
[2017-03-24] MEDS: CALCIUM CARB/VIT D3 500/200 TABLET PO SCH (08:21)
[2017-03-24] MEDS: hydroCHLOROthiazide 25 MG TABLET PO SCH (08:21)
[2017-03-24] MEDS: ASPIRIN 81 MG TAB.CHEW PO SCH (08:21)
[2017-03-24] MEDS: CETIRIZINE HCL 10 MG TABLET PO SCH (08:22)
[2017-03-24] MEDS: BENZTROPINE MESYLATE 0.5 MG TABLET PO SCH (08:22)
[2017-03-24] MEDS: risperiDONE ORAL 1 MG/ML 30ml BOTTLE. SL SCH (08:25)
[2017-03-24] MEDS: FLUTICASONE 50MCG/NASAL SPRAY 16GM BOTTLE. NS SCH (08:25)
--- NOTE | 2017-03-24 09:30 | NUR ---
Behavior Intervention Response and Plan: BIRP Note: Behavior: Assumed Care of patient, patient located in Day Room at shift change. Patient exhibited the following behavior Calm, Hallucinating, Disorganized. Brief assessment on rounds of vital signs, medication needs, lab studies, and pain. Treatment plan problems 1 & 2. Intervention: Patient assessed and the following interventions initiated safety checks 15 Minute Checks Cognitive Assessment , Head to toe Assessment , Medications. Response: After interactions and interventions patient responded in the following manner, Calm , Appropriate ,Compliant. Continue to assess behaviors and condition will continue to monitor throughout the shift as needed. 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 Continue to assess patient for changes in above assessment. Monitor for medication needs, pain, and safety concerns. Hourly rounding performed to ensure safe environment.
--- NOTE | 2017-03-24 09:44 | NUR ---
SW called left message for son regarding pt and discharge information with SW contact information as well. SW had message from facility regarding discharge time, pt will be picked up around 11:00 by her facility
--- NOTE | 2017-03-24 11:04 | NUR ---
Discharge Note [facility] Patient is not currently a tobacco user. Follow up Appointment made: Date and Time 03/24/17 1030 instructions and Social Work Discharge planning sheet sent to next level of care. [facility] contact Number for 24 hour support [phone] Discharge Packet Sent, and discusssed with patient and caregiver that includes Copies from the record of current medications with indications and frequencies, history and physical, Psychiatric Eval with reason and justification for admission, Lab values, Radiology results , follow up instructions for continuation of care, and Social Work discharge planning form: HARIS Leyva, [facility] Discharge Packet Faxed to Provider/Next Level of Care: [facility] Discharge Packet Faxed with discharge Order and Discharge diagnosis sent to: Discharge Packet Discussed, and report Given to: Discharge instruction sheet was included in the packet and sent with the patient upon discharge. Any Pending lab results can be obtained by calling [phone] Discharge Summary will be sent to next care provider when available. This includes the reason for admission, DC diagnosis, and next level of care recommendations.
--- NOTE | 2017-03-25 02:10 | PN ---
DATE: 03/22/2017 This is a late entry for 03/22/2017, covers the elements not covered in my initial note. SUBJECTIVE: Per nursing report, the patient has reported to the nursing staff that the voices seemed to be further away and she is not talking back to the voices, which is an improvement. REVIEW OF SYSTEMS: No CV, , pulmonary, eye system symptoms on review. MENTAL STATUS EXAM: Reasonably oriented. Speech has some latency. She is quite forthcoming and talking about the voices, but not very verbal, but this is typical for her. Abstraction fair, computation reasonable, language function intact. Mood and affect still somewhat withdrawn. No suicidal or homicidal ideation. LABORATORY DATA: Reviewed. IMPRESSION: Unchanged from initial note. PLAN: Continue current psychotropics. We may increase the Risperdal further, but had preferred not to given her current dosage of 2 mg a day. MAN Darren AMADOR MD DR: ERIKA/anika JOB#: [id number] / [id number]
--- NOTE | 2017-03-25 02:20 | PN ---
DATE: 03/23/2017 This is a late entry 03/23/2017, covers the elements not covered in my initial note. SUBJECTIVE: The patient was staffed at treatment team meeting with the entire team morning of 03/23/2017, and seen individually evening of 03/23/2017. Reviewed her history, diagnosis, medications. The patient relates the voices are real to her, but states she is able to hear them less clearly and seemed to be moving away. They still say ugly things to her, but she is able to ignore them much better. She has been working with [employer] and other things to distract herself. REVIEW OF SYSTEMS: No CV, , pulmonary, eye, ENT system symptoms on review. MENTAL STATUS EXAM: Reasonably oriented. Speech is coherent, has some latency. Abstraction fair, computation impaired, language function intact. No active suicidal or homicidal ideation. LABORATORY DATA: Reviewed. IMPRESSION: Unchanged from initial note. PLAN: Continue current psychotropics. Consider transition back to correction on 03/24/2017. JORDAN AMADOR MD DR: ERIKA/anika JOB#: [id number] / [id number]
--- NOTE | 2017-03-25 19:29 | DS ---
DATE OF DISCHARGE: 03/24/2017 DISCHARGE SUMMARY/PSYCHIATRIC PROGRESS NOTE This is a late entry for date of service 03/24/2017. REASON FOR ADMISSION: Please refer to the admission history for details. Briefly, the patient is a 71-year-old female referred to us from [facility] on account of increased hallucinations, paranoia, and delusions. She is believed she has to go to court was screaming for undercover pusher operator to leave her alone, refusing medications, paranoid, delusional, unmanageable referred for inpatient psychiatric stabilization. SIGNIFICANT FINDINGS AND CLINICAL COURSE: Following admission, the patient was seen daily individually by myself, followed medically per Dr. Brown/Dr. Frost. She was extremely psychotic at admission, paranoid, delusional was hearing loud voices that she was unable to ignore. Adjustments were made in her psychotropics and she seemed to respond to a combination of Risperdal liquid 1 mg b.i.d., Depakote ER 500 at bedtime, with a level therapeutic at 60, Cogentin 0.5 b.i.d., Remeron 15 at bedtime, trazodone 50 at bedtime, Ativan p.r.n. Prior to discharge on 03/24/2017 the patient was somewhat with psychotic symptoms of improved. She was still hearing voices, but these were much further away. At times, she was unable to make out what they were saying and she was able to ignore them. REVIEW OF SYSTEMS: No CV, , pulmonary, eye, ENT system symptoms on review. MENTAL STATUS EXAM: Reasonably oriented. Speech moderate latency, often responses monosyllabic. Abstraction fair, computation impaired, language function intact. Mood and affect somewhat withdrawn, but much less labile. Temperature 97.6, pulse 72, BP 112/60. CONDITION AT DISCHARGE: Improved. FINAL DIAGNOSES: Schizoaffective disorder bipolar type mixed with psychotic features in partial remission, schizophrenia, chronic undifferentiated versus paranoid with acute exacerbation, in partial remission; anxiety disorder, unspecified. Rest diagnoses unchanged. DISCHARGE MEDICATIONS: Please refer to the MRAD. DISCHARGE INSTRUCTIONS: [facility]. Time for discharge day management greater than 30 minutes. JORDAN AMADOR MD DR: ERIKA/anika JOB#: [id number] / [id number]
== END 2017-03-24 11:30 | DRG 885 ==
LOC: ER 21:15 → GEROPSY 23:14
PROVIDERS: ADMIT Psychiatry & Neurology Psychiatry; ATTEND Psychiatry & Neurology Psychiatry
DX: F31.64 Bipolar disorder, current episode mixed, severe, with psychotic features (principal); E11.9 Type 2 diabetes mellitus without complications; E78.00 Pure hypercholesterolemia, unspecified; E78.5 Hyperlipidemia, unspecified; F41.1 Generalized anxiety disorder; F63.9 Impulse disorder, unspecified; I10 Essential (primary) hypertension; J30.2 Other seasonal allergic rhinitis; G47.00 Insomnia, unspecified; H04.123 Dry eye syndrome of bilateral lacrimal glands; R25.1 Tremor, unspecified; M19.90 Unspecified osteoarthritis, unspecified site; K59.09 Other constipation; Z88.8 Allergy status to other drugs, medicaments and biological substances; Z92.21 Personal history of antineoplastic chemotherapy; F20.0 Paranoid schizophrenia
CPT/HCPCS: 36415; 70450; 80053; 80061; 80164; 81001; 82306; 82550; 82607; 82947; 83036; 83540; 83550; 83735; 84436; 84443; 84480; 84484; 85027; 86592; 86593; 87086; 93005; 99285-25

== ENCOUNTER 2017-08-10 19:47 | Inpatient (IN) | payer MEDICARE, MEDICAID ==
[~2017-08-10] VITALS: Ht 163.8 cm; Wt 90.5 kg
[~2017-08-10 19:47] MED LIST: ACET325T21 PO; ACET500T68 PO; ARIP400S IM; ASPI-630 PO; ATOR20TA58 PO; BENZ0.5T PO; BISA5TAB4 PO; CALC-58 PO; CEFU500T46 PO; CETI10TA16 PO; DIVA500T4 PO; DOCU100C28 PO; FLUT16SP21 NS; GLIP5TAB10 PO; GLUC500T10 PO; HALO1TAB PO; HALO5AMP IM; HYDR25TA9 PO; LORA0.5T PO; LORA10TA3 PO; LORA2VIA IM; MAG30ORA2 PO; MAGN2400 PO; MENT118G TP; METH29OI TP; MINE396O2 TP; MIRT15TA3 PO; NA P133E2 RC; POLY15DR27 OU; POLY17PO3 PO; RISP1SOL SL; RISP37.5 IM; TRAZ50TA15 PO; [UNRECOGNIZED DRUG - CODE] TP; [UNRECOGNIZED DRUG - OTHER] TOP
[2017-08-10 20:21] LABS: BASO % 1 % (0-3); EOS # 0.1 x10^3/uL (0.0-0.7); EOS % 1 % (0-3); HEMOGLOBIN 14.8 g/dL (12.0-15.5); LYMPH # 1.4 x10^3/uL (1.0-4.8); LYMPH % 21 % (24-48); MEAN CORPUSCULAR HEMOGLOBIN 29 pg (25-35); MEAN CORPUSCULAR HGB CONC 33 g/dL (31-37); MEAN CORPUSCULAR VOLUME 89 fL (79-100); MONO # 0.6 x10^3/uL (0.0-1.1); MONO % 9 % (0-9); NEUT # 4.6 x10^3uL (1.8-7.7); NEUT % 68 % (31-73); PLATELET COUNT 162 x10^3/uL (140-400); RED BLOOD COUNT 5.08 x10^6/uL (3.50-5.40); RED CELL DISTRIBUTION WIDTH 15.3 % (11.5-14.5); WHITE BLOOD COUNT 6.7 x10^3/uL (4.0-11.0)
[2017-08-10 20:37] LABS: ALBUMIN 3.2 g/dL (3.4-5.0); ALBUMIN/GLOBULIN RATIO 0.8 (1.0-1.7); CALCIUM 9.3 mg/dL (8.5-10.1); GFR 54.7; TOTAL BILIRUBIN 0.3 mg/dL (0.2-1.0); TOTAL PROTEIN 7.2 g/dL (6.4-8.2)
[2017-08-10 21:24] LABS: AMPHETAMINE/METHAMPHETAMINE NEG (NEG); BARBITURATES NEG (NEG); BENZODIAZEPINES NEG (NEG); CANNABINOIDS NEG (NEG); COCAINE NEG (NEG); METHADONE NEG (NEG); OPIATES NEG (NEG); PHENCYCLIDINE NEG (NEG)
[2017-08-10] MEDS ORDERED: AMAN100T PO (21:24)
[2017-08-10] MEDS ORDERED: HALO5AMP2 IM (21:24)
[2017-08-10] MEDS ORDERED: ACET325T9 PO (21:24)
[2017-08-10] MEDS ORDERED: [UNRECOGNIZED DRUG - OTHER] PO (21:24)
[2017-08-10 22:00] LABS: BACTERIA,URINE FEW /HPF (0-FEW); BILIRUBIN,URINE NEG (NEG); CLARITY,URINE HAZY; COLOR,URINE YELLOW; GLUCOSE,URINE NEG (NEG); NITRITE,URINE NEG (NEG); UROBILINOGEN,URINE 1 mg/dL (0.2 mg/dL)
[2017-08-10 22:01] LABS: SQUAMOUS EPITHELIAL CELL,UR MANY /LPF
--- NOTE | 2017-08-10 22:50 | ED.ADGEN ---
Past History Past Medical History: Diabetes, High Cholesterol Additional Past Medical Histor: Schizphrenia Past Surgical History: No Surgical History Alcohol Use: None Drug Use: None Adult General Chief Complaint Chief Complaint " They sent me over to be checked out.." [facility] HPI Patient is a 71 year old female who presents with hx. of increasing agitation. Pt sent from [facility] for further eval. and treatment for Psychosis with Paranoid delusions. Pt. previously accepted for eval. at [facility]. by Dr. Bales. Pt. Has past hx of Bipolar Disorder, Parkinson disease, generalized deconditioning, cognitive communication deficit, history of major depression, disruptive mood dysregulation, hypertension, diabetes, hyperlipidemia, repeated falls, gait disorder. Patient recently refusing meds and her long-term. Pt. primary Dr. Herman. Review of Systems Review of Systems Patient has no complaints Constitutional: Denies fever or chills [] Eyes: Denies change in visual acuity, redness, or eye pain [] HENT: Denies nasal congestion or sore throat [] Respiratory: Denies cough or shortness of breath [] Cardiovascular: No additional information not addressed in HPI [] GI: Denies abdominal pain, nausea, vomiting, bloody stools or diarrhea [] : Denies dysuria or hematuria [] Musculoskeletal: Denies back pain or joint pain [] Integument: Denies rash or skin lesions [] Neurologic: Denies headache, focal weakness or sensory changes [] Endocrine: Denies polyuria or polydipsia [] Family History Family History Not currently available Current Medications Current Medications See nursing for long-term medications Allergies Allergies Allergies Coded Allergies Type Severity Reaction Last Updated Verified imipramine Allergy Intermediate 03/06/17 Yes meperidine Allergy Intermediate 03/06/17 Yes Physical Exam Physical Exam Constitutional: well nourished, in no acute distress, non-toxic appearance. [] HENT: Normocephalic, atraumatic, bilateral external ears normal, oropharynx moist, no oral exudates, nose normal. [] Eyes: PERRLA, EOMI, conjunctiva normal, no discharge. [] Neck: Normal range of motion, no tenderness, supple, no stridor. [] Cardiovascular:Heart rate regular rhythm, no murmur, PMI to the left Lungs & Thorax: Bilateral breath sounds clear to auscultation [] Abdomen: Bowel sounds normal, soft, no tenderness, no masses, no pulsatile masses. [] Skin: Warm, dry, no erythema, no rash. [] Back: No tenderness, no CVA tenderness. [] Extremities: No tenderness, no cyanosis, no clubbing, ROM intact, no edema. [] Patient voluntarily moves all extremities on request Neurologic: Alert and oriented X 3, slow to respond to questions, normal motor function, normal sensory function, no focal deficits noted. Tremor. Exacerbated with intention. DTR +2 patella and brachial. Psychologic: Affect depressed, judgement unable to assess at this time,, mood depressed] Current Patient Data Vital Signs Vital Signs Date Time Temp Pulse Resp B/P (MAP) Pulse Ox O2 Delivery O2 Flow Rate FiO2 08/11/17 00:24 77 16 134/81 (98) 97 Room Air 08/10/17 19:47 98.3 Lab Results Laboratory Tests Test 08/10/17 20:00 08/10/17 21:03 08/11/17 00:05 White Blood Count 6.7 x10^3/uL (4.0-11.0) Red Blood Count 5.08 x10^6/uL (3.50-5.40) Hemoglobin 14.8 g/dL (12.0-15.5) Hematocrit 45.0 % (36.0-47.0) Mean Corpuscular Volume 89 fL (79-100) Mean Corpuscular Hemoglobin 29 pg (25-35) Mean Corpuscular Hemoglobin Concent 33 g/dL (31-37) Red Cell Distribution Width 15.3 % (11.5-14.5) H Platelet Count 162 x10^3/uL (140-400) Neutrophils (%) (Auto) 68 % (31-73) Lymphocytes (%) (Auto) 21 % (24-48) L Monocytes (%) (Auto) 9 % (0-9) Eosinophils (%) (Auto) 1 % (0-3) Basophils (%) (Auto) 1 % (0-3) Neutrophils # (Auto) 4.6 x10^3uL (1.8-7.7) Lymphocytes # (Auto) 1.4 x10^3/uL (1.0-4.8) Monocytes # (Auto) 0.6 x10^3/uL (0.0-1.1) Eosinophils # (Auto) 0.1 x10^3/uL (0.0-0.7) Basophils # (Auto) 0.0 x10^3/uL (0.0-0.2) Sodium Level 142 mmol/L (136-145) Potassium Level 4.0 mmol/L (3.5-5.1) Chloride Level 106 mmol/L (98-107) Carbon Dioxide Level 29 mmol/L (21-32) Anion Gap 7 (6-14) Blood Urea Nitrogen 21 mg/dL (7-20) H Creatinine 1.0 mg/dL (0.6-1.0) Estimated GFR (Cockcroft-Gault) 54.7 BUN/Creatinine Ratio 21 (6-20) H Glucose Level 124 mg/dL (70-99) H Calcium Level 9.3 mg/dL (8.5-10.1) Magnesium Level 2.0 mg/dL (1.8-2.4) Total Bilirubin 0.3 mg/dL (0.2-1.0) Aspartate Amino Transferase (AST) 16 U/L (15-37) Alanine Aminotransferase (ALT) 30 U/L (14-59) Alkaline Phosphatase 96 U/L (46-116) Troponin I Quantitative < 0.017 ng/mL (0-0.055) Total Protein 7.2 g/dL (6.4-8.2) Albumin 3.2 g/dL (3.4-5.0) L Albumin/Globulin Ratio 0.8 (1.0-1.7) L Urine Collection Type Unknown Urine Color Yellow Urine Clarity Hazy Urine pH 6.0 Urine Specific [place] 1.020 Urine Protein Neg (NEG-TRACE) Urine Glucose (UA) Neg mg/dL (NEG) Urine Ketones (Stick) 15 mg/dL (NEG) Urine Blood Trace (NEG) Urine Nitrite Neg (NEG) Urine Bilirubin Neg (NEG) Urine Urobilinogen Dipstick 1 mg/dL (0.2 mg/dL) Urine Leukocyte Esterase Neg (NEG) Urine RBC 1-2 /HPF (0-2) Urine WBC 1-4 /HPF (0-4) Urine Squamous Epithelial Cells Many /LPF Urine Bacteria Few /HPF (0-FEW) Urine Mucus Mod /LPF Urine Opiates Screen Neg (NEG) Urine Methadone Screen Neg (NEG) Urine Barbiturates Neg (NEG) Urine Phencyclidine Screen Neg (NEG) Urine Amphetamine/Methamphetamine Neg (NEG) Urine Benzodiazepines Screen Neg (NEG) Urine Cocaine Screen Neg (NEG) Urine Cannabinoids Screen Neg (NEG) Urine Ethyl Alcohol Neg (NEG) Valproic Acid Level < 3 mcg/mL (50-100) L Valproic Acid Last Dose Date 08/09/17 Valproic Acid Last Dose Time 1999 EKG EKG My interpretation EKG shows a sinus rhythm with no acute morphology[] Radiology/Procedures Radiology/Procedures My interpretation of chest x-ray shows borderline cardiac silhouette. No acute cardiopulmonary findings. Has majo from previous left breast surgery. No free air under the diaphragm[] Course & Med Decision Making Course & Med Decision Making Pertinent Labs and Imaging studies reviewed. (See chart for details) Patient admitted to adult senior psych. and not as primary medicine consult as needed [] Final Impression Final Impression 1. Mental Status Change 2. Agitation 3. Hx. Psychosis 4. Hx. Parkinson 5. Hx. of Falls[] 6.. History of Gait Disorder Problems: Dragon Disclaimer Dragon Disclaimer This electronic medical record was generated, in whole or in part, using a voice recognition dictation system. TREASURE BALLARD MD Aug 10, 2017 22:50
--- NOTE | 2017-08-10 23:07 | EKG ---
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
[2017-08-11 02:01] LABS: VAL ACID < 3 mcg/mL (50-100)
[2017-08-11 02:10] VITALS: BP 120/56
[2017-08-11 05:51] VITALS: BP 137/73
[2017-08-11] MEDS ORDERED: BISACODYL TAB 5 MG TABLET.DR. PO PRN (06:45)
[2017-08-11] MEDS ORDERED: [UNRECOGNIZED DRUG - OTHER] PO SCH (08:00)
[2017-08-11] MEDS ORDERED: MINERAL OIL TP PRN (08:00)
[2017-08-11] MEDS ORDERED: PETROLATUM TP PRN (08:00)
[2017-08-11] MEDS: CETIRIZINE HCL 10 MG TABLET PO SCH (08:59)
[2017-08-11] MEDS: FLUTICASONE 50MCG/NASAL SPRAY 16GM BOTTLE. NS SCH (08:59)
[2017-08-11] MEDS: AMANTADINE HCL 100 MG CAPSULE PO SCH ×2 (09:00→17:18)
[2017-08-11] MEDS: GLUCOSAMINE 500 MG CAPSULE PO SCH ×2 (09:00→20:00)
[2017-08-11] MEDS: hydroCHLOROthiazide 25 MG TABLET PO SCH (09:00)
[2017-08-11] MEDS: CALCIUM CARB/VIT D3 500/200 TABLET PO SCH ×2 (09:01→17:18)
--- NOTE | 2017-08-11 10:34 | RAD ---
Portable AP view CXR: Clinical indications: Weakness. Mental status change. Findings: No acute lung infiltrate or pleural effusion or pulmonary edema or lung mass or pneumothorax is seen. There are metallic suture clips or a device overlying the left lower chest. The heart size and pulmonary vasculature, and mediastinum and both rosendo are unremarkable. Impression: No acute radiographic abnormality is seen.
--- NOTE | 2017-08-11 15:07 | HP ---
ADMIT DATE: 08/11/2017 MEDICAL HISTORY AND PHYSICAL FOR THE BEHAVIORAL UNIT REASON FOR ADMISSION TO THE SENIOR BEHAVIORAL UNIT: This is a 71-year-old female, who has a previous admission to the [facility] on 03/06/2017. She came from [facility] in [place], [place] where she has been yelling, cursing refusing meds, delusional about her medications, denying that she had urinary tract infection, denying that she was on antibiotic even though I showed it to her on the MAR, having psychosis. The patient has had no psych meds since 07/24/2017 because she has refused. She has had some Risperdal Consta 37.5 mg IM, which was given on 08/06/2017 and I believe she had it also possibly on 07/22/2017. Other Risperdal p.o. was discontinued on 08/06/2017. PAST MEDICAL HISTORY: Diabetes, hyperlipidemia, major depressive disorder, falls, Parkinson's disease, which she denies, schizophrenia, depression, dementia, chronic constipation, dry eyes, hypertension, and type 2 diabetes. ALLERGIES: IMIPRAMINE and MEPERIDINE. MEDICATIONS: Were reviewed, but as stated, has not been taking them. 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 She states she has not worked since 2011. REVIEW OF SYSTEMS: Anxiety. Denies any urinary tract symptoms. Denies fever, shortness of breath, sore throat. OBJECTIVE: VITAL SIGNS: Blood pressure 137/73, temperature 96.4, pulse 72, respirations 18, pulse ox 96% on room air, very anxious, crying. GENERAL: A 71-year-old in mild emotional distress. HEENT: Her TMs were intact. Nose is patent. Throat was clear. NECK: Supple. She has some considerable seborrhea of her scalp, which comes down to around her ears and her face. LUNGS: Clear to auscultation. CARDIOVASCULAR: Regular rhythm and rate. ABDOMEN: Soft, nontender. EXTREMITIES: Without edema. MUSCULOSKELETAL: She ambulates with a walker and has a fairly difficult time getting from seating to the standing. Her gait is shuffling. Her face, she has clayton facies, with Parkinson's. She has severe tremor, which gets worse when she becomes agitated and nervous. Can hold her hand and the tremor will stop. NEUROLOGIC: Cranial nerves: She is able to go through, follow directions without problem, could not get her reflexes. Cranial nerves appear to be intact. Her vision is intact with glasses. Her color vision is also intact. Smell intact as well. LABORATORY DATA: Unremarkable CBC. Iron 35. TSH is 2.44. B12 is 721. Valproic acid level less than 3. Urinalysis; 1 to 4 white cells, contaminated specimen, many squamous epithelial cells. ASSESSMENT: 1.Major depressive disorder. 2.Schizophrenia. Noncompliance with medications. 3.Severe Parkinson's with tremor. 4.History of urinary tract infection, which has evidently cleared itself without antibiotics. 5.Fall risk, unsteady gait. 6.Iron deficiency. 7.Psychosis. PLAN: Follow along with Dr. Bales and treat her medical conditions. It will be difficult if she refuses her medications, but will start her on some iron. CAREY MCCLURE DO DR: CHRISTELLE/anika JOB#: [id number] / [id number]
[2017-08-11 16:32] VITALS: BP 123/77
[2017-08-11 17:14] LABS: T3 TOTAL 103 ng/dL (71-180); THYROXINE 9.5 ug/dL (4.5-12.0)
[2017-08-11 19:08] LABS: HEMOGLOBIN A1C 5.5 % (4.8-5.6)
[2017-08-11] MEDS: ATORVASTATIN CALCIUM 20 MG TABLET PO SCH (20:00)
[2017-08-11] MEDS: DIVALPROEX ER 500 MG TAB.ER.24H PO SCH (20:00)
[2017-08-11] MEDS: MIRTAZAPINE 15 MG TABLET PO SCH (20:00)
[2017-08-11] MEDS: traZODone 50 MG TABLET. PO SCH (20:00)
--- NOTE | 2017-08-11 20:53 | PDOC ---
Exam Andre Demential Exam: Andre Note: Please also refer to the separate dictated note~for this date of service dictated separately.~Patient seen individually. Discussed the patient with Nursing staff reviewed the chart.~Reviewed interim history and current functioning. Reviewed vital signs,~Labs/ Radiology~and current medications noted below. Continue current treatment with the changes noted in the dictated addendum note Assessment: Vital Signs: Vital Signs Date Time Temp Pulse Resp B/P (MAP) Pulse Ox O2 Delivery O2 Flow Rate FiO2 08/11/17 16:32 97.3 73 20 123/77 (92) 97 08/11/17 00:24 Room Air I&O Intake and Output 08/12/17 07:00 Intake Total 960 ml Balance 960 ml Intake Oral 960 ml Labs: Laboratory Tests Test 08/10/17 21:03 08/11/17 00:05 Urine Collection Type Unknown Urine Color Yellow Urine Clarity Hazy Urine pH 6.0 Urine Specific [place] 1.020 Urine Protein Neg (NEG-TRACE) Urine Glucose (UA) Neg mg/dL (NEG) Urine Ketones (Stick) 15 mg/dL (NEG) Urine Blood Trace (NEG) Urine Nitrite Neg (NEG) Urine Bilirubin Neg (NEG) Urine Urobilinogen Dipstick 1 mg/dL (0.2 mg/dL) Urine Leukocyte Esterase Neg (NEG) Urine RBC 1-2 /HPF (0-2) Urine WBC 1-4 /HPF (0-4) Urine Squamous Epithelial Cells Many /LPF Urine Bacteria Few /HPF (0-FEW) Urine Mucus Mod /LPF Urine Opiates Screen Neg (NEG) Urine Methadone Screen Neg (NEG) Urine Barbiturates Neg (NEG) Urine Phencyclidine Screen Neg (NEG) Urine Amphetamine/Methamphetamine Neg (NEG) Urine Benzodiazepines Screen Neg (NEG) Urine Cocaine Screen Neg (NEG) Urine Cannabinoids Screen Neg (NEG) Urine Ethyl Alcohol Neg (NEG) Hemoglobin A1c 5.5 % (4.8-5.6) Iron Level 35 ug/dL (50-170) L Total Iron Binding Capacity 286 ug/dL (250-450) Iron Saturation 12 % (15-34) L Triglycerides Level 66 mg/dL (0-150) Cholesterol Level 193 mg/dL (0-200) LDL Cholesterol, Calculated 127 mg/dL (0-100) H VLDL Cholesterol, Calculated 13 mg/dL (0-40) Non-HDL Cholesterol Calculated 140 mg/dL (0-129) H HDL Cholesterol 53 mg/dL (40-60) Cholesterol/HDL Ratio 3.0 Vitamin B12 Level 721 pg/mL (247-911) 25-Hydroxy Vitamin D Total Pending Thyroxine (T4) 9.5 ug/dL (4.5-12.0) Total Triiodothyronine (TT3) 103 ng/dL (71-180) Valproic Acid Level < 3 mcg/mL (50-100) L Valproic Acid Last Dose Date 08/09/17 Valproic Acid Last Dose Time 1999 RPR Titer Additional Testing Pending Current Medications: Meds: Current Medications Divalproex Sodium (Depakote Er) 500 mg QHS PO Last administered on 08/11/17 20:00; Start 08/11/17 at 21:00 Mirtazapine (Remeron) 15 mg QHS PO Last administered on 08/11/17 20:00; Start 08/11/17 at 21:00 Risperidone (RisperDAL CONSTA) 37.5 mg Q2WKS IM ; Start 08/20/17 at 09:00 Trazodone HCl (Desyrel) 50 mg QHS PO Last administered on 08/11/17 20:00; Start 08/11/17 at 21:00 Amantadine HCl (Symmetrel) 100 mg BIDWMEALS PO Last administered on 08/11/17 17:18; Start 08/11/17 at 08:00 Acetaminophen (Tylenol) 650 mg PRN Q4HRS PRN PO Severe Pain/Temp; Start at 06:45 Atorvastatin Calcium (Lipitor) 20 mg QHS PO Last administered on 08/11/17 20: 00; Start 08/11/17 at 21:00 Bisacodyl (Dulcolax Tab) 10 mg PRN DAILY PRN PO CONSTIPATION; Start 08/11/17 at 06:45 Cetirizine HCl (ZyrTEC) 10 mg DAILY PO Last administered on 08/11/17 08:59; Start 08/11/17 at 09:00 Fluticasone Propionate (Flonase) 2 spray DAILY NS Last administered on 08:59; Start 08/11/17 at 09:00 Hydrochlorothiazide (Hydrodiuril) 25 mg DAILY PO Last administered on 09:00; Start 08/11/17 at 09:00 Calcium/Vitamin D (Oscal D 500mg/ 200uts) 1 tab BIDWMEALS PO Last administered on 08/11/17 17:18; Start 08/11/17 at 08:00 Glucosamine Sulfate (Glucosamine) 500 mg BID PO Last administered on 20:00; Start 08/11/17 at 09:00 Magnesium Hydroxide (Milk Of Magnesia) 2,400 mg PRN AFTMEALHC PRN PO CONSTIPATION; Start 08/11/17 at 07:45 Multi-Ingred Cream/Lotion/Oil/ Oint (Absorbase) 1 macey PRN BID PRN TP DRY SKIN; Start 08/11/17 at 08:00 Non-Formulary Medication 90 ml TIDWMEALS PO ; Start 08/11/17 at 08:00; Stop at 08:00; Status DC Prenat Multivit/ [place]/Iron/Folic Ac (Multivitamin ) 1 tab DAILY PO ; Start 08/12/17 at 09:00 Selenium Sulfide (Selsun Blue) 1 macey 3X/WEEK TP ; Start 08/14/17 at 09:00 Active Scripts Active Reported Amantadine (Amantadine Hcl) 100 Mg Tablet 100 Mg PO BIDWMEALS [Med Plus] 90 Ml PO TIDWMEALS Haldol (Haloperidol Lactate) 5 Mg/1 Ml Ampul 5 Mg IM PRN Q8HRS PRN Tylenol (Acetaminophen) 325 Mg Tablet 325 Mg PO PRN Q4HRS PRN Risperdal Consta (Risperidone Microspheres) 37.5 Mg/2 Ml Disp.syrin 37.5 Mg IM Q2WKS Cefuroxime (Cefuroxime Axetil) 500 Mg Tablet 500 Mg PO BID 10 Days Analgesic [place] (Methyl Salicylate/Menthol) 28 Gm Oint...g. 1 Applic TP PRN QID PRN Mag-Al Plus Xs Suspension (Mag Hydrox/Al Hydrox/Simeth) 30 Ml Oral.susp 30 Ml PO PRN AFTMEALHC PRN Fluticasone Propionate Nasal [place] (Fluticasone Propionate) 16 Gm [place].susp 2 [place] NS DAILY Depakote Er (Divalproex Sodium) 500 Mg Tab.er.24h 500 Mg PO QHS Cetirizine Hcl 10 Mg Tablet 10 Mg PO DAILY Acetaminophen 325 Mg Tablet 650 Mg PO PRN Q4HRS PRN Aquaphor Ointment (Mineral Oil/Hydrophil Petrolat) 396 Gm Oint...g. 1 Macey TP PRN BID PRN Bisacodyl 5 Mg Tablet.dr 10 Mg PO PRN DAILY PRN Administer if MOM unsuccessful after 24 hours Milk Of Magnesia (Magnesium Hydroxide) 2,400 Mg/10 Ml Oral.susp 2,400 Mg PO PRN AFTMEALHC PRN Trazodone Hcl 50 Mg Tablet 50 Mg PO QHS Mirtazapine 15 Mg Tablet 15 Mg PO QHS Hydrochlorothiazide Tablet (Hydrochlorothiazide) 25 Mg Tablet 25 Mg PO DAILY Glucosamine Hcl 500 Mg Tablet 500 Mg PO BID Calcium 600+D Plus Minerals Tb (Calcium Carb/Vit D3/Minerals) 1 Each Tablet 1 Tab PO BIDWMEALS Atorvastatin Calcium 20 Mg Tablet 20 Mg PO QHS Diagnosis: Problems: (1) Psychosis (2) Schizophrenia (3) Anxiety disorder (4) Impulse control disorder (5) Schizoaffective disorder, chronic condition with acute exacerbation (6) Psychosis, atypical JORDAN AMADOR MD Aug 11, 2017 20:53
--- NOTE | 2017-08-11 22:49 | HP ---
ADMIT DATE: 08/11/2017 PSYCHIATRIC ADMISSION HISTORY AND EVALUATION IDENTIFYING DATA: The patient is a 71-year-old female who returns back to us referred from [facility] by Dr. Jones, her psychiatrist, Dr. Rayshawn Herman, her primary care physician, on account of her recurrence of her bipolar disorder, mixed with psychotic features, within the context of her UTI for which she has been refusing Ceftin. The patient has been yelling, cursing, refusing medications, delusional about her medications. She has taken none of her psychotropics for about 2 weeks. The psychotic symptoms have been progressively worsening within the context of her UTI and bipolar disorder. She has failed outpatient psychiatric interventions, referred for inpatient psychiatric stabilization. CHIEF COMPLAINT: "They were mixing my medications. There were giving me the wrong medications. I stopped taking them." HISTORY OF PRESENT ILLNESS: The patient has a long history of bipolar disorder, current episode mixed, with psychotic features. She was last here with us a few months back, stabilized on a combination of Depakote as a mood stabilizer, Remeron to help with her sleep. She was transferred back to the skilled nursing, did well for a while, but within the last week or two, symptoms have been worsening significantly as noted above. She has failed outpatient psychiatric interventions. Behaviors have been disruptive, unmanageable and she has failed outpatient psychiatric interventions. PAST PSYCHIATRIC HISTORY: As noted above. PAST MEDICAL HISTORY: Diabetes mellitus, hyperlipidemia, frequent falls, Parkinson's disease, short term memory deficits. DIET: Regular. CODE STATUS: Full code. ALLERGIES: IMIPRAMINE, MEPERIDINE. She ambulates up ad-princess. UA is positive. CURRENT PSYCHOTROPICS: Symmetrel 100 mg b.i.d., Risperdal Consta 37.5 mg IM q. 2 weeks, last dose was 08/06/2017, Depakote ER 500 mg at bedtime, trazodone 50 mg at bedtime, Remeron 15 mg at bedtime. FAMILY HISTORY: Noncontributory. SOCIAL HISTORY: No history of alcohol, drug abuse, physical, sexual or elder abuse. She is not known to be a perpetrator. MENTAL STATUS EXAMINATION: The patient was seen individually the evening of 08/11/2017. She is quite anxious, restless, paranoid with poor eye contact. Speech, often responses monosyllabic, coherent, abstraction fair, computation impaired, language function intact. Attention span short. She appears quite paranoid, anxious, somewhat labile in her mood. No suicidal or homicidal ideation. REACTION TO HOSPITALIZATION: The patient is accepting of this. ASSETS: The patient is cognitively reasonably intact stable living at the skilled nursing. IMPRESSION: Bipolar 1 disorder, mixed with psychotic features; anxiety disorder, unspecified; impulse control disorder, unspecified; urinary tract infection. Rest diagnosis is as noted above. PLAN: Admit to the Geropsychiatry unit at [facility]. I will see the patient daily individually from a psychiatric standpoint. Medical followup per Dr. Brown/Dr. Frost. Continue the patient on her current psychotropics. Valproic acid level is less than 3, probably due to noncompliance. We will repeat it in 2 days. Observe the patient's baseline then adjust psychotropics as clinically indicated. The patient does have a history of Parkinson's disease and she is on fairly large dosages of Risperdal, which could complicate treatment, but we will have to decide on further interventions after baseline assessment is completed. MAN Darren AMADOR MD DR: ERIKA/anika JOB#: [id number] / [id number]
[2017-08-12 05:56] VITALS: BP 112/61
[2017-08-12] MEDS: CALCIUM CARB/VIT D3 500/200 TABLET PO SCH ×2 (08:45→16:42)
[2017-08-12] MEDS: GLUCOSAMINE 500 MG CAPSULE PO SCH ×2 (08:46→19:43)
[2017-08-12] MEDS: hydroCHLOROthiazide 25 MG TABLET PO SCH (08:46)
[2017-08-12] MEDS: CETIRIZINE HCL 10 MG TABLET PO SCH (08:47)
[2017-08-12] MEDS: AMANTADINE HCL 100 MG CAPSULE PO SCH ×2 (08:51→17:15)
[2017-08-12] MEDS: PRENATAL MULTIVITAMIN TABLET. PO SCH (08:51)
[2017-08-12] MEDS: FLUTICASONE 50MCG/NASAL SPRAY 16GM BOTTLE. NS SCH (08:51)
[2017-08-12 16:17] VITALS: BP 116/62
[2017-08-12] MEDS: DIVALPROEX ER 500 MG TAB.ER.24H PO SCH (19:43)
[2017-08-12] MEDS: traZODone 50 MG TABLET. PO SCH (19:43)
[2017-08-12] MEDS: ATORVASTATIN CALCIUM 20 MG TABLET PO SCH (19:44)
[2017-08-12] MEDS: MIRTAZAPINE 15 MG TABLET PO SCH (19:44)
--- NOTE | 2017-08-12 21:56 | PDOC ---
Exam Andre Demential Exam: Andre Note: Please also refer to the separate dictated note~for this date of service dictated separately.~Patient seen individually. Discussed the patient with Nursing staff reviewed the chart.~Reviewed interim history and current functioning. Reviewed vital signs,~Labs/ Radiology~and current medications noted below. Continue current treatment with the changes noted in the dictated addendum note Assessment: Vital Signs: Vital Signs Date Time Temp Pulse Resp B/P (MAP) Pulse Ox O2 Delivery O2 Flow Rate FiO2 08/12/17 16:17 97.3 80 18 116/62 (80) 97 08/12/17 05:56 Room Air I&O Intake and Output 08/13/17 07:00 Intake Total 720 ml Balance 720 ml Intake Oral 720 ml Current Medications: Meds: Current Medications Divalproex Sodium (Depakote Er) 500 mg QHS PO Last administered on 08/12/17 19:43; Start 08/11/17 at 21:00 Mirtazapine (Remeron) 15 mg QHS PO Last administered on 08/12/17 19:44; Start 08/11/17 at 21:00 Risperidone (RisperDAL CONSTA) 37.5 mg Q2WKS IM ; Start 08/20/17 at 09:00 Trazodone HCl (Desyrel) 50 mg QHS PO Last administered on 08/12/17 19:43; Start 08/11/17 at 21:00 Amantadine HCl (Symmetrel) 100 mg BIDWMEALS PO Last administered on 08/12/17 17:15; Start 08/11/17 at 08:00 Acetaminophen (Tylenol) 650 mg PRN Q4HRS PRN PO Severe Pain/Temp; Start at 06:45 Atorvastatin Calcium (Lipitor) 20 mg QHS PO Last administered on 08/12/17 19: 44; Start 08/11/17 at 21:00 Bisacodyl (Dulcolax Tab) 10 mg PRN DAILY PRN PO CONSTIPATION; Start 08/11/17 at 06:45 Cetirizine HCl (ZyrTEC) 10 mg DAILY PO Last administered on 08/12/17 08:47; Start 08/11/17 at 09:00 Fluticasone Propionate (Flonase) 2 spray DAILY NS Last administered on 08:51; Start 08/11/17 at 09:00 Hydrochlorothiazide (Hydrodiuril) 25 mg DAILY PO Last administered on 08:46; Start 08/11/17 at 09:00 Calcium/Vitamin D (Oscal D 500mg/ 200uts) 1 tab BIDWMEALS PO Last administered on 08/12/17 16:42; Start 08/11/17 at 08:00 Glucosamine Sulfate (Glucosamine) 500 mg BID PO Last administered on 19:43; Start 08/11/17 at 09:00 Magnesium Hydroxide (Milk Of Magnesia) 2,400 mg PRN AFTMEALHC PRN PO CONSTIPATION; Start 08/11/17 at 07:45 Multi-Ingred Cream/Lotion/Oil/ Oint (Absorbase) 1 macey PRN BID PRN TP DRY SKIN; Start 08/11/17 at 08:00; Stop 08/11/17 at 21:39; Status DC Non-Formulary Medication 90 ml TIDWMEALS PO ; Start 08/11/17 at 08:00; Stop at 08:00; Status DC Prenat Multivit/ Adult Day Care Worker/Iron/Folic Ac (Multivitamin ) 1 tab DAILY PO Last administered on 08/12/17 08:51; Start 08/12/17 at 09:00 Selenium Sulfide (Selsun Blue) 1 macey 3X/WEEK TP ; Start 08/14/17 at 09:00 Multi-Ingred Cream/Lotion/Oil/ Oint (Absorbase) 1 macey PRN BID PRN TP DRY SKIN; Start 08/11/17 at 21:39 Active Scripts Active Reported Amantadine (Amantadine Hcl) 100 Mg Tablet 100 Mg PO BIDWMEALS [Med Plus] 90 Ml PO TIDWMEALS Haldol (Haloperidol Lactate) 5 Mg/1 Ml Ampul 5 Mg IM PRN Q8HRS PRN Tylenol (Acetaminophen) 325 Mg Tablet 325 Mg PO PRN Q4HRS PRN Risperdal Consta (Risperidone Microspheres) 37.5 Mg/2 Ml Disp.syrin 37.5 Mg IM Q2WKS Cefuroxime (Cefuroxime Axetil) 500 Mg Tablet 500 Mg PO BID 10 Days Analgesic [place] (Methyl Salicylate/Menthol) 28 Gm Oint...g. 1 Applic TP PRN QID PRN Mag-Al Plus Xs Suspension (Mag Hydrox/Al Hydrox/Simeth) 30 Ml Oral.susp 30 Ml PO PRN AFTMEALHC PRN Fluticasone Propionate Nasal [place] (Fluticasone Propionate) 16 Gm [place].susp 2 [place] NS DAILY Depakote Er (Divalproex Sodium) 500 Mg Tab.er.24h 500 Mg PO QHS Cetirizine Hcl 10 Mg Tablet 10 Mg PO DAILY Acetaminophen 325 Mg Tablet 650 Mg PO PRN Q4HRS PRN Aquaphor Ointment (Mineral Oil/Hydrophil Petrolat) 396 Gm Oint...g. 1 [place] TP PRN BID PRN Bisacodyl 5 Mg Tablet.dr 10 Mg PO PRN DAILY PRN Administer if MOM unsuccessful after 24 hours Milk Of Magnesia (Magnesium Hydroxide) 2,400 Mg/10 Ml Oral.susp 2,400 Mg PO PRN AFTMEALHC PRN Trazodone Hcl 50 Mg Tablet 50 Mg PO QHS Mirtazapine 15 Mg Tablet 15 Mg PO QHS Hydrochlorothiazide Tablet (Hydrochlorothiazide) 25 Mg Tablet 25 Mg PO DAILY Glucosamine Hcl 500 Mg Tablet 500 Mg PO BID Calcium 600+D Plus Minerals Tb (Calcium Carb/Vit D3/Minerals) 1 Each Tablet 1 Tab PO BIDWMEALS Atorvastatin Calcium 20 Mg Tablet 20 Mg PO QHS Diagnosis: Problems: (1) Schizophrenia (2) Psychosis (3) Anxiety disorder (4) Impulse control disorder (5) Schizoaffective disorder, chronic condition with acute exacerbation (6) Psychosis, atypical JORDAN AMADOR MD Aug 12, 2017 21:56
--- NOTE | 2017-08-13 01:45 | PN ---
DATE: 08/12/2017 This note covers elements not covered in my initial note of 08/12/2017. SUBJECTIVE: Overall, the patient is oriented x 4, compliance with medications, cooperative, still flat, withdrawn, depressed and we will be repeating a valproic acid level in the morning since the initial level was subtherapeutic secondary to noncompliance. REVIEW OF SYSTEMS: No CV, , pulmonary, eye, ENT system symptoms on review. MENTAL STATUS EXAM: Reasonably oriented. Speech moderate latency, often responses monosyllabic. Abstraction fair, computation impaired, language function intact. Mood and affect showing improvement. LABORATORY DATA: Reviewed. IMPRESSION: Unchanged from initial note. PLAN: Continue current psychotropics, reviewed drug interactions. Risk/benefit ratio favors no further change. Once the patient is therapeutic and adjust in current psychotropics, we will make further decision thereafter on her psychotropics. JORDAN AMADOR MD DR: ERIKA/anika JOB#: [id number] / [id number]
[2017-08-13 06:02] VITALS: BP 123/70
[2017-08-13] MEDS: hydroCHLOROthiazide 25 MG TABLET PO SCH (08:37)
[2017-08-13] MEDS: CALCIUM CARB/VIT D3 500/200 TABLET PO SCH ×2 (08:38→17:05)
[2017-08-13] MEDS: FLUTICASONE 50MCG/NASAL SPRAY 16GM BOTTLE. NS SCH (08:38)
[2017-08-13] MEDS: CETIRIZINE HCL 10 MG TABLET PO SCH (08:38)
[2017-08-13] MEDS: GLUCOSAMINE 500 MG CAPSULE PO SCH ×2 (08:38→19:28)
[2017-08-13] MEDS: PRENATAL MULTIVITAMIN TABLET. PO SCH (08:38)
[2017-08-13] MEDS: AMANTADINE HCL 100 MG CAPSULE PO SCH ×2 (08:39→17:05)
[2017-08-13 09:29] LABS: VAL ACID 55 mcg/mL (50-100)
[2017-08-13 16:08] VITALS: BP 116/73
[2017-08-13] MEDS: traZODone 50 MG TABLET. PO SCH (19:28)
[2017-08-13] MEDS: MIRTAZAPINE 15 MG TABLET PO SCH (19:28)
[2017-08-13] MEDS: DIVALPROEX ER 500 MG TAB.ER.24H PO SCH (19:28)
[2017-08-13] MEDS: ATORVASTATIN CALCIUM 20 MG TABLET PO SCH (19:28)
--- NOTE | 2017-08-14 00:05 | PN ---
DATE: REFERRING PHYSICIAN: Dr. Bales. SUBJECTIVE: The patient denies any medical or neurological complaints. She eats and drinks well. She denies any worsening of her tremor. OBJECTIVE: GENERAL: Well-developed, well-nourished female, not in acute distress. VITAL SIGNS: Blood pressure 123/70, respiratory rate 16, pulse is 81, temperature 96.6, oxygen saturation 98% on room air. HEENT: Normocephalic, atraumatic, otherwise unremarkable. NECK: Supple. Negative for carotid bruit, lymphadenopathy, JVD or thyromegaly. LUNGS: Clear to A and P. CARDIOVASCULAR: Regular rate and rhythm, normal S1, S2. ABDOMEN: Soft. Bowel sounds positive. EXTREMITIES: Negative for cyanosis, clubbing or pitting edema. NEUROLOGIC: The patient is alert and oriented x 3. Speech is fluent. There is no language dysfunction. Memory, judgment, and abstract thinkings are fair. Cranial nerves are intact. Motor Examination: No focal muscle bulk was seen. The tone is normal. The strength is 4/5 throughout. Sensory examination revealed normal pinprick and light touch senses throughout. Deep tendon reflexes were symmetric and hypoactive with absent Achilles responses. The patient does not have any resting or kinetic tremors at this time. IMPRESSION: 1. Depressions and dementia. 2. History of Parkinson disease with improved tremor. 3. Multiple medical problems include diabetes mellitus, hyperlipidemia, frequent falls. RECOMMENDATIONS: Would continue with current psychiatric care initiated by Dr. Bales and current medications. M Ignacio PATINO MD DR: EMILY/anika JOB#: [id number] / [id number]
[2017-08-14 06:08] VITALS: BP 129/73
[2017-08-14] MEDS: CETIRIZINE HCL 10 MG TABLET PO SCH (08:52)
[2017-08-14] MEDS: hydroCHLOROthiazide 25 MG TABLET PO SCH (08:52)
[2017-08-14] MEDS: CALCIUM CARB/VIT D3 500/200 TABLET PO SCH ×2 (08:52→17:00)
[2017-08-14] MEDS: PRENATAL MULTIVITAMIN TABLET. PO SCH (08:52)
[2017-08-14] MEDS: GLUCOSAMINE 500 MG CAPSULE PO SCH ×2 (08:52→19:47)
[2017-08-14] MEDS: SELENIUM SULFIDE 2.5% SHAMPOO 120ML BOTTLE. TP SCH (09:00)
[2017-08-14] MEDS: AMANTADINE HCL 100 MG CAPSULE PO SCH ×2 (09:08→17:00)
[2017-08-14] MEDS: FLUTICASONE 50MCG/NASAL SPRAY 16GM BOTTLE. NS SCH (09:08)
[2017-08-14 16:11] VITALS: BP 115/74
[2017-08-14] MEDS: traZODone 50 MG TABLET. PO SCH (19:47)
[2017-08-14] MEDS: MIRTAZAPINE 15 MG TABLET PO SCH (19:47)
[2017-08-14] MEDS: ATORVASTATIN CALCIUM 20 MG TABLET PO SCH (19:47)
[2017-08-14] MEDS: DIVALPROEX ER 250 MG TAB.ER.24H. PO SCH (19:50)
--- NOTE | 2017-08-14 21:00 | PN ---
DATE: 08/14/2017 SUBJECTIVE: The patient was seen today, met with the staff, chart reviewed, and covering for Dr. Bales. Staff reports that she has been experiencing both visual and auditory hallucinations and marked emotional lability. The patient also suspected of having a brain tumor. The patient had multiple falls in the past, history of Parkinson's. The patient also diagnosed with schizophrenia with depression and also dementia in the past, also with bipolar disorder. The patient at the time of admission was cursing, yelling, refusing meds, very delusional and paranoid. OBSERVATION: VITAL SIGNS: Temperature 97.5, blood pressure 129/73, pulse 74, respirations 14, O2 sat 97%. The patient slept about 6-1/2 hours last night. CURRENT MEDICATIONS: Include Risperdal 37.5 mg IM q. 2 weeks, trazodone 50 mg at night, mirtazapine 15 mg at night, Depakote 500 mg at night, amantadine 100 mg b.i.d. LABORATORY DATA: The patient's lab reviewed. No significant change from admission. The patient was encouraged to attend all the activities. The patient apparently has been compliant with the treatment. The patient admits that she is feeling tired and also having some dizzy spells and claims that she had problems with the Depakote before. She thinks some of her medications is causing the problems. The patient states she can see feeling weak and also she claims that her finger nails does not look normal because of the medications. The patient states she is okay to stay on the Risperdal. OBSERVATION: 1. Bipolar disorder, mixed with psychotic features. 2. Generalized anxiety disorder. PLAN: We will decrease Depakote to 250 mg at night, and start her on Risperdal 1 mg q. 6 hours p.r.n. GHISLAINE MCCLOUD MD DR: KIP/anika JOB#: [id number] / [id number]
[2017-08-15 06:35] VITALS: BP 119/75
[2017-08-15] MEDS: hydroCHLOROthiazide 25 MG TABLET PO SCH (08:42)
[2017-08-15] MEDS: CALCIUM CARB/VIT D3 500/200 TABLET PO SCH ×2 (08:42→17:07)
[2017-08-15] MEDS: CETIRIZINE HCL 10 MG TABLET PO SCH (08:42)
[2017-08-15] MEDS: PRENATAL MULTIVITAMIN TABLET. PO SCH (08:42)
[2017-08-15] MEDS: GLUCOSAMINE 500 MG CAPSULE PO SCH ×2 (08:42→19:21)
[2017-08-15] MEDS: AMANTADINE HCL 100 MG CAPSULE PO SCH ×2 (08:44→17:07)
[2017-08-15] MEDS: FLUTICASONE 50MCG/NASAL SPRAY 16GM BOTTLE. NS SCH (08:44)
[2017-08-15 15:29] VITALS: BP 110/65
[2017-08-15] MEDS: DIVALPROEX ER 250 MG TAB.ER.24H. PO SCH (19:20)
[2017-08-15] MEDS: traZODone 50 MG TABLET. PO SCH (19:20)
[2017-08-15] MEDS: ATORVASTATIN CALCIUM 20 MG TABLET PO SCH (19:21)
[2017-08-15] MEDS: MIRTAZAPINE 15 MG TABLET PO SCH (19:50)
--- NOTE | 2017-08-16 03:26 | PN ---
DATE: 08/15/2017 SUBJECTIVE: The patient was seen today, met with the staff, chart reviewed. The patient continues to have problems with sleep. The patient is still refusing the medication at times. The patient is still depressed, emotionally labile. OBSERVATION: VITAL SIGNS: Temperature 97, blood pressure 119/75, pulse 57, respirations 16, O2 sat 99%. Slept about 6 hours last night. The patient is totally against taking Depakote. The patient stated that is the one who is causing all the problems. Then agreed to decrease the Depakote. CURRENT MEDICATIONS: Include Symmetrel 100 mg b.i.d., Risperdal Consta 37.5 mg IM q. 2 weeks, Depakote ER 250 mg daily, trazodone 50 mg at night, Remeron 15 mg at night. The patient is not having any side effects. The patient is still very emotional, has some psychomotor retardation. ASSESSMENT: Bipolar disorder mixed with psychotic features with generalized anxiety disorder. PLAN: Increase mirtazapine to 22.5 mg at night. GHISLAINE MCCLOUD MD DR: KIP/anika JOB#: [id number] / [id number]
[2017-08-16 06:04] VITALS: BP 129/79
[2017-08-16] MEDS: CALCIUM CARB/VIT D3 500/200 TABLET PO SCH ×2 (08:26→16:50)
[2017-08-16] MEDS: AMANTADINE HCL 100 MG CAPSULE PO SCH ×2 (08:27→16:50)
[2017-08-16] MEDS: GLUCOSAMINE 500 MG CAPSULE PO SCH ×2 (08:27→19:56)
[2017-08-16] MEDS: hydroCHLOROthiazide 25 MG TABLET PO SCH (08:27)
[2017-08-16] MEDS: PRENATAL MULTIVITAMIN TABLET. PO SCH (08:27)
[2017-08-16] MEDS: CETIRIZINE HCL 10 MG TABLET PO SCH (08:27)
[2017-08-16] MEDS: SELENIUM SULFIDE 2.5% SHAMPOO 120ML BOTTLE. TP SCH (08:28)
[2017-08-16] MEDS: FLUTICASONE 50MCG/NASAL SPRAY 16GM BOTTLE. NS SCH (08:28)
[2017-08-16 16:13] VITALS: BP 118/78
[2017-08-16] MEDS: DIVALPROEX ER 250 MG TAB.ER.24H. PO SCH (19:55)
[2017-08-16] MEDS: traZODone 50 MG TABLET. PO SCH (19:56)
[2017-08-16] MEDS: ATORVASTATIN CALCIUM 20 MG TABLET PO SCH (19:56)
[2017-08-16] MEDS: MIRTAZAPINE 15 MG TABLET PO SCH (19:56)
[2017-08-17 05:55] VITALS: BP 110/59
[2017-08-17] MEDS: GLUCOSAMINE 500 MG CAPSULE PO SCH ×2 (07:47→19:51)
[2017-08-17] MEDS: PRENATAL MULTIVITAMIN TABLET. PO SCH (07:47)
[2017-08-17] MEDS: CETIRIZINE HCL 10 MG TABLET PO SCH (07:48)
[2017-08-17] MEDS: CALCIUM CARB/VIT D3 500/200 TABLET PO SCH ×2 (07:48→16:18)
[2017-08-17] MEDS: hydroCHLOROthiazide 25 MG TABLET PO SCH (07:48)
[2017-08-17] MEDS: AMANTADINE HCL 100 MG CAPSULE PO SCH ×2 (07:52→16:18)
[2017-08-17] MEDS: FLUTICASONE 50MCG/NASAL SPRAY 16GM BOTTLE. NS SCH (07:52)
--- NOTE | 2017-08-17 14:17 | PN ---
DATE: 08/16/2017 SUBJECTIVE: The patient was seen today, met with the staff, chart reviewed. Staff reports that patient is increasingly delusional, paranoid. She is constantly hearing things and seeing things. The patient also feels she is being controlled by the devices which can broadcast up to 150 miles. The patient also states that people are controlling her mind. The patient also has command hallucinations. The patient was also withdrawn with marked psychomotor retardation and also the blunting of affect. The patient isolates herself, does not interact with the other residents. OBSERVATION: VITAL SIGNS: Temperature 97.8, blood pressure 129/79, pulse 67, respirations 16, and O2 sat 95%. Slept about 7 hours last night. The patient is not having any side effects to the medications. The patient did not have any falls. MEDICATIONS: The patient's current medications include Risperdal Consta 37.5 mg every 2 weeks, and she is scheduled for another injection in the next 3 days. The patient is also on mirtazapine 22.5 mg at night, Depakote 250 mg at night, trazodone 50 mg at night. She is also on amantadine 100 mg b.i.d. ASSESSMENT: 1. Bipolar disorder mixed with psychotic features. 2. Generalized anxiety disorder. PLAN: The patient's Risperdal Consta to be increased to 50 mg IM from 37.5 mg. Continue with the treatment. The patient currently is not exhibiting any major side effects to the medications. GHISLAINE MCCLOUD MD DR: KIP/anika JOB#: [id number] / [id number]
[2017-08-17 15:32] VITALS: BP 118/77
[2017-08-17] MEDS: MAGNESIUM HYDROXIDE 2,400 MG/30 ML ORAL.SUSP. PO PRN (16:22)
[2017-08-17] MEDS: MIRTAZAPINE 15 MG TABLET PO SCH (19:51)
[2017-08-17] MEDS: ATORVASTATIN CALCIUM 20 MG TABLET PO SCH (19:51)
[2017-08-17] MEDS: traZODone 50 MG TABLET. PO SCH (19:51)
[2017-08-17] MEDS: DIVALPROEX ER 250 MG TAB.ER.24H. PO SCH (19:51)
[2017-08-18 05:42] VITALS: BP 126/75
--- NOTE | 2017-08-18 07:15 | PN ---
DATE: 08/17/2017 SUBJECTIVE: The patient was seen today, met with the staff, chart reviewed and also completed the treatment reviewed. The patient is still delusional, paranoid. She still believes in thought broadcasting. She thinks that everybody can hear what she is thinking. Staff reports no other major problems. OBSERVATION: VITAL SIGNS: Temperature 96.1, blood pressure 110/59, pulse 68, respirations 18, O2 sat 95%. Slept about 7 hours last night. CURRENT MEDICATIONS: The patient's current medications include Risperdal Consta 50 mg IM and will be due in the next few days. The patient will continue on mirtazapine 22.5 mg at night, Depakote 250 mg at night, and trazodone 50 mg at night. ASSESSMENT: 1. Bipolar disorder mixed with psychotic features. 2. Generalized anxiety disorder. PLAN: To continue with the treatment. GHISLAINE MCCLOUD MD DR: KIP/anika JOB#: [id number] / [id number]
[2017-08-18] MEDS: hydroCHLOROthiazide 25 MG TABLET PO SCH (07:48)
[2017-08-18] MEDS: CETIRIZINE HCL 10 MG TABLET PO SCH (07:48)
[2017-08-18] MEDS: CALCIUM CARB/VIT D3 500/200 TABLET PO SCH ×2 (07:48→17:47)
[2017-08-18] MEDS: GLUCOSAMINE 500 MG CAPSULE PO SCH ×2 (07:48→19:51)
[2017-08-18] MEDS: PRENATAL MULTIVITAMIN TABLET. PO SCH (07:48)
[2017-08-18] MEDS: FLUTICASONE 50MCG/NASAL SPRAY 16GM BOTTLE. NS SCH (07:50)
[2017-08-18] MEDS: AMANTADINE HCL 100 MG CAPSULE PO SCH ×2 (07:50→17:47)
[2017-08-18] MEDS: SELENIUM SULFIDE 2.5% SHAMPOO 120ML BOTTLE. TP SCH (07:51)
[2017-08-18] MEDS: KETOTIFEN FUMARATE 0.025% OPHT SOLUTION BOTTLE. OU SCH ×2 (13:30→19:59)
[2017-08-18 16:33] VITALS: BP 137/79
[2017-08-18] MEDS: DIVALPROEX ER 250 MG TAB.ER.24H. PO SCH (19:50)
[2017-08-18] MEDS: ATORVASTATIN CALCIUM 20 MG TABLET PO SCH (19:51)
[2017-08-18] MEDS: traZODone 50 MG TABLET. PO SCH (19:51)
[2017-08-18] MEDS: MIRTAZAPINE 15 MG TABLET PO SCH (19:59)
[2017-08-19 05:57] VITALS: BP 121/59
[2017-08-19 07:30] LABS: ALBUMIN 2.8 g/dL (3.4-5.0); ALBUMIN/GLOBULIN RATIO 0.8 (1.0-1.7); GFR 54.7; POTASSIUM 3.8 mmol/L (3.5-5.1); TOTAL BILIRUBIN 0.3 mg/dL (0.2-1.0); TOTAL PROTEIN 6.5 g/dL (6.4-8.2)
[2017-08-19] MEDS: GLUCOSAMINE 500 MG CAPSULE PO SCH ×2 (07:48→20:45)
[2017-08-19] MEDS: PRENATAL MULTIVITAMIN TABLET. PO SCH (07:48)
[2017-08-19] MEDS: CETIRIZINE HCL 10 MG TABLET PO SCH (07:48)
[2017-08-19] MEDS: CALCIUM CARB/VIT D3 500/200 TABLET PO SCH ×2 (07:48→17:11)
[2017-08-19] MEDS: hydroCHLOROthiazide 25 MG TABLET PO SCH (07:48)
[2017-08-19] MEDS: KETOTIFEN FUMARATE 0.025% OPHT SOLUTION BOTTLE. OU SCH ×2 (07:49→20:47)
[2017-08-19 07:50] LABS: BASO % 0 % (0-3); EOS # 0.1 x10^3/uL (0.0-0.7); EOS % 2 % (0-3); HEMOGLOBIN 13.3 g/dL (12.0-15.5); LYMPH # 1.6 x10^3/uL (1.0-4.8); LYMPH % 31 % (24-48); MEAN CORPUSCULAR HEMOGLOBIN 29 pg (25-35); MEAN CORPUSCULAR HGB CONC 33 g/dL (31-37); MEAN CORPUSCULAR VOLUME 89 fL (79-100); MONO # 0.5 x10^3/uL (0.0-1.1); MONO % 10 % (0-9); NEUT % 57 % (31-73); PLATELET COUNT 136 x10^3/uL (140-400); RED CELL DISTRIBUTION WIDTH 15.2 % (11.5-14.5); WHITE BLOOD COUNT 5.3 x10^3/uL (4.0-11.0)
[2017-08-19] MEDS: FLUTICASONE 50MCG/NASAL SPRAY 16GM BOTTLE. NS SCH (07:50)
[2017-08-19] MEDS: AMANTADINE HCL 100 MG CAPSULE PO SCH ×2 (07:50→17:11)
--- NOTE | 2017-08-19 11:20 | PN ---
DATE: 08/18/2017 SUBJECTIVE: The patient was seen today, met with the staff, chart reviewed. The patient continues to be paranoid, withdrawn, anxious, but the psychosis is improved. OBSERVATION: Vital signs stable. Sleep and appetite have improved. MEDICATIONS: The patient's current medications include Risperdal 50 mg every 2 weeks IM, due in the next few days, mirtazapine 22.5 mg at night, Depakote 250 mg at night, trazodone 50 mg at night. The patient is not having any side effects to the medications. ASSESSMENT: 1. Bipolar disorder, mixed, with psychotic features. 2. Generalized anxiety disorder. PLAN: To continue with the treatment. GHISLAINE MCCLOUD MD DR: KIP/nts JOB#: [id number] / [id number]
[2017-08-19 15:52] VITALS: BP 112/60
[2017-08-19] MEDS: DIVALPROEX ER 250 MG TAB.ER.24H. PO SCH (20:46)
[2017-08-19] MEDS: MIRTAZAPINE 15 MG TABLET PO SCH (20:46)
[2017-08-19] MEDS: traZODone 50 MG TABLET. PO SCH (20:46)
[2017-08-19] MEDS: ATORVASTATIN CALCIUM 20 MG TABLET PO SCH (20:46)
--- NOTE | 2017-08-20 02:29 | PN ---
DATE: 08/19/2017 SUBJECTIVE: The patient was seen today, met with the staff, chart reviewed. The patient is still delusional, paranoid, blunting of affect, resistive to care, refusing medications at times. OBSERVATION: VITAL SIGNS: Temperature 97.7, blood pressure 121/59, pulse 66, respirations 14, O2 sat 94%. Slept about 7 hours last night. The patient is not having any physical complaints. The patient's lab reviewed. MEDICATIONS: The patient's current medications include Risperdal 50 mg IM due tomorrow, mirtazapine 22.5 mg at night, Depakote 250 mg at night, trazodone 50 mg at night. The patient is not having any side effects to the medications. ASSESSMENT: 1. Bipolar disorder mixed with psychotic features. 2. Generalized anxiety disorder. PLAN: To continue with the treatment. GHISLAINE MCCLOUD MD DR: KIP/anika JOB#: [id number] / [id number]
[2017-08-20 05:59] VITALS: BP 135/70
[2017-08-20] MEDS: KETOTIFEN FUMARATE 0.025% OPHT SOLUTION BOTTLE. OU SCH ×3 (07:54→20:34)
[2017-08-20] MEDS: hydroCHLOROthiazide 25 MG TABLET PO SCH (07:54)
[2017-08-20] MEDS: FLUTICASONE 50MCG/NASAL SPRAY 16GM BOTTLE. NS SCH (07:54)
[2017-08-20] MEDS: CALCIUM CARB/VIT D3 500/200 TABLET PO SCH ×2 (07:54→18:03)
[2017-08-20] MEDS: CETIRIZINE HCL 10 MG TABLET PO SCH (07:54)
[2017-08-20] MEDS: AMANTADINE HCL 100 MG CAPSULE PO SCH ×2 (07:54→18:04)
[2017-08-20] MEDS: GLUCOSAMINE 500 MG CAPSULE PO SCH ×2 (07:54→20:17)
[2017-08-20] MEDS: risperiDONE MICROSPHERES 50 MG/2 ML DISP.SYRIN. IM SCH (07:56)
[2017-08-20] MEDS: PRENATAL MULTIVITAMIN TABLET. PO SCH (07:56)
[2017-08-20] MEDS ORDERED: risperiDONE MICROSPHERES 37.5 MG/2 ML DISP.SYRIN. IM SCH (09:00)
[2017-08-20 16:43] VITALS: BP 118/67
[2017-08-20] MEDS: DIVALPROEX ER 250 MG TAB.ER.24H. PO SCH (20:16)
[2017-08-20] MEDS: traZODone 50 MG TABLET. PO SCH (20:17)
[2017-08-20] MEDS: ATORVASTATIN CALCIUM 20 MG TABLET PO SCH ×2 (20:17→20:34)
[2017-08-20] MEDS: MIRTAZAPINE 15 MG TABLET PO SCH (20:17)
--- NOTE | 2017-08-21 03:33 | PN ---
DATE: 08/20/2017 SUBJECTIVE: The patient was seen today, met with the staff, chart reviewed. The patient is still very emotional, tearful, episodes of confusion and times yelling and verbally abusive. OBSERVATION: VITAL SIGNS: Temperature 97, blood pressure 135/70, pulse 67, respirations 18, O2 sat 97%. Slept about 8 hours last night. Appetite improved. The patient is not presenting with any major physical complaints. CURRENT MEDICATIONS: Include Risperdal 50 mg IM given today, mirtazapine 22.5 mg at night, Depakote 250 mg at night, trazodone 50 mg at night. ASSESSMENT: 1. Bipolar disorder mixed with psychotic features. 2. Generalized anxiety disorder. PLAN: To continue with the treatment. GHISLAINE MCCLOUD MD DR: KIP/anika JOB#: [id number] / [id number]
[2017-08-21 06:23] VITALS: BP 131/63
[2017-08-21] MEDS: SELENIUM SULFIDE 2.5% SHAMPOO 120ML BOTTLE. TP SCH (09:00)
[2017-08-21] MEDS: CETIRIZINE HCL 10 MG TABLET PO SCH (10:24)
[2017-08-21] MEDS: hydroCHLOROthiazide 25 MG TABLET PO SCH (10:24)
[2017-08-21] MEDS: GLUCOSAMINE 500 MG CAPSULE PO SCH ×2 (10:24→20:21)
[2017-08-21] MEDS: PRENATAL MULTIVITAMIN TABLET. PO SCH (10:24)
[2017-08-21] MEDS: CALCIUM CARB/VIT D3 500/200 TABLET PO SCH ×2 (10:24→14:17)
[2017-08-21] MEDS: FLUTICASONE 50MCG/NASAL SPRAY 16GM BOTTLE. NS SCH (10:25)
[2017-08-21] MEDS: KETOTIFEN FUMARATE 0.025% OPHT SOLUTION BOTTLE. OU SCH ×2 (10:25→20:20)
[2017-08-21] MEDS: AMANTADINE HCL 100 MG CAPSULE PO SCH ×2 (10:26→14:17)
[2017-08-21 16:03] VITALS: BP 133/87
[2017-08-21] MEDS: DIVALPROEX ER 250 MG TAB.ER.24H. PO SCH (20:20)
[2017-08-21] MEDS: traZODone 50 MG TABLET. PO SCH (20:20)
[2017-08-21] MEDS: MIRTAZAPINE 15 MG TABLET PO SCH (20:21)
[2017-08-21] MEDS: ATORVASTATIN CALCIUM 20 MG TABLET PO SCH (20:21)
--- NOTE | 2017-08-21 20:42 | PDOC ---
Exam Andre Demential Exam: Andre Note: Please also refer to the separate dictated note~for this date of service dictated separately.~Patient seen individually. Discussed the patient with Nursing staff reviewed the chart.~Reviewed interim history and current functioning. Reviewed vital signs,~Labs/ Radiology~and current medications noted below. Continue current treatment with the changes noted in the dictated addendum note Assessment: Vital Signs: Vital Signs Date Time Temp Pulse Resp B/P (MAP) Pulse Ox O2 Delivery O2 Flow Rate FiO2 08/21/17 16:03 97.3 65 16 133/87 (102) 99 08/21/17 06:23 Room Air I&O Intake and Output 08/22/17 07:00 Intake Total 1028 ml Balance 1028 ml Intake Oral 1028 ml Current Medications: Meds: Current Medications Divalproex Sodium (Depakote Er) 500 mg QHS PO Last administered on 08/13/17 19:28; Start 08/11/17 at 21:00; Stop 08/14/17 at 17:41; Status DC Mirtazapine (Remeron) 15 mg QHS PO Last administered on 08/14/17 19:47; Start 08/11/17 at 21:00; Stop 08/15/17 at 15:45; Status DC Risperidone (RisperDAL CONSTA) 37.5 mg Q2WKS IM ; Start 08/20/17 at 09:00; Stop 08/20/17 at 09:00; Status DC Trazodone HCl (Desyrel) 50 mg QHS PO Last administered on 08/21/17 20:20; Start 08/11/17 at 21:00 Amantadine HCl (Symmetrel) 100 mg BIDWMEALS PO Last administered on 08/21/17 14:17; Start 08/11/17 at 08:00 Acetaminophen (Tylenol) 650 mg PRN Q4HRS PRN PO Severe Pain/Temp; Start at 06:45 Atorvastatin Calcium (Lipitor) 20 mg QHS PO Last administered on 08/21/17 20: 21; Start 08/11/17 at 21:00 Bisacodyl (Dulcolax Tab) 10 mg PRN DAILY PRN PO CONSTIPATION; Start 08/11/17 at 06:45 Cetirizine HCl (ZyrTEC) 10 mg DAILY PO Last administered on 08/21/17 10:24; Start 08/11/17 at 09:00 Fluticasone Propionate (Flonase) 2 spray DAILY NS Last administered on 10:25; Start 08/11/17 at 09:00 Hydrochlorothiazide (Hydrodiuril) 25 mg DAILY PO Last administered on 10:24; Start 08/11/17 at 09:00 Calcium/Vitamin D (Oscal D 500mg/ 200uts) 1 tab BIDWMEALS PO Last administered on 08/21/17 14:17; Start 08/11/17 at 08:00 Glucosamine Sulfate (Glucosamine) 500 mg BID PO Last administered on 20:21; Start 08/11/17 at 09:00 Magnesium Hydroxide (Milk Of Magnesia) 2,400 mg PRN AFTMEALHC PRN PO CONSTIPATION Last administered on 08/17/17 16:22; Start 08/11/17 at 07:45 Multi-Ingred Cream/Lotion/Oil/ Oint (Absorbase) 1 macey PRN BID PRN TP DRY SKIN; Start 08/11/17 at 08:00; Stop 08/11/17 at 21:39; Status DC Non-Formulary Medication 90 ml TIDWMEALS PO ; Start 08/11/17 at 08:00; Stop at 08:00; Status DC Prenat Multivit/ [place]/Iron/Folic Ac (Multivitamin ) 1 tab DAILY PO Last administered on 08/21/17 10:24; Start 08/12/17 at 09:00 Selenium Sulfide (Selsun Blue) 1 macey 3X/WEEK TP Last administered on 07:51; Start 08/14/17 at 09:00 Multi-Ingred Cream/Lotion/Oil/ Oint (Absorbase) 1 macey PRN BID PRN TP DRY SKIN; Start 08/11/17 at 21:39 Divalproex Sodium (Depakote Er) 250 mg QHS PO Last administered on 08/21/17 20:20; Start 08/14/17 at 21:00 Mirtazapine (Remeron) 22.5 mg QHS PO Last administered on 08/21/17 20:21; Start 08/15/17 at 21:00 Risperidone (RisperDAL CONSTA) 50 mg Q2WKS IM Last administered on 08/20/17 07:56; Start 08/20/17 at 09:00 Ketotifen Fumarate (Zaditor) 1 drop BID OU Last administered on 08/21/17 20: 20; Start 08/18/17 at 13:30 Bupropion HCl (Wellbutrin Xl) 150 mg DAILY PO ; Start 08/22/17 at 09:00 Active Scripts Active Reported Amantadine (Amantadine Hcl) 100 Mg Tablet 100 Mg PO BIDWMEALS [Med Plus] 90 Ml PO TIDWMEALS Haldol (Haloperidol Lactate) 5 Mg/1 Ml Ampul 5 Mg IM PRN Q8HRS PRN Tylenol (Acetaminophen) 325 Mg Tablet 325 Mg PO PRN Q4HRS PRN Risperdal Consta (Risperidone Microspheres) 37.5 Mg/2 Ml Disp.syrin 37.5 Mg IM Q2WKS Cefuroxime (Cefuroxime Axetil) 500 Mg Tablet 500 Mg PO BID 10 Days Analgesic [place] (Methyl Salicylate/Menthol) 28 Gm Oint...g. 1 Applic TP PRN QID PRN Mag-Al Plus Xs Suspension (Mag Hydrox/Al Hydrox/Simeth) 30 Ml Oral.susp 30 Ml PO PRN AFTMEALHC PRN Fluticasone Propionate Nasal [place] (Fluticasone Propionate) 16 Gm [place].susp 2 [place] NS DAILY Depakote Er (Divalproex Sodium) 500 Mg Tab.er.24h 500 Mg PO QHS Cetirizine Hcl 10 Mg Tablet 10 Mg PO DAILY Acetaminophen 325 Mg Tablet 650 Mg PO PRN Q4HRS PRN Aquaphor Ointment (Mineral Oil/Hydrophil Petrolat) 396 Gm Oint...g. 1 [place] TP PRN BID PRN Bisacodyl 5 Mg Tablet.dr 10 Mg PO PRN DAILY PRN Administer if MOM unsuccessful after 24 hours Milk Of Magnesia (Magnesium Hydroxide) 2,400 Mg/10 Ml Oral.susp 2,400 Mg PO PRN AFTMEALHC PRN Trazodone Hcl 50 Mg Tablet 50 Mg PO QHS Mirtazapine 15 Mg Tablet 15 Mg PO QHS Hydrochlorothiazide Tablet (Hydrochlorothiazide) 25 Mg Tablet 25 Mg PO DAILY Glucosamine Hcl 500 Mg Tablet 500 Mg PO BID Calcium 600+D Plus Minerals Tb (Calcium Carb/Vit D3/Minerals) 1 Each Tablet 1 Tab PO BIDWMEALS Atorvastatin Calcium 20 Mg Tablet 20 Mg PO QHS Diagnosis: Problems: (1) Schizophrenia (2) Psychosis (3) Anxiety disorder (4) Impulse control disorder (5) Schizoaffective disorder, chronic condition with acute exacerbation (6) Psychosis, atypical JORDAN AMADOR MD Aug 21, 2017 20:42
[2017-08-22 05:51] VITALS: BP 114/64
[2017-08-22] MEDS: CALCIUM CARB/VIT D3 500/200 TABLET PO SCH ×2 (08:56→17:17)
[2017-08-22] MEDS: FLUTICASONE 50MCG/NASAL SPRAY 16GM BOTTLE. NS SCH (09:00)
[2017-08-22] MEDS: CETIRIZINE HCL 10 MG TABLET PO SCH (09:00)
[2017-08-22] MEDS: KETOTIFEN FUMARATE 0.025% OPHT SOLUTION BOTTLE. OU SCH ×2 (09:00→20:18)
[2017-08-22] MEDS: PRENATAL MULTIVITAMIN TABLET. PO SCH (09:21)
[2017-08-22] MEDS: buPROPion XL 150 MG TAB.ER.24H PO SCH (09:22)
[2017-08-22] MEDS: GLUCOSAMINE 500 MG CAPSULE PO SCH ×2 (09:22→20:16)
[2017-08-22] MEDS: hydroCHLOROthiazide 25 MG TABLET PO SCH (09:22)
[2017-08-22] MEDS: AMANTADINE HCL 100 MG CAPSULE PO SCH ×3 (09:31→20:42)
[2017-08-22 16:13] VITALS: BP 116/69
[2017-08-22] MEDS: DIVALPROEX ER 250 MG TAB.ER.24H. PO SCH (20:16)
[2017-08-22] MEDS: MIRTAZAPINE 15 MG TABLET PO SCH (20:16)
[2017-08-22] MEDS: ATORVASTATIN CALCIUM 20 MG TABLET PO SCH (20:16)
[2017-08-22] MEDS: traZODone 50 MG TABLET. PO SCH (20:16)
--- NOTE | 2017-08-22 22:07 | PDOC ---
Exam Andre Demential Exam: Andre Note: Please also refer to the separate dictated note~for this date of service dictated separately.~Patient seen individually. Discussed the patient with Nursing staff reviewed the chart.~Reviewed interim history and current functioning. Reviewed vital signs,~Labs/ Radiology~and current medications noted below. Continue current treatment with the changes noted in the dictated addendum note Assessment: Vital Signs: Vital Signs Date Time Temp Pulse Resp B/P (MAP) Pulse Ox O2 Delivery O2 Flow Rate FiO2 08/22/17 16:13 97.8 73 16 116/69 (85) 95 08/21/17 06:23 Room Air I&O Intake and Output 08/23/17 07:00 Intake Total 1200 ml Balance 1200 ml Intake Oral 1200 ml Current Medications: Meds: Current Medications Divalproex Sodium (Depakote Er) 500 mg QHS PO Last administered on 08/13/17 19:28; Start 08/11/17 at 21:00; Stop 08/14/17 at 17:41; Status DC Mirtazapine (Remeron) 15 mg QHS PO Last administered on 08/14/17 19:47; Start 08/11/17 at 21:00; Stop 08/15/17 at 15:45; Status DC Risperidone (RisperDAL CONSTA) 37.5 mg Q2WKS IM ; Start 08/20/17 at 09:00; Stop 08/20/17 at 09:00; Status DC Trazodone HCl (Desyrel) 50 mg QHS PO Last administered on 08/22/17 20:16; Start 08/11/17 at 21:00 Amantadine HCl (Symmetrel) 100 mg BIDWMEALS PO Last administered on 08/22/17 20:42; Start 08/11/17 at 08:00 Acetaminophen (Tylenol) 650 mg PRN Q4HRS PRN PO Severe Pain/Temp; Start at 06:45 Atorvastatin Calcium (Lipitor) 20 mg QHS PO Last administered on 08/22/17 20: 16; Start 08/11/17 at 21:00 Bisacodyl (Dulcolax Tab) 10 mg PRN DAILY PRN PO CONSTIPATION; Start 08/11/17 at 06:45 Cetirizine HCl (ZyrTEC) 10 mg DAILY PO Last administered on 08/21/17 10:24; Start 08/11/17 at 09:00 Fluticasone Propionate (Flonase) 2 spray DAILY NS Last administered on 10:25; Start 08/11/17 at 09:00 Hydrochlorothiazide (Hydrodiuril) 25 mg DAILY PO Last administered on 09:22; Start 08/11/17 at 09:00 Calcium/Vitamin D (Oscal D 500mg/ 200uts) 1 tab BIDWMEALS PO Last administered on 08/22/17 17:17; Start 08/11/17 at 08:00 Glucosamine Sulfate (Glucosamine) 500 mg BID PO Last administered on 20:16; Start 08/11/17 at 09:00 Magnesium Hydroxide (Milk Of Magnesia) 2,400 mg PRN AFTMEALHC PRN PO CONSTIPATION Last administered on 08/17/17 16:22; Start 08/11/17 at 07:45 Multi-Ingred Cream/Lotion/Oil/ Oint (Absorbase) 1 macey PRN BID PRN TP DRY SKIN; Start 08/11/17 at 08:00; Stop 08/11/17 at 21:39; Status DC Non-Formulary Medication 90 ml TIDWMEALS PO ; Start 08/11/17 at 08:00; Stop at 08:00; Status DC Prenat Multivit/ Corporate Travel Consultant/Iron/Folic Ac (Multivitamin ) 1 tab DAILY PO Last administered on 08/22/17 09:21; Start 08/12/17 at 09:00 Selenium Sulfide (Selsun Blue) 1 macey 3X/WEEK TP Last administered on 07:51; Start 08/14/17 at 09:00 Multi-Ingred Cream/Lotion/Oil/ Oint (Absorbase) 1 macey PRN BID PRN TP DRY SKIN; Start 08/11/17 at 21:39 Divalproex Sodium (Depakote Er) 250 mg QHS PO Last administered on 08/22/17 20:16; Start 08/14/17 at 21:00 Mirtazapine (Remeron) 22.5 mg QHS PO Last administered on 08/22/17 20:16; Start 08/15/17 at 21:00 Risperidone (RisperDAL CONSTA) 50 mg Q2WKS IM Last administered on 08/20/17 07:56; Start 08/20/17 at 09:00 Ketotifen Fumarate (Zaditor) 1 drop BID OU Last administered on 08/22/17 20: 18; Start 08/18/17 at 13:30 Bupropion HCl (Wellbutrin Xl) 150 mg DAILY PO Last administered on 08/22/17 09:22; Start 08/22/17 at 09:00 Active Scripts Active Reported Amantadine (Amantadine Hcl) 100 Mg Tablet 100 Mg PO BIDWMEALS [Med Plus] 90 Ml PO TIDWMEALS Haldol (Haloperidol Lactate) 5 Mg/1 Ml Ampul 5 Mg IM PRN Q8HRS PRN Tylenol (Acetaminophen) 325 Mg Tablet 325 Mg PO PRN Q4HRS PRN Risperdal Consta (Risperidone Microspheres) 37.5 Mg/2 Ml Disp.syrin 37.5 Mg IM Q2WKS Cefuroxime (Cefuroxime Axetil) 500 Mg Tablet 500 Mg PO BID 10 Days Analgesic [place] (Methyl Salicylate/Menthol) 28 Gm Oint...g. 1 Applic TP PRN QID PRN Mag-Al Plus Xs Suspension (Mag Hydrox/Al Hydrox/Simeth) 30 Ml Oral.susp 30 Ml PO PRN AFTMEALHC PRN Fluticasone Propionate Nasal [place] (Fluticasone Propionate) 16 Gm [place].susp 2 [place] NS DAILY Depakote Er (Divalproex Sodium) 500 Mg Tab.er.24h 500 Mg PO QHS Cetirizine Hcl 10 Mg Tablet 10 Mg PO DAILY Acetaminophen 325 Mg Tablet 650 Mg PO PRN Q4HRS PRN Aquaphor Ointment (Mineral Oil/Hydrophil Petrolat) 396 Gm Oint...g. 1 [place] TP PRN BID PRN Bisacodyl 5 Mg Tablet.dr 10 Mg PO PRN DAILY PRN Administer if MOM unsuccessful after 24 hours Milk Of Magnesia (Magnesium Hydroxide) 2,400 Mg/10 Ml Oral.susp 2,400 Mg PO PRN AFTMEALHC PRN Trazodone Hcl 50 Mg Tablet 50 Mg PO QHS Mirtazapine 15 Mg Tablet 15 Mg PO QHS Hydrochlorothiazide Tablet (Hydrochlorothiazide) 25 Mg Tablet 25 Mg PO DAILY Glucosamine Hcl 500 Mg Tablet 500 Mg PO BID Calcium 600+D Plus Minerals Tb (Calcium Carb/Vit D3/Minerals) 1 Each Tablet 1 Tab PO BIDWMEALS Atorvastatin Calcium 20 Mg Tablet 20 Mg PO QHS Diagnosis: Problems: (1) Schizophrenia (2) Psychosis (3) Anxiety disorder (4) Impulse control disorder (5) Schizoaffective disorder, chronic condition with acute exacerbation (6) Psychosis, atypical JORDAN AMADOR MD Aug 22, 2017 22:07
--- NOTE | 2017-08-23 01:34 | PN ---
DATE: 08/21/2017 PSYCHIATRIC PROGRESS NOTE This is a late entry for date of service 08/21/2017, covers the elements not covered in my initial note of 08/21/2017. SUBJECTIVE: I met with the patient the evening of 08/21/2017. Overall, the patient is doing a little better. She is questioning me whether amitriptyline was necessary as part of her treatment, but she is not on amitriptyline at this time, but rather Remeron 22.5 mg at bedtime. Per nursing report, she is still being depressed, sad, somewhat suspicious of her medications, isolative at times. REVIEW OF SYSTEMS: Ambulation is reasonable. No CV, , pulmonary, eye, ENT system symptoms on review. MENTAL STATUS EXAM: Oriented reasonably. Speech is coherent, abstraction fair, computation impaired, language function intact, attention span short. Mood and affect showing improvement. Valproic acid level 55. IMPRESSION: Unchanged from initial note. PLAN: Start Wellbutrin-XL 150 mg a day. Continue rest of the psychotropics including Risperdal Consta, Symmetrel 100 mg b.i.d., Depakote ER 250 mg at bedtime, level is therapeutic at 55, trazodone 50 mg at bedtime, Remeron as above. Reviewed drug interactions. Risk/benefit ratio favors no further change. MAN Darren AMADOR MD DR: ERIKA/anika JOB#: [id number] / [id number]
[2017-08-23 05:56] VITALS: BP 111/69
[2017-08-23] MEDS: GLUCOSAMINE 500 MG CAPSULE PO SCH ×2 (08:22→20:07)
[2017-08-23] MEDS: CALCIUM CARB/VIT D3 500/200 TABLET PO SCH ×2 (08:22→16:36)
[2017-08-23] MEDS: PRENATAL MULTIVITAMIN TABLET. PO SCH (08:22)
[2017-08-23] MEDS: buPROPion XL 150 MG TAB.ER.24H PO SCH (08:22)
[2017-08-23] MEDS: CETIRIZINE HCL 10 MG TABLET PO SCH (08:22)
[2017-08-23] MEDS: SELENIUM SULFIDE 2.5% SHAMPOO 120ML BOTTLE. TP SCH (08:23)
[2017-08-23] MEDS: AMANTADINE HCL 100 MG CAPSULE PO SCH ×2 (08:24→16:36)
[2017-08-23] MEDS: hydroCHLOROthiazide 25 MG TABLET PO SCH (08:24)
[2017-08-23] MEDS: KETOTIFEN FUMARATE 0.025% OPHT SOLUTION BOTTLE. OU SCH ×2 (08:25→20:07)
[2017-08-23] MEDS: FLUTICASONE 50MCG/NASAL SPRAY 16GM BOTTLE. NS SCH (08:25)
[2017-08-23 16:33] VITALS: BP 118/64
[2017-08-23] MEDS: ATORVASTATIN CALCIUM 20 MG TABLET PO SCH (20:07)
[2017-08-23] MEDS: DIVALPROEX ER 250 MG TAB.ER.24H. PO SCH (20:07)
[2017-08-23] MEDS: traZODone 50 MG TABLET. PO SCH (20:07)
[2017-08-23] MEDS: MIRTAZAPINE 15 MG TABLET PO SCH (20:07)
--- NOTE | 2017-08-23 20:51 | PDOC ---
Exam Andre Demential Exam: Andre Note: Please also refer to the separate dictated note~for this date of service dictated separately.~Patient seen individually. Discussed the patient with Nursing staff reviewed the chart.~Reviewed interim history and current functioning. Reviewed vital signs,~Labs/ Radiology~and current medications noted below. Continue current treatment with the changes noted in the dictated addendum note Assessment: Vital Signs: Vital Signs Date Time Temp Pulse Resp B/P (MAP) Pulse Ox O2 Delivery O2 Flow Rate FiO2 08/23/17 16:33 97.6 73 14 118/64 (82) 99 Room Air I&O Intake and Output 08/24/17 07:00 Intake Total 600 ml Balance 600 ml Intake Oral 600 ml Current Medications: Meds: Current Medications Divalproex Sodium (Depakote Er) 500 mg QHS PO Last administered on 08/13/17 19:28; Start 08/11/17 at 21:00; Stop 08/14/17 at 17:41; Status DC Mirtazapine (Remeron) 15 mg QHS PO Last administered on 08/14/17 19:47; Start 08/11/17 at 21:00; Stop 08/15/17 at 15:45; Status DC Risperidone (RisperDAL CONSTA) 37.5 mg Q2WKS IM ; Start 08/20/17 at 09:00; Stop 08/20/17 at 09:00; Status DC Trazodone HCl (Desyrel) 50 mg QHS PO Last administered on 08/23/17 20:07; Start 08/11/17 at 21:00 Amantadine HCl (Symmetrel) 100 mg BIDWMEALS PO Last administered on 08/23/17 16:36; Start 08/11/17 at 08:00 Acetaminophen (Tylenol) 650 mg PRN Q4HRS PRN PO Severe Pain/Temp; Start at 06:45 Atorvastatin Calcium (Lipitor) 20 mg QHS PO Last administered on 08/23/17 20: 07; Start 08/11/17 at 21:00 Bisacodyl (Dulcolax Tab) 10 mg PRN DAILY PRN PO CONSTIPATION; Start 08/11/17 at 06:45 Cetirizine HCl (ZyrTEC) 10 mg DAILY PO Last administered on 08/23/17 08:22; Start 08/11/17 at 09:00 Fluticasone Propionate (Flonase) 2 spray DAILY NS Last administered on 08:25; Start 08/11/17 at 09:00 Hydrochlorothiazide (Hydrodiuril) 25 mg DAILY PO Last administered on 08:24; Start 08/11/17 at 09:00 Calcium/Vitamin D (Oscal D 500mg/ 200uts) 1 tab BIDWMEALS PO Last administered on 08/23/17 16:36; Start 08/11/17 at 08:00 Glucosamine Sulfate (Glucosamine) 500 mg BID PO Last administered on 08/23/17 20:07; Start 08/11/17 at 09:00 Magnesium Hydroxide (Milk Of Magnesia) 2,400 mg PRN AFTMEALHC PRN PO CONSTIPATION Last administered on 08/17/17 16:22; Start 08/11/17 at 07:45 Multi-Ingred Cream/Lotion/Oil/ Oint (Absorbase) 1 macey PRN BID PRN TP DRY SKIN; Start 08/11/17 at 08:00; Stop 08/11/17 at 21:39; Status DC Non-Formulary Medication 90 ml TIDWMEALS PO ; Start 08/11/17 at 08:00; Stop at 08:00; Status DC Prenat Multivit/ [employer] Manager/Iron/Folic Ac (Multivitamin ) 1 tab DAILY PO Last administered on 08/23/17 08:22; Start 08/12/17 at 09:00 Selenium Sulfide (Selsun Blue) 1 macey 3X/WEEK TP Last administered on 08/23/17 08:23; Start 08/14/17 at 09:00 Multi-Ingred Cream/Lotion/Oil/ Oint (Absorbase) 1 macey PRN BID PRN TP DRY SKIN; Start 08/11/17 at 21:39 Divalproex Sodium (Depakote Er) 250 mg QHS PO Last administered on 08/23/17 20 :07; Start 08/14/17 at 21:00 Mirtazapine (Remeron) 22.5 mg QHS PO Last administered on 08/23/17 20:07; Start 08/15/17 at 21:00 Risperidone (RisperDAL CONSTA) 50 mg Q2WKS IM Last administered on 08/20/17 07:56; Start 08/20/17 at 09:00 Ketotifen Fumarate (Zaditor) 1 drop BID OU Last administered on 08/23/17 20:07 ; Start 08/18/17 at 13:30 Bupropion HCl (Wellbutrin Xl) 150 mg DAILY PO Last administered on 08/23/17 08 :22; Start 08/22/17 at 09:00; Stop 08/23/17 at 13:11; Status DC Bupropion HCl (Wellbutrin Xl) 300 mg DAILY PO ; Start 08/24/17 at 09:00 Active Scripts Active Reported Amantadine (Amantadine Hcl) 100 Mg Tablet 100 Mg PO BIDWMEALS [Med Plus] 90 Ml PO TIDWMEALS Haldol (Haloperidol Lactate) 5 Mg/1 Ml Ampul 5 Mg IM PRN Q8HRS PRN Tylenol (Acetaminophen) 325 Mg Tablet 325 Mg PO PRN Q4HRS PRN Risperdal Consta (Risperidone Microspheres) 37.5 Mg/2 Ml Disp.syrin 37.5 Mg IM Q2WKS Cefuroxime (Cefuroxime Axetil) 500 Mg Tablet 500 Mg PO BID 10 Days Analgesic [place] (Methyl Salicylate/Menthol) 28 Gm Oint...g. 1 Applic TP PRN QID PRN Mag-Al Plus Xs Suspension (Mag Hydrox/Al Hydrox/Simeth) 30 Ml Oral.susp 30 Ml PO PRN AFTMEALHC PRN Fluticasone Propionate Nasal [place] (Fluticasone Propionate) 16 Gm [place].susp 2 [place] NS DAILY Depakote Er (Divalproex Sodium) 500 Mg Tab.er.24h 500 Mg PO QHS Cetirizine Hcl 10 Mg Tablet 10 Mg PO DAILY Acetaminophen 325 Mg Tablet 650 Mg PO PRN Q4HRS PRN Aquaphor Ointment (Mineral Oil/Hydrophil Petrolat) 396 Gm Oint...g. 1 [place] TP PRN BID PRN Bisacodyl 5 Mg Tablet.dr 10 Mg PO PRN DAILY PRN Administer if MOM unsuccessful after 24 hours Milk Of Magnesia (Magnesium Hydroxide) 2,400 Mg/10 Ml Oral.susp 2,400 Mg PO PRN AFTMEALHC PRN Trazodone Hcl 50 Mg Tablet 50 Mg PO QHS Mirtazapine 15 Mg Tablet 15 Mg PO QHS Hydrochlorothiazide Tablet (Hydrochlorothiazide) 25 Mg Tablet 25 Mg PO DAILY Glucosamine Hcl 500 Mg Tablet 500 Mg PO BID Calcium 600+D Plus Minerals Tb (Calcium Carb/Vit D3/Minerals) 1 Each Tablet 1 Tab PO BIDWMEALS Atorvastatin Calcium 20 Mg Tablet 20 Mg PO QHS Diagnosis: Problems: (1) Anxiety disorder (2) Schizophrenia (3) Psychosis (4) Impulse control disorder (5) Schizoaffective disorder, chronic condition with acute exacerbation (6) Psychosis, atypical JORDAN AMADOR MD Aug 23, 2017 20:51
--- NOTE | 2017-08-24 01:51 | PN ---
DATE: 08/22/2017 This late entry 08/22/2017, covers elements not covered in my initial note of 08/22/2017. SUBJECTIVE: The patient was seen individually evening of 08/22/2017. The patient slept 6 hours previous evening, coming out more to the day room, but still withdrawn, somewhat depressed, irritable at times. REVIEW OF SYSTEMS: No CV, , pulmonary, eye, ENT system symptoms on review. Reliability fair. MENTAL STATUS EXAM: Oriented to herself and situation. Speech has some latency, coherent. Abstraction fair, computation impaired, language function intact, attention span short, mood and affect withdrawn, depressed. LABORATORY DATA: Reviewed. IMPRESSION: Unchanged from initial note. PLAN: Continue current psychotropics, starting 08/24/2017, we may consider increasing the Wellbutrin-XL to 300 mg a day. Reviewed drug interactions, risk/benefit ratio favors no further change. JORDAN AMADOR MD DR: ERIKA/anika JOB#: [id number] / [id number]
[2017-08-24 06:17] VITALS: BP 120/81
[2017-08-24] MEDS: PRENATAL MULTIVITAMIN TABLET. PO SCH (08:32)
[2017-08-24] MEDS: GLUCOSAMINE 500 MG CAPSULE PO SCH ×2 (08:32→20:10)
[2017-08-24] MEDS: buPROPion XL 300 MG TAB.ER.24H. PO SCH (08:32)
[2017-08-24] MEDS: hydroCHLOROthiazide 25 MG TABLET PO SCH (08:32)
[2017-08-24] MEDS: FLUTICASONE 50MCG/NASAL SPRAY 16GM BOTTLE. NS SCH (08:33)
[2017-08-24] MEDS: CETIRIZINE HCL 10 MG TABLET PO SCH ×2 (08:33→08:47)
[2017-08-24] MEDS: KETOTIFEN FUMARATE 0.025% OPHT SOLUTION BOTTLE. OU SCH ×3 (08:33→20:11)
[2017-08-24] MEDS: CALCIUM CARB/VIT D3 500/200 TABLET PO SCH ×2 (08:33→17:00)
[2017-08-24] MEDS: AMANTADINE HCL 100 MG CAPSULE PO SCH ×2 (08:33→17:00)
[2017-08-24 16:24] VITALS: BP 125/59
[2017-08-24] MEDS ORDERED: traZODone 50 MG TABLET. PO PRN (19:15)
[2017-08-24] MEDS: ATORVASTATIN CALCIUM 20 MG TABLET PO SCH (20:10)
[2017-08-24] MEDS: traZODone 50 MG TABLET. PO SCH (20:10)
[2017-08-24] MEDS: MIRTAZAPINE 15 MG TABLET PO SCH (20:10)
[2017-08-24] MEDS: DIVALPROEX ER 250 MG TAB.ER.24H. PO SCH (20:10)
--- NOTE | 2017-08-24 20:48 | PDOC ---
Exam Andre Demential Exam: Andre Note: Please also refer to the separate dictated note~for this date of service dictated separately.~Patient seen individually. Discussed the patient with Nursing staff reviewed the chart.~Reviewed interim history and current functioning. Reviewed vital signs,~Labs/ Radiology~and current medications noted below. Continue current treatment with the changes noted in the dictated addendum note Assessment: Vital Signs: Vital Signs Date Time Temp Pulse Resp B/P (MAP) Pulse Ox O2 Delivery O2 Flow Rate FiO2 08/24/17 16:24 97.3 80 16 125/59 (81) 95 Room Air I&O Intake and Output 08/25/17 07:00 Intake Total 960 ml Balance 960 ml Intake Oral 960 ml Current Medications: Meds: Current Medications Divalproex Sodium (Depakote Er) 500 mg QHS PO Last administered on 08/13/17 19:28; Start 08/11/17 at 21:00; Stop 08/14/17 at 17:41; Status DC Mirtazapine (Remeron) 15 mg QHS PO Last administered on 08/14/17 19:47; Start 08/11/17 at 21:00; Stop 08/15/17 at 15:45; Status DC Risperidone (RisperDAL CONSTA) 37.5 mg Q2WKS IM ; Start 08/20/17 at 09:00; Stop 08/20/17 at 09:00; Status DC Trazodone HCl (Desyrel) 50 mg QHS PO Last administered on 08/23/17 20:07; Start 08/11/17 at 21:00; Stop 08/24/17 at 19:16; Status DC Amantadine HCl (Symmetrel) 100 mg BIDWMEALS PO Last administered on 08/24/17 17:00; Start 08/11/17 at 08:00 Acetaminophen (Tylenol) 650 mg PRN Q4HRS PRN PO Severe Pain/Temp; Start at 06:45 Atorvastatin Calcium (Lipitor) 20 mg QHS PO Last administered on 08/24/17 20: 10; Start 08/11/17 at 21:00 Bisacodyl (Dulcolax Tab) 10 mg PRN DAILY PRN PO CONSTIPATION; Start 08/11/17 at 06:45 Cetirizine HCl (ZyrTEC) 10 mg DAILY PO Last administered on 08/23/17 08:22; Start 08/11/17 at 09:00 Fluticasone Propionate (Flonase) 2 spray DAILY NS Last administered on 08:33; Start 08/11/17 at 09:00 Hydrochlorothiazide (Hydrodiuril) 25 mg DAILY PO Last administered on 08:32; Start 08/11/17 at 09:00 Calcium/Vitamin D (Oscal D 500mg/ 200uts) 1 tab BIDWMEALS PO Last administered on 08/24/17 17:00; Start 08/11/17 at 08:00 Glucosamine Sulfate (Glucosamine) 500 mg BID PO Last administered on 08/24/17 20:10; Start 08/11/17 at 09:00 Magnesium Hydroxide (Milk Of Magnesia) 2,400 mg PRN AFTMEALHC PRN PO CONSTIPATION Last administered on 08/17/17 16:22; Start 08/11/17 at 07:45 Multi-Ingred Cream/Lotion/Oil/ Oint (Absorbase) 1 macey PRN BID PRN TP DRY SKIN; Start 08/11/17 at 08:00; Stop 08/11/17 at 21:39; Status DC Non-Formulary Medication 90 ml TIDWMEALS PO ; Start 08/11/17 at 08:00; Stop at 08:00; Status DC Prenat Multivit/ [place]/Iron/Folic Ac (Multivitamin ) 1 tab DAILY PO Last administered on 08/24/17 08:32; Start 08/12/17 at 09:00 Selenium Sulfide (Selsun Blue) 1 macey 3X/WEEK TP Last administered on 08/23/17 08:23; Start 08/14/17 at 09:00 Multi-Ingred Cream/Lotion/Oil/ Oint (Absorbase) 1 macey PRN BID PRN TP DRY SKIN; Start 08/11/17 at 21:39 Divalproex Sodium (Depakote Er) 250 mg QHS PO Last administered on 08/24/17 20 :10; Start 08/14/17 at 21:00 Mirtazapine (Remeron) 22.5 mg QHS PO Last administered on 08/24/17 20:10; Start 08/15/17 at 21:00 Risperidone (RisperDAL CONSTA) 50 mg Q2WKS IM Last administered on 08/20/17 07:56; Start 08/20/17 at 09:00 Ketotifen Fumarate (Zaditor) 1 drop BID OU Last administered on 08/24/17 20:11 ; Start 08/18/17 at 13:30 Bupropion HCl (Wellbutrin Xl) 150 mg DAILY PO Last administered on 08/23/17 08 :22; Start 08/22/17 at 09:00; Stop 08/23/17 at 13:11; Status DC Bupropion HCl (Wellbutrin Xl) 300 mg DAILY PO Last administered on 08/24/17 08 :32; Start 08/24/17 at 09:00 Trazodone HCl (Desyrel) 50 mg QHS PO Last administered on 08/24/17 20:10; Start 08/24/17 at 21:00 Trazodone HCl (Desyrel) 50 mg PRN QHS PRN PO INSOMNIA, MAY REPEAT X1; Start at 19:15 Active Scripts Active Reported Amantadine (Amantadine Hcl) 100 Mg Tablet 100 Mg PO BIDWMEALS [Med Plus] 90 Ml PO TIDWMEALS Haldol (Haloperidol Lactate) 5 Mg/1 Ml Ampul 5 Mg IM PRN Q8HRS PRN Tylenol (Acetaminophen) 325 Mg Tablet 325 Mg PO PRN Q4HRS PRN Risperdal Consta (Risperidone Microspheres) 37.5 Mg/2 Ml Disp.syrin 37.5 Mg IM Q2WKS Cefuroxime (Cefuroxime Axetil) 500 Mg Tablet 500 Mg PO BID 10 Days Analgesic [place] (Methyl Salicylate/Menthol) 28 Gm Oint...g. 1 Applic TP PRN QID PRN Mag-Al Plus Xs Suspension (Mag Hydrox/Al Hydrox/Simeth) 30 Ml Oral.susp 30 Ml PO PRN AFTMEALHC PRN Fluticasone Propionate Nasal [place] (Fluticasone Propionate) 16 Gm [place].susp 2 [place] NS DAILY Depakote Er (Divalproex Sodium) 500 Mg Tab.er.24h 500 Mg PO QHS Cetirizine Hcl 10 Mg Tablet 10 Mg PO DAILY Acetaminophen 325 Mg Tablet 650 Mg PO PRN Q4HRS PRN Aquaphor Ointment (Mineral Oil/Hydrophil Petrolat) 396 Gm Oint...g. 1 [place] TP PRN BID PRN Bisacodyl 5 Mg Tablet.dr 10 Mg PO PRN DAILY PRN Administer if MOM unsuccessful after 24 hours Milk Of Magnesia (Magnesium Hydroxide) 2,400 Mg/10 Ml Oral.susp 2,400 Mg PO PRN AFTMEALHC PRN Trazodone Hcl 50 Mg Tablet 50 Mg PO QHS Mirtazapine 15 Mg Tablet 15 Mg PO QHS Hydrochlorothiazide Tablet (Hydrochlorothiazide) 25 Mg Tablet 25 Mg PO DAILY Glucosamine Hcl 500 Mg Tablet 500 Mg PO BID Calcium 600+D Plus Minerals Tb (Calcium Carb/Vit D3/Minerals) 1 Each Tablet 1 Tab PO BIDWMEALS Atorvastatin Calcium 20 Mg Tablet 20 Mg PO QHS Diagnosis: Problems: (1) Schizophrenia (2) Psychosis (3) Anxiety disorder (4) Impulse control disorder (5) Schizoaffective disorder, chronic condition with acute exacerbation (6) Psychosis, atypical JORDAN AMADOR MD Aug 24, 2017 20:48
--- NOTE | 2017-08-24 21:38 | PN ---
DATE: 08/23/2017 This late entry 08/23/2017 covers elements not covered in the initial note of 08/23/2017. SUBJECTIVE: The patient was staffed at a treatment team meeting the morning of 08/23/2017 and seen individually the evening of 08/23/2017. The patient has been withdrawn, but nursing reports comes out for meals, somewhat suspicious. REVIEW OF SYSTEMS: No CV, , eye, ENT or pulmonary system symptoms on review. MENTAL STATUS EXAM: Oriented to herself and situation. Speech moderate latency, often responses monosyllabic. Abstraction fair, computation impaired, language function intact, attention span short. Mood and affect withdrawn. LABORATORY DATA: Reviewed. IMPRESSION: Unchanged from initial note. PLAN: Starting at 08/24/2017, we will increase the Wellbutrin-XL from 150 mg a day to 300 mg a day, maintain the rest of the psychotropics including Risperdal Consta, Depakote, Symmetrel, trazodone, Remeron. Reviewed drug interactions, risk/benefit ratio favors no further change for now. JORDAN AMADOR MD DR: ERIKA/anika JOB#: [id number] / [id number]
[2017-08-25 06:13] VITALS: BP 110/63
[2017-08-25] MEDS: PRENATAL MULTIVITAMIN TABLET. PO SCH (08:35)
[2017-08-25] MEDS: CALCIUM CARB/VIT D3 500/200 TABLET PO SCH ×2 (08:35→16:39)
[2017-08-25] MEDS: hydroCHLOROthiazide 25 MG TABLET PO SCH (08:35)
[2017-08-25] MEDS: buPROPion XL 300 MG TAB.ER.24H. PO SCH (08:35)
[2017-08-25] MEDS: GLUCOSAMINE 500 MG CAPSULE PO SCH ×4 (08:35→19:51)
[2017-08-25] MEDS: AMANTADINE HCL 100 MG CAPSULE PO SCH ×2 (08:35→16:39)
[2017-08-25] MEDS: CETIRIZINE HCL 10 MG TABLET PO SCH (08:35)
[2017-08-25] MEDS: FLUTICASONE 50MCG/NASAL SPRAY 16GM BOTTLE. NS SCH (08:36)
[2017-08-25] MEDS: SELENIUM SULFIDE 2.5% SHAMPOO 120ML BOTTLE. TP SCH ×2 (08:37→08:45)
[2017-08-25] MEDS: KETOTIFEN FUMARATE 0.025% OPHT SOLUTION BOTTLE. OU SCH ×3 (08:44→19:51)
[2017-08-25 16:15] VITALS: BP 112/56
[2017-08-25] MEDS: DIVALPROEX ER 250 MG TAB.ER.24H. PO SCH (19:40)
[2017-08-25] MEDS: MIRTAZAPINE 15 MG TABLET PO SCH (19:40)
[2017-08-25] MEDS: traZODone 50 MG TABLET. PO SCH (19:41)
[2017-08-25] MEDS: ATORVASTATIN CALCIUM 20 MG TABLET PO SCH (19:41)
--- NOTE | 2017-08-25 20:57 | PDOC ---
Exam Andre Demential Exam: Andre Note: Please also refer to the separate dictated note~for this date of service dictated separately.~Patient seen individually. Discussed the patient with Nursing staff reviewed the chart.~Reviewed interim history and current functioning. Reviewed vital signs,~Labs/ Radiology~and current medications noted below. Continue current treatment with the changes noted in the dictated addendum note Assessment: Vital Signs: Vital Signs Date Time Temp Pulse Resp B/P (MAP) Pulse Ox O2 Delivery O2 Flow Rate FiO2 08/25/17 16:15 97.6 70 16 112/56 (74) 95 08/24/17 16:24 Room Air I&O Intake and Output 08/26/17 07:00 Intake Total 1080 ml Balance 1080 ml Intake Oral 1080 ml Current Medications: Meds: Current Medications Divalproex Sodium (Depakote Er) 500 mg QHS PO Last administered on 08/13/17 19:28; Start 08/11/17 at 21:00; Stop 08/14/17 at 17:41; Status DC Mirtazapine (Remeron) 15 mg QHS PO Last administered on 08/14/17 19:47; Start 08/11/17 at 21:00; Stop 08/15/17 at 15:45; Status DC Risperidone (RisperDAL CONSTA) 37.5 mg Q2WKS IM ; Start 08/20/17 at 09:00; Stop 08/20/17 at 09:00; Status DC Trazodone HCl (Desyrel) 50 mg QHS PO Last administered on 08/23/17 20:07; Start 08/11/17 at 21:00; Stop 08/24/17 at 19:16; Status DC Amantadine HCl (Symmetrel) 100 mg BIDWMEALS PO Last administered on 08/25/17 16:39; Start 08/11/17 at 08:00 Acetaminophen (Tylenol) 650 mg PRN Q4HRS PRN PO Severe Pain/Temp; Start at 06:45 Atorvastatin Calcium (Lipitor) 20 mg QHS PO Last administered on 08/25/17 19: 41; Start 08/11/17 at 21:00 Bisacodyl (Dulcolax Tab) 10 mg PRN DAILY PRN PO CONSTIPATION; Start 08/11/17 at 06:45 Cetirizine HCl (ZyrTEC) 10 mg DAILY PO Last administered on 08/25/17 08:35; Start 08/11/17 at 09:00 Fluticasone Propionate (Flonase) 2 spray DAILY NS Last administered on 08:36; Start 08/11/17 at 09:00 Hydrochlorothiazide (Hydrodiuril) 25 mg DAILY PO Last administered on 08:35; Start 08/11/17 at 09:00 Calcium/Vitamin D (Oscal D 500mg/ 200uts) 1 tab BIDWMEALS PO Last administered on 08/25/17 16:39; Start 08/11/17 at 08:00 Glucosamine Sulfate (Glucosamine) 500 mg BID PO Last administered on 08/24/17 20:10; Start 08/11/17 at 09:00 Magnesium Hydroxide (Milk Of Magnesia) 2,400 mg PRN AFTMEALHC PRN PO CONSTIPATION Last administered on 08/17/17 16:22; Start 08/11/17 at 07:45 Multi-Ingred Cream/Lotion/Oil/ Oint (Absorbase) 1 macey PRN BID PRN TP DRY SKIN; Start 08/11/17 at 08:00; Stop 08/11/17 at 21:39; Status DC Non-Formulary Medication 90 ml TIDWMEALS PO ; Start 08/11/17 at 08:00; Stop at 08:00; Status DC Prenat Multivit/ [place]/Iron/Folic Ac (Multivitamin ) 1 tab DAILY PO Last administered on 08/25/17 08:35; Start 08/12/17 at 09:00 Selenium Sulfide (Selsun Blue) 1 macey 3X/WEEK TP Last administered on 08/23/17 08:23; Start 08/14/17 at 09:00 Multi-Ingred Cream/Lotion/Oil/ Oint (Absorbase) 1 macey PRN BID PRN TP DRY SKIN; Start 08/11/17 at 21:39 Divalproex Sodium (Depakote Er) 250 mg QHS PO Last administered on 08/25/17 19 :40; Start 08/14/17 at 21:00 Mirtazapine (Remeron) 22.5 mg QHS PO Last administered on 08/25/17 19:40; Start 08/15/17 at 21:00 Risperidone (RisperDAL CONSTA) 50 mg Q2WKS IM Last administered on 08/20/17 07:56; Start 08/20/17 at 09:00 Ketotifen Fumarate (Zaditor) 1 drop BID OU Last administered on 08/24/17 20:11 ; Start 08/18/17 at 13:30 Bupropion HCl (Wellbutrin Xl) 150 mg DAILY PO Last administered on 08/23/17 08 :22; Start 08/22/17 at 09:00; Stop 08/23/17 at 13:11; Status DC Bupropion HCl (Wellbutrin Xl) 300 mg DAILY PO Last administered on 08/25/17 08 :35; Start 08/24/17 at 09:00 Trazodone HCl (Desyrel) 50 mg QHS PO Last administered on 08/25/17 19:41; Start 08/24/17 at 21:00 Trazodone HCl (Desyrel) 50 mg PRN QHS PRN PO INSOMNIA, MAY REPEAT X1; Start at 19:15 Active Scripts Active Reported Amantadine (Amantadine Hcl) 100 Mg Tablet 100 Mg PO BIDWMEALS [Med Plus] 90 Ml PO TIDWMEALS Haldol (Haloperidol Lactate) 5 Mg/1 Ml Ampul 5 Mg IM PRN Q8HRS PRN Tylenol (Acetaminophen) 325 Mg Tablet 325 Mg PO PRN Q4HRS PRN Risperdal Consta (Risperidone Microspheres) 37.5 Mg/2 Ml Disp.syrin 37.5 Mg IM Q2WKS Cefuroxime (Cefuroxime Axetil) 500 Mg Tablet 500 Mg PO BID 10 Days Analgesic [place] (Methyl Salicylate/Menthol) 28 Gm Oint...g. 1 Applic TP PRN QID PRN Mag-Al Plus Xs Suspension (Mag Hydrox/Al Hydrox/Simeth) 30 Ml Oral.susp 30 Ml PO PRN AFTMEALHC PRN Fluticasone Propionate Nasal [place] (Fluticasone Propionate) 16 Gm [place].susp 2 [place] NS DAILY Depakote Er (Divalproex Sodium) 500 Mg Tab.er.24h 500 Mg PO QHS Cetirizine Hcl 10 Mg Tablet 10 Mg PO DAILY Acetaminophen 325 Mg Tablet 650 Mg PO PRN Q4HRS PRN Aquaphor Ointment (Mineral Oil/Hydrophil Petrolat) 396 Gm Oint...g. 1 [place] TP PRN BID PRN Bisacodyl 5 Mg Tablet.dr 10 Mg PO PRN DAILY PRN Administer if MOM unsuccessful after 24 hours Milk Of Magnesia (Magnesium Hydroxide) 2,400 Mg/10 Ml Oral.susp 2,400 Mg PO PRN AFTMEALHC PRN Trazodone Hcl 50 Mg Tablet 50 Mg PO QHS Mirtazapine 15 Mg Tablet 15 Mg PO QHS Hydrochlorothiazide Tablet (Hydrochlorothiazide) 25 Mg Tablet 25 Mg PO DAILY Glucosamine Hcl 500 Mg Tablet 500 Mg PO BID Calcium 600+D Plus Minerals Tb (Calcium Carb/Vit D3/Minerals) 1 Each Tablet 1 Tab PO BIDWMEALS Atorvastatin Calcium 20 Mg Tablet 20 Mg PO QHS Diagnosis: Problems: (1) Schizophrenia (2) Psychosis (3) Anxiety disorder (4) Impulse control disorder (5) Schizoaffective disorder, chronic condition with acute exacerbation (6) Psychosis, atypical JORDAN AMADOR MD Aug 25, 2017 20:57
[2017-08-26 06:03] VITALS: BP 119/74
[2017-08-26] MEDS: PRENATAL MULTIVITAMIN TABLET. PO SCH (06:22)
[2017-08-26] MEDS: buPROPion XL 300 MG TAB.ER.24H. PO SCH (06:22)
[2017-08-26] MEDS: hydroCHLOROthiazide 25 MG TABLET PO SCH (06:22)
[2017-08-26] MEDS: CALCIUM CARB/VIT D3 500/200 TABLET PO SCH ×2 (06:22→18:05)
[2017-08-26] MEDS: CETIRIZINE HCL 10 MG TABLET PO SCH (06:22)
[2017-08-26] MEDS: GLUCOSAMINE 500 MG CAPSULE PO SCH ×3 (06:22→21:00)
[2017-08-26] MEDS: KETOTIFEN FUMARATE 0.025% OPHT SOLUTION BOTTLE. OU SCH ×3 (06:24→21:00)
[2017-08-26] MEDS: AMANTADINE HCL 100 MG CAPSULE PO SCH ×2 (06:25→18:04)
[2017-08-26] MEDS: FLUTICASONE 50MCG/NASAL SPRAY 16GM BOTTLE. NS SCH (06:25)
--- NOTE | 2017-08-26 09:20 | PN ---
DATE: 08/24/2017 This late entry 08/24/2017 covers elements not covered in my initial note of 08/24/2017. SUBJECTIVE: Met with the patient in the evening of 08/24/2017. The patient remains somewhat withdrawn, isolative, but not aggressive. She is flat, but cooperative, slept 5 hours the previous evening. REVIEW OF SYSTEMS: No CV, , pulmonary, eye, ENT system symptoms on review. MENTAL STATUS EXAM: Reasonably oriented. Speech moderate latency, often responses monosyllabic. Abstraction fair, computation impaired. Language function intact. Attention span short. Mood and affect somewhat withdrawn. No active psychotic symptoms, suicidal or homicidal ideation. LABORATORY DATA: Reviewed. IMPRESSION: Unchanged from initial note. PLAN: Continue current psychotropics including the increased Wellbutrin XL 300 mg a day. We will add trazodone 50 mg at bedtime p.r.n. in addition to the scheduled dosage. Reviewed drug contractions. Risk/benefit ratio favors no further change. JORDAN AMADOR MD DR: ERIKA/anika JOB#: [id number] / [id number]
[2017-08-26 09:34] LABS: BASO % 1 % (0-3); EOS # 0.1 x10^3/uL (0.0-0.7); EOS % 1 % (0-3); HEMATOCRIT 40.4 % (36.0-47.0); HEMOGLOBIN 13.3 g/dL (12.0-15.5); LYMPH # 1.1 x10^3/uL (1.0-4.8); LYMPH % 25 % (24-48); MEAN CORPUSCULAR HEMOGLOBIN 29 pg (25-35); MEAN CORPUSCULAR HGB CONC 33 g/dL (31-37); MEAN CORPUSCULAR VOLUME 89 fL (79-100); MONO # 0.4 x10^3/uL (0.0-1.1); MONO % 8 % (0-9); NEUT # 2.8 x10^3uL (1.8-7.7); NEUT % 65 % (31-73); PLATELET COUNT 162 x10^3/uL (140-400); RED BLOOD COUNT 4.52 x10^6/uL (3.50-5.40); RED CELL DISTRIBUTION WIDTH 14.8 % (11.5-14.5); WHITE BLOOD COUNT 4.4 x10^3/uL (4.0-11.0)
[2017-08-26 09:50] LABS: ALBUMIN 3.1 g/dL (3.4-5.0); ALBUMIN/GLOBULIN RATIO 0.8 (1.0-1.7); CALCIUM 9.1 mg/dL (8.5-10.1); CREATININE 1.1 mg/dL (0.6-1.0); POTASSIUM 4.2 mmol/L (3.5-5.1); TOTAL BILIRUBIN 0.5 mg/dL (0.2-1.0)
[2017-08-26 16:14] VITALS: BP 129/62
[2017-08-26] MEDS: MIRTAZAPINE 15 MG TABLET PO SCH (20:00)
[2017-08-26] MEDS: traZODone 50 MG TABLET. PO SCH (20:00)
[2017-08-26] MEDS: ATORVASTATIN CALCIUM 20 MG TABLET PO SCH (20:00)
[2017-08-26] MEDS: DIVALPROEX ER 250 MG TAB.ER.24H. PO SCH (20:02)
--- NOTE | 2017-08-26 22:28 | PN ---
DATE: 08/25/2017 This late entry 08/25/2017 covers elements not covered in my initial note of 08/25/2017. SUBJECTIVE: Met with the patient evening of 08/25/2017. She remains somewhat withdrawn, but less psychotic. REVIEW OF SYSTEMS: No CV, , pulmonary, eye, ENT system symptoms on review. MENTAL STATUS EXAM: Oriented reasonably. Speech moderate latency, often responses monosyllabic. Abstraction fair, computation impaired. Language function intact, attention span short. Mood and affect still withdrawn, but improved. LABORATORY DATA: Reviewed. IMPRESSION: Unchanged. PLAN: Continue current psychotropics. Reviewed drug interactions, risks/benefits ratio favors no further change. She has some mild tremors, we will monitor this. JORDAN AMADOR MD DR: ERIKA/anika JOB#: [id number] / [id number]
--- NOTE | 2017-08-26 23:52 | PDOC ---
Exam Andre Demential Exam: Andre Note: Please also refer to the separate dictated note~for this date of service dictated separately.~Patient seen individually. Discussed the patient with Nursing staff reviewed the chart.~Reviewed interim history and current functioning. Reviewed vital signs,~Labs/ Radiology~and current medications noted below. Continue current treatment with the changes noted in the dictated addendum note Assessment: Vital Signs: Vital Signs Date Time Temp Pulse Resp B/P (MAP) Pulse Ox O2 Delivery O2 Flow Rate FiO2 08/26/17 16:14 97.2 77 18 129/62 (84) 98 08/24/17 16:24 Room Air I&O Intake and Output 08/27/17 07:00 Intake Total 960 ml Balance 960 ml Intake Oral 960 ml Labs: Laboratory Tests Test 08/26/17 09:10 White Blood Count 4.4 x10^3/uL (4.0-11.0) Red Blood Count 4.52 x10^6/uL (3.50-5.40) Hemoglobin 13.3 g/dL (12.0-15.5) Hematocrit 40.4 % (36.0-47.0) Mean Corpuscular Volume 89 fL (79-100) Mean Corpuscular Hemoglobin 29 pg (25-35) Mean Corpuscular Hemoglobin Concent 33 g/dL (31-37) Red Cell Distribution Width 14.8 % (11.5-14.5) H Platelet Count 162 x10^3/uL (140-400) Neutrophils (%) (Auto) 65 % (31-73) Lymphocytes (%) (Auto) 25 % (24-48) Monocytes (%) (Auto) 8 % (0-9) Eosinophils (%) (Auto) 1 % (0-3) Basophils (%) (Auto) 1 % (0-3) Neutrophils # (Auto) 2.8 x10^3uL (1.8-7.7) Lymphocytes # (Auto) 1.1 x10^3/uL (1.0-4.8) Monocytes # (Auto) 0.4 x10^3/uL (0.0-1.1) Eosinophils # (Auto) 0.1 x10^3/uL (0.0-0.7) Basophils # (Auto) 0.0 x10^3/uL (0.0-0.2) Sodium Level 139 mmol/L (136-145) Potassium Level 4.2 mmol/L (3.5-5.1) Chloride Level 102 mmol/L (98-107) Carbon Dioxide Level 30 mmol/L (21-32) Anion Gap 7 (6-14) Blood Urea Nitrogen 15 mg/dL (7-20) Creatinine 1.1 mg/dL (0.6-1.0) H Estimated GFR (Cockcroft-Gault) 49.0 BUN/Creatinine Ratio 14 (6-20) Glucose Level 154 mg/dL (70-99) H Calcium Level 9.1 mg/dL (8.5-10.1) Total Bilirubin 0.5 mg/dL (0.2-1.0) Aspartate Amino Transferase (AST) 29 U/L (15-37) Alanine Aminotransferase (ALT) 24 U/L (14-59) Alkaline Phosphatase 95 U/L (46-116) Total Protein 7.0 g/dL (6.4-8.2) Albumin 3.1 g/dL (3.4-5.0) L Albumin/Globulin Ratio 0.8 (1.0-1.7) L Current Medications: Meds: Current Medications Divalproex Sodium (Depakote Er) 500 mg QHS PO Last administered on 08/13/17 19:28; Start 08/11/17 at 21:00; Stop 08/14/17 at 17:41; Status DC Mirtazapine (Remeron) 15 mg QHS PO Last administered on 08/14/17 19:47; Start 08/11/17 at 21:00; Stop 08/15/17 at 15:45; Status DC Risperidone (RisperDAL CONSTA) 37.5 mg Q2WKS IM ; Start 08/20/17 at 09:00; Stop 08/20/17 at 09:00; Status DC Trazodone HCl (Desyrel) 50 mg QHS PO Last administered on 08/23/17 20:07; Start 08/11/17 at 21:00; Stop 08/24/17 at 19:16; Status DC Amantadine HCl (Symmetrel) 100 mg BIDWMEALS PO Last administered on 08/26/17 18:04; Start 08/11/17 at 08:00 Acetaminophen (Tylenol) 650 mg PRN Q4HRS PRN PO Severe Pain/Temp; Start at 06:45 Atorvastatin Calcium (Lipitor) 20 mg QHS PO Last administered on 08/26/17 20: 00; Start 08/11/17 at 21:00 Bisacodyl (Dulcolax Tab) 10 mg PRN DAILY PRN PO CONSTIPATION; Start 08/11/17 at 06:45 Cetirizine HCl (ZyrTEC) 10 mg DAILY PO Last administered on 08/26/17 06:22; Start 08/11/17 at 09:00 Fluticasone Propionate (Flonase) 2 spray DAILY NS Last administered on 06:25; Start 08/11/17 at 09:00 Hydrochlorothiazide (Hydrodiuril) 25 mg DAILY PO Last administered on 06:22; Start 08/11/17 at 09:00 Calcium/Vitamin D (Oscal D 500mg/ 200uts) 1 tab BIDWMEALS PO Last administered on 08/26/17 18:05; Start 08/11/17 at 08:00 Glucosamine Sulfate (Glucosamine) 500 mg BID PO Last administered on 08/26/17 06:22; Start 08/11/17 at 09:00 Magnesium Hydroxide (Milk Of Magnesia) 2,400 mg PRN AFTMEALHC PRN PO CONSTIPATION Last administered on 08/17/17 16:22; Start 08/11/17 at 07:45 Multi-Ingred Cream/Lotion/Oil/ Oint (Absorbase) 1 macey PRN BID PRN TP DRY SKIN; Start 08/11/17 at 08:00; Stop 08/11/17 at 21:39; Status DC Non-Formulary Medication 90 ml TIDWMEALS PO ; Start 08/11/17 at 08:00; Stop at 08:00; Status DC Prenat Multivit/ [place]/Iron/Folic Ac (Multivitamin ) 1 tab DAILY PO Last administered on 08/26/17 06:22; Start 08/12/17 at 09:00 Selenium Sulfide (Selsun Blue) 1 macey 3X/WEEK TP Last administered on 08/23/17 08:23; Start 08/14/17 at 09:00 Multi-Ingred Cream/Lotion/Oil/ Oint (Absorbase) 1 macey PRN BID PRN TP DRY SKIN; Start 08/11/17 at 21:39 Divalproex Sodium (Depakote Er) 250 mg QHS PO Last administered on 08/26/17 20 :02; Start 08/14/17 at 21:00 Mirtazapine (Remeron) 22.5 mg QHS PO Last administered on 08/26/17 20:00; Start 08/15/17 at 21:00 Risperidone (RisperDAL CONSTA) 50 mg Q2WKS IM Last administered on 08/20/17 07:56; Start 08/20/17 at 09:00 Ketotifen Fumarate (Zaditor) 1 drop BID OU Last administered on 08/26/17 06:24 ; Start 08/18/17 at 13:30 Bupropion HCl (Wellbutrin Xl) 150 mg DAILY PO Last administered on 08/23/17 08 :22; Start 08/22/17 at 09:00; Stop 08/23/17 at 13:11; Status DC Bupropion HCl (Wellbutrin Xl) 300 mg DAILY PO Last administered on 08/26/17 06 :22; Start 08/24/17 at 09:00 Trazodone HCl (Desyrel) 50 mg QHS PO Last administered on 08/26/17 20:00; Start 08/24/17 at 21:00 Trazodone HCl (Desyrel) 50 mg PRN QHS PRN PO INSOMNIA, MAY REPEAT X1; Start at 19:15 Active Scripts Active Reported Amantadine (Amantadine Hcl) 100 Mg Tablet 100 Mg PO BIDWMEALS [Med Plus] 90 Ml PO TIDWMEALS Haldol (Haloperidol Lactate) 5 Mg/1 Ml Ampul 5 Mg IM PRN Q8HRS PRN Tylenol (Acetaminophen) 325 Mg Tablet 325 Mg PO PRN Q4HRS PRN Risperdal Consta (Risperidone Microspheres) 37.5 Mg/2 Ml Disp.syrin 37.5 Mg IM Q2WKS Cefuroxime (Cefuroxime Axetil) 500 Mg Tablet 500 Mg PO BID 10 Days Analgesic [place] (Methyl Salicylate/Menthol) 28 Gm Oint...g. 1 Applic TP PRN QID PRN Mag-Al Plus Xs Suspension (Mag Hydrox/Al Hydrox/Simeth) 30 Ml Oral.susp 30 Ml PO PRN AFTMEALHC PRN Fluticasone Propionate Nasal [place] (Fluticasone Propionate) 16 Gm [place].susp 2 [place] NS DAILY Depakote Er (Divalproex Sodium) 500 Mg Tab.er.24h 500 Mg PO QHS Cetirizine Hcl 10 Mg Tablet 10 Mg PO DAILY Acetaminophen 325 Mg Tablet 650 Mg PO PRN Q4HRS PRN Aquaphor Ointment (Mineral Oil/Hydrophil Petrolat) 396 Gm Oint...g. 1 [place] TP PRN BID PRN Bisacodyl 5 Mg Tablet.dr 10 Mg PO PRN DAILY PRN Administer if MOM unsuccessful after 24 hours Milk Of Magnesia (Magnesium Hydroxide) 2,400 Mg/10 Ml Oral.susp 2,400 Mg PO PRN AFTMEALHC PRN Trazodone Hcl 50 Mg Tablet 50 Mg PO QHS Mirtazapine 15 Mg Tablet 15 Mg PO QHS Hydrochlorothiazide Tablet (Hydrochlorothiazide) 25 Mg Tablet 25 Mg PO DAILY Glucosamine Hcl 500 Mg Tablet 500 Mg PO BID Calcium 600+D Plus Minerals Tb (Calcium Carb/Vit D3/Minerals) 1 Each Tablet 1 Tab PO BIDWMEALS Atorvastatin Calcium 20 Mg Tablet 20 Mg PO QHS Diagnosis: Problems: (1) Schizophrenia (2) Psychosis (3) Anxiety disorder (4) Impulse control disorder (5) Schizoaffective disorder, chronic condition with acute exacerbation (6) Psychosis, atypical JORDAN AMADOR MD Aug 26, 2017 23:52
[2017-08-27 06:16] VITALS: BP 117/73
[2017-08-27] MEDS: GLUCOSAMINE 500 MG CAPSULE PO SCH ×4 (06:38→21:00)
[2017-08-27] MEDS: hydroCHLOROthiazide 25 MG TABLET PO SCH (06:38)
[2017-08-27] MEDS: KETOTIFEN FUMARATE 0.025% OPHT SOLUTION BOTTLE. OU SCH ×3 (06:38→21:00)
[2017-08-27] MEDS: CETIRIZINE HCL 10 MG TABLET PO SCH (06:38)
[2017-08-27] MEDS: CALCIUM CARB/VIT D3 500/200 TABLET PO SCH ×2 (06:38→18:42)
[2017-08-27] MEDS: AMANTADINE HCL 100 MG CAPSULE PO SCH ×2 (06:38→18:42)
[2017-08-27] MEDS: PRENATAL MULTIVITAMIN TABLET. PO SCH (06:38)
[2017-08-27] MEDS: buPROPion XL 300 MG TAB.ER.24H. PO SCH (06:38)
[2017-08-27] MEDS: FLUTICASONE 50MCG/NASAL SPRAY 16GM BOTTLE. NS SCH (06:38)
[2017-08-27 16:39] VITALS: BP 118/62
--- NOTE | 2017-08-27 18:05 | PDOC ---
Exam Andre Demential Exam: Andre Note: Please also refer to the separate dictated note~for this date of service dictated separately.~Patient seen individually. Discussed the patient with Nursing staff reviewed the chart.~Reviewed interim history and current functioning. Reviewed vital signs,~Labs/ Radiology~and current medications noted below. Continue current treatment with the changes noted in the dictated addendum note Assessment: Vital Signs: Vital Signs Date Time Temp Pulse Resp B/P (MAP) Pulse Ox O2 Delivery O2 Flow Rate FiO2 08/27/17 16:39 97.4 69 18 118/62 (80) 100 08/24/17 16:24 Room Air I&O Intake and Output 08/28/17 07:00 Intake Total 720 ml Balance 720 ml Intake Oral 720 ml Current Medications: Meds: Current Medications Divalproex Sodium (Depakote Er) 500 mg QHS PO Last administered on 08/13/17 19:28; Start 08/11/17 at 21:00; Stop 08/14/17 at 17:41; Status DC Mirtazapine (Remeron) 15 mg QHS PO Last administered on 08/14/17 19:47; Start 08/11/17 at 21:00; Stop 08/15/17 at 15:45; Status DC Risperidone (RisperDAL CONSTA) 37.5 mg Q2WKS IM ; Start 08/20/17 at 09:00; Stop 08/20/17 at 09:00; Status DC Trazodone HCl (Desyrel) 50 mg QHS PO Last administered on 08/23/17 20:07; Start 08/11/17 at 21:00; Stop 08/24/17 at 19:16; Status DC Amantadine HCl (Symmetrel) 100 mg BIDWMEALS PO Last administered on 08/27/17 06:38; Start 08/11/17 at 08:00 Acetaminophen (Tylenol) 650 mg PRN Q4HRS PRN PO Severe Pain/Temp; Start at 06:45 Atorvastatin Calcium (Lipitor) 20 mg QHS PO Last administered on 08/26/17 20: 00; Start 08/11/17 at 21:00 Bisacodyl (Dulcolax Tab) 10 mg PRN DAILY PRN PO CONSTIPATION; Start 08/11/17 at 06:45 Cetirizine HCl (ZyrTEC) 10 mg DAILY PO Last administered on 08/27/17 06:38; Start 08/11/17 at 09:00 Fluticasone Propionate (Flonase) 2 spray DAILY NS Last administered on 06:38; Start 08/11/17 at 09:00 Hydrochlorothiazide (Hydrodiuril) 25 mg DAILY PO Last administered on 06:38; Start 08/11/17 at 09:00 Calcium/Vitamin D (Oscal D 500mg/ 200uts) 1 tab BIDWMEALS PO Last administered on 08/27/17 06:38; Start 08/11/17 at 08:00 Glucosamine Sulfate (Glucosamine) 500 mg BID PO Last administered on 08/26/17 06:22; Start 08/11/17 at 09:00 Magnesium Hydroxide (Milk Of Magnesia) 2,400 mg PRN AFTMEALHC PRN PO CONSTIPATION Last administered on 08/17/17 16:22; Start 08/11/17 at 07:45 Multi-Ingred Cream/Lotion/Oil/ Oint (Absorbase) 1 [place]acey PRN BID PRN TP DRY SKIN; Start 08/11/17 at 08:00; Stop 08/11/17 at 21:39; Status DC Non-Formulary Medication 90 ml TIDWMEALS PO ; Start 08/11/17 at 08:00; Stop at 08:00; Status DC Prenat Multivit/ [place]/Iron/Folic Ac (Multivitamin ) 1 tab DAILY PO Last administered on 08/27/17 06:38; Start 08/12/17 at 09:00 Selenium Sulfide (Selsun Blue) 1 macey 3X/WEEK TP Last administered on 08/23/17 08:23; Start 08/14/17 at 09:00 Multi-Ingred Cream/Lotion/Oil/ Oint (Absorbase) 1 [place]acey PRN BID PRN TP DRY SKIN; Start 08/11/17 at 21:39 Divalproex Sodium (Depakote Er) 250 mg QHS PO Last administered on 08/26/17 20 :02; Start 08/14/17 at 21:00 Mirtazapine (Remeron) 22.5 mg QHS PO Last administered on 08/26/17 20:00; Start 08/15/17 at 21:00 Risperidone (RisperDAL CONSTA) 50 mg Q2WKS IM Last administered on 08/20/17 07:56; Start 08/20/17 at 09:00 Ketotifen Fumarate (Zaditor) 1 drop BID OU Last administered on 08/27/17 06:38 ; Start 08/18/17 at 13:30 Bupropion HCl (Wellbutrin Xl) 150 mg DAILY PO Last administered on 08/23/17 08 :22; Start 08/22/17 at 09:00; Stop 08/23/17 at 13:11; Status DC Bupropion HCl (Wellbutrin Xl) 300 mg DAILY PO Last administered on 08/27/17 06 :38; Start 08/24/17 at 09:00 Trazodone HCl (Desyrel) 50 mg QHS PO Last administered on 08/26/17 20:00; Start 08/24/17 at 21:00 Trazodone HCl (Desyrel) 50 mg PRN QHS PRN PO INSOMNIA, MAY REPEAT X1; Start at 19:15 Active Scripts Active Reported Amantadine (Amantadine Hcl) 100 Mg Tablet 100 Mg PO BIDWMEALS [Med Plus] 90 Ml PO TIDWMEALS Haldol (Haloperidol Lactate) 5 Mg/1 Ml Ampul 5 Mg IM PRN Q8HRS PRN Tylenol (Acetaminophen) 325 Mg Tablet 325 Mg PO PRN Q4HRS PRN Risperdal Consta (Risperidone Microspheres) 37.5 Mg/2 Ml Disp.syrin 37.5 Mg IM Q2WKS Cefuroxime (Cefuroxime Axetil) 500 Mg Tablet 500 Mg PO BID 10 Days Analgesic [place] (Methyl Salicylate/Menthol) 28 Gm Oint...g. 1 Applic TP PRN QID PRN Mag-Al Plus Xs Suspension (Mag Hydrox/Al Hydrox/Simeth) 30 Ml Oral.susp 30 Ml PO PRN AFTMEALHC PRN Fluticasone Propionate Nasal [place] (Fluticasone Propionate) 16 Gm [place].susp 2 [place] NS DAILY Depakote Er (Divalproex Sodium) 500 Mg Tab.er.24h 500 Mg PO QHS Cetirizine Hcl 10 Mg Tablet 10 Mg PO DAILY Acetaminophen 325 Mg Tablet 650 Mg PO PRN Q4HRS PRN Aquaphor Ointment (Mineral Oil/Hydrophil Petrolat) 396 Gm Oint...g. 1 [place] TP PRN BID PRN Bisacodyl 5 Mg Tablet.dr 10 Mg PO PRN DAILY PRN Administer if MOM unsuccessful after 24 hours Milk Of Magnesia (Magnesium Hydroxide) 2,400 Mg/10 Ml Oral.susp 2,400 Mg PO PRN AFTMEALHC PRN Trazodone Hcl 50 Mg Tablet 50 Mg PO QHS Mirtazapine 15 Mg Tablet 15 Mg PO QHS Hydrochlorothiazide Tablet (Hydrochlorothiazide) 25 Mg Tablet 25 Mg PO DAILY Glucosamine Hcl 500 Mg Tablet 500 Mg PO BID Calcium 600+D Plus Minerals Tb (Calcium Carb/Vit D3/Minerals) 1 Each Tablet 1 Tab PO BIDWMEALS Atorvastatin Calcium 20 Mg Tablet 20 Mg PO QHS Diagnosis: Problems: (1) Psychosis, atypical (2) Schizoaffective disorder, chronic condition with acute exacerbation (3) Impulse control disorder (4) Anxiety disorder (5) Psychosis (6) Schizophrenia JORDAN AMADOR MD Aug 27, 2017 18:05
[2017-08-27] MEDS: ATORVASTATIN CALCIUM 20 MG TABLET PO SCH (20:14)
[2017-08-27] MEDS: traZODone 50 MG TABLET. PO SCH ×2 (20:14→21:00)
[2017-08-27] MEDS: MIRTAZAPINE 15 MG TABLET PO SCH (20:15)
[2017-08-27] MEDS: DIVALPROEX ER 250 MG TAB.ER.24H. PO SCH (20:15)
[2017-08-28 06:25] VITALS: BP 96/63
[2017-08-28] MEDS: GLUCOSAMINE 500 MG CAPSULE PO SCH ×5 (09:00→21:00)
[2017-08-28] MEDS: FLUTICASONE 50MCG/NASAL SPRAY 16GM BOTTLE. NS SCH ×2 (09:00→10:18)
[2017-08-28] MEDS: CETIRIZINE HCL 10 MG TABLET PO SCH ×2 (09:00→10:17)
[2017-08-28] MEDS: SELENIUM SULFIDE 2.5% SHAMPOO 120ML BOTTLE. TP SCH (09:00)
[2017-08-28] MEDS: hydroCHLOROthiazide 25 MG TABLET PO SCH (10:16)
[2017-08-28] MEDS: buPROPion XL 300 MG TAB.ER.24H. PO SCH (10:17)
[2017-08-28] MEDS: AMANTADINE HCL 100 MG CAPSULE PO SCH ×2 (10:17→16:44)
[2017-08-28] MEDS: PRENATAL MULTIVITAMIN TABLET. PO SCH (10:17)
[2017-08-28] MEDS: CALCIUM CARB/VIT D3 500/200 TABLET PO SCH ×2 (10:17→16:44)
[2017-08-28] MEDS: KETOTIFEN FUMARATE 0.025% OPHT SOLUTION BOTTLE. OU SCH ×2 (10:18→19:28)
[2017-08-28] MEDS: ACETAMINOPHEN 325 MG TABLET PO PRN (12:02)
[2017-08-28 16:04] VITALS: BP 132/79
[2017-08-28] MEDS: ATORVASTATIN CALCIUM 20 MG TABLET PO SCH ×3 (19:27→21:00)
[2017-08-28] MEDS: MIRTAZAPINE 15 MG TABLET PO SCH (19:27)
[2017-08-28] MEDS: traZODone 50 MG TABLET. PO SCH ×3 (19:27→21:00)
[2017-08-28] MEDS: DIVALPROEX ER 250 MG TAB.ER.24H. PO SCH ×3 (19:27→21:00)
[2017-08-28 19:42] VITALS: BP 136/71
--- NOTE | 2017-08-28 20:01 | PDOC ---
Exam Andre Demential Exam: Andre Note: Please also refer to the separate dictated note~for this date of service dictated separately.~Patient seen individually. Discussed the patient with Nursing staff reviewed the chart.~Reviewed interim history and current functioning. Reviewed vital signs,~Labs/ Radiology~and current medications noted below. Continue current treatment with the changes noted in the dictated addendum note Assessment: Vital Signs: Vital Signs Date Time Temp Pulse Resp B/P (MAP) Pulse Ox O2 Delivery O2 Flow Rate FiO2 08/28/17 19:42 97.5 78 16 136/71 (92) 96 08/24/17 16:24 Room Air I&O Intake and Output 08/29/17 07:00 Intake Total 1020 ml Balance 1020 ml Intake Oral 1020 ml # Bowel Movements 1 Current Medications: Meds: Current Medications Divalproex Sodium (Depakote Er) 500 mg QHS PO Last administered on 08/13/17 19:28; Start 08/11/17 at 21:00; Stop 08/14/17 at 17:41; Status DC Mirtazapine (Remeron) 15 mg QHS PO Last administered on 08/14/17 19:47; Start 08/11/17 at 21:00; Stop 08/15/17 at 15:45; Status DC Risperidone (RisperDAL CONSTA) 37.5 mg Q2WKS IM ; Start 08/20/17 at 09:00; Stop 08/20/17 at 09:00; Status DC Trazodone HCl (Desyrel) 50 mg QHS PO Last administered on 08/23/17 20:07; Start 08/11/17 at 21:00; Stop 08/24/17 at 19:16; Status DC Amantadine HCl (Symmetrel) 100 mg BIDWMEALS PO Last administered on 08/28/17 16:44; Start 08/11/17 at 08:00 Acetaminophen (Tylenol) 650 mg PRN Q4HRS PRN PO Severe Pain/Temp Last administered on 08/28/17 12:02; Start 08/11/17 at 06:45 Atorvastatin Calcium (Lipitor) 20 mg QHS PO Last administered on 08/27/17 20: 14; Start 08/11/17 at 21:00 Bisacodyl (Dulcolax Tab) 10 mg PRN DAILY PRN PO CONSTIPATION; Start 08/11/17 at 06:45 Cetirizine HCl (ZyrTEC) 10 mg DAILY PO Last administered on 08/27/17 06:38; Start 08/11/17 at 09:00 Fluticasone Propionate (Flonase) 2 spray DAILY NS Last administered on 06:38; Start 08/11/17 at 09:00 Hydrochlorothiazide (Hydrodiuril) 25 mg DAILY PO Last administered on 10:16; Start 08/11/17 at 09:00 Calcium/Vitamin D (Oscal D 500mg/ 200uts) 1 tab BIDWMEALS PO Last administered on 08/28/17 10:17; Start 08/11/17 at 08:00 Glucosamine Sulfate (Glucosamine) 500 mg BID PO Last administered on 08/26/17 06:22; Start 08/11/17 at 09:00 Magnesium Hydroxide (Milk Of Magnesia) 2,400 mg PRN AFTMEALHC PRN PO CONSTIPATION Last administered on 08/17/17 16:22; Start 08/11/17 at 07:45 Multi-Ingred Cream/Lotion/Oil/ Oint (Absorbase) 1 macey PRN BID PRN TP DRY SKIN; Start 08/11/17 at 08:00; Stop 08/11/17 at 21:39; Status DC Non-Formulary Medication 90 ml TIDWMEALS PO ; Start 08/11/17 at 08:00; Stop at 08:00; Status DC Prenat Multivit/ [place]/Iron/Folic Ac (Multivitamin ) 1 tab DAILY PO Last administered on 08/28/17 10:17; Start 08/12/17 at 09:00 Selenium Sulfide (Selsun Blue) 1 macey 3X/WEEK TP Last administered on 08/23/17 08:23; Start 08/14/17 at 09:00 Multi-Ingred Cream/Lotion/Oil/ Oint (Absorbase) 1 macey PRN BID PRN TP DRY SKIN; Start 08/11/17 at 21:39 Divalproex Sodium (Depakote Er) 250 mg QHS PO Last administered on 08/27/17 20 :15; Start 08/14/17 at 21:00 Mirtazapine (Remeron) 22.5 mg QHS PO Last administered on 08/28/17 19:27; Start 08/15/17 at 21:00 Risperidone (RisperDAL CONSTA) 50 mg Q2WKS IM Last administered on 08/20/17 07:56; Start 08/20/17 at 09:00 Ketotifen Fumarate (Zaditor) 1 drop BID OU Last administered on 08/28/17 19:28 ; Start 08/18/17 at 13:30 Bupropion HCl (Wellbutrin Xl) 150 mg DAILY PO Last administered on 08/23/17 08 :22; Start 08/22/17 at 09:00; Stop 08/23/17 at 13:11; Status DC Bupropion HCl (Wellbutrin Xl) 300 mg DAILY PO Last administered on 08/28/17 10 :17; Start 08/24/17 at 09:00; Stop 08/28/17 at 14:37; Status DC Trazodone HCl (Desyrel) 50 mg QHS PO Last administered on 08/26/17 20:00; Start 08/24/17 at 21:00 Trazodone HCl (Desyrel) 50 mg PRN QHS PRN PO INSOMNIA, MAY REPEAT X1; Start at 19:15 Duloxetine HCl (Cymbalta) 20 mg DAILY PO ; Start 08/29/17 at 09:00 Active Scripts Active Reported Amantadine (Amantadine Hcl) 100 Mg Tablet 100 Mg PO BIDWMEALS [Med Plus] 90 Ml PO TIDWMEALS Haldol (Haloperidol Lactate) 5 Mg/1 Ml Ampul 5 Mg IM PRN Q8HRS PRN Tylenol (Acetaminophen) 325 Mg Tablet 325 Mg PO PRN Q4HRS PRN Risperdal Consta (Risperidone Microspheres) 37.5 Mg/2 Ml Disp.syrin 37.5 Mg IM Q2WKS Cefuroxime (Cefuroxime Axetil) 500 Mg Tablet 500 Mg PO BID 10 Days Analgesic [place] (Methyl Salicylate/Menthol) 28 Gm Oint...g. 1 Applic TP PRN QID PRN Mag-Al Plus Xs Suspension (Mag Hydrox/Al Hydrox/Simeth) 30 Ml Oral.susp 30 Ml PO PRN AFTMEALHC PRN Fluticasone Propionate Nasal [place] (Fluticasone Propionate) 16 Gm [place].susp 2 [place] NS DAILY Depakote Er (Divalproex Sodium) 500 Mg Tab.er.24h 500 Mg PO QHS Cetirizine Hcl 10 Mg Tablet 10 Mg PO DAILY Acetaminophen 325 Mg Tablet 650 Mg PO PRN Q4HRS PRN Aquaphor Ointment (Mineral Oil/Hydrophil Petrolat) 396 Gm Oint...g. 1 [place] TP PRN BID PRN Bisacodyl 5 Mg Tablet.dr 10 Mg PO PRN DAILY PRN Administer if MOM unsuccessful after 24 hours Milk Of Magnesia (Magnesium Hydroxide) 2,400 Mg/10 Ml Oral.susp 2,400 Mg PO PRN AFTMEALHC PRN Trazodone Hcl 50 Mg Tablet 50 Mg PO QHS Mirtazapine 15 Mg Tablet 15 Mg PO QHS Hydrochlorothiazide Tablet (Hydrochlorothiazide) 25 Mg Tablet 25 Mg PO DAILY Glucosamine Hcl 500 Mg Tablet 500 Mg PO BID Calcium 600+D Plus Minerals Tb (Calcium Carb/Vit D3/Minerals) 1 Each Tablet 1 Tab PO BIDWMEALS Atorvastatin Calcium 20 Mg Tablet 20 Mg PO QHS Diagnosis: Problems: (1) Schizophrenia (2) Anxiety disorder (3) Psychosis (4) Impulse control disorder (5) Psychosis, atypical JORDAN AMADOR MD Aug 28, 2017 20:01
--- NOTE | 2017-08-29 00:28 | PN ---
DATE: 08/26/2017 This late entry for 08/26/2017 covers elements not covered in my initial note of 08/26/2017. SUBJECTIVE: I met with the patient in the evening of 08/26/2017. She has had some tremors. Gait is worse. We have asked for Neurology consult with Dr. Jaquez given her Parkinson's. REVIEW OF SYSTEMS: Impaired ambulation, tremors. No CV, , pulmonary, eye, ENT system symptoms on review. MENTAL STATUS EXAM: Reasonably oriented. Speech moderate latency, often responses monosyllabic. Abstraction fair, computation impaired, language function intact, attention span short. Mood and affect somewhat withdrawn. LABORATORY DATA: Reviewed. IMPRESSION: Unchanged from initial note. PLAN: Continue current psychotropics. Reviewed drug interactions. Risk/benefit ratio favors no further change. MAN Darren AMADOR MD DR: ERIKA/anika JOB#: [id number] / [id number]
--- NOTE | 2017-08-29 05:55 | PN ---
DATE: 08/27/2017 This late entry 08/27/2017 covers elements not covered in my initial note of 08/27/2017. I met with the patient evening of 08/27/2017. The patient has been withdrawn, somewhat isolative, tired, has some tremors, has trouble ambulating. She has been seen by Dr. Jaquez for her Parkinson's and I will defer further management of this to Dr. Jaquez. Other than tremors, impaired ambulation, no CV, , pulmonary, eye system symptoms on review. MENTAL STATUS EXAM: Reasonably oriented. Speech moderate latency, often responses monosyllabic. Abstraction fair, computation impaired, language function intact, attention span short, mood and affect withdrawn. LABORATORY DATA: Reviewed. IMPRESSION: Unchanged from initial note. PLAN: Continue current psychotropics, Risperdal Consta, Symmetrel, Depakote at current dosage, level therapeutic at 55, together with Remeron, Wellbutrin and trazodone which is p.r.n. Reviewed drug interactions. Risk/benefit ratio favors no further change. JORDAN AMADOR MD DR: ERIKA/anika JOB#: [id number] / [id number]
[2017-08-29 06:50] VITALS: BP 137/69
[2017-08-29] MEDS: AMANTADINE HCL 100 MG CAPSULE PO SCH ×3 (08:00→16:49)
[2017-08-29] MEDS: hydroCHLOROthiazide 25 MG TABLET PO SCH (08:54)
[2017-08-29] MEDS: CALCIUM CARB/VIT D3 500/200 TABLET PO SCH ×2 (08:54→16:49)
[2017-08-29] MEDS: PRENATAL MULTIVITAMIN TABLET. PO SCH (08:54)
[2017-08-29] MEDS: CETIRIZINE HCL 10 MG TABLET PO SCH (08:54)
[2017-08-29] MEDS: FLUTICASONE 50MCG/NASAL SPRAY 16GM BOTTLE. NS SCH (08:55)
[2017-08-29] MEDS: KETOTIFEN FUMARATE 0.025% OPHT SOLUTION BOTTLE. OU SCH ×2 (08:55→19:23)
[2017-08-29] MEDS: DULoxetine HCL 20 MG CAPSULE.DR PO SCH ×2 (08:57→09:00)
[2017-08-29 16:40] VITALS: BP 129/79
[2017-08-29] MEDS: traZODone 50 MG TABLET. PO SCH ×3 (19:22→21:00)
[2017-08-29] MEDS: GLUCOSAMINE 500 MG CAPSULE PO SCH ×3 (19:22→21:00)
[2017-08-29] MEDS: DIVALPROEX ER 250 MG TAB.ER.24H. PO SCH ×3 (19:22→21:00)
[2017-08-29] MEDS: ATORVASTATIN CALCIUM 20 MG TABLET PO SCH ×3 (19:22→21:00)
[2017-08-29] MEDS: MIRTAZAPINE 15 MG TABLET PO SCH (19:23)
--- NOTE | 2017-08-29 21:47 | PDOC ---
Exam Andre Demential Exam: Andre Note: Please also refer to the separate dictated note~for this date of service dictated separately.~Patient seen individually. Discussed the patient with Nursing staff reviewed the chart.~Reviewed interim history and current functioning. Reviewed vital signs,~Labs/ Radiology~and current medications noted below. Continue current treatment with the changes noted in the dictated addendum note Assessment: Vital Signs: Vital Signs Date Time Temp Pulse Resp B/P (MAP) Pulse Ox O2 Delivery O2 Flow Rate FiO2 08/29/17 16:40 97.1 73 18 129/79 (96) 99 08/24/17 16:24 Room Air I&O Intake and Output 08/30/17 07:00 Intake Total 600 ml Balance 600 ml Intake Oral 600 ml Current Medications: Meds: Current Medications Divalproex Sodium (Depakote Er) 500 mg QHS PO Last administered on 08/13/17 19:28; Start 08/11/17 at 21:00; Stop 08/14/17 at 17:41; Status DC Mirtazapine (Remeron) 15 mg QHS PO Last administered on 08/14/17 19:47; Start 08/11/17 at 21:00; Stop 08/15/17 at 15:45; Status DC Risperidone (RisperDAL CONSTA) 37.5 mg Q2WKS IM ; Start 08/20/17 at 09:00; Stop 08/20/17 at 09:00; Status DC Trazodone HCl (Desyrel) 50 mg QHS PO Last administered on 08/23/17 20:07; Start 08/11/17 at 21:00; Stop 08/24/17 at 19:16; Status DC Amantadine HCl (Symmetrel) 100 mg BIDWMEALS PO Last administered on 08/29/17 16:49; Start 08/11/17 at 08:00 Acetaminophen (Tylenol) 650 mg PRN Q4HRS PRN PO Severe Pain/Temp Last administered on 08/28/17 12:02; Start 08/11/17 at 06:45 Atorvastatin Calcium (Lipitor) 20 mg QHS PO Last administered on 08/27/17 20: 14; Start 08/11/17 at 21:00 Bisacodyl (Dulcolax Tab) 10 mg PRN DAILY PRN PO CONSTIPATION; Start 08/11/17 at 06:45 Cetirizine HCl (ZyrTEC) 10 mg DAILY PO Last administered on 08/29/17 08:54; Start 08/11/17 at 09:00 Fluticasone Propionate (Flonase) 2 spray DAILY NS Last administered on 08:55; Start 08/11/17 at 09:00 Hydrochlorothiazide (Hydrodiuril) 25 mg DAILY PO Last administered on 08:54; Start 08/11/17 at 09:00 Calcium/Vitamin D (Oscal D 500mg/ 200uts) 1 tab BIDWMEALS PO Last administered on 08/29/17 16:49; Start 08/11/17 at 08:00 Glucosamine Sulfate (Glucosamine) 500 mg BID PO Last administered on 08/26/17 06:22; Start 08/11/17 at 09:00 Magnesium Hydroxide (Milk Of Magnesia) 2,400 mg PRN AFTMEALHC PRN PO CONSTIPATION Last administered on 08/17/17 16:22; Start 08/11/17 at 07:45 Multi-Ingred Cream/Lotion/Oil/ Oint (Absorbase) 1 macey PRN BID PRN TP DRY SKIN; Start 08/11/17 at 08:00; Stop 08/11/17 at 21:39; Status DC Non-Formulary Medication 90 ml TIDWMEALS PO ; Start 08/11/17 at 08:00; Stop at 08:00; Status DC Prenat Multivit/ [employer]/Iron/Folic Ac (Multivitamin ) 1 tab DAILY PO Last administered on 08/29/17 08:54; Start 08/12/17 at 09:00 Selenium Sulfide (Selsun Blue) 1 macey 3X/WEEK TP Last administered on 08/23/17 08:23; Start 08/14/17 at 09:00 Multi-Ingred Cream/Lotion/Oil/ Oint (Absorbase) 1 macey PRN BID PRN TP DRY SKIN; Start 08/11/17 at 21:39 Divalproex Sodium (Depakote Er) 250 mg QHS PO Last administered on 08/27/17 20 :15; Start 08/14/17 at 21:00 Mirtazapine (Remeron) 22.5 mg QHS PO Last administered on 08/29/17 19:23; Start 08/15/17 at 21:00 Risperidone (RisperDAL CONSTA) 50 mg Q2WKS IM Last administered on 08/20/17 07:56; Start 08/20/17 at 09:00 Ketotifen Fumarate (Zaditor) 1 drop BID OU Last administered on 08/29/17 19:23 ; Start 08/18/17 at 13:30 Bupropion HCl (Wellbutrin Xl) 150 mg DAILY PO Last administered on 08/23/17 08 :22; Start 08/22/17 at 09:00; Stop 08/23/17 at 13:11; Status DC Bupropion HCl (Wellbutrin Xl) 300 mg DAILY PO Last administered on 08/28/17 10 :17; Start 08/24/17 at 09:00; Stop 08/28/17 at 14:37; Status DC Trazodone HCl (Desyrel) 50 mg QHS PO Last administered on 08/26/17 20:00; Start 08/24/17 at 21:00 Trazodone HCl (Desyrel) 50 mg PRN QHS PRN PO INSOMNIA, MAY REPEAT X1; Start at 19:15 Duloxetine HCl (Cymbalta) 20 mg DAILY PO ; Start 08/29/17 at 09:00 Active Scripts Active Reported Amantadine (Amantadine Hcl) 100 Mg Tablet 100 Mg PO BIDWMEALS [Med Plus] 90 Ml PO TIDWMEALS Haldol (Haloperidol Lactate) 5 Mg/1 Ml Ampul 5 Mg IM PRN Q8HRS PRN Tylenol (Acetaminophen) 325 Mg Tablet 325 Mg PO PRN Q4HRS PRN Risperdal Consta (Risperidone Microspheres) 37.5 Mg/2 Ml Disp.syrin 37.5 Mg IM Q2WKS Cefuroxime (Cefuroxime Axetil) 500 Mg Tablet 500 Mg PO BID 10 Days Analgesic [place] (Methyl Salicylate/Menthol) 28 Gm Oint...g. 1 Applic TP PRN QID PRN Mag-Al Plus Xs Suspension (Mag Hydrox/Al Hydrox/Simeth) 30 Ml Oral.susp 30 Ml PO PRN AFTMEALHC PRN Fluticasone Propionate Nasal [place] (Fluticasone Propionate) 16 Gm [place].susp 2 [place] NS DAILY Depakote Er (Divalproex Sodium) 500 Mg Tab.er.24h 500 Mg PO QHS Cetirizine Hcl 10 Mg Tablet 10 Mg PO DAILY Acetaminophen 325 Mg Tablet 650 Mg PO PRN Q4HRS PRN Aquaphor Ointment (Mineral Oil/Hydrophil Petrolat) 396 Gm Oint...g. 1 [place] TP PRN BID PRN Bisacodyl 5 Mg Tablet.dr 10 Mg PO PRN DAILY PRN Administer if MOM unsuccessful after 24 hours Milk Of Magnesia (Magnesium Hydroxide) 2,400 Mg/10 Ml Oral.susp 2,400 Mg PO PRN AFTMEALHC PRN Trazodone Hcl 50 Mg Tablet 50 Mg PO QHS Mirtazapine 15 Mg Tablet 15 Mg PO QHS Hydrochlorothiazide Tablet (Hydrochlorothiazide) 25 Mg Tablet 25 Mg PO DAILY Glucosamine Hcl 500 Mg Tablet 500 Mg PO BID Calcium 600+D Plus Minerals Tb (Calcium Carb/Vit D3/Minerals) 1 Each Tablet 1 Tab PO BIDWMEALS Atorvastatin Calcium 20 Mg Tablet 20 Mg PO QHS Diagnosis: Problems: (1) Schizophrenia (2) Psychosis (3) Anxiety disorder (4) Impulse control disorder (5) Schizoaffective disorder, chronic condition with acute exacerbation (6) Psychosis, atypical JORDAN AMADOR MD Aug 29, 2017 21:47
[2017-08-30 06:20] VITALS: BP 132/68
--- NOTE | 2017-08-30 07:52 | PN ---
DATE: 08/28/2017 This is a late entry for date of service 08/28/2017 and covers elements not covered in my initial note of 08/28/2017. I met with the patient evening of 08/28/2017. The patient had a seizure episode morning of 08/28/2017. Dr. Jaquez, Neurology was consulted. We stopped the Wellbutrin. She does have a history of a brain tumor removed in 2004. She is somewhat tremulous at times. REVIEW OF SYSTEMS: Ambulation impaired, in a wheelchair. No CV, , pulmonary, eye, ENT system symptoms on review. MENTAL STATUS EXAM: Oriented to herself and situation. Speech has moderate latency, often responses monosyllabic. Abstraction fair, computation impaired, language function intact, short-term memory has some deficits, but otherwise reasonably oriented. LABORATORY DATA: Reviewed. IMPRESSION: Unchanged from initial note. PLAN: Start Cymbalta 20 mg a day. Continue rest of psychotropics. Reviewed drug contractions, risk/benefit ratio favors no further change. She remains on Symmetrel, Risperdal Consta, Depakote ER with a therapeutic level of 55, trazodone along with Remeron 22.5 mg at bedtime. MAN Darren AMADOR MD DR: ERIKA/anika JOB#: [id number] / [id number]
[2017-08-30] MEDS: CALCIUM CARB/VIT D3 500/200 TABLET PO SCH ×3 (08:00→17:08)
[2017-08-30] MEDS: CETIRIZINE HCL 10 MG TABLET PO SCH (08:26)
[2017-08-30] MEDS: DULoxetine HCL 20 MG CAPSULE.DR PO SCH (08:26)
[2017-08-30] MEDS: PRENATAL MULTIVITAMIN TABLET. PO SCH (08:26)
[2017-08-30] MEDS: hydroCHLOROthiazide 25 MG TABLET PO SCH (08:27)
[2017-08-30] MEDS: KETOTIFEN FUMARATE 0.025% OPHT SOLUTION BOTTLE. OU SCH ×2 (08:27→20:21)
[2017-08-30] MEDS: FLUTICASONE 50MCG/NASAL SPRAY 16GM BOTTLE. NS SCH (08:27)
[2017-08-30] MEDS: AMANTADINE HCL 100 MG CAPSULE PO SCH ×2 (08:30→17:08)
[2017-08-30] MEDS: GLUCOSAMINE 500 MG CAPSULE PO SCH ×3 (09:00→20:20)
[2017-08-30] MEDS: PETROLATUM TP PRN (11:51)
[2017-08-30] MEDS: MINERAL OIL TP PRN (11:51)
[2017-08-30] MEDS: SELENIUM SULFIDE 2.5% SHAMPOO 120ML BOTTLE. TP SCH (11:51)
[2017-08-30 16:36] VITALS: BP 122/76
[2017-08-30] MEDS: traZODone 50 MG TABLET. PO SCH (20:20)
[2017-08-30] MEDS: DIVALPROEX ER 250 MG TAB.ER.24H. PO SCH (20:20)
[2017-08-30] MEDS: ATORVASTATIN CALCIUM 20 MG TABLET PO SCH (20:20)
[2017-08-30] MEDS: MIRTAZAPINE 15 MG TABLET PO SCH (20:20)
--- NOTE | 2017-08-30 21:48 | PDOC ---
Exam Andre Demential Exam: Andre Note: Please also refer to the separate dictated note~for this date of service dictated separately.~Patient seen individually. Discussed the patient with Nursing staff reviewed the chart.~Reviewed interim history and current functioning. Reviewed vital signs,~Labs/ Radiology~and current medications noted below. Continue current treatment with the changes noted in the dictated addendum note Assessment: Vital Signs: Vital Signs Date Time Temp Pulse Resp B/P (MAP) Pulse Ox O2 Delivery O2 Flow Rate FiO2 08/30/17 16:36 97.8 87 20 122/76 (91) 95 Room Air I&O Intake and Output 08/31/17 07:00 Intake Total 780 ml Balance 780 ml Intake Oral 780 ml Current Medications: Meds: Current Medications Divalproex Sodium (Depakote Er) 500 mg QHS PO Last administered on 08/13/17 19:28; Start 08/11/17 at 21:00; Stop 08/14/17 at 17:41; Status DC Mirtazapine (Remeron) 15 mg QHS PO Last administered on 08/14/17 19:47; Start 08/11/17 at 21:00; Stop 08/15/17 at 15:45; Status DC Risperidone (RisperDAL CONSTA) 37.5 mg Q2WKS IM ; Start 08/20/17 at 09:00; Stop 08/20/17 at 09:00; Status DC Trazodone HCl (Desyrel) 50 mg QHS PO Last administered on 08/23/17 20:07; Start 08/11/17 at 21:00; Stop 08/24/17 at 19:16; Status DC Amantadine HCl (Symmetrel) 100 mg BIDWMEALS PO Last administered on 08/30/17 17:08; Start 08/11/17 at 08:00 Acetaminophen (Tylenol) 650 mg PRN Q4HRS PRN PO Severe Pain/Temp Last administered on 08/28/17 12:02; Start 08/11/17 at 06:45 Atorvastatin Calcium (Lipitor) 20 mg QHS PO Last administered on 08/30/17 20: 20; Start 08/11/17 at 21:00 Bisacodyl (Dulcolax Tab) 10 mg PRN DAILY PRN PO CONSTIPATION; Start 08/11/17 at 06:45 Cetirizine HCl (ZyrTEC) 10 mg DAILY PO Last administered on 08/30/17 08:26; Start 08/11/17 at 09:00 Fluticasone Propionate (Flonase) 2 spray DAILY NS Last administered on 08:27; Start 08/11/17 at 09:00 Hydrochlorothiazide (Hydrodiuril) 25 mg DAILY PO Last administered on 08:27; Start 08/11/17 at 09:00 Calcium/Vitamin D (Oscal D 500mg/ 200uts) 1 tab BIDWMEALS PO Last administered on 08/30/17 17:08; Start 08/11/17 at 08:00 Glucosamine Sulfate (Glucosamine) 500 mg BID PO Last administered on 08/26/17 06:22; Start 08/11/17 at 09:00; Stop 08/30/17 at 10:04; Status DC Magnesium Hydroxide (Milk Of Magnesia) 2,400 mg PRN AFTMEALHC PRN PO CONSTIPATION Last administered on 08/17/17 16:22; Start 08/11/17 at 07:45 Multi-Ingred Cream/Lotion/Oil/ Oint (Absorbase) 1 macey PRN BID PRN TP DRY SKIN; Start 08/11/17 at 08:00; Stop 08/11/17 at 21:39; Status DC Non-Formulary Medication 90 ml TIDWMEALS PO ; Start 08/11/17 at 08:00; Stop at 08:00; Status DC Prenat Multivit/ [place]/Iron/Folic Ac (Multivitamin ) 1 tab DAILY PO Last administered on 08/30/17 08:26; Start 08/12/17 at 09:00 Selenium Sulfide (Selsun Blue) 1 macey 3X/WEEK TP Last administered on 08/30/17 11:51; Start 08/14/17 at 09:00 Multi-Ingred Cream/Lotion/Oil/ Oint (Absorbase) 1 macey PRN BID PRN TP DRY SKIN Last administered on 08/30/17 11:51; Start 08/11/17 at 21:39 Divalproex Sodium (Depakote Er) 250 mg QHS PO Last administered on 08/27/17 20 :15; Start 08/14/17 at 21:00 Mirtazapine (Remeron) 22.5 mg QHS PO Last administered on 08/30/17 20:20; Start 08/15/17 at 21:00 Risperidone (RisperDAL CONSTA) 50 mg Q2WKS IM Last administered on 08/20/17 07:56; Start 08/20/17 at 09:00 Ketotifen Fumarate (Zaditor) 1 drop BID OU Last administered on 08/30/17 08:27 ; Start 08/18/17 at 13:30 Bupropion HCl (Wellbutrin Xl) 150 mg DAILY PO Last administered on 08/23/17 08 :22; Start 08/22/17 at 09:00; Stop 08/23/17 at 13:11; Status DC Bupropion HCl (Wellbutrin Xl) 300 mg DAILY PO Last administered on 08/28/17 10 :17; Start 08/24/17 at 09:00; Stop 08/28/17 at 14:37; Status DC Trazodone HCl (Desyrel) 50 mg QHS PO Last administered on 08/30/17 20:20; Start 08/24/17 at 21:00 Trazodone HCl (Desyrel) 50 mg PRN QHS PRN PO INSOMNIA, MAY REPEAT X1; Start at 19:15 Duloxetine HCl (Cymbalta) 20 mg DAILY PO Last administered on 08/30/17 08:26; Start 08/29/17 at 09:00; Stop 08/30/17 at 17:17; Status DC Glucosamine Sulfate (Glucosamine) 500 mg BID PO ; Start 08/30/17 at 10:00 Duloxetine HCl (Cymbalta) 30 mg DAILY PO ; Start 08/31/17 at 09:00 Active Scripts Active Reported Amantadine (Amantadine Hcl) 100 Mg Tablet 100 Mg PO BIDWMEALS [Med Plus] 90 Ml PO TIDWMEALS Haldol (Haloperidol Lactate) 5 Mg/1 Ml Ampul 5 Mg IM PRN Q8HRS PRN Tylenol (Acetaminophen) 325 Mg Tablet 325 Mg PO PRN Q4HRS PRN Risperdal Consta (Risperidone Microspheres) 37.5 Mg/2 Ml Disp.syrin 37.5 Mg IM Q2WKS Cefuroxime (Cefuroxime Axetil) 500 Mg Tablet 500 Mg PO BID 10 Days Analgesic [place] (Methyl Salicylate/Menthol) 28 Gm Oint...g. 1 Applic TP PRN QID PRN Mag-Al Plus Xs Suspension (Mag Hydrox/Al Hydrox/Simeth) 30 Ml Oral.susp 30 Ml PO PRN AFTMEALHC PRN Fluticasone Propionate Nasal [place] (Fluticasone Propionate) 16 Gm [place].susp 2 [place] NS DAILY Depakote Er (Divalproex Sodium) 500 Mg Tab.er.24h 500 Mg PO QHS Cetirizine Hcl 10 Mg Tablet 10 Mg PO DAILY Acetaminophen 325 Mg Tablet 650 Mg PO PRN Q4HRS PRN Aquaphor Ointment (Mineral Oil/Hydrophil Petrolat) 396 Gm Oint...g. 1 [place] TP PRN BID PRN Bisacodyl 5 Mg Tablet.dr 10 Mg PO PRN DAILY PRN Administer if MOM unsuccessful after 24 hours Milk Of Magnesia (Magnesium Hydroxide) 2,400 Mg/10 Ml Oral.susp 2,400 Mg PO PRN AFTMEALHC PRN Trazodone Hcl 50 Mg Tablet 50 Mg PO QHS Mirtazapine 15 Mg Tablet 15 Mg PO QHS Hydrochlorothiazide Tablet (Hydrochlorothiazide) 25 Mg Tablet 25 Mg PO DAILY Glucosamine Hcl 500 Mg Tablet 500 Mg PO BID Calcium 600+D Plus Minerals Tb (Calcium Carb/Vit D3/Minerals) 1 Each Tablet 1 Tab PO BIDWMEALS Atorvastatin Calcium 20 Mg Tablet 20 Mg PO QHS Diagnosis: Problems: (1) Schizophrenia (2) Psychosis (3) Anxiety disorder (4) Impulse control disorder (5) Schizoaffective disorder, chronic condition with acute exacerbation (6) Psychosis, atypical JORDAN AMADOR MD Aug 30, 2017 21:48
--- NOTE | 2017-08-31 04:13 | PN ---
DATE: 08/29/2017 PSYCHIATRIC PROGRESS NOTE SUBJECTIVE: This late entry date of service 08/29/2017 covers elements not covered in my initial note of 08/29/2017. I met with the patient evening of 08/29/2017. The patient continues to have some tremors, refused her medications. 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 She was fighting with staff at shower time, refused Cymbalta. REVIEW OF SYSTEMS: Impaired ambulation, hand tremors, and other parkinsonian symptoms. No CV, , pulmonary, eye system symptoms on review. MENTAL STATUS EXAM: Oriented to herself and situation. Speech moderate latency, often responses monosyllabic. Abstraction fair, computation impaired, language function intact, attention span short. Mood and affect somewhat withdrawn. LABORATORY DATA: Reviewed. IMPRESSION: Unchanged from initial note. PLAN: Continue current psychotropics including Risperdal Consta, Depakote, trazodone, Cymbalta. Reviewed drug interactions. Risk/benefit ratio favors no further change. MAN Darren AMADOR MD DR: ERIKA/anika JOB#: [id number] / [id number]
[2017-08-31 06:46] VITALS: BP 157/87
[2017-08-31] MEDS: CETIRIZINE HCL 10 MG TABLET PO SCH (08:42)
[2017-08-31] MEDS: hydroCHLOROthiazide 25 MG TABLET PO SCH (08:42)
[2017-08-31] MEDS: GLUCOSAMINE 500 MG CAPSULE PO SCH (08:42)
[2017-08-31] MEDS: PRENATAL MULTIVITAMIN TABLET. PO SCH (08:42)
[2017-08-31] MEDS: CALCIUM CARB/VIT D3 500/200 TABLET PO SCH ×3 (08:42→17:00)
[2017-08-31] MEDS: FLUTICASONE 50MCG/NASAL SPRAY 16GM BOTTLE. NS SCH ×2 (08:44→08:52)
[2017-08-31] MEDS: DULoxetine HCL 30 MG CAPSULE.DR PO SCH (08:44)
[2017-08-31] MEDS: AMANTADINE HCL 100 MG CAPSULE PO SCH ×2 (08:45→16:13)
[2017-08-31] MEDS: KETOTIFEN FUMARATE 0.025% OPHT SOLUTION BOTTLE. OU SCH ×3 (08:45→20:08)
[2017-08-31 09:23] LABS: BASO % 0 % (0-3); EOS % 0 % (0-3); HEMATOCRIT 41.5 % (36.0-47.0); HEMOGLOBIN 13.8 g/dL (12.0-15.5); LYMPH # 0.5 x10^3/uL (1.0-4.8); LYMPH % 7 % (24-48); MEAN CORPUSCULAR HEMOGLOBIN 30 pg (25-35); MEAN CORPUSCULAR HGB CONC 33 g/dL (31-37); MEAN CORPUSCULAR VOLUME 90 fL (79-100); MONO # 0.6 x10^3/uL (0.0-1.1); MONO % 9 % (0-9); NEUT % 84 % (31-73); PLATELET COUNT 160 x10^3/uL (140-400); RED BLOOD COUNT 4.63 x10^6/uL (3.50-5.40); RED CELL DISTRIBUTION WIDTH 14.7 % (11.5-14.5); WHITE BLOOD COUNT 7.1 x10^3/uL (4.0-11.0)
[2017-08-31 09:44] LABS: ALBUMIN 3.4 g/dL (3.4-5.0); ALBUMIN/GLOBULIN RATIO 0.8 (1.0-1.7); ALK PHOS 95 U/L (46-116); ALT (SGPT) 29 U/L (14-59); ANION GAP 5 (6-14); AST (SGOT) 23 U/L (15-37); BLOOD UREA NITROGEN 20 mg/dL (7-20); BUN/CREATININE RATIO 17 (6-20); CALCIUM 9.1 mg/dL (8.5-10.1); CARBON DIOXIDE 34 mmol/L (21-32); CHLORIDE 100 mmol/L (98-107); CREATININE 1.2 mg/dL (0.6-1.0); GFR 44.3; GLUCOSE 185 mg/dL (70-99); MAGNESIUM 2.1 mg/dL (1.8-2.4); POTASSIUM 3.6 mmol/L (3.5-5.1); SODIUM 139 mmol/L (136-145); TOTAL BILIRUBIN 0.9 mg/dL (0.2-1.0); TOTAL PROTEIN 7.5 g/dL (6.4-8.2)
[2017-08-31 09:45] LABS: VAL ACID 3 mcg/mL (50-100)
[2017-08-31 15:51] VITALS: BP 134/74
[2017-08-31 18:51] LABS: BACTERIA,URINE MANY /HPF (0-FEW); BILIRUBIN,URINE NEG (NEG); CLARITY,URINE CLOUDY; COLOR,URINE YELLOW; GLUCOSE,URINE NEG (NEG); NITRITE,URINE NEG (NEG); RBC,URINE RARE /HPF (0-2); UROBILINOGEN,URINE 0.2 mg/dL (0.2 mg/dL)
[2017-08-31] MEDS: MIRTAZAPINE 15 MG TABLET PO SCH (20:04)
[2017-08-31] MEDS: DIVALPROEX 125 MG CAP.SPRINK PO SCH (20:07)
[2017-08-31] MEDS: CARBIDOPA/LEVODOPA 25/100MG TABLET PO SCH (20:08)
[2017-08-31] MEDS: ATORVASTATIN CALCIUM 20 MG TABLET PO SCH (20:08)
[2017-08-31] MEDS: traZODone 50 MG TABLET. PO SCH (20:08)
[2017-09-01 06:15] VITALS: BP 98/62
[2017-09-01] MEDS: SELENIUM SULFIDE 2.5% SHAMPOO 120ML BOTTLE. TP SCH (09:00)
[2017-09-01] MEDS: KETOTIFEN FUMARATE 0.025% OPHT SOLUTION BOTTLE. OU SCH ×2 (09:00→19:37)
[2017-09-01] MEDS: FLUTICASONE 50MCG/NASAL SPRAY 16GM BOTTLE. NS SCH (09:00)
[2017-09-01] MEDS: CETIRIZINE HCL 10 MG TABLET PO SCH (10:19)
[2017-09-01] MEDS: AMANTADINE HCL 100 MG CAPSULE PO SCH ×2 (10:19→17:34)
[2017-09-01] MEDS: DULoxetine HCL 30 MG CAPSULE.DR PO SCH (10:19)
[2017-09-01] MEDS: CALCIUM CARB/VIT D3 500/200 TABLET PO SCH ×2 (10:19→17:34)
[2017-09-01] MEDS: hydroCHLOROthiazide 25 MG TABLET PO SCH (10:19)
[2017-09-01] MEDS: PRENATAL MULTIVITAMIN TABLET. PO SCH (10:19)
[2017-09-01] MEDS: CARBIDOPA/LEVODOPA 25/100MG TABLET PO SCH ×3 (10:19→19:36)
[2017-09-01 16:39] VITALS: BP 121/71
[2017-09-01] MEDS: ATORVASTATIN CALCIUM 20 MG TABLET PO SCH (19:36)
[2017-09-01] MEDS: DIVALPROEX 125 MG CAP.SPRINK PO SCH (19:36)
[2017-09-01] MEDS: MIRTAZAPINE 15 MG TABLET PO SCH (19:37)
[2017-09-01] MEDS: traZODone 50 MG TABLET. PO SCH (19:37)
--- NOTE | 2017-09-01 20:12 | PDOC ---
Exam Note: Andre Note: Please also refer to the separate dictated note~for this date of service dictated separately.~Patient seen individually. Discussed the patient with Nursing staff reviewed the chart.~Reviewed interim history and current functioning. Reviewed vital signs,~Labs/ Radiology~and current medications noted below. Continue current treatment with the changes noted in the dictated addendum note Assessment: Vital Signs: Vital Signs Date Time Temp Pulse Resp B/P (MAP) Pulse Ox O2 Delivery O2 Flow Rate FiO2 09/01/17 16:39 98.0 67 20 121/71 (88) 96 09/01/17 06:15 Room Air I&O Intake and Output 09/02/17 07:00 Intake Total 720 ml Balance 720 ml Intake Oral 720 ml Current Medications: Meds: Current Medications Divalproex Sodium (Depakote Er) 500 mg QHS PO Last administered on 08/13/17 19:28; Start 08/11/17 at 21:00; Stop 08/14/17 at 17:41; Status DC Mirtazapine (Remeron) 15 mg QHS PO Last administered on 08/14/17 19:47; Start 08/11/17 at 21:00; Stop 08/15/17 at 15:45; Status DC Risperidone (RisperDAL CONSTA) 37.5 mg Q2WKS IM ; Start 08/20/17 at 09:00; Stop 08/20/17 at 09:00; Status DC Trazodone HCl (Desyrel) 50 mg QHS PO Last administered on 08/23/17 20:07; Start 08/11/17 at 21:00; Stop 08/24/17 at 19:16; Status DC Amantadine HCl (Symmetrel) 100 mg BIDWMEALS PO Last administered on 09/01/17 17:34; Start 08/11/17 at 08:00 Acetaminophen (Tylenol) 650 mg PRN Q4HRS PRN PO Severe Pain/Temp Last administered on 08/28/17 12:02; Start 08/11/17 at 06:45 Atorvastatin Calcium (Lipitor) 20 mg QHS PO Last administered on 09/01/17 19: 36; Start 08/11/17 at 21:00 Bisacodyl (Dulcolax Tab) 10 mg PRN DAILY PRN PO CONSTIPATION; Start 08/11/17 at 06:45 Cetirizine HCl (ZyrTEC) 10 mg DAILY PO Last administered on 09/01/17 10:19; Start 08/11/17 at 09:00 Fluticasone Propionate (Flonase) 2 spray DAILY NS Last administered on 08:27; Start 08/11/17 at 09:00 Hydrochlorothiazide (Hydrodiuril) 25 mg DAILY PO Last administered on 10:19; Start 08/11/17 at 09:00 Calcium/Vitamin D (Oscal D 500mg/ 200uts) 1 tab BIDWMEALS PO Last administered on 09/01/17 17:34; Start 08/11/17 at 08:00 Glucosamine Sulfate (Glucosamine) 500 mg BID PO Last administered on 08/26/17 06:22; Start 08/11/17 at 09:00; Stop 08/30/17 at 10:04; Status DC Magnesium Hydroxide (Milk Of Magnesia) 2,400 mg PRN AFTMEALHC PRN PO CONSTIPATION Last administered on 08/17/17 16:22; Start 08/11/17 at 07:45 Multi-Ingred Cream/Lotion/Oil/ Oint (Absorbase) 1 macey PRN BID PRN TP DRY SKIN; Start 08/11/17 at 08:00; Stop 08/11/17 at 21:39; Status DC Non-Formulary Medication 90 ml TIDWMEALS PO ; Start 08/11/17 at 08:00; Stop at 08:00; Status DC Prenat Multivit/ [place]/Iron/Folic Ac (Multivitamin ) 1 tab DAILY PO Last administered on 09/01/17 10:19; Start 08/12/17 at 09:00 Selenium Sulfide (Selsun Blue) 1 macey 3X/WEEK TP Last administered on 08/30/17 11:51; Start 08/14/17 at 09:00 Multi-Ingred Cream/Lotion/Oil/ Oint (Absorbase) 1 macey PRN BID PRN TP DRY SKIN Last administered on 08/30/17 11:51; Start 08/11/17 at 21:39 Divalproex Sodium (Depakote Er) 250 mg QHS PO Last administered on 08/27/17 20 :15; Start 08/14/17 at 21:00; Stop 08/31/17 at 11:46; Status DC Mirtazapine (Remeron) 22.5 mg QHS PO Last administered on 09/01/17 19:37; Start 08/15/17 at 21:00 Risperidone (RisperDAL CONSTA) 50 mg Q2WKS IM Last administered on 08/20/17 07:56; Start 08/20/17 at 09:00 Ketotifen Fumarate (Zaditor) 1 drop BID OU Last administered on 08/31/17 20:08 ; Start 08/18/17 at 13:30 Bupropion HCl (Wellbutrin Xl) 150 mg DAILY PO Last administered on 08/23/17 08 :22; Start 08/22/17 at 09:00; Stop 08/23/17 at 13:11; Status DC Bupropion HCl (Wellbutrin Xl) 300 mg DAILY PO Last administered on 08/28/17 10 :17; Start 08/24/17 at 09:00; Stop 08/28/17 at 14:37; Status DC Trazodone HCl (Desyrel) 50 mg QHS PO Last administered on 09/01/17 19:37; Start 08/24/17 at 21:00 Trazodone HCl (Desyrel) 50 mg PRN QHS PRN PO INSOMNIA, MAY REPEAT X1; Start at 19:15 Duloxetine HCl (Cymbalta) 20 mg DAILY PO Last administered on 08/30/17 08:26; Start 08/29/17 at 09:00; Stop 08/30/17 at 17:17; Status DC Glucosamine Sulfate (Glucosamine) 500 mg BID PO Last administered on 08/31/17 08:42; Start 08/30/17 at 10:00; Stop 08/31/17 at 18:17; Status DC Duloxetine HCl (Cymbalta) 30 mg DAILY PO Last administered on 09/01/17 10:19 ; Start 08/31/17 at 09:00 Divalproex Sodium (Depakote Sprinkles) 250 mg HS PO Last administered on 19:36; Start 08/31/17 at 21:00 Carbidopa/Levodopa (Sinemet 25/100) 1 tab TID PO Last administered on t 19:36; Start 08/31/17 at 21:00 Active Scripts Active Reported Amantadine (Amantadine Hcl) 100 Mg Tablet 100 Mg PO BIDWMEALS [Med Plus] 90 Ml PO TIDWMEALS Haldol (Haloperidol Lactate) 5 Mg/1 Ml Ampul 5 Mg IM PRN Q8HRS PRN Tylenol (Acetaminophen) 325 Mg Tablet 325 Mg PO PRN Q4HRS PRN Risperdal Consta (Risperidone Microspheres) 37.5 Mg/2 Ml Disp.syrin 37.5 Mg IM Q2WKS Cefuroxime (Cefuroxime Axetil) 500 Mg Tablet 500 Mg PO BID 10 Days Analgesic [place] (Methyl Salicylate/Menthol) 28 Gm Oint...g. 1 Applic TP PRN QID PRN Mag-Al Plus Xs Suspension (Mag Hydrox/Al Hydrox/Simeth) 30 Ml Oral.susp 30 Ml PO PRN AFTMEALHC PRN Fluticasone Propionate Nasal [place] (Fluticasone Propionate) 16 Gm [place].susp 2 [place] NS DAILY Depakote Er (Divalproex Sodium) 500 Mg Tab.er.24h 500 Mg PO QHS Cetirizine Hcl 10 Mg Tablet 10 Mg PO DAILY Acetaminophen 325 Mg Tablet 650 Mg PO PRN Q4HRS PRN Aquaphor Ointment (Mineral Oil/Hydrophil Petrolat) 396 Gm Oint...g. 1 [place] TP PRN BID PRN Bisacodyl 5 Mg Tablet.dr 10 Mg PO PRN DAILY PRN Administer if MOM unsuccessful after 24 hours Milk Of Magnesia (Magnesium Hydroxide) 2,400 Mg/10 Ml Oral.susp 2,400 Mg PO PRN AFTMEALHC PRN Trazodone Hcl 50 Mg Tablet 50 Mg PO QHS Mirtazapine 15 Mg Tablet 15 Mg PO QHS Hydrochlorothiazide Tablet (Hydrochlorothiazide) 25 Mg Tablet 25 Mg PO DAILY Glucosamine Hcl 500 Mg Tablet 500 Mg PO BID Calcium 600+D Plus Minerals Tb (Calcium Carb/Vit D3/Minerals) 1 Each Tablet 1 Tab PO BIDWMEALS Atorvastatin Calcium 20 Mg Tablet 20 Mg PO QHS I have reviewed the current psychotropics carefully including drug interactions. Risk benefit ratio favors no change other than as noted in my dictated progress note. Diagnosis: Problems: (1) Schizophrenia (2) Psychosis (3) Anxiety disorder (4) Impulse control disorder (5) Schizoaffective disorder, chronic condition with acute exacerbation (6) Psychosis, atypical JORDAN AMADOR MD Sep 01, 2017 20:12
[2017-09-02 06:07] VITALS: BP 147/70
--- NOTE | 2017-09-02 06:39 | PN ---
DATE: 08/31/2017 PSYCHIATRIC PROGRESS NOTE This is a late entry for 08/31/2017, covers elements not covered in my initial note of 08/31/2017. SUBJECTIVE: The patient was staffed at a treatment team meeting the morning of 08/31/2017, seen individually the evening of 08/31/2017. Reviewed history, diagnosis, progress, current psychotropics, slept 8 hours, appetite 100%, still having some questionable seizure-like activity. EEG awaited, deferred to Dr. Jaquez. Valproic acid level is 3, subtherapeutic. We will change the Depakote to Sprinkles instead of the ER. Check her level in 2 days. REVIEW OF SYSTEMS: Positive for tremors, impaired ambulation. Still delusional regarding the magnet. No CV, , pulmonary, eye system symptoms on review. MENTAL STATUS EXAM: Reasonably oriented. Speech, often responses monosyllabic, coherent, abstraction fair, computation impaired, language function intact. Attention span short. IMPRESSION: Unchanged from initial note. PLAN: Sinemet was started per Dr. Jaquez. EEG, the morning of 09/01/2017. She is retaining urine. We will defer to Dr. Frost. Continue current psychotropics. Reviewed drug interactions. Risk/benefit ratio favors no further change. UA is negative. MAN Darren AMADOR MD DR: ERIKA/anika JOB#: [id number] / [id number]
--- NOTE | 2017-09-02 07:52 | PN ---
DATE: 08/30/2017 PSYCHIATRIC PROGRESS NOTE This late entry 07/30/2017 covers elements, not covered in my initial note of 08/30/2017. I met with the patient evening of 08/30/2017. The patient remains somewhat delusional, believes there is a magnet attached to her ____ magnet, remains somewhat anxious, labile, has had some seizure-like activity, will defer to Dr. Jaquez, Neurology. REVIEW OF SYSTEMS: Ambulation impaired, in wheelchair, consequent to Parkinson's and tremors. Tiredness. No CV, , pulmonary, eye system symptoms on review. MENTAL STATUS EXAM: Reasonably oriented. Speech, low in rate and rhythm; low in volume. Often responses monosyllabic, somewhat delusional. No active suicidal or homicidal ideation. Attention span short. Language function intact. LABORATORY DATA: Reviewed. IMPRESSION: Unchanged from initial note. PLAN: Increase Cymbalta from 20 mg a day to 30 mg a day. Continue rest of the psychotropics. Reviewed drug contractions. Risk/benefit ratio favors no further change. MAN Darren AMADOR MD DR: ERIKA/anika JOB#: [id number] / [id number]
[2017-09-02 08:30] LABS: ALBUMIN 3.1 g/dL (3.4-5.0); ALBUMIN/GLOBULIN RATIO 0.8 (1.0-1.7); ALK PHOS 83 U/L (46-116); ALT (SGPT) 18 U/L (14-59); ANION GAP 6 (6-14); AST (SGOT) 19 U/L (15-37); BLOOD UREA NITROGEN 23 mg/dL (7-20); BUN/CREATININE RATIO 23 (6-20); CALCIUM 9.1 mg/dL (8.5-10.1); CARBON DIOXIDE 34 mmol/L (21-32); CHLORIDE 100 mmol/L (98-107); GFR 54.7; GLUCOSE 93 mg/dL (70-99); MAGNESIUM 2.1 mg/dL (1.8-2.4); POTASSIUM 3.5 mmol/L (3.5-5.1); SODIUM 140 mmol/L (136-145); TOTAL BILIRUBIN 0.5 mg/dL (0.2-1.0); TOTAL PROTEIN 7.2 g/dL (6.4-8.2)
[2017-09-02] MEDS: CALCIUM CARB/VIT D3 500/200 TABLET PO SCH ×2 (08:30→17:16)
[2017-09-02] MEDS: AMANTADINE HCL 100 MG CAPSULE PO SCH ×2 (08:30→17:16)
[2017-09-02] MEDS: CARBIDOPA/LEVODOPA 25/100MG TABLET PO SCH ×3 (08:31→19:39)
[2017-09-02] MEDS: FLUTICASONE 50MCG/NASAL SPRAY 16GM BOTTLE. NS SCH (08:31)
[2017-09-02] MEDS: hydroCHLOROthiazide 25 MG TABLET PO SCH (08:31)
[2017-09-02] MEDS: PRENATAL MULTIVITAMIN TABLET. PO SCH (08:31)
[2017-09-02] MEDS: KETOTIFEN FUMARATE 0.025% OPHT SOLUTION BOTTLE. OU SCH ×2 (08:31→19:40)
[2017-09-02] MEDS: DULoxetine HCL 30 MG CAPSULE.DR PO SCH (08:31)
[2017-09-02] MEDS: CETIRIZINE HCL 10 MG TABLET PO SCH (08:32)
[2017-09-02 08:35] LABS: BASO % 0 % (0-3); EOS # 0.2 x10^3/uL (0.0-0.7); EOS % 2 % (0-3); HEMATOCRIT 39.8 % (36.0-47.0); HEMOGLOBIN 13.3 g/dL (12.0-15.5); LYMPH # 1.1 x10^3/uL (1.0-4.8); LYMPH % 17 % (24-48); MEAN CORPUSCULAR HEMOGLOBIN 30 pg (25-35); MEAN CORPUSCULAR HGB CONC 33 g/dL (31-37); MEAN CORPUSCULAR VOLUME 90 fL (79-100); MONO # 0.6 x10^3/uL (0.0-1.1); MONO % 10 % (0-9); NEUT # 4.5 x10^3uL (1.8-7.7); NEUT % 70 % (31-73); PLATELET COUNT 141 x10^3/uL (140-400); RED BLOOD COUNT 4.44 x10^6/uL (3.50-5.40); RED CELL DISTRIBUTION WIDTH 14.7 % (11.5-14.5); WHITE BLOOD COUNT 6.5 x10^3/uL (4.0-11.0)
[2017-09-02 08:39] LABS: VAL ACID 21 mcg/mL (50-100)
[2017-09-02 16:11] VITALS: BP 110/66
[2017-09-02] MEDS: traZODone 50 MG TABLET. PO SCH (19:38)
[2017-09-02] MEDS: ATORVASTATIN CALCIUM 20 MG TABLET PO SCH (19:39)
[2017-09-02] MEDS: MIRTAZAPINE 15 MG TABLET PO SCH (19:39)
[2017-09-02] MEDS: DIVALPROEX 125 MG CAP.SPRINK PO SCH (19:40)
--- NOTE | 2017-09-02 20:00 | PDOC ---
Exam Note: Andre Note: Please also refer to the separate dictated note~for this date of service dictated separately.~Patient seen individually. Discussed the patient with Nursing staff reviewed the chart.~Reviewed interim history and current functioning. Reviewed vital signs,~Labs/ Radiology~and current medications noted below. Continue current treatment with the changes noted in the dictated addendum note Assessment: Vital Signs: Vital Signs Date Time Temp Pulse Resp B/P (MAP) Pulse Ox O2 Delivery O2 Flow Rate FiO2 09/02/17 16:11 97.0 71 20 110/66 (81) 96 Room Air I&O Intake and Output 09/03/17 07:00 Intake Total 1020 ml Balance 1020 ml Intake Oral 1020 ml Labs: Laboratory Tests Test 09/02/17 07:32 White Blood Count 6.5 x10^3/uL (4.0-11.0) Red Blood Count 4.44 x10^6/uL (3.50-5.40) Hemoglobin 13.3 g/dL (12.0-15.5) Hematocrit 39.8 % (36.0-47.0) Mean Corpuscular Volume 90 fL (79-100) Mean Corpuscular Hemoglobin 30 pg (25-35) Mean Corpuscular Hemoglobin Concent 33 g/dL (31-37) Red Cell Distribution Width 14.7 % (11.5-14.5) H Platelet Count 141 x10^3/uL (140-400) Neutrophils (%) (Auto) 70 % (31-73) Lymphocytes (%) (Auto) 17 % (24-48) L Monocytes (%) (Auto) 10 % (0-9) H Eosinophils (%) (Auto) 2 % (0-3) Basophils (%) (Auto) 0 % (0-3) Neutrophils # (Auto) 4.5 x10^3uL (1.8-7.7) Lymphocytes # (Auto) 1.1 x10^3/uL (1.0-4.8) Monocytes # (Auto) 0.6 x10^3/uL (0.0-1.1) Eosinophils # (Auto) 0.2 x10^3/uL (0.0-0.7) Basophils # (Auto) 0.0 x10^3/uL (0.0-0.2) Sodium Level 140 mmol/L (136-145) Potassium Level 3.5 mmol/L (3.5-5.1) Chloride Level 100 mmol/L (98-107) Carbon Dioxide Level 34 mmol/L (21-32) H Anion Gap 6 (6-14) Blood Urea Nitrogen 23 mg/dL (7-20) H Creatinine 1.0 mg/dL (0.6-1.0) Estimated GFR (Cockcroft-Gault) 54.7 BUN/Creatinine Ratio 23 (6-20) H Glucose Level 93 mg/dL (70-99) Calcium Level 9.1 mg/dL (8.5-10.1) Magnesium Level 2.1 mg/dL (1.8-2.4) Total Bilirubin 0.5 mg/dL (0.2-1.0) Aspartate Amino Transferase (AST) 19 U/L (15-37) Alanine Aminotransferase (ALT) 18 U/L (14-59) Alkaline Phosphatase 83 U/L (46-116) Total Protein 7.2 g/dL (6.4-8.2) Albumin 3.1 g/dL (3.4-5.0) L Albumin/Globulin Ratio 0.8 (1.0-1.7) L Valproic Acid Level 21 mcg/mL (50-100) L Valproic Acid Last Dose Date 09/01/17 Valproic Acid Last Dose Time 2100 Current Medications: Meds: Current Medications Divalproex Sodium (Depakote Er) 500 mg QHS PO Last administered on 08/13/17 19:28; Start 08/11/17 at 21:00; Stop 08/14/17 at 17:41; Status DC Mirtazapine (Remeron) 15 mg QHS PO Last administered on 08/14/17 19:47; Start 08/11/17 at 21:00; Stop 08/15/17 at 15:45; Status DC Risperidone (RisperDAL CONSTA) 37.5 mg Q2WKS IM ; Start 08/20/17 at 09:00; Stop 08/20/17 at 09:00; Status DC Trazodone HCl (Desyrel) 50 mg QHS PO Last administered on 08/23/17 20:07; Start 08/11/17 at 21:00; Stop 08/24/17 at 19:16; Status DC Amantadine HCl (Symmetrel) 100 mg BIDWMEALS PO Last administered on 09/02/17 17:16; Start 08/11/17 at 08:00 Acetaminophen (Tylenol) 650 mg PRN Q4HRS PRN PO Severe Pain/Temp Last administered on 08/28/17 12:02; Start 08/11/17 at 06:45 Atorvastatin Calcium (Lipitor) 20 mg QHS PO Last administered on 09/02/17 19: 39; Start 08/11/17 at 21:00 Bisacodyl (Dulcolax Tab) 10 mg PRN DAILY PRN PO CONSTIPATION; Start 08/11/17 at 06:45 Cetirizine HCl (ZyrTEC) 10 mg DAILY PO Last administered on 09/02/17 08:32; Start 08/11/17 at 09:00 Fluticasone Propionate (Flonase) 2 spray DAILY NS Last administered on 08:31; Start 08/11/17 at 09:00 Hydrochlorothiazide (Hydrodiuril) 25 mg DAILY PO Last administered on 08:31; Start 08/11/17 at 09:00 Calcium/Vitamin D (Oscal D 500mg/ 200uts) 1 tab BIDWMEALS PO Last administered on 09/02/17 17:16; Start 08/11/17 at 08:00 Glucosamine Sulfate (Glucosamine) 500 mg BID PO Last administered on 08/26/17 06:22; Start 08/11/17 at 09:00; Stop 08/30/17 at 10:04; Status DC Magnesium Hydroxide (Milk Of Magnesia) 2,400 mg PRN AFTMEALHC PRN PO CONSTIPATION Last administered on 08/17/17 16:22; Start 08/11/17 at 07:45 Multi-Ingred Cream/Lotion/Oil/ Oint (Absorbase) 1 macey PRN BID PRN TP DRY SKIN; Start 08/11/17 at 08:00; Stop 08/11/17 at 21:39; Status DC Non-Formulary Medication 90 ml TIDWMEALS PO ; Start 08/11/17 at 08:00; Stop at 08:00; Status DC Prenat Multivit/ [place]/Iron/Folic Ac (Multivitamin ) 1 tab DAILY PO Last administered on 09/02/17 08:31; Start 08/12/17 at 09:00 Selenium Sulfide (Selsun Blue) 1 macey 3X/WEEK TP Last administered on 08/30/17 11:51; Start 08/14/17 at 09:00 Multi-Ingred Cream/Lotion/Oil/ Oint (Absorbase) 1 macey PRN BID PRN TP DRY SKIN Last administered on 08/30/17 11:51; Start 08/11/17 at 21:39 Divalproex Sodium (Depakote Er) 250 mg QHS PO Last administered on 08/27/17 20 :15; Start 08/14/17 at 21:00; Stop 08/31/17 at 11:46; Status DC Mirtazapine (Remeron) 22.5 mg QHS PO Last administered on 09/02/17 19:39; Start 08/15/17 at 21:00 Risperidone (RisperDAL CONSTA) 50 mg Q2WKS IM Last administered on 08/20/17 07:56; Start 08/20/17 at 09:00 Ketotifen Fumarate (Zaditor) 1 drop BID OU Last administered on 09/02/17 08: 31; Start 08/18/17 at 13:30 Bupropion HCl (Wellbutrin Xl) 150 mg DAILY PO Last administered on 08/23/17 08 :22; Start 08/22/17 at 09:00; Stop 08/23/17 at 13:11; Status DC Bupropion HCl (Wellbutrin Xl) 300 mg DAILY PO Last administered on 08/28/17 10 :17; Start 08/24/17 at 09:00; Stop 08/28/17 at 14:37; Status DC Trazodone HCl (Desyrel) 50 mg QHS PO Last administered on 09/02/17 19:38; Start 08/24/17 at 21:00 Trazodone HCl (Desyrel) 50 mg PRN QHS PRN PO INSOMNIA, MAY REPEAT X1; Start at 19:15 Duloxetine HCl (Cymbalta) 20 mg DAILY PO Last administered on 08/30/17 08:26; Start 08/29/17 at 09:00; Stop 08/30/17 at 17:17; Status DC Glucosamine Sulfate (Glucosamine) 500 mg BID PO Last administered on 08/31/17 08:42; Start 08/30/17 at 10:00; Stop 08/31/17 at 18:17; Status DC Duloxetine HCl (Cymbalta) 30 mg DAILY PO Last administered on 09/02/17 08:31 ; Start 08/31/17 at 09:00 Divalproex Sodium (Depakote Sprinkles) 250 mg HS PO Last administered on 19:36; Start 08/31/17 at 21:00; Stop 09/02/17 at 18:19; Status DC Carbidopa/Levodopa (Sinemet 25/100) 1 tab TID PO Last administered on 19:39; Start 08/31/17 at 21:00 Divalproex Sodium (Depakote Sprinkles) 375 mg HS PO Last administered on 19:40; Start 09/02/17 at 21:00 Active Scripts Active Reported Amantadine (Amantadine Hcl) 100 Mg Tablet 100 Mg PO BIDWMEALS [Med Plus] 90 Ml PO TIDWMEALS Haldol (Haloperidol Lactate) 5 Mg/1 Ml Ampul 5 Mg IM PRN Q8HRS PRN Tylenol (Acetaminophen) 325 Mg Tablet 325 Mg PO PRN Q4HRS PRN Risperdal Consta (Risperidone Microspheres) 37.5 Mg/2 Ml Disp.syrin 37.5 Mg IM Q2WKS Cefuroxime (Cefuroxime Axetil) 500 Mg Tablet 500 Mg PO BID 10 Days Analgesic [place] (Methyl Salicylate/Menthol) 28 Gm Oint...g. 1 Applic TP PRN QID PRN Mag-Al Plus Xs Suspension (Mag Hydrox/Al Hydrox/Simeth) 30 Ml Oral.susp 30 Ml PO PRN AFTMEALHC PRN Fluticasone Propionate Nasal [place] (Fluticasone Propionate) 16 Gm [place].susp 2 [place] NS DAILY Depakote Er (Divalproex Sodium) 500 Mg Tab.er.24h 500 Mg PO QHS Cetirizine Hcl 10 Mg Tablet 10 Mg PO DAILY Acetaminophen 325 Mg Tablet 650 Mg PO PRN Q4HRS PRN Aquaphor Ointment (Mineral Oil/Hydrophil Petrolat) 396 Gm Oint...g. 1 [place] TP PRN BID PRN Bisacodyl 5 Mg Tablet.dr 10 Mg PO PRN DAILY PRN Administer if MOM unsuccessful after 24 hours Milk Of Magnesia (Magnesium Hydroxide) 2,400 Mg/10 Ml Oral.susp 2,400 Mg PO PRN AFTMEALHC PRN Trazodone Hcl 50 Mg Tablet 50 Mg PO QHS Mirtazapine 15 Mg Tablet 15 Mg PO QHS Hydrochlorothiazide Tablet (Hydrochlorothiazide) 25 Mg Tablet 25 Mg PO DAILY Glucosamine Hcl 500 Mg Tablet 500 Mg PO BID Calcium 600+D Plus Minerals Tb (Calcium Carb/Vit D3/Minerals) 1 Each Tablet 1 Tab PO BIDWMEALS Atorvastatin Calcium 20 Mg Tablet 20 Mg PO QHS I have reviewed the current psychotropics carefully including drug interactions. Risk benefit ratio favors no change other than as noted in my dictated progress note. Diagnosis: Problems: (1) Schizophrenia (2) Psychosis (3) Anxiety disorder (4) Impulse control disorder (5) Schizoaffective disorder, chronic condition with acute exacerbation (6) Psychosis, atypical JORDAN AMADOR MD Sep 02, 2017 20:00
[2017-09-03 06:39] VITALS: BP 126/58
--- NOTE | 2017-09-03 07:39 | PN ---
DATE: 09/01/2017 This is late entry 09/01, covers elements not covered in my initial note of 09/01. SUBJECTIVE: I met with the patient evening of 09/01. She has been started on Sinemet, more expressive. Tremors are better, but persist. Pseudoseizure episodes versus seizure episodes have been less pronounced. Compliant with medications. EEG completed, result awaited. Somewhat delusional. UA has reflexed to culture. REVIEW OF SYSTEMS: No CV, , pulmonary, eye system symptoms on review. Gait unsteady, tremors evident. MENTAL STATUS EXAM: Oriented to herself and situation. Speech moderate latency, often responses monosyllabic. Abstraction fair, computation somewhat impaired, language function intact, reasonably oriented. Mood and affect, dysphoric. IMPRESSION: Unchanged from initial note. PLAN: No further changes in psychotropics from my initial note. MAN Darren AMADOR MD DR: ERIKA/anika JOB#: [id number] / [id number]
[2017-09-03] MEDS: CALCIUM CARB/VIT D3 500/200 TABLET PO SCH ×2 (08:49→17:00)
[2017-09-03] MEDS: AMANTADINE HCL 100 MG CAPSULE PO SCH ×2 (08:50→17:00)
[2017-09-03] MEDS: KETOTIFEN FUMARATE 0.025% OPHT SOLUTION BOTTLE. OU SCH ×2 (08:51→19:48)
[2017-09-03] MEDS: FLUTICASONE 50MCG/NASAL SPRAY 16GM BOTTLE. NS SCH (08:51)
[2017-09-03] MEDS: DULoxetine HCL 30 MG CAPSULE.DR PO SCH (08:51)
[2017-09-03] MEDS: CARBIDOPA/LEVODOPA 25/100MG TABLET PO SCH ×3 (08:58→19:46)
[2017-09-03] MEDS: hydroCHLOROthiazide 25 MG TABLET PO SCH (08:58)
[2017-09-03] MEDS: PRENATAL MULTIVITAMIN TABLET. PO SCH (08:58)
[2017-09-03] MEDS: CETIRIZINE HCL 10 MG TABLET PO SCH (08:58)
[2017-09-03] MEDS: risperiDONE MICROSPHERES 50 MG/2 ML DISP.SYRIN. IM SCH (13:28)
[2017-09-03 16:08] VITALS: BP 133/63
[2017-09-03] MEDS: AMOXICILLIN 250 MG CAPSULE PO SCH ×2 (17:00→19:46)
[2017-09-03] MEDS: ATORVASTATIN CALCIUM 20 MG TABLET PO SCH (19:46)
[2017-09-03] MEDS: MIRTAZAPINE 15 MG TABLET PO SCH (19:46)
[2017-09-03] MEDS: traZODone 50 MG TABLET. PO SCH (19:46)
[2017-09-03] MEDS: DIVALPROEX 125 MG CAP.SPRINK PO SCH (19:46)
[2017-09-03] MEDS: LACTOBACILLUS ACIDOPH & BULGAR 1 TABLET. PO SCH (19:48)
--- NOTE | 2017-09-03 20:06 | PDOC ---
Exam Note: Andre Note: Please also refer to the separate dictated note~for this date of service dictated separately.~Patient seen individually. Discussed the patient with Nursing staff reviewed the chart.~Reviewed interim history and current functioning. Reviewed vital signs,~Labs/ Radiology~and current medications noted below. Continue current treatment with the changes noted in the dictated addendum note Assessment: Vital Signs: Vital Signs Date Time Temp Pulse Resp B/P (MAP) Pulse Ox O2 Delivery O2 Flow Rate FiO2 09/03/17 16:08 96.8 77 20 133/63 (86) 97 Room Air I&O Intake and Output 09/04/17 07:00 Intake Total 960 ml Balance 960 ml Intake Oral 960 ml Current Medications: Meds: Current Medications Divalproex Sodium (Depakote Er) 500 mg QHS PO Last administered on 08/13/17 19:28; Start 08/11/17 at 21:00; Stop 08/14/17 at 17:41; Status DC Mirtazapine (Remeron) 15 mg QHS PO Last administered on 08/14/17 19:47; Start 08/11/17 at 21:00; Stop 08/15/17 at 15:45; Status DC Risperidone (RisperDAL CONSTA) 37.5 mg Q2WKS IM ; Start 08/20/17 at 09:00; Stop 08/20/17 at 09:00; Status DC Trazodone HCl (Desyrel) 50 mg QHS PO Last administered on 08/23/17 20:07; Start 08/11/17 at 21:00; Stop 08/24/17 at 19:16; Status DC Amantadine HCl (Symmetrel) 100 mg BIDWMEALS PO Last administered on 09/03/17 17:00; Start 08/11/17 at 08:00 Acetaminophen (Tylenol) 650 mg PRN Q4HRS PRN PO Severe Pain/Temp Last administered on 08/28/17 12:02; Start 08/11/17 at 06:45 Atorvastatin Calcium (Lipitor) 20 mg QHS PO Last administered on 09/03/17 19: 46; Start 08/11/17 at 21:00 Bisacodyl (Dulcolax Tab) 10 mg PRN DAILY PRN PO CONSTIPATION; Start 08/11/17 at 06:45 Cetirizine HCl (ZyrTEC) 10 mg DAILY PO Last administered on 09/03/17 08:58; Start 08/11/17 at 09:00 Fluticasone Propionate (Flonase) 2 spray DAILY NS Last administered on 08:51; Start 08/11/17 at 09:00 Hydrochlorothiazide (Hydrodiuril) 25 mg DAILY PO Last administered on 08:58; Start 08/11/17 at 09:00 Calcium/Vitamin D (Oscal D 500mg/ 200uts) 1 tab BIDWMEALS PO Last administered on 09/03/17 17:00; Start 08/11/17 at 08:00 Glucosamine Sulfate (Glucosamine) 500 mg BID PO Last administered on 08/26/17 06:22; Start 08/11/17 at 09:00; Stop 08/30/17 at 10:04; Status DC Magnesium Hydroxide (Milk Of Magnesia) 2,400 mg PRN AFTMEALHC PRN PO CONSTIPATION Last administered on 08/17/17 16:22; Start 08/11/17 at 07:45 Multi-Ingred Cream/Lotion/Oil/ Oint (Absorbase) 1 macey PRN BID PRN TP DRY SKIN; Start 08/11/17 at 08:00; Stop 08/11/17 at 21:39; Status DC Non-Formulary Medication 90 ml TIDWMEALS PO ; Start 08/11/17 at 08:00; Stop at 08:00; Status DC Prenat Multivit/ [place]/Iron/Folic Ac (Multivitamin ) 1 tab DAILY PO Last administered on 09/03/17 08:58; Start 08/12/17 at 09:00 Selenium Sulfide (Selsun Blue) 1 macey 3X/WEEK TP Last administered on 08/30/17 11:51; Start 08/14/17 at 09:00 Multi-Ingred Cream/Lotion/Oil/ Oint (Absorbase) 1 macey PRN BID PRN TP DRY SKIN Last administered on 08/30/17 11:51; Start 08/11/17 at 21:39 Divalproex Sodium (Depakote Er) 250 mg QHS PO Last administered on 08/27/17 20 :15; Start 08/14/17 at 21:00; Stop 08/31/17 at 11:46; Status DC Mirtazapine (Remeron) 22.5 mg QHS PO Last administered on 09/03/17 19:46; Start 08/15/17 at 21:00 Risperidone (RisperDAL CONSTA) 50 mg Q2WKS IM Last administered on 08/20/17 07:56; Start 08/20/17 at 09:00 Ketotifen Fumarate (Zaditor) 1 drop BID OU Last administered on 09/03/17 19: 48; Start 08/18/17 at 13:30 Bupropion HCl (Wellbutrin Xl) 150 mg DAILY PO Last administered on 08/23/17 08 :22; Start 08/22/17 at 09:00; Stop 08/23/17 at 13:11; Status DC Bupropion HCl (Wellbutrin Xl) 300 mg DAILY PO Last administered on 08/28/17 10 :17; Start 08/24/17 at 09:00; Stop 08/28/17 at 14:37; Status DC Trazodone HCl (Desyrel) 50 mg QHS PO Last administered on 09/03/17 19:46; Start 08/24/17 at 21:00 Trazodone HCl (Desyrel) 50 mg PRN QHS PRN PO INSOMNIA, MAY REPEAT X1; Start at 19:15 Duloxetine HCl (Cymbalta) 20 mg DAILY PO Last administered on 08/30/17 08:26; Start 08/29/17 at 09:00; Stop 08/30/17 at 17:17; Status DC Glucosamine Sulfate (Glucosamine) 500 mg BID PO Last administered on 08/31/17 08:42; Start 08/30/17 at 10:00; Stop 08/31/17 at 18:17; Status DC Duloxetine HCl (Cymbalta) 30 mg DAILY PO Last administered on 09/03/17 08:51 ; Start 08/31/17 at 09:00 Divalproex Sodium (Depakote Sprinkles) 250 mg HS PO Last administered on 19:36; Start 08/31/17 at 21:00; Stop 09/02/17 at 18:19; Status DC Carbidopa/Levodopa (Sinemet 25/100) 1 tab TID PO Last administered on 19:46; Start 08/31/17 at 21:00 Divalproex Sodium (Depakote Sprinkles) 375 mg HS PO Last administered on 19:46; Start 09/02/17 at 21:00 Amoxicillin (Amoxil) 500 mg [id number] PO Last administered on 09/03/17 19:46; Start 09/03/17 at 15:45; Stop 09/08/17 at 15:44 Lactobacillus Acidophilus (Bacid, Pham-Bid) 1 tab BID PO Last administered on 09/03/17 19:48; Start 09/03/17 at 21:00 Active Scripts Active Reported Amantadine (Amantadine Hcl) 100 Mg Tablet 100 Mg PO BIDWMEALS [Med Plus] 90 Ml PO TIDWMEALS Haldol (Haloperidol Lactate) 5 Mg/1 Ml Ampul 5 Mg IM PRN Q8HRS PRN Tylenol (Acetaminophen) 325 Mg Tablet 325 Mg PO PRN Q4HRS PRN Risperdal Consta (Risperidone Microspheres) 37.5 Mg/2 Ml Disp.syrin 37.5 Mg IM Q2WKS Cefuroxime (Cefuroxime Axetil) 500 Mg Tablet 500 Mg PO BID 10 Days Analgesic [place] (Methyl Salicylate/Menthol) 28 Gm Oint...g. 1 Applic TP PRN QID PRN Mag-Al Plus Xs Suspension (Mag Hydrox/Al Hydrox/Simeth) 30 Ml Oral.susp 30 Ml PO PRN AFTMEALHC PRN Fluticasone Propionate Nasal [place] (Fluticasone Propionate) 16 Gm [place].susp 2 [place] NS DAILY Depakote Er (Divalproex Sodium) 500 Mg Tab.er.24h 500 Mg PO QHS Cetirizine Hcl 10 Mg Tablet 10 Mg PO DAILY Acetaminophen 325 Mg Tablet 650 Mg PO PRN Q4HRS PRN Aquaphor Ointment (Mineral Oil/Hydrophil Petrolat) 396 Gm Oint...g. 1 [place] TP PRN BID PRN Bisacodyl 5 Mg Tablet.dr 10 Mg PO PRN DAILY PRN Administer if MOM unsuccessful after 24 hours Milk Of Magnesia (Magnesium Hydroxide) 2,400 Mg/10 Ml Oral.susp 2,400 Mg PO PRN AFTMEALHC PRN Trazodone Hcl 50 Mg Tablet 50 Mg PO QHS Mirtazapine 15 Mg Tablet 15 Mg PO QHS Hydrochlorothiazide Tablet (Hydrochlorothiazide) 25 Mg Tablet 25 Mg PO DAILY Glucosamine Hcl 500 Mg Tablet 500 Mg PO BID Calcium 600+D Plus Minerals Tb (Calcium Carb/Vit D3/Minerals) 1 Each Tablet 1 Tab PO BIDWMEALS Atorvastatin Calcium 20 Mg Tablet 20 Mg PO QHS I have reviewed the current psychotropics carefully including drug interactions. Risk benefit ratio favors no change other than as noted in my dictated progress note. Diagnosis: Problems: (1) Schizophrenia (2) Psychosis (3) Anxiety disorder (4) Impulse control disorder (5) Schizoaffective disorder, chronic condition with acute exacerbation (6) Psychosis, atypical JORDAN AMADOR MD Sep 03, 2017 20:06
--- NOTE | 2017-09-04 03:22 | PN ---
DATE: 09/02/2017 PSYCHIATRIC PROGRESS NOTE This late entry 09/02/2017 covers elements not covered in my initial note of 09/02/2017. SUBJECTIVE: The patient did well the previous evening, well oriented x 4, slept 4-1/2 hours previous evening. REVIEW OF SYSTEMS: Ambulation impaired; in a wheelchair, some hand tremors. No CV, , pulmonary, eye system symptoms on review. MENTAL STATUS EXAM: Reasonably oriented. Speech coherent, abstraction fair, computation impaired, language function intact, attention span short. Mood and affect somewhat withdrawn. LABORATORIES: Valproic acid level is 21. PLAN: Increase Depakote Sprinkles from 250 mg at bedtime to 375 mg p.o. at bedtime. Check CBC, CMP, valproic acid level in 3 days to reach a therapeutic level. Rest psychotropics unchanged from the initial note. MAN OxanaEverton AMADOR MD DR: ERIKA/anika JOB#: [id number] / [id number]
[2017-09-04 06:02] VITALS: BP 117/77
[2017-09-04] MEDS: CALCIUM CARB/VIT D3 500/200 TABLET PO SCH ×2 (08:04→16:18)
[2017-09-04] MEDS: FLUTICASONE 50MCG/NASAL SPRAY 16GM BOTTLE. NS SCH (08:04)
[2017-09-04] MEDS: AMANTADINE HCL 100 MG CAPSULE PO SCH ×2 (08:04→16:18)
[2017-09-04] MEDS: AMOXICILLIN 250 MG CAPSULE PO SCH ×3 (08:05→20:26)
[2017-09-04] MEDS: KETOTIFEN FUMARATE 0.025% OPHT SOLUTION BOTTLE. OU SCH ×2 (08:05→20:29)
[2017-09-04] MEDS: LACTOBACILLUS ACIDOPH & BULGAR 1 TABLET. PO SCH ×2 (08:05→20:26)
[2017-09-04] MEDS: DULoxetine HCL 30 MG CAPSULE.DR PO SCH (08:05)
[2017-09-04] MEDS: PRENATAL MULTIVITAMIN TABLET. PO SCH (08:06)
[2017-09-04] MEDS: CETIRIZINE HCL 10 MG TABLET PO SCH (08:06)
[2017-09-04] MEDS: CARBIDOPA/LEVODOPA 25/100MG TABLET PO SCH ×3 (08:06→20:26)
[2017-09-04] MEDS: hydroCHLOROthiazide 25 MG TABLET PO SCH (08:06)
[2017-09-04] MEDS: SELENIUM SULFIDE 2.5% SHAMPOO 120ML BOTTLE. TP SCH (08:07)
[2017-09-04] MEDS ORDERED: risperiDONE MICROSPHERES 50 MG/2 ML DISP.SYRIN. IM ONE (16:15)
[2017-09-04 16:20] VITALS: BP 112/57
--- NOTE | 2017-09-04 20:16 | PDOC ---
Exam Note: Andre Note: Please also refer to the separate dictated note~for this date of service dictated separately.~Patient seen individually. Discussed the patient with Nursing staff reviewed the chart.~Reviewed interim history and current functioning. Reviewed vital signs,~Labs/ Radiology~and current medications noted below. Continue current treatment with the changes noted in the dictated addendum note Assessment: Vital Signs: Vital Signs Date Time Temp Pulse Resp B/P (MAP) Pulse Ox O2 Delivery O2 Flow Rate FiO2 09/04/17 16:20 97.3 65 16 112/57 (75) 97 09/03/17 16:08 Room Air I&O Intake and Output 09/04/17 07:00 Intake Total 960 ml Balance 960 ml Intake Oral 960 ml Current Medications: Meds: Current Medications Divalproex Sodium (Depakote Er) 500 mg QHS PO Last administered on 08/13/17 19:28; Start 08/11/17 at 21:00; Stop 08/14/17 at 17:41; Status DC Mirtazapine (Remeron) 15 mg QHS PO Last administered on 08/14/17 19:47; Start 08/11/17 at 21:00; Stop 08/15/17 at 15:45; Status DC Risperidone (RisperDAL CONSTA) 37.5 mg Q2WKS IM ; Start 08/20/17 at 09:00; Stop 08/20/17 at 09:00; Status DC Trazodone HCl (Desyrel) 50 mg QHS PO Last administered on 08/23/17 20:07; Start 08/11/17 at 21:00; Stop 08/24/17 at 19:16; Status DC Amantadine HCl (Symmetrel) 100 mg BIDWMEALS PO Last administered on 09/04/17 16:18; Start 08/11/17 at 08:00 Acetaminophen (Tylenol) 650 mg PRN Q4HRS PRN PO Severe Pain/Temp Last administered on 08/28/17 12:02; Start 08/11/17 at 06:45 Atorvastatin Calcium (Lipitor) 20 mg QHS PO Last administered on 09/03/17 19: 46; Start 08/11/17 at 21:00 Bisacodyl (Dulcolax Tab) 10 mg PRN DAILY PRN PO CONSTIPATION; Start 08/11/17 at 06:45 Cetirizine HCl (ZyrTEC) 10 mg DAILY PO Last administered on 09/04/17 08:06; Start 08/11/17 at 09:00 Fluticasone Propionate (Flonase) 2 spray DAILY NS Last administered on 08:04; Start 08/11/17 at 09:00 Hydrochlorothiazide (Hydrodiuril) 25 mg DAILY PO Last administered on 08:06; Start 08/11/17 at 09:00 Calcium/Vitamin D (Oscal D 500mg/ 200uts) 1 tab BIDWMEALS PO Last administered on 09/04/17 16:18; Start 08/11/17 at 08:00 Glucosamine Sulfate (Glucosamine) 500 mg BID PO Last administered on 08/26/17 06:22; Start 08/11/17 at 09:00; Stop 08/30/17 at 10:04; Status DC Magnesium Hydroxide (Milk Of Magnesia) 2,400 mg PRN AFTMEALHC PRN PO CONSTIPATION Last administered on 08/17/17 16:22; Start 08/11/17 at 07:45 Multi-Ingred Cream/Lotion/Oil/ Oint (Absorbase) 1 macey PRN BID PRN TP DRY SKIN; Start 08/11/17 at 08:00; Stop 08/11/17 at 21:39; Status DC Non-Formulary Medication 90 ml TIDWMEALS PO ; Start 08/11/17 at 08:00; Stop at 08:00; Status DC Prenat Multivit/ [place]/Iron/Folic Ac (Multivitamin ) 1 tab DAILY PO Last administered on 09/04/17 08:06; Start 08/12/17 at 09:00 Selenium Sulfide (Selsun Blue) 1 macey 3X/WEEK TP Last administered on 08:07; Start 08/14/17 at 09:00 Multi-Ingred Cream/Lotion/Oil/ Oint (Absorbase) 1 macey PRN BID PRN TP DRY SKIN Last administered on 08/30/17 11:51; Start 08/11/17 at 21:39 Divalproex Sodium (Depakote Er) 250 mg QHS PO Last administered on 08/27/17 20 :15; Start 08/14/17 at 21:00; Stop 08/31/17 at 11:46; Status DC Mirtazapine (Remeron) 22.5 mg QHS PO Last administered on 09/03/17 19:46; Start 08/15/17 at 21:00 Risperidone (RisperDAL CONSTA) 50 mg Q2WKS IM Last administered on 08/20/17 07:56; Start 08/20/17 at 09:00 Ketotifen Fumarate (Zaditor) 1 drop BID OU Last administered on 09/03/17 19: 48; Start 08/18/17 at 13:30 Bupropion HCl (Wellbutrin Xl) 150 mg DAILY PO Last administered on 08/23/17 08 :22; Start 08/22/17 at 09:00; Stop 08/23/17 at 13:11; Status DC Bupropion HCl (Wellbutrin Xl) 300 mg DAILY PO Last administered on 08/28/17 10 :17; Start 08/24/17 at 09:00; Stop 08/28/17 at 14:37; Status DC Trazodone HCl (Desyrel) 50 mg QHS PO Last administered on 09/03/17 19:46; Start 08/24/17 at 21:00 Trazodone HCl (Desyrel) 50 mg PRN QHS PRN PO INSOMNIA, FEBRUARY REPEAT X1; Start at 19:15 Duloxetine HCl (Cymbalta) 20 mg DAILY PO Last administered on 08/30/17 08:26; Start 08/29/17 at 09:00; Stop 08/30/17 at 17:17; Status DC Glucosamine Sulfate (Glucosamine) 500 mg BID PO Last administered on 08/31/17 08:42; Start 08/30/17 at 10:00; Stop 08/31/17 at 18:17; Status DC Duloxetine HCl (Cymbalta) 30 mg DAILY PO Last administered on 09/04/17 08:05 ; Start 08/31/17 at 09:00 Divalproex Sodium (Depakote Sprinkles) 250 mg HS PO Last administered on 19:36; Start 08/31/17 at 21:00; Stop 09/02/17 at 18:19; Status DC Carbidopa/Levodopa (Sinemet 25/100) 1 tab TID PO Last administered on 13:23; Start 08/31/17 at 21:00 Divalproex Sodium (Depakote Sprinkles) 375 mg HS PO Last administered on 19:46; Start 09/02/17 at 21:00 Amoxicillin (Amoxil) 500 mg [id number] PO Last administered on 09/04/17 13:23; Start 09/03/17 at 15:45; Stop 09/08/17 at 15:44 Lactobacillus Acidophilus (Bacid, Pham-Bid) 1 tab BID PO Last administered on 09/04/17 08:05; Start 09/03/17 at 21:00 Risperidone (RisperDAL CONSTA) 50 mg 1X ONCE IM Last administered on 16:18; Start 09/04/17 at 16:15; Stop 09/04/17 at 16:16; Status DC Active Scripts Active Reported Amantadine (Amantadine Hcl) 100 Mg Tablet 100 Mg PO BIDWMEALS [Med Plus] 90 Ml PO TIDWMEALS Haldol (Haloperidol Lactate) 5 Mg/1 Ml Ampul 5 Mg IM PRN Q8HRS PRN Tylenol (Acetaminophen) 325 Mg Tablet 325 Mg PO PRN Q4HRS PRN Risperdal Consta (Risperidone Microspheres) 37.5 Mg/2 Ml Disp.syrin 37.5 Mg IM Q2WKS Cefuroxime (Cefuroxime Axetil) 500 Mg Tablet 500 Mg PO BID 10 Days Analgesic [place] (Methyl Salicylate/Menthol) 28 Gm Oint...g. 1 Applic TP PRN QID PRN Mag-Al Plus Xs Suspension (Mag Hydrox/Al Hydrox/Simeth) 30 Ml Oral.susp 30 Ml PO PRN AFTMEALHC PRN Fluticasone Propionate Nasal [place] (Fluticasone Propionate) 16 Gm [place].susp 2 [place] NS DAILY Depakote Er (Divalproex Sodium) 500 Mg Tab.er.24h 500 Mg PO QHS Cetirizine Hcl 10 Mg Tablet 10 Mg PO DAILY Acetaminophen 325 Mg Tablet 650 Mg PO PRN Q4HRS PRN Aquaphor Ointment (Mineral Oil/Hydrophil Petrolat) 396 Gm Oint...g. 1 [place] TP PRN BID PRN Bisacodyl 5 Mg Tablet.dr 10 Mg PO PRN DAILY PRN Administer if MOM unsuccessful after 24 hours Milk Of Magnesia (Magnesium Hydroxide) 2,400 Mg/10 Ml Oral.susp 2,400 Mg PO PRN AFTMEALHC PRN Trazodone Hcl 50 Mg Tablet 50 Mg PO QHS Mirtazapine 15 Mg Tablet 15 Mg PO QHS Hydrochlorothiazide Tablet (Hydrochlorothiazide) 25 Mg Tablet 25 Mg PO DAILY Glucosamine Hcl 500 Mg Tablet 500 Mg PO BID Calcium 600+D Plus Minerals Tb (Calcium Carb/Vit D3/Minerals) 1 Each Tablet 1 Tab PO BIDWMEALS Atorvastatin Calcium 20 Mg Tablet 20 Mg PO QHS I have reviewed the current psychotropics carefully including drug interactions. Risk benefit ratio favors no change other than as noted in my dictated progress note. Diagnosis: Problems: (1) Schizophrenia (2) Psychosis (3) Anxiety disorder (4) Impulse control disorder (5) Schizoaffective disorder, chronic condition with acute exacerbation (6) Psychosis, atypical JORDAN AMADOR MD Sep 04, 2017 20:16
[2017-09-04] MEDS: MIRTAZAPINE 15 MG TABLET PO SCH (20:25)
[2017-09-04] MEDS: ATORVASTATIN CALCIUM 20 MG TABLET PO SCH (20:25)
[2017-09-04] MEDS: DIVALPROEX 125 MG CAP.SPRINK PO SCH (20:26)
[2017-09-04] MEDS: traZODone 50 MG TABLET. PO SCH (20:29)
[2017-09-05 06:06] VITALS: BP 143/68
--- NOTE | 2017-09-05 07:52 | PN ---
DATE: 09/03/2017 PSYCHIATRIC PROGRESS NOTE This late entry 09/03/2017, covers elements not covered in my initial note of 09/03/2017. SUBJECTIVE: The patient has a sense of humor, much more interactive with nursing staff, does have UTI, started on Amoxil 500 mg 3 times a day. She is bantering back and forth with nursing staff and other patients about going to the bar for the ladies night out and for dinner, all very appropriate and humorous and seemed to follow along with this. REVIEW OF SYSTEMS: Ambulation impaired, in a wheelchair, tremors are better. No CV, , pulmonary, eye system symptoms on review. MENTAL STATUS EXAM: Reasonably oriented. Speech is coherent, has some latency. Abstraction fair, computation impaired, language function intact, attention span short. Mood and affect less withdrawn. LABORATORY DATA: Reviewed. IMPRESSION: Unchanged from my initial note including urinary tract infection. PLAN: Continue psychotropics mentioned in my initial note, treat the UTI. Adjust further as clinically indicated. MAN Darren AMADOR MD DR: ERIKA/anika JOB#: [id number] / [id number]
[2017-09-05 08:03] LABS: BASO % 0 % (0-3); EOS # 0.1 x10^3/uL (0.0-0.7); EOS % 2 % (0-3); HEMATOCRIT 41.4 % (36.0-47.0); HEMOGLOBIN 13.9 g/dL (12.0-15.5); LYMPH # 1.1 x10^3/uL (1.0-4.8); LYMPH % 25 % (24-48); MEAN CORPUSCULAR HEMOGLOBIN 30 pg (25-35); MEAN CORPUSCULAR HGB CONC 34 g/dL (31-37); MEAN CORPUSCULAR VOLUME 90 fL (79-100); MONO # 0.4 x10^3/uL (0.0-1.1); MONO % 10 % (0-9); NEUT # 2.8 x10^3uL (1.8-7.7); NEUT % 62 % (31-73); PLATELET COUNT 170 x10^3/uL (140-400); RED BLOOD COUNT 4.62 x10^6/uL (3.50-5.40); RED CELL DISTRIBUTION WIDTH 15.1 % (11.5-14.5); WHITE BLOOD COUNT 4.5 x10^3/uL (4.0-11.0)
[2017-09-05 08:08] LABS: ALBUMIN 3.2 g/dL (3.4-5.0); ALBUMIN/GLOBULIN RATIO 0.7 (1.0-1.7); ALK PHOS 95 U/L (46-116); ALT (SGPT) 18 U/L (14-59); ANION GAP 4 (6-14); AST (SGOT) 17 U/L (15-37); BLOOD UREA NITROGEN 18 mg/dL (7-20); BUN/CREATININE RATIO 20 (6-20); CALCIUM 9.4 mg/dL (8.5-10.1); CARBON DIOXIDE 35 mmol/L (21-32); CHLORIDE 101 mmol/L (98-107); CREATININE 0.9 mg/dL (0.6-1.0); GFR 61.7; GLUCOSE 100 mg/dL (70-99); POTASSIUM 3.9 mmol/L (3.5-5.1); SODIUM 140 mmol/L (136-145); TOTAL BILIRUBIN 0.4 mg/dL (0.2-1.0); TOTAL PROTEIN 7.5 g/dL (6.4-8.2)
[2017-09-05 08:10] LABS: VAL ACID 37 mcg/mL (50-100)
[2017-09-05] MEDS: FLUTICASONE 50MCG/NASAL SPRAY 16GM BOTTLE. NS SCH ×2 (09:00→09:33)
[2017-09-05] MEDS: KETOTIFEN FUMARATE 0.025% OPHT SOLUTION BOTTLE. OU SCH ×3 (09:00→20:55)
[2017-09-05] MEDS: CETIRIZINE HCL 10 MG TABLET PO SCH (09:30)
[2017-09-05] MEDS: DULoxetine HCL 30 MG CAPSULE.DR PO SCH (09:30)
[2017-09-05] MEDS: PRENATAL MULTIVITAMIN TABLET. PO SCH (09:30)
[2017-09-05] MEDS: LACTOBACILLUS ACIDOPH & BULGAR 1 TABLET. PO SCH ×2 (09:30→20:46)
[2017-09-05] MEDS: hydroCHLOROthiazide 25 MG TABLET PO SCH (09:30)
[2017-09-05] MEDS: CARBIDOPA/LEVODOPA 25/100MG TABLET PO SCH ×3 (09:30→20:46)
[2017-09-05] MEDS: CALCIUM CARB/VIT D3 500/200 TABLET PO SCH ×3 (09:30→17:34)
[2017-09-05] MEDS: AMOXICILLIN 250 MG CAPSULE PO SCH ×3 (09:30→20:47)
[2017-09-05] MEDS: AMANTADINE HCL 100 MG CAPSULE PO SCH ×2 (09:32→17:34)
[2017-09-05 16:49] VITALS: BP 121/59
--- NOTE | 2017-09-05 20:03 | PDOC ---
Exam Note: Andre Note: Please also refer to the separate dictated note~for this date of service dictated separately.~Patient seen individually. Discussed the patient with Nursing staff reviewed the chart.~Reviewed interim history and current functioning. Reviewed vital signs,~Labs/ Radiology~and current medications noted below. Continue current treatment with the changes noted in the dictated addendum note Assessment: Vital Signs: Vital Signs Date Time Temp Pulse Resp B/P (MAP) Pulse Ox O2 Delivery O2 Flow Rate FiO2 09/05/17 16:49 97.0 63 16 121/59 (79) 100 09/03/17 16:08 Room Air I&O Intake and Output 09/05/17 07:00 Intake Total 840 ml Balance 840 ml Intake Oral 840 ml # Bowel Movements 1 Labs: Laboratory Tests Test 09/05/17 07:25 White Blood Count 4.5 x10^3/uL (4.0-11.0) Red Blood Count 4.62 x10^6/uL (3.50-5.40) Hemoglobin 13.9 g/dL (12.0-15.5) Hematocrit 41.4 % (36.0-47.0) Mean Corpuscular Volume 90 fL (79-100) Mean Corpuscular Hemoglobin 30 pg (25-35) Mean Corpuscular Hemoglobin Concent 34 g/dL (31-37) Red Cell Distribution Width 15.1 % (11.5-14.5) H Platelet Count 170 x10^3/uL (140-400) Neutrophils (%) (Auto) 62 % (31-73) Lymphocytes (%) (Auto) 25 % (24-48) Monocytes (%) (Auto) 10 % (0-9) H Eosinophils (%) (Auto) 2 % (0-3) Basophils (%) (Auto) 0 % (0-3) Neutrophils # (Auto) 2.8 x10^3uL (1.8-7.7) Lymphocytes # (Auto) 1.1 x10^3/uL (1.0-4.8) Monocytes # (Auto) 0.4 x10^3/uL (0.0-1.1) Eosinophils # (Auto) 0.1 x10^3/uL (0.0-0.7) Basophils # (Auto) 0.0 x10^3/uL (0.0-0.2) Sodium Level 140 mmol/L (136-145) Potassium Level 3.9 mmol/L (3.5-5.1) Chloride Level 101 mmol/L (98-107) Carbon Dioxide Level 35 mmol/L (21-32) H Anion Gap 4 (6-14) L Blood Urea Nitrogen 18 mg/dL (7-20) Creatinine 0.9 mg/dL (0.6-1.0) Estimated GFR (Cockcroft-Gault) 61.7 BUN/Creatinine Ratio 20 (6-20) Glucose Level 100 mg/dL (70-99) H Calcium Level 9.4 mg/dL (8.5-10.1) Total Bilirubin 0.4 mg/dL (0.2-1.0) Aspartate Amino Transferase (AST) 17 U/L (15-37) Alanine Aminotransferase (ALT) 18 U/L (14-59) Alkaline Phosphatase 95 U/L (46-116) Total Protein 7.5 g/dL (6.4-8.2) Albumin 3.2 g/dL (3.4-5.0) L Albumin/Globulin Ratio 0.7 (1.0-1.7) L Valproic Acid Level 37 mcg/mL (50-100) L Valproic Acid Last Dose Date 09/04/2017 Valproic Acid Last Dose Time 2100 Current Medications: Meds: Current Medications Divalproex Sodium (Depakote Er) 500 mg QHS PO Last administered on 08/13/17 19:28; Start 08/11/17 at 21:00; Stop 08/14/17 at 17:41; Status DC Mirtazapine (Remeron) 15 mg QHS PO Last administered on 08/14/17 19:47; Start 08/11/17 at 21:00; Stop 08/15/17 at 15:45; Status DC Risperidone (RisperDAL CONSTA) 37.5 mg Q2WKS IM ; Start 08/20/17 at 09:00; Stop 08/20/17 at 09:00; Status DC Trazodone HCl (Desyrel) 50 mg QHS PO Last administered on 08/23/17 20:07; Start 08/11/17 at 21:00; Stop 08/24/17 at 19:16; Status DC Amantadine HCl (Symmetrel) 100 mg BIDWMEALS PO Last administered on 09/05/17 17:34; Start 08/11/17 at 08:00 Acetaminophen (Tylenol) 650 mg PRN Q4HRS PRN PO Severe Pain/Temp Last administered on 08/28/17 12:02; Start 08/11/17 at 06:45 Atorvastatin Calcium (Lipitor) 20 mg QHS PO Last administered on 09/04/17 20: 25; Start 08/11/17 at 21:00 Bisacodyl (Dulcolax Tab) 10 mg PRN DAILY PRN PO CONSTIPATION; Start 08/11/17 at 06:45 Cetirizine HCl (ZyrTEC) 10 mg DAILY PO Last administered on 09/05/17 09:30; Start 08/11/17 at 09:00 Fluticasone Propionate (Flonase) 2 spray DAILY NS Last administered on 08:04; Start 08/11/17 at 09:00 Hydrochlorothiazide (Hydrodiuril) 25 mg DAILY PO Last administered on 09:30; Start 08/11/17 at 09:00 Calcium/Vitamin D (Oscal D 500mg/ 200uts) 1 tab BIDWMEALS PO Last administered on 09/05/17 09:30; Start 08/11/17 at 08:00 Glucosamine Sulfate (Glucosamine) 500 mg BID PO Last administered on 08/26/17 06:22; Start 08/11/17 at 09:00; Stop 08/30/17 at 10:04; Status DC Magnesium Hydroxide (Milk Of Magnesia) 2,400 mg PRN AFTMEALHC PRN PO CONSTIPATION Last administered on 08/17/17 16:22; Start 08/11/17 at 07:45 Multi-Ingred Cream/Lotion/Oil/ Oint (Absorbase) 1 macey PRN BID PRN TP DRY SKIN; Start 08/11/17 at 08:00; Stop 08/11/17 at 21:39; Status DC Non-Formulary Medication 90 ml TIDWMEALS PO ; Start 08/11/17 at 08:00; Stop at 08:00; Status DC Prenat Multivit/ [place]/Iron/Folic Ac (Multivitamin ) 1 tab DAILY PO Last administered on 09/05/17 09:30; Start 08/12/17 at 09:00 Selenium Sulfide (Selsun Blue) 1 macey 3X/WEEK TP Last administered on 08:07; Start 08/14/17 at 09:00 Multi-Ingred Cream/Lotion/Oil/ Oint (Absorbase) 1 macey PRN BID PRN TP DRY SKIN Last administered on 08/30/17 11:51; Start 08/11/17 at 21:39 Divalproex Sodium (Depakote Er) 250 mg QHS PO Last administered on 08/27/17 20 :15; Start 08/14/17 at 21:00; Stop 08/31/17 at 11:46; Status DC Mirtazapine (Remeron) 22.5 mg QHS PO Last administered on 09/04/17 20:25; Start 08/15/17 at 21:00 Risperidone (RisperDAL CONSTA) 50 mg Q2WKS IM Last administered on 08/20/17 07:56; Start 08/20/17 at 09:00 Ketotifen Fumarate (Zaditor) 1 drop BID OU Last administered on 09/04/17 20: 29; Start 08/18/17 at 13:30 Bupropion HCl (Wellbutrin Xl) 150 mg DAILY PO Last administered on 08/23/17 08 :22; Start 08/22/17 at 09:00; Stop 08/23/17 at 13:11; Status DC Bupropion HCl (Wellbutrin Xl) 300 mg DAILY PO Last administered on 08/28/17 10 :17; Start 08/24/17 at 09:00; Stop 08/28/17 at 14:37; Status DC Trazodone HCl (Desyrel) 50 mg QHS PO Last administered on 09/04/17 20:29; Start 08/24/17 at 21:00 Trazodone HCl (Desyrel) 50 mg PRN QHS PRN PO INSOMNIA, MAY REPEAT X1; Start at 19:15 Duloxetine HCl (Cymbalta) 20 mg DAILY PO Last administered on 08/30/17 08:26; Start 08/29/17 at 09:00; Stop 08/30/17 at 17:17; Status DC Glucosamine Sulfate (Glucosamine) 500 mg BID PO Last administered on 08/31/17 08:42; Start 08/30/17 at 10:00; Stop 08/31/17 at 18:17; Status DC Duloxetine HCl (Cymbalta) 30 mg DAILY PO Last administered on 09/05/17 09:30 ; Start 08/31/17 at 09:00 Divalproex Sodium (Depakote Sprinkles) 250 mg HS PO Last administered on 19:36; Start 08/31/17 at 21:00; Stop 09/02/17 at 18:19; Status DC Carbidopa/Levodopa (Sinemet 25/100) 1 tab TID PO Last administered on 14:08; Start 08/31/17 at 21:00 Divalproex Sodium (Depakote Sprinkles) 375 mg HS PO Last administered on 20:26; Start 09/02/17 at 21:00 Amoxicillin (Amoxil) 500 mg [id number] PO Last administered on 09/05/17 14:08; Start 09/03/17 at 15:45; Stop 09/08/17 at 15:44 Lactobacillus Acidophilus (Bacid, Pham-Bid) 1 tab BID PO Last administered on 09/05/17 09:30; Start 09/03/17 at 21:00 Risperidone (RisperDAL CONSTA) 50 mg 1X ONCE IM Last administered on 16:18; Start 09/04/17 at 16:15; Stop 09/04/17 at 16:16; Status DC Active Scripts Active Reported Amantadine (Amantadine Hcl) 100 Mg Tablet 100 Mg PO BIDWMEALS [Med Plus] 90 Ml PO TIDWMEALS Haldol (Haloperidol Lactate) 5 Mg/1 Ml Ampul 5 Mg IM PRN Q8HRS PRN Tylenol (Acetaminophen) 325 Mg Tablet 325 Mg PO PRN Q4HRS PRN Risperdal Consta (Risperidone Microspheres) 37.5 Mg/2 Ml Disp.syrin 37.5 Mg IM Q2WKS Cefuroxime (Cefuroxime Axetil) 500 Mg Tablet 500 Mg PO BID 10 Days Analgesic [place] (Methyl Salicylate/Menthol) 28 Gm Oint...g. 1 Applic TP PRN QID PRN Mag-Al Plus Xs Suspension (Mag Hydrox/Al Hydrox/Simeth) 30 Ml Oral.susp 30 Ml PO PRN AFTMEALHC PRN Fluticasone Propionate Nasal [place] (Fluticasone Propionate) 16 Gm [place].susp 2 [place] NS DAILY Depakote Er (Divalproex Sodium) 500 Mg Tab.er.24h 500 Mg PO QHS Cetirizine Hcl 10 Mg Tablet 10 Mg PO DAILY Acetaminophen 325 Mg Tablet 650 Mg PO PRN Q4HRS PRN Aquaphor Ointment (Mineral Oil/Hydrophil Petrolat) 396 Gm Oint...g. 1 [place] TP PRN BID PRN Bisacodyl 5 Mg Tablet.dr 10 Mg PO PRN DAILY PRN Administer if MOM unsuccessful after 24 hours Milk Of Magnesia (Magnesium Hydroxide) 2,400 Mg/10 Ml Oral.susp 2,400 Mg PO PRN AFTMEALHC PRN Trazodone Hcl 50 Mg Tablet 50 Mg PO QHS Mirtazapine 15 Mg Tablet 15 Mg PO QHS Hydrochlorothiazide Tablet (Hydrochlorothiazide) 25 Mg Tablet 25 Mg PO DAILY Glucosamine Hcl 500 Mg Tablet 500 Mg PO BID Calcium 600+D Plus Minerals Tb (Calcium Carb/Vit D3/Minerals) 1 Each Tablet 1 Tab PO BIDWMEALS Atorvastatin Calcium 20 Mg Tablet 20 Mg PO QHS I have reviewed the current psychotropics carefully including drug interactions. Risk benefit ratio favors no change other than as noted in my dictated progress note. Diagnosis: Problems: (1) Schizophrenia (2) Psychosis (3) Anxiety disorder (4) Impulse control disorder (5) Schizoaffective disorder, chronic condition with acute exacerbation (6) Psychosis, atypical JORDAN AMADOR MD Sep 05, 2017 20:03
[2017-09-05] MEDS: traZODone 50 MG TABLET. PO SCH (20:47)
[2017-09-05] MEDS: DIVALPROEX 125 MG CAP.SPRINK PO SCH (20:47)
[2017-09-05] MEDS: MIRTAZAPINE 15 MG TABLET PO SCH (20:47)
[2017-09-05] MEDS: ATORVASTATIN CALCIUM 20 MG TABLET PO SCH (20:54)
[2017-09-06 05:47] VITALS: BP 130/63
[2017-09-06] MEDS: hydroCHLOROthiazide 25 MG TABLET PO SCH ×2 (08:51→09:00)
[2017-09-06] MEDS: AMOXICILLIN 250 MG CAPSULE PO SCH ×3 (08:51→20:19)
[2017-09-06] MEDS: PRENATAL MULTIVITAMIN TABLET. PO SCH (08:51)
[2017-09-06] MEDS: CETIRIZINE HCL 10 MG TABLET PO SCH (08:52)
[2017-09-06] MEDS: CALCIUM CARB/VIT D3 500/200 TABLET PO SCH ×2 (08:52→16:55)
[2017-09-06] MEDS: SELENIUM SULFIDE 2.5% SHAMPOO 120ML BOTTLE. TP SCH (08:52)
[2017-09-06] MEDS: CARBIDOPA/LEVODOPA 25/100MG TABLET PO SCH ×3 (08:52→20:19)
[2017-09-06] MEDS: DULoxetine HCL 30 MG CAPSULE.DR PO SCH ×2 (08:52→09:00)
[2017-09-06] MEDS: AMANTADINE HCL 100 MG CAPSULE PO SCH ×2 (08:53→16:55)
[2017-09-06] MEDS: LACTOBACILLUS ACIDOPH & BULGAR 1 TABLET. PO SCH (08:53)
[2017-09-06] MEDS: KETOTIFEN FUMARATE 0.025% OPHT SOLUTION BOTTLE. OU SCH ×2 (09:00→20:21)
[2017-09-06] MEDS: FLUTICASONE 50MCG/NASAL SPRAY 16GM BOTTLE. NS SCH (09:00)
--- NOTE | 2017-09-06 10:34 | PN ---
DATE: 09/04/2017 This is late entry 09/04, covers elements not covered in my initial note 09/04. SUBJECTIVE: I met with the patient evening of 09/04. Overall, the patient had a good day per nursing report, less delusional, tremors are better. REVIEW OF SYSTEMS: Ambulation impaired, in a wheelchair. No CV, , pulmonary, eye system symptoms on review. MENTAL STATUS EXAM: Reasonably oriented. Speech has some latency, coherent, often responses monosyllabic. Abstraction fair, computation impaired, language function intact. Mood and affect less withdrawn. LABORATORY DATA: Reviewed. She does have a urinary tract infection, started on amoxicillin. DIAGNOSIS: Unchanged from initial note. PLAN: Continue psychotropics mentioned in my initial note. MAN Darren AMADOR MD DR: ERIKA/anika JOB#: [id number] / [id number]
[2017-09-06 16:07] VITALS: BP 124/57
[2017-09-06 16:24] LABS: ALBUMIN 2.8 g/dL (3.4-5.0); ALBUMIN/GLOBULIN RATIO 0.7 (1.0-1.7); GFR 54.7; POTASSIUM 4.2 mmol/L (3.5-5.1); TOTAL BILIRUBIN 0.2 mg/dL (0.2-1.0); TOTAL PROTEIN 6.6 g/dL (6.4-8.2)
--- NOTE | 2017-09-06 20:09 | PDOC ---
Exam Note: Andre Note: Please also refer to the separate dictated note~for this date of service dictated separately.~Patient seen individually. Discussed the patient with Nursing staff reviewed the chart.~Reviewed interim history and current functioning. Reviewed vital signs,~Labs/ Radiology~and current medications noted below. Continue current treatment with the changes noted in the dictated addendum note Assessment: Vital Signs: Vital Signs Date Time Temp Pulse Resp B/P (MAP) Pulse Ox O2 Delivery O2 Flow Rate FiO2 09/06/17 16:07 97.8 71 16 124/57 (79) 97 09/03/17 16:08 Room Air I&O Intake and Output 09/06/17 07:00 Intake Total 1320 ml Balance 1320 ml Intake Oral 1320 ml Labs: Laboratory Tests Test 09/06/17 15:55 Sodium Level 140 mmol/L (136-145) Potassium Level 4.2 mmol/L (3.5-5.1) Chloride Level 101 mmol/L (98-107) Carbon Dioxide Level 34 mmol/L (21-32) H Anion Gap 5 (6-14) L Blood Urea Nitrogen 19 mg/dL (7-20) Creatinine 1.0 mg/dL (0.6-1.0) Estimated GFR (Cockcroft-Gault) 54.7 BUN/Creatinine Ratio 19 (6-20) Glucose Level 188 mg/dL (70-99) H Calcium Level 9.0 mg/dL (8.5-10.1) Total Bilirubin 0.2 mg/dL (0.2-1.0) Aspartate Amino Transferase (AST) 15 U/L (15-37) Alanine Aminotransferase (ALT) 17 U/L (14-59) Alkaline Phosphatase 91 U/L (46-116) Total Protein 6.6 g/dL (6.4-8.2) Albumin 2.8 g/dL (3.4-5.0) L Albumin/Globulin Ratio 0.7 (1.0-1.7) L Current Medications: Meds: Current Medications Divalproex Sodium (Depakote Er) 500 mg QHS PO Last administered on 08/13/17 19:28; Start 08/11/17 at 21:00; Stop 08/14/17 at 17:41; Status DC Mirtazapine (Remeron) 15 mg QHS PO Last administered on 08/14/17 19:47; Start 08/11/17 at 21:00; Stop 08/15/17 at 15:45; Status DC Risperidone (RisperDAL CONSTA) 37.5 mg Q2WKS IM ; Start 08/20/17 at 09:00; Stop 08/20/17 at 09:00; Status DC Trazodone HCl (Desyrel) 50 mg QHS PO Last administered on 08/23/17 20:07; Start 08/11/17 at 21:00; Stop 08/24/17 at 19:16; Status DC Amantadine HCl (Symmetrel) 100 mg BIDWMEALS PO Last administered on 09/06/17 16:55; Start 08/11/17 at 08:00 Acetaminophen (Tylenol) 650 mg PRN Q4HRS PRN PO Severe Pain/Temp Last administered on 08/28/17 12:02; Start 08/11/17 at 06:45 Atorvastatin Calcium (Lipitor) 20 mg QHS PO Last administered on 09/05/17 20: 54; Start 08/11/17 at 21:00 Bisacodyl (Dulcolax Tab) 10 mg PRN DAILY PRN PO CONSTIPATION; Start 08/11/17 at 06:45 Cetirizine HCl (ZyrTEC) 10 mg DAILY PO Last administered on 09/06/17 08:52; Start 08/11/17 at 09:00 Fluticasone Propionate (Flonase) 2 spray DAILY NS Last administered on 08:04; Start 08/11/17 at 09:00 Hydrochlorothiazide (Hydrodiuril) 25 mg DAILY PO Last administered on 09:30; Start 08/11/17 at 09:00 Calcium/Vitamin D (Oscal D 500mg/ 200uts) 1 tab BIDWMEALS PO Last administered on 09/06/17 16:55; Start 08/11/17 at 08:00 Glucosamine Sulfate (Glucosamine) 500 mg BID PO Last administered on 08/26/17 06:22; Start 08/11/17 at 09:00; Stop 08/30/17 at 10:04; Status DC Magnesium Hydroxide (Milk Of Magnesia) 2,400 mg PRN AFTMEALHC PRN PO CONSTIPATION Last administered on 08/17/17 16:22; Start 08/11/17 at 07:45 Multi-Ingred Cream/Lotion/Oil/ Oint (Absorbase) 1 macey PRN BID PRN TP DRY SKIN; Start 08/11/17 at 08:00; Stop 08/11/17 at 21:39; Status DC Non-Formulary Medication 90 ml TIDWMEALS PO ; Start 08/11/17 at 08:00; Stop at 08:00; Status DC Prenat Multivit/ [place]/Iron/Folic Ac (Multivitamin ) 1 tab DAILY PO Last administered on 09/06/17 08:51; Start 08/12/17 at 09:00 Selenium Sulfide (Selsun Blue) 1 macey 3X/WEEK TP Last administered on 08:07; Start 08/14/17 at 09:00 Multi-Ingred Cream/Lotion/Oil/ Oint (Absorbase) 1 macey PRN BID PRN TP DRY SKIN Last administered on 08/30/17 11:51; Start 08/11/17 at 21:39 Divalproex Sodium (Depakote Er) 250 mg QHS PO Last administered on 08/27/17 20 :15; Start 08/14/17 at 21:00; Stop 08/31/17 at 11:46; Status DC Mirtazapine (Remeron) 22.5 mg QHS PO Last administered on 09/05/17 20:47; Start 08/15/17 at 21:00 Risperidone (RisperDAL CONSTA) 50 mg Q2WKS IM Last administered on 08/20/17 07:56; Start 08/20/17 at 09:00 Ketotifen Fumarate (Zaditor) 1 drop BID OU Last administered on 09/05/17 20: 55; Start 08/18/17 at 13:30 Bupropion HCl (Wellbutrin Xl) 150 mg DAILY PO Last administered on 08/23/17 08 :22; Start 08/22/17 at 09:00; Stop 08/23/17 at 13:11; Status DC Bupropion HCl (Wellbutrin Xl) 300 mg DAILY PO Last administered on 08/28/17 10 :17; Start 08/24/17 at 09:00; Stop 08/28/17 at 14:37; Status DC Trazodone HCl (Desyrel) 50 mg QHS PO Last administered on 09/05/17 20:47; Start 08/24/17 at 21:00 Trazodone HCl (Desyrel) 50 mg PRN QHS PRN PO INSOMNIA, MAY REPEAT X1; Start at 19:15 Duloxetine HCl (Cymbalta) 20 mg DAILY PO Last administered on 08/30/17 08:26; Start 08/29/17 at 09:00; Stop 08/30/17 at 17:17; Status DC Glucosamine Sulfate (Glucosamine) 500 mg BID PO Last administered on 08/31/17 08:42; Start 08/30/17 at 10:00; Stop 08/31/17 at 18:17; Status DC Duloxetine HCl (Cymbalta) 30 mg DAILY PO Last administered on 09/05/17 09:30 ; Start 08/31/17 at 09:00 Divalproex Sodium (Depakote Sprinkles) 250 mg HS PO Last administered on 19:36; Start 08/31/17 at 21:00; Stop 09/02/17 at 18:19; Status DC Carbidopa/Levodopa (Sinemet 25/100) 1 tab TID PO Last administered on 14:47; Start 08/31/17 at 21:00 Divalproex Sodium (Depakote Sprinkles) 375 mg HS PO Last administered on 20:47; Start 09/02/17 at 21:00 Amoxicillin (Amoxil) 500 mg [id number] PO Last administered on 09/06/17 14:47; Start 09/03/17 at 15:45; Stop 09/08/17 at 15:44 Lactobacillus Acidophilus (Bacid, Pham-Bid) 1 tab BID PO Last administered on 09/05/17 20:46; Start 09/03/17 at 21:00; Stop 09/06/17 at 14:36; Status DC Risperidone (RisperDAL CONSTA) 50 mg 1X ONCE IM Last administered on 16:18; Start 09/04/17 at 16:15; Stop 09/04/17 at 16:16; Status DC Lactobacillus Rhamnosus (Culturelle) 1 cap BID PO ; Start 09/06/17 at 21:00 Divalproex Sodium (Depakote Sprinkles) 250 mg DAILY PO ; Start 09/07/17 at 09: 00 Active Scripts Active Reported Amantadine (Amantadine Hcl) 100 Mg Tablet 100 Mg PO BIDWMEALS [Med Plus] 90 Ml PO TIDWMEALS Haldol (Haloperidol Lactate) 5 Mg/1 Ml Ampul 5 Mg IM PRN Q8HRS PRN Tylenol (Acetaminophen) 325 Mg Tablet 325 Mg PO PRN Q4HRS PRN Risperdal Consta (Risperidone Microspheres) 37.5 Mg/2 Ml Disp.syrin 37.5 Mg IM Q2WKS Cefuroxime (Cefuroxime Axetil) 500 Mg Tablet 500 Mg PO BID 10 Days Analgesic [place] (Methyl Salicylate/Menthol) 28 Gm Oint...g. 1 Applic TP PRN QID PRN Mag-Al Plus Xs Suspension (Mag Hydrox/Al Hydrox/Simeth) 30 Ml Oral.susp 30 Ml PO PRN AFTMEALHC PRN Fluticasone Propionate Nasal [place] (Fluticasone Propionate) 16 Gm [place].susp 2 [place] NS DAILY Depakote Er (Divalproex Sodium) 500 Mg Tab.er.24h 500 Mg PO QHS Cetirizine Hcl 10 Mg Tablet 10 Mg PO DAILY Acetaminophen 325 Mg Tablet 650 Mg PO PRN Q4HRS PRN Aquaphor Ointment (Mineral Oil/Hydrophil Petrolat) 396 Gm Oint...g. 1 [place] TP PRN BID PRN Bisacodyl 5 Mg Tablet.dr 10 Mg PO PRN DAILY PRN Administer if MOM unsuccessful after 24 hours Milk Of Magnesia (Magnesium Hydroxide) 2,400 Mg/10 Ml Oral.susp 2,400 Mg PO PRN AFTMEALHC PRN Trazodone Hcl 50 Mg Tablet 50 Mg PO QHS Mirtazapine 15 Mg Tablet 15 Mg PO QHS Hydrochlorothiazide Tablet (Hydrochlorothiazide) 25 Mg Tablet 25 Mg PO DAILY Glucosamine Hcl 500 Mg Tablet 500 Mg PO BID Calcium 600+D Plus Minerals Tb (Calcium Carb/Vit D3/Minerals) 1 Each Tablet 1 Tab PO BIDWMEALS Atorvastatin Calcium 20 Mg Tablet 20 Mg PO QHS I have reviewed the current psychotropics carefully including drug interactions. Risk benefit ratio favors no change other than as noted in my dictated progress note. Diagnosis: Problems: (1) Schizophrenia (2) Psychosis (3) Anxiety disorder (4) Impulse control disorder (5) Schizoaffective disorder, chronic condition with acute exacerbation (6) Psychosis, atypical JORDAN AMADOR MD Sep 06, 2017 20:09
[2017-09-06] MEDS: ATORVASTATIN CALCIUM 20 MG TABLET PO SCH (20:19)
[2017-09-06] MEDS: traZODone 50 MG TABLET. PO SCH (20:19)
[2017-09-06] MEDS: MIRTAZAPINE 15 MG TABLET PO SCH (20:19)
[2017-09-06] MEDS: DIVALPROEX 125 MG CAP.SPRINK PO SCH (20:20)
[2017-09-06] MEDS: LACTOBACILLUS RHAMNOSUS GG 1 CAPSULE. PO SCH (20:21)
[2017-09-07 05:52] VITALS: BP 129/67
--- NOTE | 2017-09-07 07:56 | PN ---
DATE: 09/05/2017 PSYCHIATRIC PROGRESS NOTE This late entry 09/05/2017 covers elements, not covered in my initial note of 09/05/2017. I met with the patient in the evening of 09/05/2017. The patient remains quite psychotic, believes that Dr. Sales, her psychiatrist, is wanting to discharge her AMA and she was obsessed about this as I met with her, unable to be redirected. REVIEW OF SYSTEMS: Ambulation impaired. No CV, , pulmonary, eye, ENT system symptoms on review. MENTAL STATUS EXAM: Oriented to herself and situation. Speech has some latency, coherent. Abstraction fair, computation impaired, language function intact, attention span short. Mood and affect somewhat withdrawn. LABORATORY DATA: Reviewed. IMPRESSION: Bipolar 1 disorder mixed with psychotic features; Parkinson's disease; psychotic disorder, unspecified; anxiety disorder, unspecified. PLAN: Continue the patient on her current psychotropics mentioned in my initial note. She is on Risperdal Consta 50 mg IM every 2 weeks, Depakote Sprinkles 375 mg p.o. at bedtime, level is up slightly subtherapeutic at 37 and we will increase it to 250 mg a.m. and 375 at bedtime to see if better control on her bipolar disorder with mood stabilizer that might be adequate to help curb some of her psychotic symptoms. I would prefer not to increase the atypical antipsychotic Risperdal since this may further worsen her Parkinson's symptoms requiring an increase in her Sinemet, which would then worsen the psychosis resulting in never ending cycle of problematic symptoms. We will see how she does with this. I have also discussed with social service staff today at length about discharge plans and had to refigure these given her significant ongoing psychosis for which the nursing called me as an emergency today. IMPRESSION: Unchanged from initial note. PLAN: Continue psychotropics mentioned in my initial note other than the changes noted above. JORDAN AMADOR MD DR: ERIKA/anika JOB#: [id number] / [id number]
[2017-09-07] MEDS: KETOTIFEN FUMARATE 0.025% OPHT SOLUTION BOTTLE. OU SCH ×2 (09:00→19:25)
[2017-09-07] MEDS: FLUTICASONE 50MCG/NASAL SPRAY 16GM BOTTLE. NS SCH (09:00)
[2017-09-07] MEDS: CETIRIZINE HCL 10 MG TABLET PO SCH (09:21)
[2017-09-07] MEDS: PRENATAL MULTIVITAMIN TABLET. PO SCH (09:22)
[2017-09-07] MEDS: AMOXICILLIN 250 MG CAPSULE PO SCH ×3 (09:22→19:26)
[2017-09-07] MEDS: DULoxetine HCL 30 MG CAPSULE.DR PO SCH (09:22)
[2017-09-07] MEDS: CARBIDOPA/LEVODOPA 25/100MG TABLET PO SCH ×3 (09:22→19:27)
[2017-09-07] MEDS: LACTOBACILLUS RHAMNOSUS GG 1 CAPSULE. PO SCH ×5 (09:22→21:00)
[2017-09-07] MEDS: hydroCHLOROthiazide 25 MG TABLET PO SCH ×2 (09:22→12:22)
[2017-09-07] MEDS: CALCIUM CARB/VIT D3 500/200 TABLET PO SCH ×3 (09:22→17:02)
[2017-09-07] MEDS: DIVALPROEX 125 MG CAP.SPRINK PO SCH ×5 (09:31→20:02)
[2017-09-07] MEDS: AMANTADINE HCL 100 MG CAPSULE PO SCH ×2 (09:42→17:02)
[2017-09-07] MEDS: SELENIUM SULFIDE 2.5% SHAMPOO 120ML BOTTLE. TP SCH (11:37)
[2017-09-07 16:58] VITALS: BP 127/50
[2017-09-07] MEDS: traZODone 50 MG TABLET. PO SCH (19:26)
[2017-09-07] MEDS: ATORVASTATIN CALCIUM 20 MG TABLET PO SCH ×3 (19:26→20:03)
[2017-09-07] MEDS: MIRTAZAPINE 15 MG TABLET PO SCH (19:27)
[2017-09-07] MEDS: QUEtiapine 25 MG TABLET. PO SCH ×3 (19:43→21:00)
--- NOTE | 2017-09-07 20:40 | PDOC ---
Exam Note: Andre Note: Please also refer to the separate dictated note~for this date of service dictated separately.~Patient seen individually. Discussed the patient with Nursing staff reviewed the chart.~Reviewed interim history and current functioning. Reviewed vital signs,~Labs/ Radiology~and current medications noted below. Continue current treatment with the changes noted in the dictated addendum note Assessment: Vital Signs: Vital Signs Date Time Temp Pulse Resp B/P (MAP) Pulse Ox O2 Delivery O2 Flow Rate FiO2 09/07/17 16:58 98.3 65 18 127/50 (75) 96 Room Air I&O Intake and Output 09/07/17 07:00 Intake Total 1200 ml Balance 1200 ml Intake Oral 1200 ml # Bowel Movements 1 Current Medications: Meds: Current Medications Divalproex Sodium (Depakote Er) 500 mg QHS PO Last administered on 08/13/17 19:28; Start 08/11/17 at 21:00; Stop 08/14/17 at 17:41; Status DC Mirtazapine (Remeron) 15 mg QHS PO Last administered on 08/14/17 19:47; Start 08/11/17 at 21:00; Stop 08/15/17 at 15:45; Status DC Risperidone (RisperDAL CONSTA) 37.5 mg Q2WKS IM ; Start 08/20/17 at 09:00; Stop 08/20/17 at 09:00; Status DC Trazodone HCl (Desyrel) 50 mg QHS PO Last administered on 08/23/17 20:07; Start 08/11/17 at 21:00; Stop 08/24/17 at 19:16; Status DC Amantadine HCl (Symmetrel) 100 mg BIDWMEALS PO Last administered on 09/07/17 17:02; Start 08/11/17 at 08:00 Acetaminophen (Tylenol) 650 mg PRN Q4HRS PRN PO Severe Pain/Temp Last administered on 08/28/17 12:02; Start 08/11/17 at 06:45 Atorvastatin Calcium (Lipitor) 20 mg QHS PO Last administered on 09/06/17 20: 19; Start 08/11/17 at 21:00 Bisacodyl (Dulcolax Tab) 10 mg PRN DAILY PRN PO CONSTIPATION; Start 08/11/17 at 06:45 Cetirizine HCl (ZyrTEC) 10 mg DAILY PO Last administered on 09/07/17 09:21; Start 08/11/17 at 09:00 Fluticasone Propionate (Flonase) 2 spray DAILY NS Last administered on 08:04; Start 08/11/17 at 09:00 Hydrochlorothiazide (Hydrodiuril) 25 mg DAILY PO Last administered on 12:22; Start 08/11/17 at 09:00 Calcium/Vitamin D (Oscal D 500mg/ 200uts) 1 tab BIDWMEALS PO Last administered on 09/07/17 09:22; Start 08/11/17 at 08:00 Glucosamine Sulfate (Glucosamine) 500 mg BID PO Last administered on 08/26/17 06:22; Start 08/11/17 at 09:00; Stop 08/30/17 at 10:04; Status DC Magnesium Hydroxide (Milk Of Magnesia) 2,400 mg PRN AFTMEALHC PRN PO CONSTIPATION Last administered on 08/17/17 16:22; Start 08/11/17 at 07:45 Multi-Ingred Cream/Lotion/Oil/ Oint (Absorbase) 1 macey PRN BID PRN TP DRY SKIN; Start 08/11/17 at 08:00; Stop 08/11/17 at 21:39; Status DC Non-Formulary Medication 90 ml TIDWMEALS PO ; Start 08/11/17 at 08:00; Stop at 08:00; Status DC Prenat Multivit/ [place]/Iron/Folic Ac (Multivitamin ) 1 tab DAILY PO Last administered on 09/07/17 09:22; Start 08/12/17 at 09:00 Selenium Sulfide (Selsun Blue) 1 macey 3X/WEEK TP Last administered on 11:37; Start 08/14/17 at 09:00 Multi-Ingred Cream/Lotion/Oil/ Oint (Absorbase) 1 macey PRN BID PRN TP DRY SKIN Last administered on 08/30/17 11:51; Start 08/11/17 at 21:39 Divalproex Sodium (Depakote Er) 250 mg QHS PO Last administered on 08/27/17 20 :15; Start 08/14/17 at 21:00; Stop 08/31/17 at 11:46; Status DC Mirtazapine (Remeron) 22.5 mg QHS PO Last administered on 09/07/17 19:27; Start 08/15/17 at 21:00 Risperidone (RisperDAL CONSTA) 50 mg Q2WKS IM Last administered on 08/20/17 07:56; Start 08/20/17 at 09:00 Ketotifen Fumarate (Zaditor) 1 drop BID OU Last administered on 09/07/17 19: 25; Start 08/18/17 at 13:30 Bupropion HCl (Wellbutrin Xl) 150 mg DAILY PO Last administered on 08/23/17 08 :22; Start 08/22/17 at 09:00; Stop 08/23/17 at 13:11; Status DC Bupropion HCl (Wellbutrin Xl) 300 mg DAILY PO Last administered on 08/28/17 10 :17; Start 08/24/17 at 09:00; Stop 08/28/17 at 14:37; Status DC Trazodone HCl (Desyrel) 50 mg QHS PO Last administered on 09/07/17 19:26; Start 08/24/17 at 21:00 Trazodone HCl (Desyrel) 50 mg PRN QHS PRN PO INSOMNIA, MAY REPEAT X1; Start at 19:15 Duloxetine HCl (Cymbalta) 20 mg DAILY PO Last administered on 08/30/17 08:26; Start 08/29/17 at 09:00; Stop 08/30/17 at 17:17; Status DC Glucosamine Sulfate (Glucosamine) 500 mg BID PO Last administered on 08/31/17 08:42; Start 08/30/17 at 10:00; Stop 08/31/17 at 18:17; Status DC Duloxetine HCl (Cymbalta) 30 mg DAILY PO Last administered on 09/07/17 09:22 ; Start 08/31/17 at 09:00 Divalproex Sodium (Depakote Sprinkles) 250 mg HS PO Last administered on 19:36; Start 08/31/17 at 21:00; Stop 09/02/17 at 18:19; Status DC Carbidopa/Levodopa (Sinemet 25/100) 1 tab TID PO Last administered on 19:27; Start 08/31/17 at 21:00 Divalproex Sodium (Depakote Sprinkles) 375 mg HS PO Last administered on 20:20; Start 09/02/17 at 21:00 Amoxicillin (Amoxil) 500 mg [id number] PO Last administered on 09/07/17 19:26; Start 09/03/17 at 15:45; Stop 09/08/17 at 15:44 Lactobacillus Acidophilus (Bacid, Pham-Bid) 1 tab BID PO Last administered on 09/05/17 20:46; Start 09/03/17 at 21:00; Stop 09/06/17 at 14:36; Status DC Risperidone (RisperDAL CONSTA) 50 mg 1X ONCE IM Last administered on 16:18; Start 09/04/17 at 16:15; Stop 09/04/17 at 16:16; Status DC Lactobacillus Rhamnosus (Culturelle) 1 cap BID PO Last administered on 12:22; Start 09/06/17 at 21:00 Divalproex Sodium (Depakote Sprinkles) 250 mg DAILY PO Last administered on 12:22; Start 09/07/17 at 09:00 Quetiapine Fumarate (SEROquel) 25 mg HS PO ; Start 09/07/17 at 21:00 Active Scripts Active Reported Amantadine (Amantadine Hcl) 100 Mg Tablet 100 Mg PO BIDWMEALS [Med Plus] 90 Ml PO TIDWMEALS Haldol (Haloperidol Lactate) 5 Mg/1 Ml Ampul 5 Mg IM PRN Q8HRS PRN Tylenol (Acetaminophen) 325 Mg Tablet 325 Mg PO PRN Q4HRS PRN Risperdal Consta (Risperidone Microspheres) 37.5 Mg/2 Ml Disp.syrin 37.5 Mg IM Q2WKS Cefuroxime (Cefuroxime Axetil) 500 Mg Tablet 500 Mg PO BID 10 Days Analgesic [place] (Methyl Salicylate/Menthol) 28 Gm Oint...g. 1 Applic TP PRN QID PRN Mag-Al Plus Xs Suspension (Mag Hydrox/Al Hydrox/Simeth) 30 Ml Oral.susp 30 Ml PO PRN AFTMEALHC PRN Fluticasone Propionate Nasal [place] (Fluticasone Propionate) 16 Gm [place].susp 2 [place] NS DAILY Depakote Er (Divalproex Sodium) 500 Mg Tab.er.24h 500 Mg PO QHS Cetirizine Hcl 10 Mg Tablet 10 Mg PO DAILY Acetaminophen 325 Mg Tablet 650 Mg PO PRN Q4HRS PRN Aquaphor Ointment (Mineral Oil/Hydrophil Petrolat) 396 Gm Oint...g. 1 Macey TP PRN BID PRN Bisacodyl 5 Mg Tablet.dr 10 Mg PO PRN DAILY PRN Administer if MOM unsuccessful after 24 hours Milk Of Magnesia (Magnesium Hydroxide) 2,400 Mg/10 Ml Oral.susp 2,400 Mg PO PRN AFTMEALHC PRN Trazodone Hcl 50 Mg Tablet 50 Mg PO QHS Mirtazapine 15 Mg Tablet 15 Mg PO QHS Hydrochlorothiazide Tablet (Hydrochlorothiazide) 25 Mg Tablet 25 Mg PO DAILY Glucosamine Hcl 500 Mg Tablet 500 Mg PO BID Calcium 600+D Plus Minerals Tb (Calcium Carb/Vit D3/Minerals) 1 Each Tablet 1 Tab PO BIDWMEALS Atorvastatin Calcium 20 Mg Tablet 20 Mg PO QHS I have reviewed the current psychotropics carefully including drug interactions. Risk benefit ratio favors no change other than as noted in my dictated progress note. Diagnosis: Problems: (1) Schizophrenia (2) Psychosis (3) Anxiety disorder (4) Impulse control disorder (5) Schizoaffective disorder, chronic condition with acute exacerbation (6) Psychosis, atypical JORDAN AMADOR MD Sep 07, 2017 20:40
[2017-09-08 06:06] VITALS: BP 135/65
[2017-09-08] MEDS: DULoxetine HCL 30 MG CAPSULE.DR PO SCH (08:25)
[2017-09-08] MEDS: hydroCHLOROthiazide 25 MG TABLET PO SCH (08:25)
[2017-09-08] MEDS: AMOXICILLIN 250 MG CAPSULE PO SCH ×2 (08:25→13:10)
[2017-09-08] MEDS: PRENATAL MULTIVITAMIN TABLET. PO SCH (08:25)
[2017-09-08] MEDS: DIVALPROEX 125 MG CAP.SPRINK PO SCH ×2 (08:25→20:34)
[2017-09-08] MEDS: CALCIUM CARB/VIT D3 500/200 TABLET PO SCH ×2 (08:25→17:01)
[2017-09-08] MEDS: CARBIDOPA/LEVODOPA 25/100MG TABLET PO SCH ×3 (08:25→20:34)
[2017-09-08] MEDS: CETIRIZINE HCL 10 MG TABLET PO SCH (08:25)
[2017-09-08] MEDS: AMANTADINE HCL 100 MG CAPSULE PO SCH ×2 (08:27→17:01)
[2017-09-08] MEDS: FLUTICASONE 50MCG/NASAL SPRAY 16GM BOTTLE. NS SCH ×2 (08:28→08:39)
[2017-09-08] MEDS: KETOTIFEN FUMARATE 0.025% OPHT SOLUTION BOTTLE. OU SCH ×3 (08:28→20:35)
[2017-09-08 16:19] VITALS: BP 118/73
--- NOTE | 2017-09-08 20:08 | PDOC ---
Exam Note: Andre Note: Please also refer to the separate dictated note~for this date of service dictated separately.~Patient seen individually. Discussed the patient with Nursing staff reviewed the chart.~Reviewed interim history and current functioning. Reviewed vital signs,~Labs/ Radiology~and current medications noted below. Continue current treatment with the changes noted in the dictated addendum note Assessment: Vital Signs: Vital Signs Date Time Temp Pulse Resp B/P (MAP) Pulse Ox O2 Delivery O2 Flow Rate FiO2 09/08/17 16:19 97.2 69 18 118/73 (88) 99 Room Air I&O Intake and Output 09/08/17 07:00 Intake Total 1440 ml Balance 1440 ml Intake Oral 1440 ml Current Medications: Meds: Current Medications Divalproex Sodium (Depakote Er) 500 mg QHS PO Last administered on 08/13/17 19:28; Start 08/11/17 at 21:00; Stop 08/14/17 at 17:41; Status DC Mirtazapine (Remeron) 15 mg QHS PO Last administered on 08/14/17 19:47; Start 08/11/17 at 21:00; Stop 08/15/17 at 15:45; Status DC Risperidone (RisperDAL CONSTA) 37.5 mg Q2WKS IM ; Start 08/20/17 at 09:00; Stop 08/20/17 at 09:00; Status DC Trazodone HCl (Desyrel) 50 mg QHS PO Last administered on 08/23/17 20:07; Start 08/11/17 at 21:00; Stop 08/24/17 at 19:16; Status DC Amantadine HCl (Symmetrel) 100 mg BIDWMEALS PO Last administered on 09/08/17 17:01; Start 08/11/17 at 08:00 Acetaminophen (Tylenol) 650 mg PRN Q4HRS PRN PO Severe Pain/Temp Last administered on 08/28/17 12:02; Start 08/11/17 at 06:45 Atorvastatin Calcium (Lipitor) 20 mg QHS PO Last administered on 09/06/17 20: 19; Start 08/11/17 at 21:00 Bisacodyl (Dulcolax Tab) 10 mg PRN DAILY PRN PO CONSTIPATION; Start 08/11/17 at 06:45 Cetirizine HCl (ZyrTEC) 10 mg DAILY PO Last administered on 09/08/17 08:25; Start 08/11/17 at 09:00 Fluticasone Propionate (Flonase) 2 spray DAILY NS Last administered on 08:04; Start 08/11/17 at 09:00 Hydrochlorothiazide (Hydrodiuril) 25 mg DAILY PO Last administered on 08:25; Start 08/11/17 at 09:00 Calcium/Vitamin D (Oscal D 500mg/ 200uts) 1 tab BIDWMEALS PO Last administered on 09/08/17 17:01; Start 08/11/17 at 08:00 Glucosamine Sulfate (Glucosamine) 500 mg BID PO Last administered on 08/26/17 06:22; Start 08/11/17 at 09:00; Stop 08/30/17 at 10:04; Status DC Magnesium Hydroxide (Milk Of Magnesia) 2,400 mg PRN AFTMEALHC PRN PO CONSTIPATION Last administered on 08/17/17 16:22; Start 08/11/17 at 07:45 Multi-Ingred Cream/Lotion/Oil/ Oint (Absorbase) 1 macey PRN BID PRN TP DRY SKIN; Start 08/11/17 at 08:00; Stop 08/11/17 at 21:39; Status DC Non-Formulary Medication 90 ml TIDWMEALS PO ; Start 08/11/17 at 08:00; Stop at 08:00; Status DC Prenat Multivit/ [place]/Iron/Folic Ac (Multivitamin ) 1 tab DAILY PO Last administered on 09/08/17 08:25; Start 08/12/17 at 09:00 Selenium Sulfide (Selsun Blue) 1 macey 3X/WEEK TP Last administered on 11:37; Start 08/14/17 at 09:00 Multi-Ingred Cream/Lotion/Oil/ Oint (Absorbase) 1 macey PRN BID PRN TP DRY SKIN Last administered on 08/30/17 11:51; Start 08/11/17 at 21:39 Divalproex Sodium (Depakote Er) 250 mg QHS PO Last administered on 08/27/17 20 :15; Start 08/14/17 at 21:00; Stop 08/31/17 at 11:46; Status DC Mirtazapine (Remeron) 22.5 mg QHS PO Last administered on 09/07/17 19:27; Start 08/15/17 at 21:00 Risperidone (RisperDAL CONSTA) 50 mg Q2WKS IM Last administered on 08/20/17 07:56; Start 08/20/17 at 09:00 Ketotifen Fumarate (Zaditor) 1 drop BID OU Last administered on 09/07/17 19: 25; Start 08/18/17 at 13:30 Bupropion HCl (Wellbutrin Xl) 150 mg DAILY PO Last administered on 08/23/17 08 :22; Start 08/22/17 at 09:00; Stop 08/23/17 at 13:11; Status DC Bupropion HCl (Wellbutrin Xl) 300 mg DAILY PO Last administered on 08/28/17 10 :17; Start 08/24/17 at 09:00; Stop 08/28/17 at 14:37; Status DC Trazodone HCl (Desyrel) 50 mg QHS PO Last administered on 09/07/17 19:26; Start 08/24/17 at 21:00 Trazodone HCl (Desyrel) 50 mg PRN QHS PRN PO INSOMNIA, MAY REPEAT X1; Start at 19:15 Duloxetine HCl (Cymbalta) 20 mg DAILY PO Last administered on 08/30/17 08:26; Start 08/29/17 at 09:00; Stop 08/30/17 at 17:17; Status DC Glucosamine Sulfate (Glucosamine) 500 mg BID PO Last administered on 08/31/17 08:42; Start 08/30/17 at 10:00; Stop 08/31/17 at 18:17; Status DC Duloxetine HCl (Cymbalta) 30 mg DAILY PO Last administered on 09/08/17 08:25 ; Start 08/31/17 at 09:00 Divalproex Sodium (Depakote Sprinkles) 250 mg HS PO Last administered on 19:36; Start 08/31/17 at 21:00; Stop 09/02/17 at 18:19; Status DC Carbidopa/Levodopa (Sinemet 25/100) 1 tab TID PO Last administered on 13:11; Start 08/31/17 at 21:00 Divalproex Sodium (Depakote Sprinkles) 375 mg HS PO Last administered on 20:20; Start 09/02/17 at 21:00 Amoxicillin (Amoxil) 500 mg [id number] PO Last administered on 09/08/17 13:10; Start 09/03/17 at 15:45; Stop 09/08/17 at 15:44; Status DC Lactobacillus Acidophilus (Bacid, Pham-Bid) 1 tab BID PO Last administered on 09/05/17 20:46; Start 09/03/17 at 21:00; Stop 09/06/17 at 14:36; Status DC Risperidone (RisperDAL CONSTA) 50 mg 1X ONCE IM Last administered on 16:18; Start 09/04/17 at 16:15; Stop 09/04/17 at 16:16; Status DC Lactobacillus Rhamnosus (Culturelle) 1 cap BID PO Last administered on 12:22; Start 09/06/17 at 21:00 Divalproex Sodium (Depakote Sprinkles) 250 mg DAILY PO Last administered on 08:25; Start 09/07/17 at 09:00 Quetiapine Fumarate (SEROquel) 25 mg HS PO ; Start 09/07/17 at 21:00 Active Scripts Active Reported Amantadine (Amantadine Hcl) 100 Mg Tablet 100 Mg PO BIDWMEALS [Med Plus] 90 Ml PO TIDWMEALS Haldol (Haloperidol Lactate) 5 Mg/1 Ml Ampul 5 Mg IM PRN Q8HRS PRN Tylenol (Acetaminophen) 325 Mg Tablet 325 Mg PO PRN Q4HRS PRN Risperdal Consta (Risperidone Microspheres) 37.5 Mg/2 Ml Disp.syrin 37.5 Mg IM Q2WKS Cefuroxime (Cefuroxime Axetil) 500 Mg Tablet 500 Mg PO BID 10 Days Analgesic [place] (Methyl Salicylate/Menthol) 28 Gm Oint...g. 1 Applic TP PRN QID PRN Mag-Al Plus Xs Suspension (Mag Hydrox/Al Hydrox/Simeth) 30 Ml Oral.susp 30 Ml PO PRN AFTMEALHC PRN Fluticasone Propionate Nasal [place] (Fluticasone Propionate) 16 Gm [place].susp 2 [place] NS DAILY Depakote Er (Divalproex Sodium) 500 Mg Tab.er.24h 500 Mg PO QHS Cetirizine Hcl 10 Mg Tablet 10 Mg PO DAILY Acetaminophen 325 Mg Tablet 650 Mg PO PRN Q4HRS PRN Aquaphor Ointment (Mineral Oil/Hydrophil Petrolat) 396 Gm Oint...g. 1 [place]acey TP PRN BID PRN Bisacodyl 5 Mg Tablet.dr 10 Mg PO PRN DAILY PRN Administer if MOM unsuccessful after 24 hours Milk Of Magnesia (Magnesium Hydroxide) 2,400 Mg/10 Ml Oral.susp 2,400 Mg PO PRN AFTMEALHC PRN Trazodone Hcl 50 Mg Tablet 50 Mg PO QHS Mirtazapine 15 Mg Tablet 15 Mg PO QHS Hydrochlorothiazide Tablet (Hydrochlorothiazide) 25 Mg Tablet 25 Mg PO DAILY Glucosamine Hcl 500 Mg Tablet 500 Mg PO BID Calcium 600+D Plus Minerals Tb (Calcium Carb/Vit D3/Minerals) 1 Each Tablet 1 Tab PO BIDWMEALS Atorvastatin Calcium 20 Mg Tablet 20 Mg PO QHS I have reviewed the current psychotropics carefully including drug interactions. Risk benefit ratio favors no change other than as noted in my dictated progress note. Diagnosis: Problems: (1) Schizophrenia (2) Psychosis (3) Anxiety disorder (4) Impulse control disorder (5) Schizoaffective disorder, chronic condition with acute exacerbation (6) Psychosis, atypical JORDAN AMADOR MD Sep 08, 2017 20:07
[2017-09-08] MEDS: MIRTAZAPINE 15 MG TABLET PO SCH (20:34)
[2017-09-08] MEDS: LACTOBACILLUS RHAMNOSUS GG 1 CAPSULE. PO SCH (20:34)
[2017-09-08] MEDS: QUEtiapine 25 MG TABLET. PO SCH (20:34)
[2017-09-08] MEDS: ATORVASTATIN CALCIUM 20 MG TABLET PO SCH (20:34)
[2017-09-08] MEDS: traZODone 50 MG TABLET. PO SCH (20:35)
[2017-09-09 05:56] VITALS: BP 151/89
--- NOTE | 2017-09-09 06:54 | PN ---
DATE: 09/08/2017 This is a late entry 09/06/2017 and covers elements not covered in my initial note of 09/06/2017. The patient had a rough day per nursing staff, delusional, had bowel movement after milk of mag because she is constipated. Depakote has been adjusted. REVIEW OF SYSTEMS: Ambulation impaired. No CV, , pulmonary, eye system symptoms on review. Complains of tremors. MENTAL STATUS EXAM: Oriented to herself and situation. Speech coherent, has some latency, delusional about [employer] psychiatrists wanting to discharge her AMA. Processed at length with her. Attention span short. Language function intact. Mood and affect somewhat anxious, labile. IMPRESSION: Unchanged from initial note. PLAN: No change from my initial note for now. MAN Darren AMADOR MD DR: ERIKA/anika JOB#: [id number] / [id number]
--- NOTE | 2017-09-09 06:58 | PN ---
DATE: 09/07/2017 PSYCHIATRIC PROGRESS NOTE This late entry 09/07/2017 covers elements not covered in my initial note. SUBJECTIVE: The patient was staffed at treatment team meeting in the morning, seen individually in the evening. She refused probiotics the previous evening, still paranoid, anxious. REVIEW OF SYSTEMS: Ambulation impaired with tremors in wheelchair. No CV, , pulmonary, eye system symptoms on review. MENTAL STATUS EXAM: Reasonably oriented. Speech coherent, abstraction fair, computation impaired, language function intact, still delusional about [employer] and others, discharging AMA. We will check with Dr. Jaquez whether Sinemet can be adjusted downward to help offset her paranoia, refused her medications at times. No suicidal or homicidal ideation. IMPRESSION: Unchanged from initial note. PLAN: Start Seroquel 25 mg p.o. at bedtime. Continue Risperdal Consta. Continue rest of the psychotropics mentioned in my initial note. JORDAN AMADOR MD DR: ERIKA/anika JOB#: [id number] / [id number]
[2017-09-09] MEDS: DIVALPROEX 125 MG CAP.SPRINK PO SCH ×2 (07:47→20:16)
[2017-09-09] MEDS: PRENATAL MULTIVITAMIN TABLET. PO SCH (07:47)
[2017-09-09] MEDS: CARBIDOPA/LEVODOPA 25/100MG TABLET PO SCH ×3 (07:47→20:17)
[2017-09-09] MEDS: AMANTADINE HCL 100 MG CAPSULE PO SCH ×2 (07:47→17:18)
[2017-09-09] MEDS: CETIRIZINE HCL 10 MG TABLET PO SCH (07:47)
[2017-09-09] MEDS: DULoxetine HCL 30 MG CAPSULE.DR PO SCH (07:47)
[2017-09-09] MEDS: CALCIUM CARB/VIT D3 500/200 TABLET PO SCH ×2 (07:47→17:18)
[2017-09-09] MEDS: hydroCHLOROthiazide 25 MG TABLET PO SCH (07:47)
[2017-09-09] MEDS: LACTOBACILLUS RHAMNOSUS GG 1 CAPSULE. PO SCH ×2 (07:47→20:16)
[2017-09-09] MEDS: FLUTICASONE 50MCG/NASAL SPRAY 16GM BOTTLE. NS SCH (07:48)
[2017-09-09] MEDS: KETOTIFEN FUMARATE 0.025% OPHT SOLUTION BOTTLE. OU SCH ×2 (07:48→20:16)
[2017-09-09 08:53] LABS: BASO % 1 % (0-3); EOS # 0.1 x10^3/uL (0.0-0.7); EOS % 1 % (0-3); HEMATOCRIT 41.3 % (36.0-47.0); HEMOGLOBIN 13.9 g/dL (12.0-15.5); LYMPH # 1.1 x10^3/uL (1.0-4.8); LYMPH % 23 % (24-48); MEAN CORPUSCULAR HEMOGLOBIN 30 pg (25-35); MEAN CORPUSCULAR HGB CONC 34 g/dL (31-37); MEAN CORPUSCULAR VOLUME 90 fL (79-100); MONO # 0.5 x10^3/uL (0.0-1.1); MONO % 11 % (0-9); NEUT % 64 % (31-73); PLATELET COUNT 171 x10^3/uL (140-400); RED BLOOD COUNT 4.58 x10^6/uL (3.50-5.40); RED CELL DISTRIBUTION WIDTH 14.4 % (11.5-14.5); WHITE BLOOD COUNT 4.7 x10^3/uL (4.0-11.0)
[2017-09-09 09:27] LABS: VAL ACID 21 mcg/mL (50-100)
[2017-09-09 16:03] VITALS: BP 131/70
[2017-09-09] MEDS: traZODone 50 MG TABLET. PO SCH (20:16)
[2017-09-09] MEDS: MIRTAZAPINE 15 MG TABLET PO SCH (20:17)
[2017-09-09] MEDS: ATORVASTATIN CALCIUM 20 MG TABLET PO SCH (20:17)
[2017-09-09] MEDS: QUEtiapine 25 MG TABLET. PO SCH (20:17)
--- NOTE | 2017-09-09 21:18 | PDOC ---
Exam Note: Andre Note: Please also refer to the separate dictated note~for this date of service dictated separately.~Patient seen individually. Discussed the patient with Nursing staff reviewed the chart.~Reviewed interim history and current functioning. Reviewed vital signs,~Labs/ Radiology~and current medications noted below. Continue current treatment with the changes noted in the dictated addendum note Assessment: Vital Signs: Vital Signs Date Time Temp Pulse Resp B/P (MAP) Pulse Ox O2 Delivery O2 Flow Rate FiO2 09/09/17 16:03 98.6 64 18 131/70 (90) 100 09/08/17 16:19 Room Air I&O Intake and Output 09/09/17 07:00 Intake Total 1200 ml Balance 1200 ml Intake Oral 1200 ml Labs: Laboratory Tests Test 09/09/17 08:47 White Blood Count 4.7 x10^3/uL (4.0-11.0) Red Blood Count 4.58 x10^6/uL (3.50-5.40) Hemoglobin 13.9 g/dL (12.0-15.5) Hematocrit 41.3 % (36.0-47.0) Mean Corpuscular Volume 90 fL (79-100) Mean Corpuscular Hemoglobin 30 pg (25-35) Mean Corpuscular Hemoglobin Concent 34 g/dL (31-37) Red Cell Distribution Width 14.4 % (11.5-14.5) Platelet Count 171 x10^3/uL (140-400) Neutrophils (%) (Auto) 64 % (31-73) Lymphocytes (%) (Auto) 23 % (24-48) L Monocytes (%) (Auto) 11 % (0-9) H Eosinophils (%) (Auto) 1 % (0-3) Basophils (%) (Auto) 1 % (0-3) Neutrophils # (Auto) 3.0 x10^3uL (1.8-7.7) Lymphocytes # (Auto) 1.1 x10^3/uL (1.0-4.8) Monocytes # (Auto) 0.5 x10^3/uL (0.0-1.1) Eosinophils # (Auto) 0.1 x10^3/uL (0.0-0.7) Basophils # (Auto) 0.0 x10^3/uL (0.0-0.2) Magnesium Level 2.0 mg/dL (1.8-2.4) Valproic Acid Level 21 mcg/mL (50-100) L Valproic Acid Last Dose Date 09/08/2017 Valproic Acid Last Dose Time 2100 Current Medications: Meds: Current Medications Divalproex Sodium (Depakote Er) 500 mg QHS PO Last administered on 08/13/17 19:28; Start 08/11/17 at 21:00; Stop 08/14/17 at 17:41; Status DC Mirtazapine (Remeron) 15 mg QHS PO Last administered on 08/14/17 19:47; Start 08/11/17 at 21:00; Stop 08/15/17 at 15:45; Status DC Risperidone (RisperDAL CONSTA) 37.5 mg Q2WKS IM ; Start 08/20/17 at 09:00; Stop 08/20/17 at 09:00; Status DC Trazodone HCl (Desyrel) 50 mg QHS PO Last administered on 08/23/17 20:07; Start 08/11/17 at 21:00; Stop 08/24/17 at 19:16; Status DC Amantadine HCl (Symmetrel) 100 mg BIDWMEALS PO Last administered on 09/09/17 17:18; Start 08/11/17 at 08:00 Acetaminophen (Tylenol) 650 mg PRN Q4HRS PRN PO Severe Pain/Temp Last administered on 08/28/17 12:02; Start 08/11/17 at 06:45 Atorvastatin Calcium (Lipitor) 20 mg QHS PO Last administered on 09/09/17 20: 17; Start 08/11/17 at 21:00 Bisacodyl (Dulcolax Tab) 10 mg PRN DAILY PRN PO CONSTIPATION; Start 08/11/17 at 06:45 Cetirizine HCl (ZyrTEC) 10 mg DAILY PO Last administered on 09/09/17 07:47; Start 08/11/17 at 09:00 Fluticasone Propionate (Flonase) 2 spray DAILY NS Last administered on 07:48; Start 08/11/17 at 09:00 Hydrochlorothiazide (Hydrodiuril) 25 mg DAILY PO Last administered on 07:47; Start 08/11/17 at 09:00 Calcium/Vitamin D (Oscal D 500mg/ 200uts) 1 tab BIDWMEALS PO Last administered on 09/09/17 17:18; Start 08/11/17 at 08:00 Glucosamine Sulfate (Glucosamine) 500 mg BID PO Last administered on 08/26/17 06:22; Start 08/11/17 at 09:00; Stop 08/30/17 at 10:04; Status DC Magnesium Hydroxide (Milk Of Magnesia) 2,400 mg PRN AFTMEALHC PRN PO CONSTIPATION Last administered on 08/17/17 16:22; Start 08/11/17 at 07:45 Multi-Ingred Cream/Lotion/Oil/ Oint (Absorbase) 1 macey PRN BID PRN TP DRY SKIN; Start 08/11/17 at 08:00; Stop 08/11/17 at 21:39; Status DC Non-Formulary Medication 90 ml TIDWMEALS PO ; Start 08/11/17 at 08:00; Stop at 08:00; Status DC Prenat Multivit/ [place]/Iron/Folic Ac (Multivitamin ) 1 tab DAILY PO Last administered on 09/09/17 07:47; Start 08/12/17 at 09:00 Selenium Sulfide (Selsun Blue) 1 macey 3X/WEEK TP Last administered on 11:37; Start 08/14/17 at 09:00 Multi-Ingred Cream/Lotion/Oil/ Oint (Absorbase) 1 macey PRN BID PRN TP DRY SKIN Last administered on 08/30/17 11:51; Start 08/11/17 at 21:39 Divalproex Sodium (Depakote Er) 250 mg QHS PO Last administered on 08/27/17 20 :15; Start 08/14/17 at 21:00; Stop 08/31/17 at 11:46; Status DC Mirtazapine (Remeron) 22.5 mg QHS PO Last administered on 09/09/17 20:17; Start 08/15/17 at 21:00 Risperidone (RisperDAL CONSTA) 50 mg Q2WKS IM Last administered on 08/20/17 07:56; Start 08/20/17 at 09:00 Ketotifen Fumarate (Zaditor) 1 drop BID OU Last administered on 09/09/17 20: 16; Start 08/18/17 at 13:30 Bupropion HCl (Wellbutrin Xl) 150 mg DAILY PO Last administered on 08/23/17 08 :22; Start 08/22/17 at 09:00; Stop 08/23/17 at 13:11; Status DC Bupropion HCl (Wellbutrin Xl) 300 mg DAILY PO Last administered on 08/28/17 10 :17; Start 08/24/17 at 09:00; Stop 08/28/17 at 14:37; Status DC Trazodone HCl (Desyrel) 50 mg QHS PO Last administered on 09/09/17 20:16; Start 08/24/17 at 21:00 Trazodone HCl (Desyrel) 50 mg PRN QHS PRN PO INSOMNIA, MAY REPEAT X1; Start at 19:15 Duloxetine HCl (Cymbalta) 20 mg DAILY PO Last administered on 08/30/17 08:26; Start 08/29/17 at 09:00; Stop 08/30/17 at 17:17; Status DC Glucosamine Sulfate (Glucosamine) 500 mg BID PO Last administered on 08/31/17 08:42; Start 08/30/17 at 10:00; Stop 08/31/17 at 18:17; Status DC Duloxetine HCl (Cymbalta) 30 mg DAILY PO Last administered on 09/09/17 07:47 ; Start 08/31/17 at 09:00 Divalproex Sodium (Depakote Sprinkles) 250 mg HS PO Last administered on 19:36; Start 08/31/17 at 21:00; Stop 09/02/17 at 18:19; Status DC Carbidopa/Levodopa (Sinemet 25/100) 1 tab TID PO Last administered on 20:17; Start 08/31/17 at 21:00 Divalproex Sodium (Depakote Sprinkles) 375 mg HS PO Last administered on 20:16; Start 09/02/17 at 21:00 Amoxicillin (Amoxil) 500 mg [id number] PO Last administered on 09/08/17 13:10; Start 09/03/17 at 15:45; Stop 09/08/17 at 15:44; Status DC Lactobacillus Acidophilus (Bacid, Pham-Bid) 1 tab BID PO Last administered on 09/05/17 20:46; Start 09/03/17 at 21:00; Stop 09/06/17 at 14:36; Status DC Risperidone (RisperDAL CONSTA) 50 mg 1X ONCE IM Last administered on 16:18; Start 09/04/17 at 16:15; Stop 09/04/17 at 16:16; Status DC Lactobacillus Rhamnosus (Culturelle) 1 cap BID PO Last administered on 20:16; Start 09/06/17 at 21:00 Divalproex Sodium (Depakote Sprinkles) 250 mg DAILY PO Last administered on 07:47; Start 09/07/17 at 09:00; Stop 09/09/17 at 18:46; Status DC Quetiapine Fumarate (SEROquel) 25 mg HS PO Last administered on 09/08/17 20: 34; Start 09/07/17 at 21:00; Stop 09/09/17 at 18:44; Status DC Quetiapine Fumarate (SEROquel) 50 mg HS PO Last administered on 09/09/17 20: 17; Start 09/09/17 at 21:00 Valproic Acid (Depakene) 250 mg DAILY PO ; Start 09/10/17 at 09:00 Active Scripts Active Reported Amantadine (Amantadine Hcl) 100 Mg Tablet 100 Mg PO BIDWMEALS [Med Plus] 90 Ml PO TIDWMEALS Haldol (Haloperidol Lactate) 5 Mg/1 Ml Ampul 5 Mg IM PRN Q8HRS PRN Tylenol (Acetaminophen) 325 Mg Tablet 325 Mg PO PRN Q4HRS PRN Risperdal Consta (Risperidone Microspheres) 37.5 Mg/2 Ml Disp.syrin 37.5 Mg IM Q2WKS Cefuroxime (Cefuroxime Axetil) 500 Mg Tablet 500 Mg PO BID 10 Days Analgesic [place] (Methyl Salicylate/Menthol) 28 Gm Oint...g. 1 Applic TP PRN QID PRN Mag-Al Plus Xs Suspension (Mag Hydrox/Al Hydrox/Simeth) 30 Ml Oral.susp 30 Ml PO PRN AFTMEALHC PRN Fluticasone Propionate Nasal [place] (Fluticasone Propionate) 16 Gm [place].susp 2 [place] NS DAILY Depakote Er (Divalproex Sodium) 500 Mg Tab.er.24h 500 Mg PO QHS Cetirizine Hcl 10 Mg Tablet 10 Mg PO DAILY Acetaminophen 325 Mg Tablet 650 Mg PO PRN Q4HRS PRN Aquaphor Ointment (Mineral Oil/Hydrophil Petrolat) 396 Gm Oint...g. 1 [place]acey TP PRN BID PRN Bisacodyl 5 Mg Tablet.dr 10 Mg PO PRN DAILY PRN Administer if MOM unsuccessful after 24 hours Milk Of Magnesia (Magnesium Hydroxide) 2,400 Mg/10 Ml Oral.susp 2,400 Mg PO PRN AFTMEALHC PRN Trazodone Hcl 50 Mg Tablet 50 Mg PO QHS Mirtazapine 15 Mg Tablet 15 Mg PO QHS Hydrochlorothiazide Tablet (Hydrochlorothiazide) 25 Mg Tablet 25 Mg PO DAILY Glucosamine Hcl 500 Mg Tablet 500 Mg PO BID Calcium 600+D Plus Minerals Tb (Calcium Carb/Vit D3/Minerals) 1 Each Tablet 1 Tab PO BIDWMEALS Atorvastatin Calcium 20 Mg Tablet 20 Mg PO QHS I have reviewed the current psychotropics carefully including drug interactions. Risk benefit ratio favors no change other than as noted in my dictated progress note. Diagnosis: Problems: (1) Schizophrenia (2) Psychosis (3) Anxiety disorder (4) Impulse control disorder (5) Schizoaffective disorder, chronic condition with acute exacerbation (6) Psychosis, atypical JORDAN AMADOR MD Sep 09, 2017 21:18
[2017-09-10 06:18] VITALS: BP 116/63
[2017-09-10] MEDS: LACTOBACILLUS RHAMNOSUS GG 1 CAPSULE. PO SCH ×2 (07:32→20:16)
[2017-09-10] MEDS: DULoxetine HCL 30 MG CAPSULE.DR PO SCH (07:32)
[2017-09-10] MEDS: CARBIDOPA/LEVODOPA 25/100MG TABLET PO SCH ×3 (07:32→20:15)
[2017-09-10] MEDS: CETIRIZINE HCL 10 MG TABLET PO SCH (07:32)
[2017-09-10] MEDS: CALCIUM CARB/VIT D3 500/200 TABLET PO SCH ×2 (07:32→17:26)
[2017-09-10] MEDS: hydroCHLOROthiazide 25 MG TABLET PO SCH (07:33)
[2017-09-10] MEDS: PRENATAL MULTIVITAMIN TABLET. PO SCH (07:33)
[2017-09-10] MEDS: AMANTADINE HCL 100 MG CAPSULE PO SCH ×2 (07:34→17:25)
[2017-09-10] MEDS: KETOTIFEN FUMARATE 0.025% OPHT SOLUTION BOTTLE. OU SCH ×2 (08:05→20:19)
[2017-09-10] MEDS: FLUTICASONE 50MCG/NASAL SPRAY 16GM BOTTLE. NS SCH (08:05)
[2017-09-10] MEDS: VALPROATE ACID 250 MG/5 ML ORAL SOLUTION PO SCH ×2 (08:06→20:18)
[2017-09-10] MEDS ORDERED: VALPROIC ACID 250 MG CAPSULE. PO SCH (09:00)
[2017-09-10 16:10] VITALS: BP 104/58
--- NOTE | 2017-09-10 19:13 | PN ---
DATE: 09/09/2017 This is a late entry 09/09 covers elements not covered in my initial note of 09/09. SUBJECTIVE: I met with the patient evening of 09/09. Noncompliant with her medications at times. We will change the Depakote to liquid. She is still paranoid, believes someone is there to kill her. We will increase the Seroquel to 50 mg p.o. at bedtime as an antipsychotic. REVIEW OF SYSTEMS: Ambulation impaired, in wheelchair. No CV, , pulmonary, eye system symptoms on review, still have some tremors. MENTAL STATUS EXAM: Oriented to herself and situation. Speech, often responses monosyllabic coherent, abstraction fair, computation impaired, language function intact, attention span short. Mood and affect showing improved lability. LABORATORY DATA: Reviewed. IMPRESSION: Unchanged from initial note. PLAN: Changes as noted above. Rest unchanged from initial note. MAN Darren AMADOR MD DR: ERIKA/anika JOB#: [id number] / [id number]
--- NOTE | 2017-09-10 19:18 | PN ---
DATE: 09/08/2017 This late entry 09/08/2017 covers elements not covered in my initial note 09/08/2017. SUBJECTIVE: I met with the patient evening of 09/08/2017. The patient slept 5-1/4 hours previous evening, delusional, refused Cymbalta and Depakote, meds were given hidden in lunch, took her 1700 medications. Tremors are better. Repeatedly asked to use the telephone, suspicious. REVIEW OF SYSTEMS: Ambulation impaired, in wheelchair. No CV, , pulmonary, eye system symptoms on review. MENTAL STATUS EXAM: Oriented to herself and situation. Speech as noted, often responses monosyllabic. Abstraction fair, computation impaired, language function intact, attention span short, still delusional. No suicidal or homicidal ideation. IMPRESSION: Unchanged from initial note. PLAN: No changes in psychotropics from initial note. Depakote has been adjusted. She is on Seroquel for the psychotic symptoms and we may need to increase this in due course. JORDAN AMADOR MD DR: ERIKA/anika JOB#: [id number] / [id number]
[2017-09-10] MEDS: QUEtiapine 25 MG TABLET. PO SCH ×2 (20:15→23:41)
[2017-09-10] MEDS: MIRTAZAPINE 15 MG TABLET PO SCH (20:15)
[2017-09-10] MEDS: traZODone 50 MG TABLET. PO SCH (20:16)
[2017-09-10] MEDS: ATORVASTATIN CALCIUM 20 MG TABLET PO SCH (20:16)
--- NOTE | 2017-09-10 20:21 | PDOC ---
Exam Note: Andre Note: Please also refer to the separate dictated note~for this date of service dictated separately.~Patient seen individually. Discussed the patient with Nursing staff reviewed the chart.~Reviewed interim history and current functioning. Reviewed vital signs,~Labs/ Radiology~and current medications noted below. Continue current treatment with the changes noted in the dictated addendum note Assessment: Vital Signs: Vital Signs Date Time Temp Pulse Resp B/P (MAP) Pulse Ox O2 Delivery O2 Flow Rate FiO2 09/10/17 16:10 97.8 74 16 104/58 (73) 98 09/08/17 16:19 Room Air I&O Intake and Output 09/10/17 07:00 Intake Total 1440 ml Balance 1440 ml Intake Oral 1440 ml Current Medications: Meds: Current Medications Divalproex Sodium (Depakote Er) 500 mg QHS PO Last administered on 08/13/17 19:28; Start 08/11/17 at 21:00; Stop 08/14/17 at 17:41; Status DC Mirtazapine (Remeron) 15 mg QHS PO Last administered on 08/14/17 19:47; Start 08/11/17 at 21:00; Stop 08/15/17 at 15:45; Status DC Risperidone (RisperDAL CONSTA) 37.5 mg Q2WKS IM ; Start 08/20/17 at 09:00; Stop 08/20/17 at 09:00; Status DC Trazodone HCl (Desyrel) 50 mg QHS PO Last administered on 08/23/17 20:07; Start 08/11/17 at 21:00; Stop 08/24/17 at 19:16; Status DC Amantadine HCl (Symmetrel) 100 mg BIDWMEALS PO Last administered on 09/10/17 17:25; Start 08/11/17 at 08:00 Acetaminophen (Tylenol) 650 mg PRN Q4HRS PRN PO Severe Pain/Temp Last administered on 08/28/17 12:02; Start 08/11/17 at 06:45 Atorvastatin Calcium (Lipitor) 20 mg QHS PO Last administered on 09/10/17 20: 16; Start 08/11/17 at 21:00 Bisacodyl (Dulcolax Tab) 10 mg PRN DAILY PRN PO CONSTIPATION Last administered on 09/10/17 11:27; Start 08/11/17 at 06:45 Cetirizine HCl (ZyrTEC) 10 mg DAILY PO Last administered on 09/10/17 07:32; Start 08/11/17 at 09:00 Fluticasone Propionate (Flonase) 2 spray DAILY NS Last administered on 07:48; Start 08/11/17 at 09:00 Hydrochlorothiazide (Hydrodiuril) 25 mg DAILY PO Last administered on 07:33; Start 08/11/17 at 09:00 Calcium/Vitamin D (Oscal D 500mg/ 200uts) 1 tab BIDWMEALS PO Last administered on 09/10/17 17:26; Start 08/11/17 at 08:00 Glucosamine Sulfate (Glucosamine) 500 mg BID PO Last administered on 08/26/17 06:22; Start 08/11/17 at 09:00; Stop 08/30/17 at 10:04; Status DC Magnesium Hydroxide (Milk Of Magnesia) 2,400 mg PRN AFTMEALHC PRN PO CONSTIPATION Last administered on 08/17/17 16:22; Start 08/11/17 at 07:45 Multi-Ingred Cream/Lotion/Oil/ Oint (Absorbase) 1 macey PRN BID PRN TP DRY SKIN; Start 08/11/17 at 08:00; Stop 08/11/17 at 21:39; Status DC Non-Formulary Medication 90 ml TIDWMEALS PO ; Start 08/11/17 at 08:00; Stop at 08:00; Status DC Prenat Multivit/ [place]/Iron/Folic Ac (Multivitamin ) 1 tab DAILY PO Last administered on 09/10/17 07:33; Start 08/12/17 at 09:00 Selenium Sulfide (Selsun Blue) 1 macey 3X/WEEK TP Last administered on 11:37; Start 08/14/17 at 09:00 Multi-Ingred Cream/Lotion/Oil/ Oint (Absorbase) 1 macey PRN BID PRN TP DRY SKIN Last administered on 08/30/17 11:51; Start 08/11/17 at 21:39 Divalproex Sodium (Depakote Er) 250 mg QHS PO Last administered on 08/27/17 20 :15; Start 08/14/17 at 21:00; Stop 08/31/17 at 11:46; Status DC Mirtazapine (Remeron) 22.5 mg QHS PO Last administered on 09/10/17 20:15; Start 08/15/17 at 21:00 Risperidone (RisperDAL CONSTA) 50 mg Q2WKS IM Last administered on 08/20/17 07:56; Start 08/20/17 at 09:00 Ketotifen Fumarate (Zaditor) 1 drop BID OU Last administered on 09/10/17 20: 19; Start 08/18/17 at 13:30 Bupropion HCl (Wellbutrin Xl) 150 mg DAILY PO Last administered on 08/23/17 08 :22; Start 08/22/17 at 09:00; Stop 08/23/17 at 13:11; Status DC Bupropion HCl (Wellbutrin Xl) 300 mg DAILY PO Last administered on 08/28/17 10 :17; Start 08/24/17 at 09:00; Stop 08/28/17 at 14:37; Status DC Trazodone HCl (Desyrel) 50 mg QHS PO Last administered on 09/10/17 20:16; Start 08/24/17 at 21:00 Trazodone HCl (Desyrel) 50 mg PRN QHS PRN PO INSOMNIA, MAY REPEAT X1; Start at 19:15 Duloxetine HCl (Cymbalta) 20 mg DAILY PO Last administered on 08/30/17 08:26; Start 08/29/17 at 09:00; Stop 08/30/17 at 17:17; Status DC Glucosamine Sulfate (Glucosamine) 500 mg BID PO Last administered on 08/31/17 08:42; Start 08/30/17 at 10:00; Stop 08/31/17 at 18:17; Status DC Duloxetine HCl (Cymbalta) 30 mg DAILY PO Last administered on 09/10/17 07:32 ; Start 08/31/17 at 09:00 Divalproex Sodium (Depakote Sprinkles) 250 mg HS PO Last administered on 19:36; Start 08/31/17 at 21:00; Stop 09/02/17 at 18:19; Status DC Carbidopa/Levodopa (Sinemet 25/100) 1 tab TID PO Last administered on 20:15; Start 08/31/17 at 21:00 Divalproex Sodium (Depakote Sprinkles) 375 mg HS PO Last administered on 20:16; Start 09/02/17 at 21:00; Stop 09/10/17 at 07:42; Status DC Amoxicillin (Amoxil) 500 mg [id number] PO Last administered on 09/08/17 13:10; Start 09/03/17 at 15:45; Stop 09/08/17 at 15:44; Status DC Lactobacillus Acidophilus (Bacid, Pham-Bid) 1 tab BID PO Last administered on 09/05/17 20:46; Start 09/03/17 at 21:00; Stop 09/06/17 at 14:36; Status DC Risperidone (RisperDAL CONSTA) 50 mg 1X ONCE IM Last administered on 16:18; Start 09/04/17 at 16:15; Stop 09/04/17 at 16:16; Status DC Lactobacillus Rhamnosus (Culturelle) 1 cap BID PO Last administered on 20:16; Start 09/06/17 at 21:00 Divalproex Sodium (Depakote Sprinkles) 250 mg DAILY PO Last administered on 07:47; Start 09/07/17 at 09:00; Stop 09/09/17 at 18:46; Status DC Quetiapine Fumarate (SEROquel) 25 mg HS PO Last administered on 09/08/17 20: 34; Start 09/07/17 at 21:00; Stop 09/09/17 at 18:44; Status DC Quetiapine Fumarate (SEROquel) 50 mg HS PO Last administered on 09/10/17 20: 15; Start 09/09/17 at 21:00 Valproic Acid (Depakene) 250 mg DAILY PO ; Start 09/10/17 at 09:00; Stop 09/10 at 09:00; Status DC Valproic Acid (Depakene) 250 mg DAILY PO Last administered on 09/10/17 08:06 ; Start 09/10/17 at 09:00 Valproic Acid (Depakene) 375 mg QHS PO Last administered on 09/10/17t 20:18; Start 09/10/17 at 21:00 Active Scripts Active Reported Amantadine (Amantadine Hcl) 100 Mg Tablet 100 Mg PO BIDWMEALS [Med Plus] 90 Ml PO TIDWMEALS Haldol (Haloperidol Lactate) 5 Mg/1 Ml Ampul 5 Mg IM PRN Q8HRS PRN Tylenol (Acetaminophen) 325 Mg Tablet 325 Mg PO PRN Q4HRS PRN Risperdal Consta (Risperidone Microspheres) 37.5 Mg/2 Ml Disp.syrin 37.5 Mg IM Q2WKS Cefuroxime (Cefuroxime Axetil) 500 Mg Tablet 500 Mg PO BID 10 Days Analgesic [place] (Methyl Salicylate/Menthol) 28 Gm Oint...g. 1 Applic TP PRN QID PRN Mag-Al Plus Xs Suspension (Mag Hydrox/Al Hydrox/Simeth) 30 Ml Oral.susp 30 Ml PO PRN AFTMEALHC PRN Fluticasone Propionate Nasal [place] (Fluticasone Propionate) 16 Gm [place].susp 2 [place] NS DAILY Depakote Er (Divalproex Sodium) 500 Mg Tab.er.24h 500 Mg PO QHS Cetirizine Hcl 10 Mg Tablet 10 Mg PO DAILY Acetaminophen 325 Mg Tablet 650 Mg PO PRN Q4HRS PRN Aquaphor Ointment (Mineral Oil/Hydrophil Petrolat) 396 Gm Oint...g. 1 Macey TP PRN BID PRN Bisacodyl 5 Mg Tablet.dr 10 Mg PO PRN DAILY PRN Administer if MOM unsuccessful after 24 hours Milk Of Magnesia (Magnesium Hydroxide) 2,400 Mg/10 Ml Oral.susp 2,400 Mg PO PRN AFTMEALHC PRN Trazodone Hcl 50 Mg Tablet 50 Mg PO QHS Mirtazapine 15 Mg Tablet 15 Mg PO QHS Hydrochlorothiazide Tablet (Hydrochlorothiazide) 25 Mg Tablet 25 Mg PO DAILY Glucosamine Hcl 500 Mg Tablet 500 Mg PO BID Calcium 600+D Plus Minerals Tb (Calcium Carb/Vit D3/Minerals) 1 Each Tablet 1 Tab PO BIDWMEALS Atorvastatin Calcium 20 Mg Tablet 20 Mg PO QHS I have reviewed the current psychotropics carefully including drug interactions. Risk benefit ratio favors no change other than as noted in my dictated progress note. Diagnosis: Problems: (1) Schizophrenia (2) Psychosis (3) Anxiety disorder (4) Impulse control disorder (5) Schizoaffective disorder, chronic condition with acute exacerbation (6) Psychosis, atypical JORDAN AMADOR MD Sep 10, 2017 20:21
[2017-09-11 06:00] VITALS: BP 117/63
[2017-09-11] MEDS: PRENATAL MULTIVITAMIN TABLET. PO SCH (08:26)
[2017-09-11] MEDS: CALCIUM CARB/VIT D3 500/200 TABLET PO SCH ×2 (08:26→17:01)
[2017-09-11] MEDS: VALPROATE ACID 250 MG/5 ML ORAL SOLUTION PO SCH ×3 (08:26→19:13)
[2017-09-11] MEDS: LACTOBACILLUS RHAMNOSUS GG 1 CAPSULE. PO SCH ×2 (08:26→19:14)
[2017-09-11] MEDS: DULoxetine HCL 30 MG CAPSULE.DR PO SCH (08:26)
[2017-09-11] MEDS: hydroCHLOROthiazide 25 MG TABLET PO SCH (08:27)
[2017-09-11] MEDS: CETIRIZINE HCL 10 MG TABLET PO SCH (08:27)
[2017-09-11] MEDS: CARBIDOPA/LEVODOPA 25/100MG TABLET PO SCH ×3 (08:27→19:11)
[2017-09-11] MEDS: KETOTIFEN FUMARATE 0.025% OPHT SOLUTION BOTTLE. OU SCH ×3 (08:28→19:22)
[2017-09-11] MEDS: FLUTICASONE 50MCG/NASAL SPRAY 16GM BOTTLE. NS SCH (08:28)
[2017-09-11 08:33] LABS: BASO % 1 % (0-3); EOS # 0.1 x10^3/uL (0.0-0.7); EOS % 1 % (0-3); HEMATOCRIT 39.8 % (36.0-47.0); HEMOGLOBIN 13.2 g/dL (12.0-15.5); LYMPH # 1.2 x10^3/uL (1.0-4.8); LYMPH % 25 % (24-48); MEAN CORPUSCULAR HEMOGLOBIN 30 pg (25-35); MEAN CORPUSCULAR HGB CONC 33 g/dL (31-37); MEAN CORPUSCULAR VOLUME 90 fL (79-100); MONO # 0.6 x10^3/uL (0.0-1.1); MONO % 13 % (0-9); NEUT # 2.9 x10^3uL (1.8-7.7); NEUT % 60 % (31-73); PLATELET COUNT 154 x10^3/uL (140-400); RED BLOOD COUNT 4.44 x10^6/uL (3.50-5.40); RED CELL DISTRIBUTION WIDTH 14.4 % (11.5-14.5); WHITE BLOOD COUNT 4.8 x10^3/uL (4.0-11.0)
[2017-09-11] MEDS: AMANTADINE HCL 100 MG CAPSULE PO SCH ×2 (08:34→17:02)
[2017-09-11 08:52] LABS: ALBUMIN 3.1 g/dL (3.4-5.0); ALBUMIN/GLOBULIN RATIO 0.7 (1.0-1.7); ALK PHOS 135 U/L (46-116); ALT (SGPT) 12 U/L (14-59); ANION GAP 5 (6-14); AST (SGOT) 19 U/L (15-37); BLOOD UREA NITROGEN 18 mg/dL (7-20); BUN/CREATININE RATIO 16 (6-20); CALCIUM 9.4 mg/dL (8.5-10.1); CARBON DIOXIDE 32 mmol/L (21-32); CHLORIDE 99 mmol/L (98-107); CREATININE 1.1 mg/dL (0.6-1.0); GLUCOSE 92 mg/dL (70-99); SODIUM 136 mmol/L (136-145); TOTAL BILIRUBIN 0.4 mg/dL (0.2-1.0); TOTAL PROTEIN 7.3 g/dL (6.4-8.2)
[2017-09-11 08:53] LABS: VAL ACID 44 mcg/mL (50-100)
[2017-09-11] MEDS: SELENIUM SULFIDE 2.5% SHAMPOO 120ML BOTTLE. TP SCH (09:00)
[2017-09-11 16:20] VITALS: BP 135/77
[2017-09-11] MEDS: traZODone 50 MG TABLET. PO SCH (19:10)
[2017-09-11] MEDS: ATORVASTATIN CALCIUM 20 MG TABLET PO SCH (19:11)
[2017-09-11] MEDS: QUEtiapine 25 MG TABLET. PO SCH (19:11)
[2017-09-11] MEDS: MIRTAZAPINE 15 MG TABLET PO SCH (19:11)
--- NOTE | 2017-09-11 20:01 | PDOC ---
Exam Note: Andre Note: Please also refer to the separate dictated note~for this date of service dictated separately.~Patient seen individually. Discussed the patient with Nursing staff reviewed the chart.~Reviewed interim history and current functioning. Reviewed vital signs,~Labs/ Radiology~and current medications noted below. Continue current treatment with the changes noted in the dictated addendum note Assessment: Vital Signs: Vital Signs Date Time Temp Pulse Resp B/P (MAP) Pulse Ox O2 Delivery O2 Flow Rate FiO2 09/11/17 16:20 97.5 75 16 135/77 (96) 98 09/08/17 16:19 Room Air I&O Intake and Output 09/11/17 07:00 Intake Total 1200 ml Balance 1200 ml Intake Oral 1200 ml Labs: Laboratory Tests Test 09/11/17 07:56 White Blood Count 4.8 x10^3/uL (4.0-11.0) Red Blood Count 4.44 x10^6/uL (3.50-5.40) Hemoglobin 13.2 g/dL (12.0-15.5) Hematocrit 39.8 % (36.0-47.0) Mean Corpuscular Volume 90 fL (79-100) Mean Corpuscular Hemoglobin 30 pg (25-35) Mean Corpuscular Hemoglobin Concent 33 g/dL (31-37) Red Cell Distribution Width 14.4 % (11.5-14.5) Platelet Count 154 x10^3/uL (140-400) Neutrophils (%) (Auto) 60 % (31-73) Lymphocytes (%) (Auto) 25 % (24-48) Monocytes (%) (Auto) 13 % (0-9) H Eosinophils (%) (Auto) 1 % (0-3) Basophils (%) (Auto) 1 % (0-3) Neutrophils # (Auto) 2.9 x10^3uL (1.8-7.7) Lymphocytes # (Auto) 1.2 x10^3/uL (1.0-4.8) Monocytes # (Auto) 0.6 x10^3/uL (0.0-1.1) Eosinophils # (Auto) 0.1 x10^3/uL (0.0-0.7) Basophils # (Auto) 0.0 x10^3/uL (0.0-0.2) Sodium Level 136 mmol/L (136-145) Potassium Level 4.0 mmol/L (3.5-5.1) Chloride Level 99 mmol/L (98-107) Carbon Dioxide Level 32 mmol/L (21-32) Anion Gap 5 (6-14) L Blood Urea Nitrogen 18 mg/dL (7-20) Creatinine 1.1 mg/dL (0.6-1.0) H Estimated GFR (Cockcroft-Gault) 49.0 BUN/Creatinine Ratio 16 (6-20) Glucose Level 92 mg/dL (70-99) Calcium Level 9.4 mg/dL (8.5-10.1) Total Bilirubin 0.4 mg/dL (0.2-1.0) Aspartate Amino Transferase (AST) 19 U/L (15-37) Alanine Aminotransferase (ALT) 12 U/L (14-59) L Alkaline Phosphatase 135 U/L (46-116) H Total Protein 7.3 g/dL (6.4-8.2) Albumin 3.1 g/dL (3.4-5.0) L Albumin/Globulin Ratio 0.7 (1.0-1.7) L Valproic Acid Level 44 mcg/mL (50-100) L Valproic Acid Last Dose Date 09/10/17 Valproic Acid Last Dose Time 2100 Current Medications: Meds: Current Medications Divalproex Sodium (Depakote Er) 500 mg QHS PO Last administered on 08/13/17 19:28; Start 08/11/17 at 21:00; Stop 08/14/17 at 17:41; Status DC Mirtazapine (Remeron) 15 mg QHS PO Last administered on 08/14/17 19:47; Start 08/11/17 at 21:00; Stop 08/15/17 at 15:45; Status DC Risperidone (RisperDAL CONSTA) 37.5 mg Q2WKS IM ; Start 08/20/17 at 09:00; Stop 08/20/17 at 09:00; Status DC Trazodone HCl (Desyrel) 50 mg QHS PO Last administered on 08/23/17 20:07; Start 08/11/17 at 21:00; Stop 08/24/17 at 19:16; Status DC Amantadine HCl (Symmetrel) 100 mg BIDWMEALS PO Last administered on 09/11/17 17:02; Start 08/11/17 at 08:00 Acetaminophen (Tylenol) 650 mg PRN Q4HRS PRN PO Severe Pain/Temp Last administered on 08/28/17 12:02; Start 08/11/17 at 06:45 Atorvastatin Calcium (Lipitor) 20 mg QHS PO Last administered on 09/11/17 19: 11; Start 08/11/17 at 21:00 Bisacodyl (Dulcolax Tab) 10 mg PRN DAILY PRN PO CONSTIPATION Last administered on 09/10/17 11:27; Start 08/11/17 at 06:45 Cetirizine HCl (ZyrTEC) 10 mg DAILY PO Last administered on 09/11/17 08:27; Start 08/11/17 at 09:00 Fluticasone Propionate (Flonase) 2 spray DAILY NS Last administered on 07:48; Start 08/11/17 at 09:00 Hydrochlorothiazide (Hydrodiuril) 25 mg DAILY PO Last administered on 08:27; Start 08/11/17 at 09:00 Calcium/Vitamin D (Oscal D 500mg/ 200uts) 1 tab BIDWMEALS PO Last administered on 09/11/17 17:01; Start 08/11/17 at 08:00 Glucosamine Sulfate (Glucosamine) 500 mg BID PO Last administered on 08/26/17 06:22; Start 08/11/17 at 09:00; Stop 08/30/17 at 10:04; Status DC Magnesium Hydroxide (Milk Of Magnesia) 2,400 mg PRN AFTMEALHC PRN PO CONSTIPATION Last administered on 08/17/17 16:22; Start 08/11/17 at 07:45 Multi-Ingred Cream/Lotion/Oil/ Oint (Absorbase) 1 macey PRN BID PRN TP DRY SKIN; Start 08/11/17 at 08:00; Stop 08/11/17 at 21:39; Status DC Non-Formulary Medication 90 ml TIDWMEALS PO ; Start 08/11/17 at 08:00; Stop at 08:00; Status DC Prenat Multivit/ [place]/Iron/Folic Ac (Multivitamin ) 1 tab DAILY PO Last administered on 09/11/17 08:26; Start 08/12/17 at 09:00 Selenium Sulfide (Selsun Blue) 1 macey 3X/WEEK TP Last administered on 09:00; Start 08/14/17 at 09:00 Multi-Ingred Cream/Lotion/Oil/ Oint (Absorbase) 1 macey PRN BID PRN TP DRY SKIN Last administered on 08/30/17 11:51; Start 08/11/17 at 21:39 Divalproex Sodium (Depakote Er) 250 mg QHS PO Last administered on 08/27/17 20 :15; Start 08/14/17 at 21:00; Stop 08/31/17 at 11:46; Status DC Mirtazapine (Remeron) 22.5 mg QHS PO Last administered on 09/11/17 19:11; Start 08/15/17 at 21:00 Risperidone (RisperDAL CONSTA) 50 mg Q2WKS IM Last administered on 08/20/17 07:56; Start 08/20/17 at 09:00 Ketotifen Fumarate (Zaditor) 1 drop BID OU Last administered on 09/10/17 20: 19; Start 08/18/17 at 13:30 Bupropion HCl (Wellbutrin Xl) 150 mg DAILY PO Last administered on 08/23/17 08 :22; Start 08/22/17 at 09:00; Stop 08/23/17 at 13:11; Status DC Bupropion HCl (Wellbutrin Xl) 300 mg DAILY PO Last administered on 08/28/17 10 :17; Start 08/24/17 at 09:00; Stop 08/28/17 at 14:37; Status DC Trazodone HCl (Desyrel) 50 mg QHS PO Last administered on 09/11/17 19:10; Start 08/24/17 at 21:00 Trazodone HCl (Desyrel) 50 mg PRN QHS PRN PO INSOMNIA, MAY REPEAT X1; Start at 19:15 Duloxetine HCl (Cymbalta) 20 mg DAILY PO Last administered on 08/30/17 08:26; Start 08/29/17 at 09:00; Stop 08/30/17 at 17:17; Status DC Glucosamine Sulfate (Glucosamine) 500 mg BID PO Last administered on 08/31/17 08:42; Start 08/30/17 at 10:00; Stop 08/31/17 at 18:17; Status DC Duloxetine HCl (Cymbalta) 30 mg DAILY PO Last administered on 09/11/17 08:26 ; Start 08/31/17 at 09:00 Divalproex Sodium (Depakote Sprinkles) 250 mg HS PO Last administered on 19:36; Start 08/31/17 at 21:00; Stop 09/02/17 at 18:19; Status DC Carbidopa/Levodopa (Sinemet 25/100) 1 tab TID PO Last administered on 19:11; Start 08/31/17 at 21:00 Divalproex Sodium (Depakote Sprinkles) 375 mg HS PO Last administered on 20:16; Start 09/02/17 at 21:00; Stop 09/10/17 at 07:42; Status DC Amoxicillin (Amoxil) 500 mg [id number] PO Last administered on 09/08/17 13:10; Start 09/03/17 at 15:45; Stop 09/08/17 at 15:44; Status DC Lactobacillus Acidophilus (Bacid, Pham-Bid) 1 tab BID PO Last administered on 09/05/17 20:46; Start 09/03/17 at 21:00; Stop 09/06/17 at 14:36; Status DC Risperidone (RisperDAL CONSTA) 50 mg 1X ONCE IM Last administered on 16:18; Start 09/04/17 at 16:15; Stop 09/04/17 at 16:16; Status DC Lactobacillus Rhamnosus (Culturelle) 1 cap BID PO Last administered on 19:14; Start 09/06/17 at 21:00 Divalproex Sodium (Depakote Sprinkles) 250 mg DAILY PO Last administered on 07:47; Start 09/07/17 at 09:00; Stop 09/09/17 at 18:46; Status DC Quetiapine Fumarate (SEROquel) 25 mg HS PO Last administered on 11/17/17at 20: 34; Start 09/07/17 at 21:00; Stop 09/09/17 at 18:44; Status DC Quetiapine Fumarate (SEROquel) 50 mg HS PO Last administered on 09/10/17 20: 15; Start 09/09/17 at 21:00; Stop 09/10/17 at 22:03; Status DC Valproic Acid (Depakene) 250 mg DAILY PO ; Start 09/10/17 at 09:00; Stop 09/10 at 09:00; Status DC Valproic Acid (Depakene) 250 mg DAILY PO Last administered on 09/11/17 11:57 ; Start 09/10/17 at 09:00 Valproic Acid (Depakene) 375 mg QHS PO Last administered on 09/11/17 19:13; Start 09/10/17 at 21:00 Quetiapine Fumarate (SEROquel) 75 mg HS PO Last administered on 09/11/17 19: 11; Start 09/10/17 at 22:15 Active Scripts Active Reported Amantadine (Amantadine Hcl) 100 Mg Tablet 100 Mg PO BIDWMEALS [Med Plus] 90 Ml PO TIDWMEALS Haldol (Haloperidol Lactate) 5 Mg/1 Ml Ampul 5 Mg IM PRN Q8HRS PRN Tylenol (Acetaminophen) 325 Mg Tablet 325 Mg PO PRN Q4HRS PRN Risperdal Consta (Risperidone Microspheres) 37.5 Mg/2 Ml Disp.syrin 37.5 Mg IM Q2WKS Cefuroxime (Cefuroxime Axetil) 500 Mg Tablet 500 Mg PO BID 10 Days Analgesic [place] (Methyl Salicylate/Menthol) 28 Gm Oint...g. 1 Applic TP PRN QID PRN Mag-Al Plus Xs Suspension (Mag Hydrox/Al Hydrox/Simeth) 30 Ml Oral.susp 30 Ml PO PRN AFTMEALHC PRN Fluticasone Propionate Nasal [place] (Fluticasone Propionate) 16 Gm [place].susp 2 [place] NS DAILY Depakote Er (Divalproex Sodium) 500 Mg Tab.er.24h 500 Mg PO QHS Cetirizine Hcl 10 Mg Tablet 10 Mg PO DAILY Acetaminophen 325 Mg Tablet 650 Mg PO PRN Q4HRS PRN Aquaphor Ointment (Mineral Oil/Hydrophil Petrolat) 396 Gm Oint...g. 1 [place] TP PRN BID PRN Bisacodyl 5 Mg Tablet.dr 10 Mg PO PRN DAILY PRN Administer if MOM unsuccessful after 24 hours Milk Of Magnesia (Magnesium Hydroxide) 2,400 Mg/10 Ml Oral.susp 2,400 Mg PO PRN AFTMEALHC PRN Trazodone Hcl 50 Mg Tablet 50 Mg PO QHS Mirtazapine 15 Mg Tablet 15 Mg PO QHS Hydrochlorothiazide Tablet (Hydrochlorothiazide) 25 Mg Tablet 25 Mg PO DAILY Glucosamine Hcl 500 Mg Tablet 500 Mg PO BID Calcium 600+D Plus Minerals Tb (Calcium Carb/Vit D3/Minerals) 1 Each Tablet 1 Tab PO BIDWMEALS Atorvastatin Calcium 20 Mg Tablet 20 Mg PO QHS I have reviewed the current psychotropics carefully including drug interactions. Risk benefit ratio favors no change other than as noted in my dictated progress note. Diagnosis: Problems: (1) Schizophrenia (2) Psychosis (3) Anxiety disorder (4) Impulse control disorder (5) Schizoaffective disorder, chronic condition with acute exacerbation (6) Psychosis, atypical JORDAN AMADOR MD Sep 11, 2017 20:01
--- NOTE | 2017-09-12 04:22 | PN ---
DATE: 09/10/2017 This is a late entry 09/10/2017 and cover the elements not covered in my initial. SUBJECTIVE: I met with the patient in the evening of 09/10/2017. She is still delusional, believes someone is trying to kill her and that psychiatrist, Dr. Sales is coming to discharge her as AMA, which she does not want to do. REVIEW OF SYSTEMS: Ambulation impaired. No CV, , pulmonary, eye, ENT system symptoms on review. MENTAL STATUS EXAM: Oriented reasonably. Speech is coherent, has some latency. Abstraction fair, computation impaired, language function intact, attention span short. Mood and affect somewhat withdrawn. LABORATORY DATA: Reviewed. IMPRESSION: Unchanged from initial note. PLAN: Increase Seroquel from 25 mg at bedtime to 50 mg at bedtime. Rest will remain unchanged. We will reassess depending on her progress. MAN Darren AMADOR MD DR: ERIKA/anika JOB#: [id number] / [id number]
--- NOTE | 2017-09-12 04:27 | PN ---
DATE: 09/11/2017 PSYCHIATRIC PROGRESS NOTE This note covers elements not covered in my initial note 09/11/2017. I met with the patient morning of 09/11/2017. She is still delusional, fixated on Dr. Sales coming to discharge her AMA. Still suspicious, not aggressive. REVIEW OF SYSTEMS: Ambulation impaired. No CV, , pulmonary, eye system symptoms on review. MENTAL STATUS EXAM: Oriented to herself and situation. Speech has some latency, coherent. Abstraction fair, computation impaired, language function intact, attention span short. Mood and affect withdrawn. IMPRESSION: Unchanged from initial note. PLAN: Continue current psychotropics. We may need to increase Seroquel further depending on her progress and in fact after my last order, it is clarified patient is already on Seroquel 50 mg at bedtime. We have increased it to 75 mg at bedtime. Rest unchanged from initial note. MAN Darren AMADOR MD DR: ERIKA/anika JOB#: [id number] / [id number]
[2017-09-12 06:10] VITALS: BP 122/60
[2017-09-12] MEDS: CETIRIZINE HCL 10 MG TABLET PO SCH (07:55)
[2017-09-12] MEDS: CALCIUM CARB/VIT D3 500/200 TABLET PO SCH ×2 (07:55→17:19)
[2017-09-12] MEDS: CARBIDOPA/LEVODOPA 25/100MG TABLET PO SCH ×3 (07:55→19:39)
[2017-09-12] MEDS: DULoxetine HCL 30 MG CAPSULE.DR PO SCH (07:55)
[2017-09-12] MEDS: VALPROATE ACID 250 MG/5 ML ORAL SOLUTION PO SCH ×2 (07:55→19:38)
[2017-09-12] MEDS: AMANTADINE HCL 100 MG CAPSULE PO SCH ×2 (07:55→17:19)
[2017-09-12] MEDS: hydroCHLOROthiazide 25 MG TABLET PO SCH (07:55)
[2017-09-12] MEDS: PRENATAL MULTIVITAMIN TABLET. PO SCH (07:55)
[2017-09-12] MEDS: LACTOBACILLUS RHAMNOSUS GG 1 CAPSULE. PO SCH ×2 (07:55→19:41)
[2017-09-12] MEDS: FLUTICASONE 50MCG/NASAL SPRAY 16GM BOTTLE. NS SCH (07:56)
[2017-09-12] MEDS: KETOTIFEN FUMARATE 0.025% OPHT SOLUTION BOTTLE. OU SCH ×2 (07:56→19:47)
[2017-09-12 16:16] VITALS: BP 109/71
[2017-09-12] MEDS: ATORVASTATIN CALCIUM 20 MG TABLET PO SCH (19:39)
[2017-09-12] MEDS: QUEtiapine 25 MG TABLET. PO SCH (19:39)
[2017-09-12] MEDS: traZODone 50 MG TABLET. PO SCH (19:39)
[2017-09-12] MEDS: MIRTAZAPINE 15 MG TABLET PO SCH (19:40)
[2017-09-13 06:05] VITALS: BP 122/74
[2017-09-13] MEDS: DULoxetine HCL 30 MG CAPSULE.DR PO SCH (07:52)
[2017-09-13] MEDS: CARBIDOPA/LEVODOPA 25/100MG TABLET PO SCH ×3 (07:52→19:33)
[2017-09-13] MEDS: PRENATAL MULTIVITAMIN TABLET. PO SCH (07:52)
[2017-09-13] MEDS: LACTOBACILLUS RHAMNOSUS GG 1 CAPSULE. PO SCH ×2 (07:52→19:33)
[2017-09-13] MEDS: VALPROATE ACID 250 MG/5 ML ORAL SOLUTION PO SCH ×2 (07:52→19:31)
[2017-09-13] MEDS: CETIRIZINE HCL 10 MG TABLET PO SCH (07:52)
[2017-09-13] MEDS: AMANTADINE HCL 100 MG CAPSULE PO SCH ×2 (07:52→17:16)
[2017-09-13] MEDS: CALCIUM CARB/VIT D3 500/200 TABLET PO SCH ×2 (07:53→17:16)
[2017-09-13] MEDS: hydroCHLOROthiazide 25 MG TABLET PO SCH (07:53)
[2017-09-13] MEDS: FLUTICASONE 50MCG/NASAL SPRAY 16GM BOTTLE. NS SCH (07:54)
[2017-09-13] MEDS: KETOTIFEN FUMARATE 0.025% OPHT SOLUTION BOTTLE. OU SCH ×2 (07:54→19:33)
[2017-09-13] MEDS: SELENIUM SULFIDE 2.5% SHAMPOO 120ML BOTTLE. TP SCH (09:00)
[2017-09-13 16:09] VITALS: BP 112/70
[2017-09-13] MEDS: MIRTAZAPINE 15 MG TABLET PO SCH (19:32)
[2017-09-13] MEDS: QUEtiapine 25 MG TABLET. PO SCH (19:33)
[2017-09-13] MEDS: ATORVASTATIN CALCIUM 20 MG TABLET PO SCH (19:33)
[2017-09-13] MEDS: traZODone 50 MG TABLET. PO SCH (19:33)
[2017-09-13] MEDS: MAGNESIUM HYDROXIDE 2,400 MG/30 ML ORAL.SUSP. PO PRN (19:46)
--- NOTE | 2017-09-14 05:22 | PN ---
DATE: 09/13/2017 SUBJECTIVE: The patient was seen today, reviewed the chart, met with the staff and covering for Dr. Bales. The patient continues to have problems, withdrawn, gets agitated easily, still presenting with some psychotic symptoms, also delusional and also having some involuntary movements. The patient is constantly yelling, continuously making vocal sounds, unable to calm down. OBSERVATION: VITAL SIGNS: Temperature 98.4, blood pressure 122/74, pulse 64, respirations 20, O2 sat 97%. Slept about 6 hours last night. The patient's appetite decreased. MEDICATIONS: Reviewed. Currently on Seroquel 75 mg at night, Depakote 375 mg at night and 250 in the morning, Cymbalta 30 mg daily, trazodone 50 mg at night, trazodone 50 mg at night p.r.n., Risperdal 50 mg Consta injection IM every 2 weeks, mirtazapine 22.5 mg at night. The patient has not had any falls. ASSESSMENT: 1. Bipolar disorder type 1, mixed, with psychotic features. 2. Anxiety disorder, unspecified. 3. Impulse control disorder, unspecified. PLAN: To continue with the treatment. GHISLAINE MCCLOUD MD DR: KIP/anika JOB#: [id number] / [id number]
[2017-09-14 05:59] VITALS: BP 117/74
[2017-09-14] MEDS: PRENATAL MULTIVITAMIN TABLET. PO SCH (08:11)
[2017-09-14] MEDS: LACTOBACILLUS RHAMNOSUS GG 1 CAPSULE. PO SCH ×2 (08:11→19:33)
[2017-09-14] MEDS: hydroCHLOROthiazide 25 MG TABLET PO SCH (08:11)
[2017-09-14] MEDS: VALPROATE ACID 250 MG/5 ML ORAL SOLUTION PO SCH ×2 (08:11→19:30)
[2017-09-14] MEDS: CETIRIZINE HCL 10 MG TABLET PO SCH (08:11)
[2017-09-14] MEDS: CALCIUM CARB/VIT D3 500/200 TABLET PO SCH ×2 (08:11→18:01)
[2017-09-14] MEDS: CARBIDOPA/LEVODOPA 25/100MG TABLET PO SCH ×3 (08:11→19:30)
[2017-09-14] MEDS: DULoxetine HCL 30 MG CAPSULE.DR PO SCH (08:12)
[2017-09-14] MEDS: FLUTICASONE 50MCG/NASAL SPRAY 16GM BOTTLE. NS SCH (08:13)
[2017-09-14] MEDS: AMANTADINE HCL 100 MG CAPSULE PO SCH ×2 (08:13→18:01)
[2017-09-14] MEDS: KETOTIFEN FUMARATE 0.025% OPHT SOLUTION BOTTLE. OU SCH ×2 (08:14→20:50)
[2017-09-14 16:13] VITALS: BP 125/56
--- NOTE | 2017-09-14 16:28 | PN ---
DATE: 09/14/2017 SUBJECTIVE: The patient was seen today, met with the staff, chart reviewed. The patient continues to be delusional. The patient also shows marked psychomotor retardation. The patient has been telling the staff, she is scared because 2 people want to come and kill her. The patient also admits to seeing them and hearing them. The patient also mentioned somebody as she claims the person comes here in different forms. The patient is also tearful and also increased agitation at times. OBSERVATION: VITAL SIGNS: Temperature 98.6, blood pressure 117/74, pulse 65, respirations 18, O2 sat 95%. Slept about 7 hours last night. CURRENT MEDICATIONS: The patient's current medications include Seroquel 75 mg at night, Depakote 375 mg at night and 250 in the morning, Cymbalta 30 mg daily, trazodone 50 mg at night, trazodone 50 mg at night p.r.n. The patient is also on Risperdal Consta 50 mg IM every 2 weeks and also on mirtazapine 25 mg at night. The patient did not have any falls, no major side effects. ASSESSMENT: 1. Bipolar disorder type 1, mixed, with psychotic features. 2. Anxiety disorder, unspecified. 3. Impulse control disorder, unspecified. PLAN: To continue with the treatment. GHISLAINE MCCLOUD MD DR: KIP/anika JOB#: [id number] / [id number]
[2017-09-14] MEDS: ATORVASTATIN CALCIUM 20 MG TABLET PO SCH (19:30)
[2017-09-14] MEDS: QUEtiapine 25 MG TABLET. PO SCH (19:30)
[2017-09-14] MEDS: MIRTAZAPINE 15 MG TABLET PO SCH (19:30)
[2017-09-14] MEDS: traZODone 50 MG TABLET. PO SCH (19:31)
[2017-09-15 05:53] VITALS: BP 118/58
[2017-09-15] MEDS: PRENATAL MULTIVITAMIN TABLET. PO SCH (08:59)
[2017-09-15] MEDS: VALPROATE ACID 250 MG/5 ML ORAL SOLUTION PO SCH ×2 (08:59→19:27)
[2017-09-15] MEDS: CARBIDOPA/LEVODOPA 25/100MG TABLET PO SCH ×3 (08:59→19:28)
[2017-09-15] MEDS: hydroCHLOROthiazide 25 MG TABLET PO SCH (08:59)
[2017-09-15] MEDS: CALCIUM CARB/VIT D3 500/200 TABLET PO SCH ×2 (08:59→16:31)
[2017-09-15] MEDS: CETIRIZINE HCL 10 MG TABLET PO SCH (08:59)
[2017-09-15] MEDS: DULoxetine HCL 30 MG CAPSULE.DR PO SCH (08:59)
[2017-09-15] MEDS: LACTOBACILLUS RHAMNOSUS GG 1 CAPSULE. PO SCH ×2 (08:59→19:29)
[2017-09-15] MEDS: FLUTICASONE 50MCG/NASAL SPRAY 16GM BOTTLE. NS SCH ×2 (09:00→09:42)
[2017-09-15] MEDS: KETOTIFEN FUMARATE 0.025% OPHT SOLUTION BOTTLE. OU SCH (09:00)
[2017-09-15] MEDS: PETROLATUM TP PRN (09:02)
[2017-09-15] MEDS: MINERAL OIL TP PRN (09:02)
[2017-09-15] MEDS: SELENIUM SULFIDE 2.5% SHAMPOO 120ML BOTTLE. TP SCH (09:02)
[2017-09-15] MEDS: AMANTADINE HCL 100 MG CAPSULE PO SCH ×2 (09:41→16:31)
[2017-09-15] MEDS: MAGNESIUM HYDROXIDE 2,400 MG/30 ML ORAL.SUSP. PO PRN (14:10)
[2017-09-15] MEDS ORDERED: KETOTIFEN FUMARATE 0.025% OPHT SOLUTION BOTTLE. OU PRN (14:45)
[2017-09-15] MEDS ORDERED: FLUTICASONE 50MCG/NASAL SPRAY 16GM BOTTLE. NS PRN (14:45)
[2017-09-15 15:54] VITALS: BP 141/64
[2017-09-15] MEDS: QUEtiapine 25 MG TABLET. PO SCH (19:28)
[2017-09-15] MEDS: traZODone 50 MG TABLET. PO SCH (19:29)
[2017-09-15] MEDS: ATORVASTATIN CALCIUM 20 MG TABLET PO SCH (19:29)
[2017-09-15] MEDS: MIRTAZAPINE 15 MG TABLET PO SCH (19:29)
--- NOTE | 2017-09-15 19:55 | PN ---
DATE: 09/15/2017 SUBJECTIVE: The patient was seen today, met with the staff, chart reviewed. The patient continues to show marked psychomotor retardation and constriction of affect. The patient has episodes of psychotic behaviors including delusions that people are going to come to kill her. The patient denies of having any hallucinations today. The patient is withdrawn most of the time. The patient also had a marked disorganization of her thinking. OBSERVATION: VITAL SIGNS: Temperature 96.9, pulse 118/158, pulse 61, respirations 16, O2 sat 97%. Slept about 7 hours last night. The patient's appetite improved. MEDICATIONS: The patient's current medications include Seroquel 75 mg at night, Depakote 375 mg at night, Actos 50 mg in the morning, Cymbalta 30 mg daily, trazodone 50 mg at night, Risperdal Consta 50 mg IM every 2 weeks, mirtazapine 22.5 mg at night. Staff reports no falls. ASSESSMENT: 1. Bipolar disorder type 1, mixed with psychotic features. 2. Anxiety disorder, unspecified. 3. Impulse control disorder, unspecified. PLAN: To continue with the treatment. GHISLAINE MCCLOUD MD DR: KIP/anika JOB#: [id number] / [id number]
[2017-09-16 05:30] VITALS: BP 114/54
[2017-09-16] MEDS: LACTOBACILLUS RHAMNOSUS GG 1 CAPSULE. PO SCH ×2 (07:40→19:39)
[2017-09-16] MEDS: AMANTADINE HCL 100 MG CAPSULE PO SCH ×2 (07:40→18:08)
[2017-09-16] MEDS: CALCIUM CARB/VIT D3 500/200 TABLET PO SCH ×2 (07:40→18:07)
[2017-09-16] MEDS: VALPROATE ACID 250 MG/5 ML ORAL SOLUTION PO SCH ×2 (07:40→19:41)
[2017-09-16] MEDS: PRENATAL MULTIVITAMIN TABLET. PO SCH (07:40)
[2017-09-16] MEDS: CARBIDOPA/LEVODOPA 25/100MG TABLET PO SCH ×3 (07:41→19:39)
[2017-09-16] MEDS: DULoxetine HCL 30 MG CAPSULE.DR PO SCH (07:41)
[2017-09-16] MEDS: hydroCHLOROthiazide 25 MG TABLET PO SCH (07:41)
[2017-09-16] MEDS: CETIRIZINE HCL 10 MG TABLET PO SCH (07:41)
[2017-09-16 16:34] VITALS: BP 111/52
[2017-09-16] MEDS: QUEtiapine 25 MG TABLET. PO SCH (19:38)
[2017-09-16] MEDS: MIRTAZAPINE 15 MG TABLET PO SCH (19:39)
[2017-09-16] MEDS: ATORVASTATIN CALCIUM 20 MG TABLET PO SCH (19:39)
[2017-09-16] MEDS: traZODone 50 MG TABLET. PO SCH (19:39)
--- NOTE | 2017-09-16 21:00 | PDOC ---
Exam Note: Andre Note: Please also refer to the separate dictated note~for this date of service dictated separately.~Patient seen individually. Discussed the patient with Nursing staff reviewed the chart.~Reviewed interim history and current functioning. Reviewed vital signs,~Labs/ Radiology~and current medications noted below. Continue current treatment with the changes noted in the dictated addendum note Assessment: Vital Signs: Vital Signs Date Time Temp Pulse Resp B/P (MAP) Pulse Ox O2 Delivery O2 Flow Rate FiO2 09/16/17 16:34 96.7 72 20 111/52 (71) 98 09/16/17 05:30 Room Air I&O Intake and Output 09/16/17 07:00 Intake Total 1080 ml Balance 1080 ml Intake Oral 1080 ml # Voids 1 Current Medications: Meds: Current Medications Divalproex Sodium (Depakote Er) 500 mg QHS PO Last administered on 08/13/17 19:28; Start 08/11/17 at 21:00; Stop 08/14/17 at 17:41; Status DC Mirtazapine (Remeron) 15 mg QHS PO Last administered on 08/14/17 19:47; Start 08/11/17 at 21:00; Stop 08/15/17 at 15:45; Status DC Risperidone (RisperDAL CONSTA) 37.5 mg Q2WKS IM ; Start 08/20/17 at 09:00; Stop 08/20/17 at 09:00; Status DC Trazodone HCl (Desyrel) 50 mg QHS PO Last administered on 08/23/17 20:07; Start 08/11/17 at 21:00; Stop 08/24/17 at 19:16; Status DC Amantadine HCl (Symmetrel) 100 mg BIDWMEALS PO Last administered on 09/16/17 18:08; Start 08/11/17 at 08:00 Acetaminophen (Tylenol) 650 mg PRN Q4HRS PRN PO Severe Pain/Temp Last administered on 08/28/17 12:02; Start 08/11/17 at 06:45 Atorvastatin Calcium (Lipitor) 20 mg QHS PO Last administered on 09/16/17 19: 39; Start 08/11/17 at 21:00 Bisacodyl (Dulcolax Tab) 10 mg PRN DAILY PRN PO CONSTIPATION Last administered on 09/10/17 11:27; Start 08/11/17 at 06:45 Cetirizine HCl (ZyrTEC) 10 mg DAILY PO Last administered on 09/16/17 07:41; Start 08/11/17 at 09:00 Fluticasone Propionate (Flonase) 2 spray DAILY NS Last administered on 08:13; Start 08/11/17 at 09:00; Stop 09/15/17 at 14:37; Status DC Hydrochlorothiazide (Hydrodiuril) 25 mg DAILY PO Last administered on 07:41; Start 08/11/17 at 09:00 Calcium/Vitamin D (Oscal D 500mg/ 200uts) 1 tab BIDWMEALS PO Last administered on 09/16/17 18:07; Start 08/11/17 at 08:00 Glucosamine Sulfate (Glucosamine) 500 mg BID PO Last administered on 08/26/17 06:22; Start 08/11/17 at 09:00; Stop 08/30/17 at 10:04; Status DC Magnesium Hydroxide (Milk Of Magnesia) 2,400 mg PRN AFTMEALHC PRN PO CONSTIPATION Last administered on 09/15/17 14:10; Start 08/11/17 at 07:45 Multi-Ingred Cream/Lotion/Oil/ Oint (Absorbase) 1 macey PRN BID PRN TP DRY SKIN; Start 08/11/17 at 08:00; Stop 08/11/17 at 21:39; Status DC Non-Formulary Medication 90 ml TIDWMEALS PO ; Start 08/11/17 at 08:00; Stop at 08:00; Status DC Prenat Multivit/ [place]/Iron/Folic Ac (Multivitamin ) 1 tab DAILY PO Last administered on 09/16/17 07:40; Start 08/12/17 at 09:00 Selenium Sulfide (Selsun Blue) 1 macey 3X/WEEK TP Last administered on 09:02; Start 08/14/17 at 09:00 Multi-Ingred Cream/Lotion/Oil/ Oint (Absorbase) 1 macey PRN BID PRN TP DRY SKIN Last administered on 09/15/17 09:02; Start 08/11/17 at 21:39 Divalproex Sodium (Depakote Er) 250 mg QHS PO Last administered on 08/27/17 20 :15; Start 08/14/17 at 21:00; Stop 08/31/17 at 11:46; Status DC Mirtazapine (Remeron) 22.5 mg QHS PO Last administered on 09/16/17 19:39; Start 08/15/17 at 21:00 Risperidone (RisperDAL CONSTA) 50 mg Q2WKS IM Last administered on 08/20/17 07:56; Start 08/20/17 at 09:00; Stop 09/16/17 at 14:34; Status DC Ketotifen Fumarate (Zaditor) 1 drop BID OU Last administered on 09/14/17 08: 14; Start 08/18/17 at 13:30; Stop 09/15/17 at 14:37; Status DC Bupropion HCl (Wellbutrin Xl) 150 mg DAILY PO Last administered on 08/23/17 08 :22; Start 08/22/17 at 09:00; Stop 08/23/17 at 13:11; Status DC Bupropion HCl (Wellbutrin Xl) 300 mg DAILY PO Last administered on 08/28/17 10 :17; Start 08/24/17 at 09:00; Stop 08/28/17 at 14:37; Status DC Trazodone HCl (Desyrel) 50 mg QHS PO Last administered on 09/16/17 19:39; Start 08/24/17 at 21:00 Trazodone HCl (Desyrel) 50 mg PRN QHS PRN PO INSOMNIA, MAY REPEAT X1; Start at 19:15 Duloxetine HCl (Cymbalta) 20 mg DAILY PO Last administered on 08/30/17 08:26; Start 08/29/17 at 09:00; Stop 08/30/17 at 17:17; Status DC Glucosamine Sulfate (Glucosamine) 500 mg BID PO Last administered on 08/31/17 08:42; Start 08/30/17 at 10:00; Stop 08/31/17 at 18:17; Status DC Duloxetine HCl (Cymbalta) 30 mg DAILY PO Last administered on 09/16/17 07:41 ; Start 08/31/17 at 09:00 Divalproex Sodium (Depakote Sprinkles) 250 mg HS PO Last administered on 19:36; Start 08/31/17 at 21:00; Stop 09/02/17 at 18:19; Status DC Carbidopa/Levodopa (Sinemet 25/100) 1 tab TID PO Last administered on 19:39; Start 08/31/17 at 21:00 Divalproex Sodium (Depakote Sprinkles) 375 mg HS PO Last administered on 20:16; Start 09/02/17 at 21:00; Stop 09/10/17 at 07:42; Status DC Amoxicillin (Amoxil) 500 mg [id number] PO Last administered on 09/08/17 13:10; Start 09/03/17 at 15:45; Stop 09/08/17 at 15:44; Status DC Lactobacillus Acidophilus (Bacid, Pham-Bid) 1 tab BID PO Last administered on 09/05/17 20:46; Start 09/03/17 at 21:00; Stop 09/06/17 at 14:36; Status DC Risperidone (RisperDAL CONSTA) 50 mg 1X ONCE IM Last administered on 16:18; Start 09/04/17 at 16:15; Stop 09/04/17 at 16:16; Status DC Lactobacillus Rhamnosus (Culturelle) 1 cap BID PO Last administered on 19:39; Start 09/06/17 at 21:00 Divalproex Sodium (Depakote Sprinkles) 250 mg DAILY PO Last administered on 07:47; Start 09/07/17 at 09:00; Stop 09/09/17 at 18:46; Status DC Quetiapine Fumarate (SEROquel) 25 mg HS PO Last administered on 09/08/17 20: 34; Start 09/07/17 at 21:00; Stop 09/09/17 at 18:44; Status DC Quetiapine Fumarate (SEROquel) 50 mg HS PO Last administered on 09/10/17 20: 15; Start 09/09/17 at 21:00; Stop 09/10/17 at 22:03; Status DC Valproic Acid (Depakene) 250 mg DAILY PO ; Start 09/10/17 at 09:00; Stop 09/10 at 09:00; Status DC Valproic Acid (Depakene) 250 mg DAILY PO Last administered on 09/16/17 07:40 ; Start 09/10/17 at 09:00 Valproic Acid (Depakene) 375 mg QHS PO Last administered on 09/16/17 19:41; Start 09/10/17 at 21:00 Quetiapine Fumarate (SEROquel) 75 mg HS PO Last administered on 09/16/17 19: 38; Start 09/10/17 at 22:15 Fluticasone Propionate (Flonase) 2 spray PRN DAILY PRN NS ALLERGIES; Start at 14:45 Ketotifen Fumarate (Zaditor) 1 drop PRN BID PRN OU ALLERGIES; Start 09/15/17 at 14:45 Risperidone (RisperDAL CONSTA) 50 mg Q2WKS IM ; Start 09/18/17 at 13:00 Active Scripts Active Reported Amantadine (Amantadine Hcl) 100 Mg Tablet 100 Mg PO BIDWMEALS [Med Plus] 90 Ml PO TIDWMEALS Haldol (Haloperidol Lactate) 5 Mg/1 Ml Ampul 5 Mg IM PRN Q8HRS PRN Tylenol (Acetaminophen) 325 Mg Tablet 325 Mg PO PRN Q4HRS PRN Risperdal Consta (Risperidone Microspheres) 37.5 Mg/2 Ml Disp.syrin 37.5 Mg IM Q2WKS Cefuroxime (Cefuroxime Axetil) 500 Mg Tablet 500 Mg PO BID 10 Days Analgesic [place] (Methyl Salicylate/Menthol) 28 Gm Oint...g. 1 Applic TP PRN QID PRN Mag-Al Plus Xs Suspension (Mag Hydrox/Al Hydrox/Simeth) 30 Ml Oral.susp 30 Ml PO PRN AFTMEALHC PRN Fluticasone Propionate Nasal [place] (Fluticasone Propionate) 16 Gm [place].susp 2 [place] NS DAILY Depakote Er (Divalproex Sodium) 500 Mg Tab.er.24h 500 Mg PO QHS Cetirizine Hcl 10 Mg Tablet 10 Mg PO DAILY Acetaminophen 325 Mg Tablet 650 Mg PO PRN Q4HRS PRN Aquaphor Ointment (Mineral Oil/Hydrophil Petrolat) 396 Gm Oint...g. 1 [place] TP PRN BID PRN Bisacodyl 5 Mg Tablet.dr 10 Mg PO PRN DAILY PRN Administer if MOM unsuccessful after 24 hours Milk Of Magnesia (Magnesium Hydroxide) 2,400 Mg/10 Ml Oral.susp 2,400 Mg PO PRN AFTMEALHC PRN Trazodone Hcl 50 Mg Tablet 50 Mg PO QHS Mirtazapine 15 Mg Tablet 15 Mg PO QHS Hydrochlorothiazide Tablet (Hydrochlorothiazide) 25 Mg Tablet 25 Mg PO DAILY Glucosamine Hcl 500 Mg Tablet 500 Mg PO BID Calcium 600+D Plus Minerals Tb (Calcium Carb/Vit D3/Minerals) 1 Each Tablet 1 Tab PO BIDWMEALS Atorvastatin Calcium 20 Mg Tablet 20 Mg PO QHS I have reviewed the current psychotropics carefully including drug interactions. Risk benefit ratio favors no change other than as noted in my dictated progress note. Diagnosis: Problems: (1) Schizophrenia (2) Psychosis (3) Anxiety disorder (4) Impulse control disorder (5) Schizoaffective disorder, chronic condition with acute exacerbation (6) Psychosis, atypical JORDAN AMADOR MD Sep 16, 2017 21:00
[2017-09-17 06:21] VITALS: BP 102/55
[2017-09-17] MEDS: CALCIUM CARB/VIT D3 500/200 TABLET PO SCH ×2 (08:16→16:32)
[2017-09-17] MEDS: CARBIDOPA/LEVODOPA 25/100MG TABLET PO SCH ×3 (08:16→20:08)
[2017-09-17] MEDS: VALPROATE ACID 250 MG/5 ML ORAL SOLUTION PO SCH ×2 (08:16→20:07)
[2017-09-17] MEDS: hydroCHLOROthiazide 25 MG TABLET PO SCH (08:16)
[2017-09-17] MEDS: LACTOBACILLUS RHAMNOSUS GG 1 CAPSULE. PO SCH ×2 (08:17→20:10)
[2017-09-17] MEDS: PRENATAL MULTIVITAMIN TABLET. PO SCH (08:17)
[2017-09-17] MEDS: CETIRIZINE HCL 10 MG TABLET PO SCH (08:17)
[2017-09-17] MEDS: DULoxetine HCL 30 MG CAPSULE.DR PO SCH (08:17)
[2017-09-17] MEDS: AMANTADINE HCL 100 MG CAPSULE PO SCH ×2 (08:19→16:33)
[2017-09-17] MEDS: ACETAMINOPHEN 325 MG TABLET PO PRN (08:19)
[2017-09-17 08:46] LABS: BASO % 0 % (0-3); EOS # 0.1 x10^3/uL (0.0-0.7); EOS % 1 % (0-3); HEMOGLOBIN 13.7 g/dL (12.0-15.5); LYMPH # 1.1 x10^3/uL (1.0-4.8); LYMPH % 15 % (24-48); MEAN CORPUSCULAR HEMOGLOBIN 30 pg (25-35); MEAN CORPUSCULAR HGB CONC 34 g/dL (31-37); MEAN CORPUSCULAR VOLUME 90 fL (79-100); MONO # 0.6 x10^3/uL (0.0-1.1); MONO % 8 % (0-9); NEUT # 5.4 x10^3uL (1.8-7.7); NEUT % 76 % (31-73); PLATELET COUNT 141 x10^3/uL (140-400); RED BLOOD COUNT 4.58 x10^6/uL (3.50-5.40); RED CELL DISTRIBUTION WIDTH 14.4 % (11.5-14.5); WHITE BLOOD COUNT 7.1 x10^3/uL (4.0-11.0)
[2017-09-17 09:07] LABS: ALBUMIN/GLOBULIN RATIO 0.7 (1.0-1.7); ALK PHOS 175 U/L (46-116); ALT (SGPT) 24 U/L (14-59); ANION GAP 8 (6-14); AST (SGOT) 24 U/L (15-37); BLOOD UREA NITROGEN 14 mg/dL (7-20); BUN/CREATININE RATIO 14 (6-20); CARBON DIOXIDE 31 mmol/L (21-32); CHLORIDE 98 mmol/L (98-107); GFR 54.7; GLUCOSE 112 mg/dL (70-99); SODIUM 137 mmol/L (136-145); TOTAL BILIRUBIN 0.4 mg/dL (0.2-1.0); TOTAL PROTEIN 7.4 g/dL (6.4-8.2)
[2017-09-17 09:08] LABS: VAL ACID 38 mcg/mL (50-100)
[2017-09-17 16:00] VITALS: BP 129/76
--- NOTE | 2017-09-17 19:37 | PN ---
DATE: 09/16/2017 This late entry 09/16/2017 covers elements not covered in my initial note of 09/16/2017. SUBJECTIVE: The patient remains somewhat withdrawn, suspicious, but less delusional. Reviewed information with Dr. To. REVIEW OF SYSTEMS: Ambulation impaired. No CV, , pulmonary, eye system symptoms on review. MENTAL STATUS EXAM: Reasonably oriented. Speech is coherent, has some latency. Abstraction fair, computation impaired, language function intact, attention span short. Mood and affect somewhat withdrawn. LABORATORY DATA: Reviewed. IMPRESSION: Unchanged from initial note. PLAN: Continue psychotropics mentioned in my initial note including Seroquel 75 mg at bedtime. Reviewed drug contractions. Risk/benefit ratio favors no further change. MAN Darren AMADOR MD DR: ERIKA/anika JOB#: [id number] / [id number]
--- NOTE | 2017-09-17 19:55 | PDOC ---
Exam Note: Andre Note: Please also refer to the separate dictated note~for this date of service dictated separately.~Patient seen individually. Discussed the patient with Nursing staff reviewed the chart.~Reviewed interim history and current functioning. Reviewed vital signs,~Labs/ Radiology~and current medications noted below. Continue current treatment with the changes noted in the dictated addendum note Assessment: Vital Signs: Vital Signs Date Time Temp Pulse Resp B/P (MAP) Pulse Ox O2 Delivery O2 Flow Rate FiO2 09/17/17 16:00 96.9 67 18 129/76 (93) 100 09/16/17 05:30 Room Air I&O Intake and Output 09/17/17 07:00 Intake Total 660 ml Balance 660 ml Intake Oral 660 ml Labs: Laboratory Tests Test 09/17/17 08:34 White Blood Count 7.1 x10^3/uL (4.0-11.0) Red Blood Count 4.58 x10^6/uL (3.50-5.40) Hemoglobin 13.7 g/dL (12.0-15.5) Hematocrit 41.0 % (36.0-47.0) Mean Corpuscular Volume 90 fL (79-100) Mean Corpuscular Hemoglobin 30 pg (25-35) Mean Corpuscular Hemoglobin Concent 34 g/dL (31-37) Red Cell Distribution Width 14.4 % (11.5-14.5) Platelet Count 141 x10^3/uL (140-400) Neutrophils (%) (Auto) 76 % (31-73) H Lymphocytes (%) (Auto) 15 % (24-48) L Monocytes (%) (Auto) 8 % (0-9) Eosinophils (%) (Auto) 1 % (0-3) Basophils (%) (Auto) 0 % (0-3) Neutrophils # (Auto) 5.4 x10^3uL (1.8-7.7) Lymphocytes # (Auto) 1.1 x10^3/uL (1.0-4.8) Monocytes # (Auto) 0.6 x10^3/uL (0.0-1.1) Eosinophils # (Auto) 0.1 x10^3/uL (0.0-0.7) Basophils # (Auto) 0.0 x10^3/uL (0.0-0.2) Sodium Level 137 mmol/L (136-145) Potassium Level 4.0 mmol/L (3.5-5.1) Chloride Level 98 mmol/L (98-107) Carbon Dioxide Level 31 mmol/L (21-32) Anion Gap 8 (6-14) Blood Urea Nitrogen 14 mg/dL (7-20) Creatinine 1.0 mg/dL (0.6-1.0) Estimated GFR (Cockcroft-Gault) 54.7 BUN/Creatinine Ratio 14 (6-20) Glucose Level 112 mg/dL (70-99) H Calcium Level 9.0 mg/dL (8.5-10.1) Magnesium Level 2.0 mg/dL (1.8-2.4) Total Bilirubin 0.4 mg/dL (0.2-1.0) Aspartate Amino Transferase (AST) 24 U/L (15-37) Alanine Aminotransferase (ALT) 24 U/L (14-59) Alkaline Phosphatase 175 U/L (46-116) H Total Protein 7.4 g/dL (6.4-8.2) Albumin 3.0 g/dL (3.4-5.0) L Albumin/Globulin Ratio 0.7 (1.0-1.7) L Valproic Acid Level 38 mcg/mL (50-100) L Valproic Acid Last Dose Date 09/16/17 Valproic Acid Last Dose Time 2100 Current Medications: Meds: Current Medications Divalproex Sodium (Depakote Er) 500 mg QHS PO Last administered on 08/13/17 19:28; Start 08/11/17 at 21:00; Stop 08/14/17 at 17:41; Status DC Mirtazapine (Remeron) 15 mg QHS PO Last administered on 08/14/17 19:47; Start 08/11/17 at 21:00; Stop 08/15/17 at 15:45; Status DC Risperidone (RisperDAL CONSTA) 37.5 mg Q2WKS IM ; Start 08/20/17 at 09:00; Stop 08/20/17 at 09:00; Status DC Trazodone HCl (Desyrel) 50 mg QHS PO Last administered on 08/23/17 20:07; Start 08/11/17 at 21:00; Stop 08/24/17 at 19:16; Status DC Amantadine HCl (Symmetrel) 100 mg BIDWMEALS PO Last administered on 09/17/17 16:33; Start 08/11/17 at 08:00 Acetaminophen (Tylenol) 650 mg PRN Q4HRS PRN PO Severe Pain/Temp Last administered on 09/17/17 08:19; Start 08/11/17 at 06:45 Atorvastatin Calcium (Lipitor) 20 mg QHS PO Last administered on 09/16/17 19: 39; Start 08/11/17 at 21:00 Bisacodyl (Dulcolax Tab) 10 mg PRN DAILY PRN PO CONSTIPATION Last administered on 09/10/17 11:27; Start 08/11/17 at 06:45 Cetirizine HCl (ZyrTEC) 10 mg DAILY PO Last administered on 09/17/17 08:17; Start 08/11/17 at 09:00 Fluticasone Propionate (Flonase) 2 spray DAILY NS Last administered on 08:13; Start 08/11/17 at 09:00; Stop 09/15/17 at 14:37; Status DC Hydrochlorothiazide (Hydrodiuril) 25 mg DAILY PO Last administered on 08:16; Start 08/11/17 at 09:00 Calcium/Vitamin D (Oscal D 500mg/ 200uts) 1 tab BIDWMEALS PO Last administered on 09/17/17 16:32; Start 08/11/17 at 08:00 Glucosamine Sulfate (Glucosamine) 500 mg BID PO Last administered on 08/26/17 06:22; Start 08/11/17 at 09:00; Stop 08/30/17 at 10:04; Status DC Magnesium Hydroxide (Milk Of Magnesia) 2,400 mg PRN AFTMEALHC PRN PO CONSTIPATION Last administered on 09/15/17 14:10; Start 08/11/17 at 07:45 Multi-Ingred Cream/Lotion/Oil/ Oint (Absorbase) 1 macey PRN BID PRN TP DRY SKIN; Start 08/11/17 at 08:00; Stop 08/11/17 at 21:39; Status DC Non-Formulary Medication 90 ml TIDWMEALS PO ; Start 08/11/17 at 08:00; Stop at 08:00; Status DC Prenat Multivit/ [place]/Iron/Folic Ac (Multivitamin ) 1 tab DAILY PO Last administered on 09/17/17 08:17; Start 08/12/17 at 09:00 Selenium Sulfide (Selsun Blue) 1 macey 3X/WEEK TP Last administered on 09:02; Start 08/14/17 at 09:00 Multi-Ingred Cream/Lotion/Oil/ Oint (Absorbase) 1 macey PRN BID PRN TP DRY SKIN Last administered on 09/15/17 09:02; Start 08/11/17 at 21:39 Divalproex Sodium (Depakote Er) 250 mg QHS PO Last administered on 08/27/17 20 :15; Start 08/14/17 at 21:00; Stop 08/31/17 at 11:46; Status DC Mirtazapine (Remeron) 22.5 mg QHS PO Last administered on 09/16/17 19:39; Start 08/15/17 at 21:00 Risperidone (RisperDAL CONSTA) 50 mg Q2WKS IM Last administered on 08/20/17 07:56; Start 08/20/17 at 09:00; Stop 09/16/17 at 14:34; Status DC Ketotifen Fumarate (Zaditor) 1 drop BID OU Last administered on 09/14/17 08: 14; Start 08/18/17 at 13:30; Stop 09/15/17 at 14:37; Status DC Bupropion HCl (Wellbutrin Xl) 150 mg DAILY PO Last administered on 08/23/17 08 :22; Start 08/22/17 at 09:00; Stop 08/23/17 at 13:11; Status DC Bupropion HCl (Wellbutrin Xl) 300 mg DAILY PO Last administered on 08/28/17 10 :17; Start 08/24/17 at 09:00; Stop 08/28/17 at 14:37; Status DC Trazodone HCl (Desyrel) 50 mg QHS PO Last administered on 09/16/17 19:39; Start 08/24/17 at 21:00 Trazodone HCl (Desyrel) 50 mg PRN QHS PRN PO INSOMNIA, MAY REPEAT X1; Start at 19:15 Duloxetine HCl (Cymbalta) 20 mg DAILY PO Last administered on 08/30/17 08:26; Start 08/29/17 at 09:00; Stop 08/30/17 at 17:17; Status DC Glucosamine Sulfate (Glucosamine) 500 mg BID PO Last administered on 08/31/17 08:42; Start 08/30/17 at 10:00; Stop 08/31/17 at 18:17; Status DC Duloxetine HCl (Cymbalta) 30 mg DAILY PO Last administered on 09/17/17 08:17 ; Start 08/31/17 at 09:00 Divalproex Sodium (Depakote Sprinkles) 250 mg HS PO Last administered on 19:36; Start 08/31/17 at 21:00; Stop 09/02/17 at 18:19; Status DC Carbidopa/Levodopa (Sinemet 25/100) 1 tab TID PO Last administered on 13:36; Start 08/31/17 at 21:00 Divalproex Sodium (Depakote Sprinkles) 375 mg HS PO Last administered on 20:16; Start 09/02/17 at 21:00; Stop 09/10/17 at 07:42; Status DC Amoxicillin (Amoxil) 500 mg [id number] PO Last administered on 09/08/17 13:10; Start 09/03/17 at 15:45; Stop 09/08/17 at 15:44; Status DC Lactobacillus Acidophilus (Bacid, Pham-Bid) 1 tab BID PO Last administered on 09/05/17 20:46; Start 09/03/17 at 21:00; Stop 09/06/17 at 14:36; Status DC Risperidone (RisperDAL CONSTA) 50 mg 1X ONCE IM Last administered on 16:18; Start 09/04/17 at 16:15; Stop 09/04/17 at 16:16; Status DC Lactobacillus Rhamnosus (Culturelle) 1 cap BID PO Last administered on 08:17; Start 09/06/17 at 21:00 Divalproex Sodium (Depakote Sprinkles) 250 mg DAILY PO Last administered on 07:47; Start 09/07/17 at 09:00; Stop 09/09/17 at 18:46; Status DC Quetiapine Fumarate (SEROquel) 25 mg HS PO Last administered on 09/08/17 20: 34; Start 09/07/17 at 21:00; Stop 09/09/17 at 18:44; Status DC Quetiapine Fumarate (SEROquel) 50 mg HS PO Last administered on 09/10/17 20: 15; Start 09/09/17 at 21:00; Stop 09/10/17 at 22:03; Status DC Valproic Acid (Depakene) 250 mg DAILY PO ; Start 09/10/17 at 09:00; Stop 09/10 at 09:00; Status DC Valproic Acid (Depakene) 250 mg DAILY PO Last administered on 09/17/17 08:16 ; Start 09/10/17 at 09:00 Valproic Acid (Depakene) 375 mg QHS PO Last administered on 09/16/17 19:41; Start 09/10/17 at 21:00 Quetiapine Fumarate (SEROquel) 75 mg HS PO Last administered on 09/16/17 19: 38; Start 09/10/17 at 22:15 Fluticasone Propionate (Flonase) 2 spray PRN DAILY PRN NS ALLERGIES; Start at 14:45 Ketotifen Fumarate (Zaditor) 1 drop PRN BID PRN OU ALLERGIES; Start 09/15/17 at 14:45 Risperidone (RisperDAL CONSTA) 50 mg Q2WKS IM ; Start 09/18/17 at 13:00 Active Scripts Active Reported Amantadine (Amantadine Hcl) 100 Mg Tablet 100 Mg PO BIDWMEALS [Med Plus] 90 Ml PO TIDWMEALS Haldol (Haloperidol Lactate) 5 Mg/1 Ml Ampul 5 Mg IM PRN Q8HRS PRN Tylenol (Acetaminophen) 325 Mg Tablet 325 Mg PO PRN Q4HRS PRN Risperdal Consta (Risperidone Microspheres) 37.5 Mg/2 Ml Disp.syrin 37.5 Mg IM Q2WKS Cefuroxime (Cefuroxime Axetil) 500 Mg Tablet 500 Mg PO BID 10 Days Analgesic [place] (Methyl Salicylate/Menthol) 28 Gm Oint...g. 1 Applic TP PRN QID PRN Mag-Al Plus Xs Suspension (Mag Hydrox/Al Hydrox/Simeth) 30 Ml Oral.susp 30 Ml PO PRN AFTMEALHC PRN Fluticasone Propionate Nasal [place] (Fluticasone Propionate) 16 Gm [place].susp 2 [place] NS DAILY Depakote Er (Divalproex Sodium) 500 Mg Tab.er.24h 500 Mg PO QHS Cetirizine Hcl 10 Mg Tablet 10 Mg PO DAILY Acetaminophen 325 Mg Tablet 650 Mg PO PRN Q4HRS PRN Aquaphor Ointment (Mineral Oil/Hydrophil Petrolat) 396 Gm Oint...g. 1 [place] TP PRN BID PRN Bisacodyl 5 Mg Tablet.dr 10 Mg PO PRN DAILY PRN Administer if MOM unsuccessful after 24 hours Milk Of Magnesia (Magnesium Hydroxide) 2,400 Mg/10 Ml Oral.susp 2,400 Mg PO PRN AFTMEALHC PRN Trazodone Hcl 50 Mg Tablet 50 Mg PO QHS Mirtazapine 15 Mg Tablet 15 Mg PO QHS Hydrochlorothiazide Tablet (Hydrochlorothiazide) 25 Mg Tablet 25 Mg PO DAILY Glucosamine Hcl 500 Mg Tablet 500 Mg PO BID Calcium 600+D Plus Minerals Tb (Calcium Carb/Vit D3/Minerals) 1 Each Tablet 1 Tab PO BIDWMEALS Atorvastatin Calcium 20 Mg Tablet 20 Mg PO QHS I have reviewed the current psychotropics carefully including drug interactions. Risk benefit ratio favors no change other than as noted in my dictated progress note. Diagnosis: Problems: (1) Schizophrenia (2) Psychosis (3) Anxiety disorder (4) Impulse control disorder (5) Schizoaffective disorder, chronic condition with acute exacerbation (6) Psychosis, atypical JORDAN AMADOR MD Sep 17, 2017 19:55
[2017-09-17] MEDS: MIRTAZAPINE 15 MG TABLET PO SCH (20:07)
[2017-09-17] MEDS: traZODone 50 MG TABLET. PO SCH (20:08)
[2017-09-17] MEDS: QUEtiapine 25 MG TABLET. PO SCH (20:08)
[2017-09-17] MEDS: ATORVASTATIN CALCIUM 20 MG TABLET PO SCH (20:08)
[2017-09-18 06:19] VITALS: BP 125/66
[2017-09-18] MEDS: CARBIDOPA/LEVODOPA 25/100MG TABLET PO SCH ×3 (08:59→20:07)
[2017-09-18] MEDS: CETIRIZINE HCL 10 MG TABLET PO SCH (08:59)
[2017-09-18] MEDS: CALCIUM CARB/VIT D3 500/200 TABLET PO SCH ×2 (08:59→17:38)
[2017-09-18] MEDS: PRENATAL MULTIVITAMIN TABLET. PO SCH (08:59)
[2017-09-18] MEDS: DULoxetine HCL 30 MG CAPSULE.DR PO SCH (08:59)
[2017-09-18] MEDS: LACTOBACILLUS RHAMNOSUS GG 1 CAPSULE. PO SCH ×2 (08:59→20:06)
[2017-09-18] MEDS: hydroCHLOROthiazide 25 MG TABLET PO SCH (08:59)
[2017-09-18] MEDS: SELENIUM SULFIDE 2.5% SHAMPOO 120ML BOTTLE. TP SCH (09:00)
[2017-09-18] MEDS: VALPROATE ACID 250 MG/5 ML ORAL SOLUTION PO SCH ×2 (09:00→20:07)
[2017-09-18] MEDS: AMANTADINE HCL 100 MG CAPSULE PO SCH ×2 (09:00→17:38)
[2017-09-18] MEDS: ACETAMINOPHEN 325 MG TABLET PO PRN (09:19)
[2017-09-18] MEDS ORDERED: risperiDONE MICROSPHERES 50 MG/2 ML DISP.SYRIN. IM SCH (13:00)
[2017-09-18 15:52] VITALS: BP 133/67
[2017-09-18] MEDS: FUROSEMIDE 20 MG TABLET PO SCH (17:38)
[2017-09-18] MEDS: QUEtiapine 25 MG TABLET. PO SCH (20:07)
[2017-09-18] MEDS: traZODone 50 MG TABLET. PO SCH (20:07)
--- NOTE | 2017-09-18 20:07 | PDOC ---
Exam Note: Andre Note: Please also refer to the separate dictated note~for this date of service dictated separately.~Patient seen individually. Discussed the patient with Nursing staff reviewed the chart.~Reviewed interim history and current functioning. Reviewed vital signs,~Labs/ Radiology~and current medications noted below. Continue current treatment with the changes noted in the dictated addendum note Assessment: Vital Signs: Vital Signs Date Time Temp Pulse Resp B/P (MAP) Pulse Ox O2 Delivery O2 Flow Rate FiO2 09/18/17 15:52 97.3 73 16 133/67 (89) 99 09/16/17 05:30 Room Air I&O Intake and Output 09/18/17 07:00 Intake Total 1160 ml Balance 1160 ml Intake Oral 1160 ml # Voids 1 Current Medications: Meds: Current Medications Divalproex Sodium (Depakote Er) 500 mg QHS PO Last administered on 08/13/17 19:28; Start 08/11/17 at 21:00; Stop 08/14/17 at 17:41; Status DC Mirtazapine (Remeron) 15 mg QHS PO Last administered on 08/14/17 19:47; Start 08/11/17 at 21:00; Stop 08/15/17 at 15:45; Status DC Risperidone (RisperDAL CONSTA) 37.5 mg Q2WKS IM ; Start 08/20/17 at 09:00; Stop 08/20/17 at 09:00; Status DC Trazodone HCl (Desyrel) 50 mg QHS PO Last administered on 08/23/17 20:07; Start 08/11/17 at 21:00; Stop 08/24/17 at 19:16; Status DC Amantadine HCl (Symmetrel) 100 mg BIDWMEALS PO Last administered on 09/18/17 17:38; Start 08/11/17 at 08:00 Acetaminophen (Tylenol) 650 mg PRN Q4HRS PRN PO Severe Pain/Temp Last administered on 09/18/17 09:19; Start 08/11/17 at 06:45 Atorvastatin Calcium (Lipitor) 20 mg QHS PO Last administered on 09/17/17 20: 08; Start 08/11/17 at 21:00 Bisacodyl (Dulcolax Tab) 10 mg PRN DAILY PRN PO CONSTIPATION Last administered on 09/10/17 11:27; Start 08/11/17 at 06:45 Cetirizine HCl (ZyrTEC) 10 mg DAILY PO Last administered on 09/18/17 08:59; Start 08/11/17 at 09:00 Fluticasone Propionate (Flonase) 2 spray DAILY NS Last administered on 08:13; Start 08/11/17 at 09:00; Stop 09/15/17 at 14:37; Status DC Hydrochlorothiazide (Hydrodiuril) 25 mg DAILY PO Last administered on 08:59; Start 08/11/17 at 09:00; Stop 09/18/17 at 14:53; Status DC Calcium/Vitamin D (Oscal D 500mg/ 200uts) 1 tab BIDWMEALS PO Last administered on 09/18/17 17:38; Start 08/11/17 at 08:00 Glucosamine Sulfate (Glucosamine) 500 mg BID PO Last administered on 08/26/17 06:22; Start 08/11/17 at 09:00; Stop 08/30/17 at 10:04; Status DC Magnesium Hydroxide (Milk Of Magnesia) 2,400 mg PRN AFTMEALHC PRN PO CONSTIPATION Last administered on 09/15/17 14:10; Start 08/11/17 at 07:45 Multi-Ingred Cream/Lotion/Oil/ Oint (Absorbase) 1 macey PRN BID PRN TP DRY SKIN; Start 08/11/17 at 08:00; Stop 08/11/17 at 21:39; Status DC Non-Formulary Medication 90 ml TIDWMEALS PO ; Start 08/11/17 at 08:00; Stop at 08:00; Status DC Prenat Multivit/ [employer]/Iron/Folic Ac (Multivitamin ) 1 tab DAILY PO Last administered on 09/18/17 08:59; Start 08/12/17 at 09:00 Selenium Sulfide (Selsun Blue) 1 macey 3X/WEEK TP Last administered on 09:02; Start 08/14/17 at 09:00 Multi-Ingred Cream/Lotion/Oil/ Oint (Absorbase) 1 macey PRN BID PRN TP DRY SKIN Last administered on 09/15/17 09:02; Start 08/11/17 at 21:39 Divalproex Sodium (Depakote Er) 250 mg QHS PO Last administered on 08/27/17 20 :15; Start 08/14/17 at 21:00; Stop 08/31/17 at 11:46; Status DC Mirtazapine (Remeron) 22.5 mg QHS PO Last administered on 09/17/17 20:07; Start 08/15/17 at 21:00 Risperidone (RisperDAL CONSTA) 50 mg Q2WKS IM Last administered on 08/20/17 07:56; Start 08/20/17 at 09:00; Stop 09/16/17 at 14:34; Status DC Ketotifen Fumarate (Zaditor) 1 drop BID OU Last administered on 09/14/17 08: 14; Start 08/18/17 at 13:30; Stop 09/15/17 at 14:37; Status DC Bupropion HCl (Wellbutrin Xl) 150 mg DAILY PO Last administered on 08/23/17 08 :22; Start 08/22/17 at 09:00; Stop 08/23/17 at 13:11; Status DC Bupropion HCl (Wellbutrin Xl) 300 mg DAILY PO Last administered on 08/28/17 10 :17; Start 08/24/17 at 09:00; Stop 08/28/17 at 14:37; Status DC Trazodone HCl (Desyrel) 50 mg QHS PO Last administered on 09/17/17 20:08; Start 08/24/17 at 21:00 Trazodone HCl (Desyrel) 50 mg PRN QHS PRN PO INSOMNIA, MAY REPEAT X1; Start at 19:15 Duloxetine HCl (Cymbalta) 20 mg DAILY PO Last administered on 08/30/17 08:26; Start 08/29/17 at 09:00; Stop 08/30/17 at 17:17; Status DC Glucosamine Sulfate (Glucosamine) 500 mg BID PO Last administered on 08/31/17 08:42; Start 08/30/17 at 10:00; Stop 08/31/17 at 18:17; Status DC Duloxetine HCl (Cymbalta) 30 mg DAILY PO Last administered on 09/18/17 08:59 ; Start 08/31/17 at 09:00 Divalproex Sodium (Depakote Sprinkles) 250 mg HS PO Last administered on 19:36; Start 08/31/17 at 21:00; Stop 09/02/17 at 18:19; Status DC Carbidopa/Levodopa (Sinemet 25/100) 1 tab TID PO Last administered on 14:29; Start 08/31/17 at 21:00 Divalproex Sodium (Depakote Sprinkles) 375 mg HS PO Last administered on 20:16; Start 09/02/17 at 21:00; Stop 09/10/17 at 07:42; Status DC Amoxicillin (Amoxil) 500 mg [id number] PO Last administered on 09/08/17 13:10; Start 09/03/17 at 15:45; Stop 09/08/17 at 15:44; Status DC Lactobacillus Acidophilus (Bacid, Pham-Bid) 1 tab BID PO Last administered on 09/05/17 20:46; Start 09/03/17 at 21:00; Stop 09/06/17 at 14:36; Status DC Risperidone (RisperDAL CONSTA) 50 mg 1X ONCE IM Last administered on 16:18; Start 09/04/17 at 16:15; Stop 09/04/17 at 16:16; Status DC Lactobacillus Rhamnosus (Culturelle) 1 cap BID PO Last administered on 08:59; Start 09/06/17 at 21:00 Divalproex Sodium (Depakote Sprinkles) 250 mg DAILY PO Last administered on 07:47; Start 09/07/17 at 09:00; Stop 09/09/17 at 18:46; Status DC Quetiapine Fumarate (SEROquel) 25 mg HS PO Last administered on 09/08/17 20: 34; Start 09/07/17 at 21:00; Stop 09/09/17 at 18:44; Status DC Quetiapine Fumarate (SEROquel) 50 mg HS PO Last administered on 09/10/17 20: 15; Start 09/09/17 at 21:00; Stop 09/10/17 at 22:03; Status DC Valproic Acid (Depakene) 250 mg DAILY PO ; Start 09/10/17 at 09:00; Stop 09/10 at 09:00; Status DC Valproic Acid (Depakene) 250 mg DAILY PO Last administered on 09/18/17 09:00 ; Start 09/10/17 at 09:00 Valproic Acid (Depakene) 375 mg QHS PO Last administered on 09/17/17 20:07; Start 09/10/17 at 21:00 Quetiapine Fumarate (SEROquel) 75 mg HS PO Last administered on 09/17/17 20: 08; Start 09/10/17 at 22:15 Fluticasone Propionate (Flonase) 2 spray PRN DAILY PRN NS ALLERGIES; Start at 14:45 Ketotifen Fumarate (Zaditor) 1 drop PRN BID PRN OU ALLERGIES; Start 09/15/17 at 14:45 Risperidone (RisperDAL CONSTA) 50 mg Q2WKS IM Last administered on 09/18/17 14:29; Start 09/18/17 at 13:00 Furosemide (Lasix) 20 mg DAILY PO Last administered on 09/18/17 17:38; Start 09/18/17 at 15:00 Active Scripts Active Reported Amantadine (Amantadine Hcl) 100 Mg Tablet 100 Mg PO BIDWMEALS [Med Plus] 90 Ml PO TIDWMEALS Haldol (Haloperidol Lactate) 5 Mg/1 Ml Ampul 5 Mg IM PRN Q8HRS PRN Tylenol (Acetaminophen) 325 Mg Tablet 325 Mg PO PRN Q4HRS PRN Risperdal Consta (Risperidone Microspheres) 37.5 Mg/2 Ml Disp.syrin 37.5 Mg IM Q2WKS Cefuroxime (Cefuroxime Axetil) 500 Mg Tablet 500 Mg PO BID 10 Days Analgesic [place] (Methyl Salicylate/Menthol) 28 Gm Oint...g. 1 Applic TP PRN QID PRN Mag-Al Plus Xs Suspension (Mag Hydrox/Al Hydrox/Simeth) 30 Ml Oral.susp 30 Ml PO PRN AFTMEALHC PRN Fluticasone Propionate Nasal [place] (Fluticasone Propionate) 16 Gm [place].susp 2 [place] NS DAILY Depakote Er (Divalproex Sodium) 500 Mg Tab.er.24h 500 Mg PO QHS Cetirizine Hcl 10 Mg Tablet 10 Mg PO DAILY Acetaminophen 325 Mg Tablet 650 Mg PO PRN Q4HRS PRN Aquaphor Ointment (Mineral Oil/Hydrophil Petrolat) 396 Gm Oint...g. 1 [place] TP PRN BID PRN Bisacodyl 5 Mg Tablet.dr 10 Mg PO PRN DAILY PRN Administer if MOM unsuccessful after 24 hours Milk Of Magnesia (Magnesium Hydroxide) 2,400 Mg/10 Ml Oral.susp 2,400 Mg PO PRN AFTMEALHC PRN Trazodone Hcl 50 Mg Tablet 50 Mg PO QHS Mirtazapine 15 Mg Tablet 15 Mg PO QHS Hydrochlorothiazide Tablet (Hydrochlorothiazide) 25 Mg Tablet 25 Mg PO DAILY Glucosamine Hcl 500 Mg Tablet 500 Mg PO BID Calcium 600+D Plus Minerals Tb (Calcium Carb/Vit D3/Minerals) 1 Each Tablet 1 Tab PO BIDWMEALS Atorvastatin Calcium 20 Mg Tablet 20 Mg PO QHS I have reviewed the current psychotropics carefully including drug interactions. Risk benefit ratio favors no change other than as noted in my dictated progress note. Diagnosis: Problems: (1) Schizophrenia (2) Psychosis (3) Anxiety disorder (4) Impulse control disorder (5) Schizoaffective disorder, chronic condition with acute exacerbation (6) Psychosis, atypical JORDAN AMADOR MD Sep 18, 2017 20:07
[2017-09-18] MEDS: ATORVASTATIN CALCIUM 20 MG TABLET PO SCH (20:08)
[2017-09-18] MEDS: MIRTAZAPINE 15 MG TABLET PO SCH (20:08)
--- NOTE | 2017-09-19 03:40 | PN ---
DATE: 09/17/2017 This late entry for 09/17/2017 covers elements not covered in my initial note of 09/17/2017. SUBJECTIVE: I met with the patient in the evening of 09/17/2017. The patient has been paranoid with her medications, often takes them reluctantly. She was having somewhat of a pseudoseizure in the evening of 09/17/2017 as I initially met with her and then she seemed to settle down fairly quickly. She; however, was convinced that there were "magnets around me changing everything." REVIEW OF SYSTEMS: Ambulation impaired, has still had some tremors consequent to Parkinson's. No CV, , pulmonary, eye, ENT system symptoms on review. MENTAL STATUS EXAM: Reasonably oriented to herself and situation. Speech is coherent, has some latency. Abstraction fair, computation impaired, language function intact, attention span short. Mood and affect still somewhat anxious, labile. LABORATORY DATA: Reviewed. IMPRESSION: Unchanged from initial note. PLAN: Continue current psychotropics. Seroquel was increased and she remains on Risperdal Consta. I do not want to increase the Seroquel any further just yet. Maintain Depakote. Start her on BuSpar 5 mg b.i.d. for anxiety. Adjust further as clinically indicated. JORDAN AMADOR MD DR: ERIKA/anika JOB#: [id number] / [id number]
[2017-09-19 06:12] VITALS: BP 135/57
[2017-09-19] MEDS: CARBIDOPA/LEVODOPA 25/100MG TABLET PO SCH ×3 (08:14→20:05)
[2017-09-19] MEDS: CETIRIZINE HCL 10 MG TABLET PO SCH (08:14)
[2017-09-19] MEDS: LACTOBACILLUS RHAMNOSUS GG 1 CAPSULE. PO SCH ×2 (08:15→20:04)
[2017-09-19] MEDS: CALCIUM CARB/VIT D3 500/200 TABLET PO SCH ×2 (08:15→16:29)
[2017-09-19] MEDS: VALPROATE ACID 250 MG/5 ML ORAL SOLUTION PO SCH ×2 (08:15→20:04)
[2017-09-19] MEDS: DULoxetine HCL 30 MG CAPSULE.DR PO SCH (08:15)
[2017-09-19] MEDS: FUROSEMIDE 20 MG TABLET PO SCH (08:15)
[2017-09-19] MEDS: PRENATAL MULTIVITAMIN TABLET. PO SCH (08:15)
[2017-09-19] MEDS: AMANTADINE HCL 100 MG CAPSULE PO SCH ×2 (08:48→16:29)
[2017-09-19 15:31] VITALS: BP 112/74
--- NOTE | 2017-09-19 20:04 | PDOC ---
Exam Note: Andre Note: Please also refer to the separate dictated note~for this date of service dictated separately.~Patient seen individually. Discussed the patient with Nursing staff reviewed the chart.~Reviewed interim history and current functioning. Reviewed vital signs,~Labs/ Radiology~and current medications noted below. Continue current treatment with the changes noted in the dictated addendum note Assessment: Vital Signs: Vital Signs Date Time Temp Pulse Resp B/P (MAP) Pulse Ox O2 Delivery O2 Flow Rate FiO2 09/19/17 15:31 97.4 62 18 112/74 (87) 99 Room Air I&O Intake and Output 09/19/17 07:00 Intake Total 840 ml Balance 840 ml Intake Oral 840 ml # Voids 2 Current Medications: Meds: Current Medications Divalproex Sodium (Depakote Er) 500 mg QHS PO Last administered on 08/13/17 19:28; Start 08/11/17 at 21:00; Stop 08/14/17 at 17:41; Status DC Mirtazapine (Remeron) 15 mg QHS PO Last administered on 08/14/17 19:47; Start 08/11/17 at 21:00; Stop 08/15/17 at 15:45; Status DC Risperidone (RisperDAL CONSTA) 37.5 mg Q2WKS IM ; Start 08/20/17 at 09:00; Stop 08/20/17 at 09:00; Status DC Trazodone HCl (Desyrel) 50 mg QHS PO Last administered on 08/23/17 20:07; Start 08/11/17 at 21:00; Stop 08/24/17 at 19:16; Status DC Amantadine HCl (Symmetrel) 100 mg BIDWMEALS PO Last administered on 09/19/17 16:29; Start 08/11/17 at 08:00 Acetaminophen (Tylenol) 650 mg PRN Q4HRS PRN PO Severe Pain/Temp Last administered on 09/18/17 09:19; Start 08/11/17 at 06:45 Atorvastatin Calcium (Lipitor) 20 mg QHS PO Last administered on 09/18/17 20: 08; Start 08/11/17 at 21:00 Bisacodyl (Dulcolax Tab) 10 mg PRN DAILY PRN PO CONSTIPATION Last administered on 09/10/17 11:27; Start 08/11/17 at 06:45 Cetirizine HCl (ZyrTEC) 10 mg DAILY PO Last administered on 09/19/17 08:14; Start 08/11/17 at 09:00 Fluticasone Propionate (Flonase) 2 spray DAILY NS Last administered on 08:13; Start 08/11/17 at 09:00; Stop 09/15/17 at 14:37; Status DC Hydrochlorothiazide (Hydrodiuril) 25 mg DAILY PO Last administered on 08:59; Start 08/11/17 at 09:00; Stop 09/18/17 at 14:53; Status DC Calcium/Vitamin D (Oscal D 500mg/ 200uts) 1 tab BIDWMEALS PO Last administered on 09/19/17 16:29; Start 08/11/17 at 08:00 Glucosamine Sulfate (Glucosamine) 500 mg BID PO Last administered on 08/26/17 06:22; Start 08/11/17 at 09:00; Stop 08/30/17 at 10:04; Status DC Magnesium Hydroxide (Milk Of Magnesia) 2,400 mg PRN AFTMEALHC PRN PO CONSTIPATION Last administered on 09/15/17 14:10; Start 08/11/17 at 07:45 Multi-Ingred Cream/Lotion/Oil/ Oint (Absorbase) 1 macey PRN BID PRN TP DRY SKIN; Start 08/11/17 at 08:00; Stop 08/11/17 at 21:39; Status DC Non-Formulary Medication 90 ml TIDWMEALS PO ; Start 08/11/17 at 08:00; Stop at 08:00; Status DC Prenat Multivit/ Digital Advisor/Iron/Folic Ac (Multivitamin ) 1 tab DAILY PO Last administered on 09/19/17 08:15; Start 08/12/17 at 09:00 Selenium Sulfide (Selsun Blue) 1 macey 3X/WEEK TP Last administered on 09:02; Start 08/14/17 at 09:00 Multi-Ingred Cream/Lotion/Oil/ Oint (Absorbase) 1 macey PRN BID PRN TP DRY SKIN Last administered on 09/15/17 09:02; Start 08/11/17 at 21:39 Divalproex Sodium (Depakote Er) 250 mg QHS PO Last administered on 08/27/17 20 :15; Start 08/14/17 at 21:00; Stop 08/31/17 at 11:46; Status DC Mirtazapine (Remeron) 22.5 mg QHS PO Last administered on 09/18/17 20:08; Start 08/15/17 at 21:00 Risperidone (RisperDAL CONSTA) 50 mg Q2WKS IM Last administered on 08/20/17 07:56; Start 08/20/17 at 09:00; Stop 09/16/17 at 14:34; Status DC Ketotifen Fumarate (Zaditor) 1 drop BID OU Last administered on 09/14/17 08: 14; Start 08/18/17 at 13:30; Stop 09/15/17 at 14:37; Status DC Bupropion HCl (Wellbutrin Xl) 150 mg DAILY PO Last administered on 08/23/17 08 :22; Start 08/22/17 at 09:00; Stop 08/23/17 at 13:11; Status DC Bupropion HCl (Wellbutrin Xl) 300 mg DAILY PO Last administered on 08/28/17 10 :17; Start 08/24/17 at 09:00; Stop 08/28/17 at 14:37; Status DC Trazodone HCl (Desyrel) 50 mg QHS PO Last administered on 09/18/17 20:07; Start 08/24/17 at 21:00 Trazodone HCl (Desyrel) 50 mg PRN QHS PRN PO INSOMNIA, MAY REPEAT X1; Start at 19:15 Duloxetine HCl (Cymbalta) 20 mg DAILY PO Last administered on 08/30/17 08:26; Start 08/29/17 at 09:00; Stop 08/30/17 at 17:17; Status DC Glucosamine Sulfate (Glucosamine) 500 mg BID PO Last administered on 08/31/17 08:42; Start 08/30/17 at 10:00; Stop 08/31/17 at 18:17; Status DC Duloxetine HCl (Cymbalta) 30 mg DAILY PO Last administered on 09/19/17 08:15 ; Start 08/31/17 at 09:00 Divalproex Sodium (Depakote Sprinkles) 250 mg HS PO Last administered on 19:36; Start 08/31/17 at 21:00; Stop 09/02/17 at 18:19; Status DC Carbidopa/Levodopa (Sinemet 25/100) 1 tab TID PO Last administered on 13:26; Start 08/31/17 at 21:00 Divalproex Sodium (Depakote Sprinkles) 375 mg HS PO Last administered on 20:16; Start 09/02/17 at 21:00; Stop 09/10/17 at 07:42; Status DC Amoxicillin (Amoxil) 500 mg [id number] PO Last administered on 09/08/17 13:10; Start 09/03/17 at 15:45; Stop 09/08/17 at 15:44; Status DC Lactobacillus Acidophilus (Bacid, Pham-Bid) 1 tab BID PO Last administered on 09/05/17 20:46; Start 09/03/17 at 21:00; Stop 09/06/17 at 14:36; Status DC Risperidone (RisperDAL CONSTA) 50 mg 1X ONCE IM Last administered on 16:18; Start 09/04/17 at 16:15; Stop 09/04/17 at 16:16; Status DC Lactobacillus Rhamnosus (Culturelle) 1 cap BID PO Last administered on 08:15; Start 09/06/17 at 21:00 Divalproex Sodium (Depakote Sprinkles) 250 mg DAILY PO Last administered on 07:47; Start 09/07/17 at 09:00; Stop 09/09/17 at 18:46; Status DC Quetiapine Fumarate (SEROquel) 25 mg HS PO Last administered on 09/08/17 20: 34; Start 09/07/17 at 21:00; Stop 09/09/17 at 18:44; Status DC Quetiapine Fumarate (SEROquel) 50 mg HS PO Last administered on 09/10/17 20: 15; Start 09/09/17 at 21:00; Stop 09/10/17 at 22:03; Status DC Valproic Acid (Depakene) 250 mg DAILY PO ; Start 09/10/17 at 09:00; Stop 09/10 at 09:00; Status DC Valproic Acid (Depakene) 250 mg DAILY PO Last administered on 09/19/17 08:15 ; Start 09/10/17 at 09:00 Valproic Acid (Depakene) 375 mg QHS PO Last administered on 09/18/17 20:07; Start 09/10/17 at 21:00 Quetiapine Fumarate (SEROquel) 75 mg HS PO Last administered on 09/18/17 20: 07; Start 09/10/17 at 22:15 Fluticasone Propionate (Flonase) 2 spray PRN DAILY PRN NS ALLERGIES; Start at 14:45 Ketotifen Fumarate (Zaditor) 1 drop PRN BID PRN OU ALLERGIES; Start 09/15/17 at 14:45 Risperidone (RisperDAL CONSTA) 50 mg Q2WKS IM Last administered on 09/18/17 14:29; Start 09/18/17 at 13:00 Furosemide (Lasix) 20 mg DAILY PO Last administered on 09/19/17 08:15; Start 09/18/17 at 15:00 Buspirone HCl (Buspar) 5 mg [id number] PO ; Start 09/20/17 at 09:00 Active Scripts Active Reported Amantadine (Amantadine Hcl) 100 Mg Tablet 100 Mg PO BIDWMEALS [Med Plus] 90 Ml PO TIDWMEALS Haldol (Haloperidol Lactate) 5 Mg/1 Ml Ampul 5 Mg IM PRN Q8HRS PRN Tylenol (Acetaminophen) 325 Mg Tablet 325 Mg PO PRN Q4HRS PRN Risperdal Consta (Risperidone Microspheres) 37.5 Mg/2 Ml Disp.syrin 37.5 Mg IM Q2WKS Cefuroxime (Cefuroxime Axetil) 500 Mg Tablet 500 Mg PO BID 10 Days Analgesic [place] (Methyl Salicylate/Menthol) 28 Gm Oint...g. 1 Applic TP PRN QID PRN Mag-Al Plus Xs Suspension (Mag Hydrox/Al Hydrox/Simeth) 30 Ml Oral.susp 30 Ml PO PRN AFTMEALHC PRN Fluticasone Propionate Nasal [place] (Fluticasone Propionate) 16 Gm [place].susp 2 [place] NS DAILY Depakote Er (Divalproex Sodium) 500 Mg Tab.er.24h 500 Mg PO QHS Cetirizine Hcl 10 Mg Tablet 10 Mg PO DAILY Acetaminophen 325 Mg Tablet 650 Mg PO PRN Q4HRS PRN Aquaphor Ointment (Mineral Oil/Hydrophil Petrolat) 396 Gm Oint...g. 1 Macey TP PRN BID PRN Bisacodyl 5 Mg Tablet.dr 10 Mg PO PRN DAILY PRN Administer if MOM unsuccessful after 24 hours Milk Of Magnesia (Magnesium Hydroxide) 2,400 Mg/10 Ml Oral.susp 2,400 Mg PO PRN AFTMEALHC PRN Trazodone Hcl 50 Mg Tablet 50 Mg PO QHS Mirtazapine 15 Mg Tablet 15 Mg PO QHS Hydrochlorothiazide Tablet (Hydrochlorothiazide) 25 Mg Tablet 25 Mg PO DAILY Glucosamine Hcl 500 Mg Tablet 500 Mg PO BID Calcium 600+D Plus Minerals Tb (Calcium Carb/Vit D3/Minerals) 1 Each Tablet 1 Tab PO BIDWMEALS Atorvastatin Calcium 20 Mg Tablet 20 Mg PO QHS I have reviewed the current psychotropics carefully including drug interactions. Risk benefit ratio favors no change other than as noted in my dictated progress note. Diagnosis: Problems: (1) Schizophrenia (2) Psychosis (3) Anxiety disorder (4) Impulse control disorder (5) Schizoaffective disorder, chronic condition with acute exacerbation (6) Psychosis, atypical JORDAN AMADOR MD Sep 19, 2017 20:04
[2017-09-19] MEDS: traZODone 50 MG TABLET. PO SCH (20:05)
[2017-09-19] MEDS: QUEtiapine 25 MG TABLET. PO SCH (20:05)
[2017-09-19] MEDS: ATORVASTATIN CALCIUM 20 MG TABLET PO SCH (20:05)
[2017-09-19] MEDS: MIRTAZAPINE 15 MG TABLET PO SCH (20:05)
--- NOTE | 2017-09-20 04:53 | PN ---
DATE: 09/18/2017 This late entry of 09/18 covers the elements not covered in my initial note of 09/18. I met with the patient in the evening of 09/18. The patient is compliant with her medications, somewhat delusional, believes the magnets are causing her to be sick and she is going to have a stroke. She also believes her psychiatrist, Noemi, is trying to sign her out AMA, gets fixated on this and I reoriented her. She is mildly accepting of this. REVIEW OF SYSTEMS: Ambulation impaired, in wheelchair. Has some tremors consequent to Parkinson's. No CV, , pulmonary, eye system symptoms on review. MENTAL STATUS EXAM: Reasonably oriented. Speech coherent, has some latency, often responses monosyllabic. Abstraction fair, computation impaired, language function intact, attention span short. Mood and affect somewhat withdrawn, still depressed, a little labile at times. No suicidal or homicidal ideation. IMPRESSION: Bipolar 1 disorder, mixed with psychotic features; major neurocognitive disorder, early possibly secondary to Parkinson's with delusions, behavioral disturbance; anxiety disorder, unspecified; impulse control disorder, unspecified. PLAN: Continue current psychotropics mentioned in my initial note, may need to increase Seroquel further, but given her Parkinson's, I am wary of doing this unless absolutely needed. MAN Darren AMADOR MD DR: ERIKA/anika JOB#: [id number] / [id number]
[2017-09-20 06:25] VITALS: BP 145/71
[2017-09-20] MEDS: PRENATAL MULTIVITAMIN TABLET. PO SCH (09:40)
[2017-09-20] MEDS: CARBIDOPA/LEVODOPA 25/100MG TABLET PO SCH ×3 (09:41→20:16)
[2017-09-20] MEDS: CALCIUM CARB/VIT D3 500/200 TABLET PO SCH ×2 (09:41→17:47)
[2017-09-20] MEDS: FUROSEMIDE 20 MG TABLET PO SCH (09:41)
[2017-09-20] MEDS: CETIRIZINE HCL 10 MG TABLET PO SCH (09:41)
[2017-09-20] MEDS: LACTOBACILLUS RHAMNOSUS GG 1 CAPSULE. PO SCH ×2 (09:41→20:14)
[2017-09-20] MEDS: VALPROATE ACID 250 MG/5 ML ORAL SOLUTION PO SCH ×2 (09:42→20:15)
[2017-09-20] MEDS: SELENIUM SULFIDE 2.5% SHAMPOO 120ML BOTTLE. TP SCH (09:43)
[2017-09-20] MEDS: AMANTADINE HCL 100 MG CAPSULE PO SCH ×2 (09:45→17:47)
[2017-09-20] MEDS: busPIRone 5 MG TABLET. PO SCH ×2 (09:45→14:52)
[2017-09-20] MEDS: DULoxetine HCL 30 MG CAPSULE.DR PO SCH (09:46)
[2017-09-20 15:31] VITALS: BP 141/91
--- NOTE | 2017-09-20 20:05 | PDOC ---
Exam Note: Andre Note: Please also refer to the separate dictated note~for this date of service dictated separately.~Patient seen individually. Discussed the patient with Nursing staff reviewed the chart.~Reviewed interim history and current functioning. Reviewed vital signs,~Labs/ Radiology~and current medications noted below. Continue current treatment with the changes noted in the dictated addendum note Assessment: Vital Signs: Vital Signs Date Time Temp Pulse Resp B/P (MAP) Pulse Ox O2 Delivery O2 Flow Rate FiO2 09/20/17 15:31 97.5 63 18 141/91 (108) 99 09/19/17 15:31 Room Air I&O Intake and Output 09/20/17 07:00 Intake Total 960 ml Balance 960 ml Intake Oral 960 ml # Voids 2 Current Medications: Meds: Current Medications Divalproex Sodium (Depakote Er) 500 mg QHS PO Last administered on 08/13/17 19:28; Start 08/11/17 at 21:00; Stop 08/14/17 at 17:41; Status DC Mirtazapine (Remeron) 15 mg QHS PO Last administered on 08/14/17 19:47; Start 08/11/17 at 21:00; Stop 08/15/17 at 15:45; Status DC Risperidone (RisperDAL CONSTA) 37.5 mg Q2WKS IM ; Start 08/20/17 at 09:00; Stop 08/20/17 at 09:00; Status DC Trazodone HCl (Desyrel) 50 mg QHS PO Last administered on 08/23/17 20:07; Start 08/11/17 at 21:00; Stop 08/24/17 at 19:16; Status DC Amantadine HCl (Symmetrel) 100 mg BIDWMEALS PO Last administered on 09/20/17 17:47; Start 08/11/17 at 08:00 Acetaminophen (Tylenol) 650 mg PRN Q4HRS PRN PO Severe Pain/Temp Last administered on 09/18/17 09:19; Start 08/11/17 at 06:45 Atorvastatin Calcium (Lipitor) 20 mg QHS PO Last administered on 09/19/17 20: 05; Start 08/11/17 at 21:00 Bisacodyl (Dulcolax Tab) 10 mg PRN DAILY PRN PO CONSTIPATION Last administered on 09/10/17 11:27; Start 08/11/17 at 06:45 Cetirizine HCl (ZyrTEC) 10 mg DAILY PO Last administered on 09/20/17 09:41; Start 08/11/17 at 09:00 Fluticasone Propionate (Flonase) 2 spray DAILY NS Last administered on 08:13; Start 08/11/17 at 09:00; Stop 09/15/17 at 14:37; Status DC Hydrochlorothiazide (Hydrodiuril) 25 mg DAILY PO Last administered on 08:59; Start 08/11/17 at 09:00; Stop 09/18/17 at 14:53; Status DC Calcium/Vitamin D (Oscal D 500mg/ 200uts) 1 tab BIDWMEALS PO Last administered on 09/20/17 17:47; Start 08/11/17 at 08:00 Glucosamine Sulfate (Glucosamine) 500 mg BID PO Last administered on 08/26/17 06:22; Start 08/11/17 at 09:00; Stop 08/30/17 at 10:04; Status DC Magnesium Hydroxide (Milk Of Magnesia) 2,400 mg PRN AFTMEALHC PRN PO CONSTIPATION Last administered on 09/15/17 14:10; Start 08/11/17 at 07:45 Multi-Ingred Cream/Lotion/Oil/ Oint (Absorbase) 1 macey PRN BID PRN TP DRY SKIN; Start 08/11/17 at 08:00; Stop 08/11/17 at 21:39; Status DC Non-Formulary Medication 90 ml TIDWMEALS PO ; Start 08/11/17 at 08:00; Stop at 08:00; Status DC Prenat Multivit/ Hard Candy Batch Mixer/Iron/Folic Ac (Multivitamin ) 1 tab DAILY PO Last administered on 09/20/17 09:40; Start 08/12/17 at 09:00 Selenium Sulfide (Selsun Blue) 1 macey 3X/WEEK TP Last administered on 09:02; Start 08/14/17 at 09:00 Multi-Ingred Cream/Lotion/Oil/ Oint (Absorbase) 1 macey PRN BID PRN TP DRY SKIN Last administered on 09/15/17 09:02; Start 08/11/17 at 21:39 Divalproex Sodium (Depakote Er) 250 mg QHS PO Last administered on 08/27/17 20 :15; Start 08/14/17 at 21:00; Stop 08/31/17 at 11:46; Status DC Mirtazapine (Remeron) 22.5 mg QHS PO Last administered on 09/19/17 20:05; Start 08/15/17 at 21:00 Risperidone (RisperDAL CONSTA) 50 mg Q2WKS IM Last administered on 08/20/17 07:56; Start 08/20/17 at 09:00; Stop 09/16/17 at 14:34; Status DC Ketotifen Fumarate (Zaditor) 1 drop BID OU Last administered on 09/14/17 08: 14; Start 08/18/17 at 13:30; Stop 09/15/17 at 14:37; Status DC Bupropion HCl (Wellbutrin Xl) 150 mg DAILY PO Last administered on 08/23/17 08 :22; Start 08/22/17 at 09:00; Stop 08/23/17 at 13:11; Status DC Bupropion HCl (Wellbutrin Xl) 300 mg DAILY PO Last administered on 08/28/17 10 :17; Start 08/24/17 at 09:00; Stop 08/28/17 at 14:37; Status DC Trazodone HCl (Desyrel) 50 mg QHS PO Last administered on 09/19/17 20:05; Start 08/24/17 at 21:00 Trazodone HCl (Desyrel) 50 mg PRN QHS PRN PO INSOMNIA, MAY REPEAT X1; Start at 19:15 Duloxetine HCl (Cymbalta) 20 mg DAILY PO Last administered on 08/30/17 08:26; Start 08/29/17 at 09:00; Stop 08/30/17 at 17:17; Status DC Glucosamine Sulfate (Glucosamine) 500 mg BID PO Last administered on 08/31/17 08:42; Start 08/30/17 at 10:00; Stop 08/31/17 at 18:17; Status DC Duloxetine HCl (Cymbalta) 30 mg DAILY PO Last administered on 09/20/17 09:46 ; Start 08/31/17 at 09:00 Divalproex Sodium (Depakote Sprinkles) 250 mg HS PO Last administered on 19:36; Start 08/31/17 at 21:00; Stop 09/02/17 at 18:19; Status DC Carbidopa/Levodopa (Sinemet 25/100) 1 tab TID PO Last administered on 14:52; Start 08/31/17 at 21:00 Divalproex Sodium (Depakote Sprinkles) 375 mg HS PO Last administered on 20:16; Start 09/02/17 at 21:00; Stop 09/10/17 at 07:42; Status DC Amoxicillin (Amoxil) 500 mg [id number] PO Last administered on 09/08/17 13:10; Start 09/03/17 at 15:45; Stop 09/08/17 at 15:44; Status DC Lactobacillus Acidophilus (Bacid, Pham-Bid) 1 tab BID PO Last administered on 09/05/17 20:46; Start 09/03/17 at 21:00; Stop 09/06/17 at 14:36; Status DC Risperidone (RisperDAL CONSTA) 50 mg 1X ONCE IM Last administered on 16:18; Start 09/04/17 at 16:15; Stop 09/04/17 at 16:16; Status DC Lactobacillus Rhamnosus (Culturelle) 1 cap BID PO Last administered on 09:41; Start 09/06/17 at 21:00 Divalproex Sodium (Depakote Sprinkles) 250 mg DAILY PO Last administered on 07:47; Start 09/07/17 at 09:00; Stop 09/09/17 at 18:46; Status DC Quetiapine Fumarate (SEROquel) 25 mg HS PO Last administered on 09/08/17 20: 34; Start 09/07/17 at 21:00; Stop 09/09/17 at 18:44; Status DC Quetiapine Fumarate (SEROquel) 50 mg HS PO Last administered on 09/10/17 20: 15; Start 09/09/17 at 21:00; Stop 09/10/17 at 22:03; Status DC Valproic Acid (Depakene) 250 mg DAILY PO ; Start 09/10/17 at 09:00; Stop 09/10 at 09:00; Status DC Valproic Acid (Depakene) 250 mg DAILY PO Last administered on 09/20/17 09:42 ; Start 09/10/17 at 09:00 Valproic Acid (Depakene) 375 mg QHS PO Last administered on 09/19/17 20:04; Start 09/10/17 at 21:00 Quetiapine Fumarate (SEROquel) 75 mg HS PO Last administered on 09/19/17 20: 05; Start 09/10/17 at 22:15 Fluticasone Propionate (Flonase) 2 spray PRN DAILY PRN NS ALLERGIES; Start at 14:45 Ketotifen Fumarate (Zaditor) 1 drop PRN BID PRN OU ALLERGIES; Start 09/15/17 at 14:45 Risperidone (RisperDAL CONSTA) 50 mg Q2WKS IM Last administered on 09/18/17 14:29; Start 09/18/17 at 13:00 Furosemide (Lasix) 20 mg DAILY PO Last administered on 09/20/17 09:41; Start 09/18/17 at 15:00 Buspirone HCl (Buspar) 5 mg [id number] PO Last administered on 09/20/17 14:52; Start 09/20/17 at 09:00 Active Scripts Active Reported Amantadine (Amantadine Hcl) 100 Mg Tablet 100 Mg PO BIDWMEALS [Med Plus] 90 Ml PO TIDWMEALS Haldol (Haloperidol Lactate) 5 Mg/1 Ml Ampul 5 Mg IM PRN Q8HRS PRN Tylenol (Acetaminophen) 325 Mg Tablet 325 Mg PO PRN Q4HRS PRN Risperdal Consta (Risperidone Microspheres) 37.5 Mg/2 Ml Disp.syrin 37.5 Mg IM Q2WKS Cefuroxime (Cefuroxime Axetil) 500 Mg Tablet 500 Mg PO BID 10 Days Analgesic [place] (Methyl Salicylate/Menthol) 28 Gm Oint...g. 1 Applic TP PRN QID PRN Mag-Al Plus Xs Suspension (Mag Hydrox/Al Hydrox/Simeth) 30 Ml Oral.susp 30 Ml PO PRN AFTMEALHC PRN Fluticasone Propionate Nasal [place] (Fluticasone Propionate) 16 Gm [place].susp 2 [place] NS DAILY Depakote Er (Divalproex Sodium) 500 Mg Tab.er.24h 500 Mg PO QHS Cetirizine Hcl 10 Mg Tablet 10 Mg PO DAILY Acetaminophen 325 Mg Tablet 650 Mg PO PRN Q4HRS PRN Aquaphor Ointment (Mineral Oil/Hydrophil Petrolat) 396 Gm Oint...g. 1 Macey TP PRN BID PRN Bisacodyl 5 Mg Tablet.dr 10 Mg PO PRN DAILY PRN Administer if MOM unsuccessful after 24 hours Milk Of Magnesia (Magnesium Hydroxide) 2,400 Mg/10 Ml Oral.susp 2,400 Mg PO PRN AFTMEALHC PRN Trazodone Hcl 50 Mg Tablet 50 Mg PO QHS Mirtazapine 15 Mg Tablet 15 Mg PO QHS Hydrochlorothiazide Tablet (Hydrochlorothiazide) 25 Mg Tablet 25 Mg PO DAILY Glucosamine Hcl 500 Mg Tablet 500 Mg PO BID Calcium 600+D Plus Minerals Tb (Calcium Carb/Vit D3/Minerals) 1 Each Tablet 1 Tab PO BIDWMEALS Atorvastatin Calcium 20 Mg Tablet 20 Mg PO QHS I have reviewed the current psychotropics carefully including drug interactions. Risk benefit ratio favors no change other than as noted in my dictated progress note. Diagnosis: Problems: (1) Schizophrenia (2) Psychosis (3) Anxiety disorder (4) Impulse control disorder (5) Schizoaffective disorder, chronic condition with acute exacerbation (6) Psychosis, atypical JORDAN AMADOR MD Sep 20, 2017 20:05
[2017-09-20] MEDS: ATORVASTATIN CALCIUM 20 MG TABLET PO SCH (20:15)
[2017-09-20] MEDS: MIRTAZAPINE 15 MG TABLET PO SCH (20:15)
[2017-09-20] MEDS: traZODone 50 MG TABLET. PO SCH (20:15)
[2017-09-20] MEDS: QUEtiapine 25 MG TABLET. PO SCH (20:16)
[2017-09-20] MEDS ORDERED: CARB1TAB2 PO (22:59)
[2017-09-20] MEDS ORDERED: DULO30CA43 PO (23:01)
[2017-09-20] MEDS ORDERED: FURO-69 PO (23:04)
[2017-09-20] MEDS ORDERED: KETO5DRO4 OU (23:06)
[2017-09-20] MEDS ORDERED: LACT1CAP21 PO (23:08)
[2017-09-20] MEDS ORDERED: PREN1TAB58 PO (23:13)
[2017-09-20] MEDS ORDERED: QUET25TA5 PO (23:16)
[2017-09-20] MEDS ORDERED: [UNRECOGNIZED DRUG - CODE] TP (23:17)
[2017-09-20] MEDS ORDERED: VALP250S PO ×2 (23:19→23:20)
[2017-09-20] MEDS ORDERED: BUSP5TAB PO (23:22)
[2017-09-20] MEDS ORDERED: TRAZ50TA15 PO (23:23)
[2017-09-21 06:00] VITALS: BP 119/59
[2017-09-21] MEDS: DULoxetine HCL 30 MG CAPSULE.DR PO SCH (08:28)
[2017-09-21] MEDS: PRENATAL MULTIVITAMIN TABLET. PO SCH (08:28)
[2017-09-21] MEDS: CETIRIZINE HCL 10 MG TABLET PO SCH (08:28)
[2017-09-21] MEDS: FUROSEMIDE 20 MG TABLET PO SCH (08:28)
[2017-09-21] MEDS: CALCIUM CARB/VIT D3 500/200 TABLET PO SCH (08:28)
[2017-09-21] MEDS: busPIRone 5 MG TABLET. PO SCH (08:28)
[2017-09-21] MEDS: CARBIDOPA/LEVODOPA 25/100MG TABLET PO SCH (08:28)
[2017-09-21] MEDS: LACTOBACILLUS RHAMNOSUS GG 1 CAPSULE. PO SCH (08:28)
[2017-09-21] MEDS: VALPROATE ACID 250 MG/5 ML ORAL SOLUTION PO SCH (08:29)
[2017-09-21] MEDS: AMANTADINE HCL 100 MG CAPSULE PO SCH (08:30)
--- NOTE | 2017-09-21 10:19 | PN ---
DATE: 09/19/2017 This is a late entry for 09/19/2017 and covers elements not covered in my initial note of 09/19/2017. SUBJECTIVE: The patient was seen individually evening of 09/19/2017. The patient remains somewhat delusional, believes magnets are causing her movements and her psychiatrist, Dr. Sales is coming to discharge her AMA and she does not want to do that. She is more compliant with medications. REVIEW OF SYSTEMS: Ambulation impaired, in wheelchair, some tremors consequent to Parkinson's. No CV, , pulmonary, eye, ENT system symptoms on review. MENTAL STATUS EXAM: Oriented to herself and situation. Speech has moderate latency, often responses monosyllabic. Abstraction fair, computation impaired, language function intact. Mood and affect somewhat withdrawn, but not aggressive, disruptive. LABORATORY DATA: Reviewed. IMPRESSION: Unchanged from initial note. PLAN: Continue current psychotropics, perhaps transition to mcfp in the next day or two. MAN Darren AMADOR MD DR: ERIKA/anika JOB#: [id number] / [id number]
--- NOTE | 2017-09-21 18:36 | PDOC ---
Exam Note: Andre Note: Please also refer to the separate dictated note~for this date of service dictated separately.~Patient seen individually. Discussed the patient with Nursing staff reviewed the chart.~Reviewed interim history and current functioning. Reviewed vital signs,~Labs/ Radiology~and current medications noted below. Continue current treatment with the changes noted in the dictated addendum note Assessment: Vital Signs: Vital Signs Date Time Temp Pulse Resp B/P (MAP) Pulse Ox O2 Delivery O2 Flow Rate FiO2 09/21/17 06:00 98.4 69 16 119/59 (79) 95 09/19/17 15:31 Room Air I&O Intake and Output 09/21/17 07:00 Intake Total 1200 ml Balance 1200 ml Intake Oral 1200 ml Current Medications: Meds: Current Medications Divalproex Sodium (Depakote Er) 500 mg QHS PO Last administered on 08/13/17 19:28; Start 08/11/17 at 21:00; Stop 08/14/17 at 17:41; Status DC Mirtazapine (Remeron) 15 mg QHS PO Last administered on 08/14/17 19:47; Start 08/11/17 at 21:00; Stop 08/15/17 at 15:45; Status DC Risperidone (RisperDAL CONSTA) 37.5 mg Q2WKS IM ; Start 08/20/17 at 09:00; Stop 08/20/17 at 09:00; Status DC Trazodone HCl (Desyrel) 50 mg QHS PO Last administered on 08/23/17 20:07; Start 08/11/17 at 21:00; Stop 08/24/17 at 19:16; Status DC Amantadine HCl (Symmetrel) 100 mg BIDWMEALS PO Last administered on 09/21/17 08:30; Start 08/11/17 at 08:00; Stop 09/21/17 at 10:33; Status DC Acetaminophen (Tylenol) 650 mg PRN Q4HRS PRN PO Severe Pain/Temp Last administered on 09/18/17 09:19; Start 08/11/17 at 06:45; Stop 09/21/17 at 10 :33; Status DC Atorvastatin Calcium (Lipitor) 20 mg QHS PO Last administered on 09/20/17 20: 15; Start 08/11/17 at 21:00; Stop 09/21/17 at 10:33; Status DC Bisacodyl (Dulcolax Tab) 10 mg PRN DAILY PRN PO CONSTIPATION Last administered on 09/10/17 11:27; Start 08/11/17 at 06:45; Stop 09/21/17 at 10:33; Status DC Cetirizine HCl (ZyrTEC) 10 mg DAILY PO Last administered on 09/21/17 08:28; Start 08/11/17 at 09:00; Stop 09/21/17 at 10:33; Status DC Fluticasone Propionate (Flonase) 2 spray DAILY NS Last administered on 08:13; Start 08/11/17 at 09:00; Stop 09/15/17 at 14:37; Status DC Hydrochlorothiazide (Hydrodiuril) 25 mg DAILY PO Last administered on 08:59; Start 08/11/17 at 09:00; Stop 09/18/17 at 14:53; Status DC Calcium/Vitamin D (Oscal D 500mg/ 200uts) 1 tab BIDWMEALS PO Last administered on 09/21/17 08:28; Start 08/11/17 at 08:00; Stop 09/21/17 at 10:33; Status DC Glucosamine Sulfate (Glucosamine) 500 mg BID PO Last administered on 08/26/17 06:22; Start 08/11/17 at 09:00; Stop 08/30/17 at 10:04; Status DC Magnesium Hydroxide (Milk Of Magnesia) 2,400 mg PRN AFTMEALHC PRN PO CONSTIPATION Last administered on 09/15/17 14:10; Start 08/11/17 at 07:45; Stop 09/21/17 at 10:33; Status DC Multi-Ingred Cream/Lotion/Oil/ Oint (Absorbase) 1 macey PRN BID PRN TP DRY SKIN; Start 08/11/17 at 08:00; Stop 08/11/17 at 21:39; Status DC Non-Formulary Medication 90 ml TIDWMEALS PO ; Start 08/11/17 at 08:00; Stop at 08:00; Status DC Prenat Multivit/ [place]/Iron/Folic Ac (Multivitamin ) 1 tab DAILY PO Last administered on 09/21/17 08:28; Start 08/12/17 at 09:00; Stop 09/21/17 at 10:33; Status DC Selenium Sulfide (Selsun Blue) 1 macey 3X/WEEK TP Last administered on 09:02; Start 08/14/17 at 09:00; Stop 09/21/17 at 10:33; Status DC Multi-Ingred Cream/Lotion/Oil/ Oint (Absorbase) 1 macey PRN BID PRN TP DRY SKIN Last administered on 09/15/17 09:02; Start 08/11/17 at 21:39; Stop 09/21/17 at 10:33; Status DC Divalproex Sodium (Depakote Er) 250 mg QHS PO Last administered on 08/27/17 20 :15; Start 08/14/17 at 21:00; Stop 08/31/17 at 11:46; Status DC Mirtazapine (Remeron) 22.5 mg QHS PO Last administered on 09/20/17 20:15; Start 08/15/17 at 21:00; Stop 09/21/17 at 10:33; Status DC Risperidone (RisperDAL CONSTA) 50 mg Q2WKS IM Last administered on 08/20/17 07:56; Start 08/20/17 at 09:00; Stop 09/16/17 at 14:34; Status DC Ketotifen Fumarate (Zaditor) 1 drop BID OU Last administered on 09/14/17 08: 14; Start 08/18/17 at 13:30; Stop 09/15/17 at 14:37; Status DC Bupropion HCl (Wellbutrin Xl) 150 mg DAILY PO Last administered on 08/23/17 08 :22; Start 08/22/17 at 09:00; Stop 08/23/17 at 13:11; Status DC Bupropion HCl (Wellbutrin Xl) 300 mg DAILY PO Last administered on 08/28/17 10 :17; Start 08/24/17 at 09:00; Stop 08/28/17 at 14:37; Status DC Trazodone HCl (Desyrel) 50 mg QHS PO Last administered on 09/20/17 20:15; Start 08/24/17 at 21:00; Stop 09/21/17 at 10:33; Status DC Trazodone HCl (Desyrel) 50 mg PRN QHS PRN PO INSOMNIA, MAY REPEAT X1; Start at 19:15; Stop 09/21/17 at 10:33; Status DC Duloxetine HCl (Cymbalta) 20 mg DAILY PO Last administered on 08/30/17 08:26; Start 08/29/17 at 09:00; Stop 08/30/17 at 17:17; Status DC Glucosamine Sulfate (Glucosamine) 500 mg BID PO Last administered on 08/31/17 08:42; Start 08/30/17 at 10:00; Stop 08/31/17 at 18:17; Status DC Duloxetine HCl (Cymbalta) 30 mg DAILY PO Last administered on 09/21/17 08:28 ; Start 08/31/17 at 09:00; Stop 09/21/17 at 10:33; Status DC Divalproex Sodium (Depakote Sprinkles) 250 mg HS PO Last administered on 19:36; Start 08/31/17 at 21:00; Stop 09/02/17 at 18:19; Status DC Carbidopa/Levodopa (Sinemet 25/100) 1 tab TID PO Last administered on 08:28; Start 08/31/17 at 21:00; Stop 09/21/17 at 10:33; Status DC Divalproex Sodium (Depakote Sprinkles) 375 mg HS PO Last administered on 20:16; Start 09/02/17 at 21:00; Stop 09/10/17 at 07:42; Status DC Amoxicillin (Amoxil) 500 mg [id number] PO Last administered on 09/08/17 13:10; Start 09/03/17 at 15:45; Stop 09/08/17 at 15:44; Status DC Lactobacillus Acidophilus (Bacid, Pham-Bid) 1 tab BID PO Last administered on 09/05/17 20:46; Start 09/03/17 at 21:00; Stop 09/06/17 at 14:36; Status DC Risperidone (RisperDAL CONSTA) 50 mg 1X ONCE IM Last administered on 16:18; Start 09/04/17 at 16:15; Stop 09/04/17 at 16:16; Status DC Lactobacillus Rhamnosus (Culturelle) 1 cap BID PO Last administered on 08:28; Start 09/06/17 at 21:00; Stop 09/21/17 at 10:33; Status DC Divalproex Sodium (Depakote Sprinkles) 250 mg DAILY PO Last administered on 07:47; Start 09/07/17 at 09:00; Stop 09/09/17 at 18:46; Status DC Quetiapine Fumarate (SEROquel) 25 mg HS PO Last administered on 09/08/17 20: 34; Start 09/07/17 at 21:00; Stop 09/09/17 at 18:44; Status DC Quetiapine Fumarate (SEROquel) 50 mg HS PO Last administered on 09/10/17 20: 15; Start 09/09/17 at 21:00; Stop 09/10/17 at 22:03; Status DC Valproic Acid (Depakene) 250 mg DAILY PO ; Start 09/10/17 at 09:00; Stop 09/10 at 09:00; Status DC Valproic Acid (Depakene) 250 mg DAILY PO Last administered on 09/21/17 08:29 ; Start 09/10/17 at 09:00; Stop 09/21/17 at 10:33; Status DC Valproic Acid (Depakene) 375 mg QHS PO Last administered on 09/20/17 20:15; Start 09/10/17 at 21:00; Stop 09/21/17 at 10:33; Status DC Quetiapine Fumarate (SEROquel) 75 mg HS PO Last administered on 09/20/17 20: 16; Start 09/10/17 at 22:15; Stop 09/21/17 at 10:33; Status DC Fluticasone Propionate (Flonase) 2 spray PRN DAILY PRN NS ALLERGIES; Start at 14:45; Stop 09/21/17 at 10:33; Status DC Ketotifen Fumarate (Zaditor) 1 drop PRN BID PRN OU ALLERGIES; Start 09/15/17 at 14:45; Stop 09/21/17 at 10:33; Status DC Risperidone (RisperDAL CONSTA) 50 mg Q2WKS IM Last administered on 09/18/17 14:29; Start 09/18/17 at 13:00; Stop 09/21/17 at 10:33; Status DC Furosemide (Lasix) 20 mg DAILY PO Last administered on 09/21/17 08:28; Start 09/18/17 at 15:00; Stop 09/21/17 at 10:33; Status DC Buspirone HCl (Buspar) 5 mg [id number] PO Last administered on 09/21/17 08:28; Start 09/20/17 at 09:00; Stop 09/21/17 at 10:33; Status DC Active Scripts Active Reported Trazodone Hcl 50 Mg Tablet 50 Mg PO PRN QHS PRN Buspirone Hcl 5 Mg Tablet 5 Mg PO [id number] Depakene (Valproate Sodium) 250 Mg/5 Ml Solution 250 Mg PO DAILY Selsun Blue (Selenium Sulfide) 325 Ml Suspension 1 Macey TP 3X/WEEK Seroquel (Quetiapine Fumarate) 25 Mg Tablet 75 Mg PO QHS Vitamins ( Vits W-Ca,Fe,Fa(<1MG)) 1 Each Tablet 1 Tab PO DAILY Zaditor (Ketotifen Fumarate) 5 Ml Drops 1 Drop OU Lasix (Furosemide) 20 Mg Tablet 20 Mg PO DAILY PRN Duloxetine Hcl 30 Mg Capsule.dr 30 Mg PO DAILY Sinemet 25-100 Mg Tablet (Carbidopa/Levodopa) 1 Each Tablet 1 Tab PO TID Amantadine (Amantadine Hcl) 100 Mg Tablet 100 Mg PO BIDWMEALS Risperdal Consta (Risperidone Microspheres) 37.5 Mg/2 Ml Disp.syrin 50 Mg IM Q2WKS Fluticasone Propionate Nasal [place] (Fluticasone Propionate) 16 Gm [place].susp 2 [place] NS DAILY Cetirizine Hcl 10 Mg Tablet 10 Mg PO DAILY Acetaminophen 325 Mg Tablet 650 Mg PO PRN Q4HRS PRN Aquaphor Ointment (Mineral Oil/Hydrophil Petrolat) 396 Gm Oint...g. 1 Macey TP PRN BID PRN Bisacodyl 5 Mg Tablet.dr 10 Mg PO PRN DAILY PRN Administer if MOM unsuccessful after 24 hours Milk Of Magnesia (Magnesium Hydroxide) 2,400 Mg/10 Ml Oral.susp 2,400 Mg PO PRN AFTMEALHC PRN Trazodone Hcl 50 Mg Tablet 50 Mg PO QHS Mirtazapine 15 Mg Tablet 15 Mg PO QHS Calcium 600+D Plus Minerals Tb (Calcium Carb/Vit D3/Minerals) 1 Each Tablet 1 Tab PO BIDWMEALS Atorvastatin Calcium 20 Mg Tablet 20 Mg PO QHS I have reviewed the current psychotropics carefully including drug interactions. Risk benefit ratio favors no change other than as noted in my dictated progress note. Diagnosis: Problems: (1) Psychosis, atypical (2) Schizoaffective disorder, chronic condition with acute exacerbation (3) Impulse control disorder (4) Anxiety disorder (5) Psychosis (6) Schizophrenia (7) Bipolar disorder, curr episode mixed, severe, with psychotic features JORDAN AMADOR MD Sep 21, 2017 18:36
--- NOTE | 2017-09-22 19:21 | DS ---
DATE OF DISCHARGE: 09/21/2017 This is a late entry for 09/21/2017 and covers elements not covered in my initial note of 09/21/2017. REASON FOR ADMISSION: Please refer to the admission history for details. Briefly, the patient is a 71-year-old female, referred to us from [facility] by her primary care physician on account of worsening symptoms of bipolar disorder, yelling, cursing, refusing medications, delusional about her medication, refusing all her psychotropics for about 2 weeks with worsening psychosis, agitation, anxiety, mood lability within the context of her bipolar disorder and Parkinson's disease. The patient was referred for inpatient psychiatric stabilization. SIGNIFICANT FINDINGS AND CLINICAL COURSE: Following admission, the patient was seen daily individually by myself, followed medically per Dr. Brown/Dr. Frost. She is quite labile in her mood, psychotic, agitated. Adjustments were made in her psychotropics, she seemed to respond to a combination of Risperdal Consta 50 mg IM every 2 weeks on account of her medication noncompliance, Depakene 250 mg a.m., 375 mg at bedtime with a level slightly subtherapeutic at 38, but adequate clinically for her along with trazodone 50 mg at bedtime, may repeat x 1, Remeron 22.5 mg at bedtime, Cymbalta 30 mg a day. The patient was also on Sinemet 25/100 three times a day, Seroquel 75 mg at bedtime, BuSpar 5 mg b.i.d. for anxiety. Gradually, the mood appeared to improve. She was intermittently still somewhat delusional, but overall given her age, condition of Parkinson's, various antipsychotics including 2 atypicals and her Sinemet, it was decided not to make any changes in her antipsychotics or increase them during this hospitalization. In fact, she is on 2 atypical antipsychotics -- Risperdal and Seroquel and starting in about 6 weeks after returning to the custodial, attempt should be made to reduce her Risperdal Consta 50 mg IM every 2 weeks down to 25 mg IM every 2 for 4 weeks and if she tolerates this well, to stop the Risperdal Consta and if needed the Seroquel may need to be adjusted at that stage. This would simplify her regimen of 2 atypicals. REVIEW OF SYSTEMS: Prior to discharge on 09/21/2017, ambulation impaired, had some tremors. No CV, , pulmonary, eye system symptoms on review. MENTAL STATUS EXAM: Oriented to herself and situation. Speech has some latency, coherent, often responses monosyllabic. Abstraction fair, computation impaired. Attention span short. She is somewhat anxious, but better. No suicidal or homicidal ideation prior to discharge. CONDITION AT DISCHARGE: Improved. FINAL DIAGNOSES: Bipolar 1 disorder, mixed with psychotic features, in partial remission; anxiety disorder, unspecified; cognitive disorder, unspecified; Parkinson's disease. Rest of diagnoses unchanged from admission. DISCHARGE MEDICATIONS: Please refer to the MRAD including cross taper off the two atypical antipsychotics as mentioned above. Time for discharge day management is greater than 30 minutes. MAN Darren AMADOR MD DR: ERIKA/anika JOB#: [id number] / [id number]
--- NOTE | 2017-09-23 01:16 | PN ---
DATE: 09/20/2017 This is a late entry 09/20, covers elements not covered in my initial note 09/20. SUBJECTIVE: I met with the patient evening of 09/20. Overall, the patient is compliant with medications, still delusional and as I met with her evening of 09/20, she said "Sudha Hoffman is going to kill her." These appear to be brief statements she makes. Rest of the time, she remains withdrawn, but appropriate. REVIEW OF SYSTEMS: Ambulation impaired, still has some tremors consequent to the Parkinson's. No CV, , pulmonary, eye, ENT system symptoms on review. MENTAL STATUS EXAM: Reasonably oriented. Speech has some latency, often responses monosyllabic. Abstraction fair, computation impaired, language function intact, somewhat delusional, but given her Parkinson's and the 2 atypical antipsychotic she is taking, I do not want to make any further changes in the antipsychotics. No suicidal or homicidal ideation. IMPRESSION: Unchanged from initial note. PLAN: Continue psychotropics mentioned in my initial note with a possible discharge on 09/21. MAN Darren AMADOR MD DR: ERIKA/anika JOB#: [id number] / [id number]
== END 2017-09-21 09:45 | disposition home or self-care (01) | DRG 885 ==
LOC: ER 19:47 → GEROPSY 08-11 00:50
PROVIDERS: ADMIT Psychiatry & Neurology Psychiatry; ATTEND Psychiatry & Neurology Psychiatry
DX: F31.64 Bipolar disorder, current episode mixed, severe, with psychotic features (principal); F01.51 Vascular dementia, unspecified severity, with behavioral disturbance; G20 Parkinson's disease; N39.0 Urinary tract infection, site not specified; F02.81 Dementia in other diseases classified elsewhere, unspecified severity, with behavioral disturbance; E11.9 Type 2 diabetes mellitus without complications; E61.1 Iron deficiency; E78.5 Hyperlipidemia, unspecified; F41.1 Generalized anxiety disorder; F44.5 Conversion disorder with seizures or convulsions; K59.09 Other constipation; F63.9 Impulse disorder, unspecified; I10 Essential (primary) hypertension; R29.6 Repeated falls; Z79.899 Other long term (current) drug therapy; Z87.440 Personal history of urinary (tract) infections; Z91.14 Patient's other noncompliance with medication regimen; Z91.19 Patient's noncompliance with other medical treatment and regimen; Z91.81 History of falling; Z88.8 Allergy status to other drugs, medicaments and biological substances
CPT/HCPCS: 36415; 71010; 80053; 80061; 80164; 80307; 81001; 82306; 82607; 83036; 83540; 83550; 83735; 84436; 84443; 84480; 84484; 85025; 86592; 86593; 87086; 87186; 93005; 95816; J2794; 99285-25; G0479